=== PATIENT | female | born 1955 | race Caucasian/White ===

== ENCOUNTER 2019-06-10 13:37 | Outpatient (RCR) | payer MEDICARE, MEDICAID, SELFPAY ==
[2019-06-10 14:15] VITALS: BP 104/49; PULSE 65; RESP 18; TEMP 36.5; BMI 32.0
--- NOTE | 2019-06-10 17:10 | PCM.WC.HP ---
(1) Venous ulcer of right leg Status: Chronic Current Visit: Yes Code(s): I83.019 - Varicose veins of right lower extremity with ulcer of unspecified site; L97.919 - Non-pressure chronic ulcer of unspecified part of right lower leg with unspecified severity (2) Chronic ulcer of right leg with fat layer exposed Status: Chronic Current Visit: Yes Code(s): L97.912 - Non-pressure chronic ulcer of unspecified part of right lower leg with fat layer exposed (3) Sternal wound dehiscence Status: Chronic Current Visit: Yes Code(s): T81.32XA - Disruption of internal operation (surgical) wound, not elsewhere classified, initial encounter (4) Peripheral arterial disease Status: Chronic Current Visit: Yes Code(s): I73.9 - Peripheral vascular disease, unspecified (5) Type 2 diabetes mellitus Status: Chronic Current Visit: Yes Code(s): E11.9 - Type 2 diabetes mellitus without complications (6) Essential hypertension Status: Chronic Current Visit: No Code(s): I10 - Essential (primary) hypertension (7) Coronary artery disease involving coronary bypass graft Status: Chronic Current Visit: No Code(s): I25.810 - Atherosclerosis of coronary artery bypass graft(s) without angina pectoris (8) CHF (congestive heart failure) Status: Chronic Current Visit: Yes Code(s): I50.9 - Heart failure, unspecified (9) Diastolic dysfunction Status: Chronic Current Visit: No Code(s): I51.89 - Other ill-defined heart diseases (10) End stage renal disease on dialysis Status: Chronic Current Visit: Yes Code(s): N18.6 - End stage renal disease; Z99.2 - Dependence on renal dialysis (11) Dyslipidemia Status: Chronic Current Visit: No Code(s): E78.5 - Hyperlipidemia, unspecified (12) Chronic GERD Status: Chronic Current Visit: No Code(s): K21.9 - Gastro-esophageal reflux disease without esophagitis (13) Hypothyroidism Status: Chronic Current Visit: No Code(s): E03.9 - Hypothyroidism, unspecified (14) Depression Status: Chronic Current Visit: No Code(s): F32.9 - Major depressive disorder, single episode, unspecified (15) Steal syndrome of hand Status: Chronic Current Visit: No Code(s): T82.898A - Other specified complication of vascular prosthetic devices, implants and grafts, initial encounter (16) Anemia of chronic disease Status: Chronic Current Visit: No Code(s): D63.8 - Anemia in other chronic diseases classified elsewhere History of Present Illness Date of Service: 06/10/19 Chief Complaint: wounds on chest and right leg History of Wound: Patient is a pleasant 63-year-old female who [facility], [facility], for initial evaluation of sternal and right lower extremity wounds. She currently resides at [facility]. Patient is a very poor historian, and is unaccompanied at today's visit. The majority of details within patient's HPI were gathered from records faxed from [facility]. Patient has a PMH of T2DM, hypertension, coronary artery disease s/p recent coronary artery bypass graft, CHF, diastolic dysfunction, peripheral arteryerial disease, end-stage renal disease on hemodialysis, dyslipidemia, GERD, hypothyroidism, depression, steal syndrome in right hand, and anemia of chronic disease. She presents with a sternal wound dehiscence, and right lower extremity wound dehiscence s/p quadruple bypass open heart surgery with vein harvesting from right lower extremity, which she underwent in February 2019. Postoperatively, patient was transferred to a shelter. She was readmitted to [facility] due to wound infection at the harvesting site of right leg. She was evaluated by surgery and underwent debridement, and was transferred to the shelter. She was readmitted to [place] again, this time for sternal wound infection which required debridement and subsequent wound VAC placement. She was then transferred to [facility] for further care and IV antibiotic therapy on 05/03/2019. It is unclear from the documentation provided when she was discharged from [facility]. While at [facility], plastic surgery was consulted (Dr. Eva Pelaez). In his progress note from 05/12/2019, it was recommended that Santyl with wet gauze be applied daily to sternal wound, and NPWT at -125 mmHg continuous pressure be applied to RLE and changed 3 times per week. High-protein diet and every 2 hours turns also recommended. In his progress note from 05/19/2019, it was recommended that [employer] WT be applied at -125 mmHg continuous pressure to both external and RLE wounds, to be changed 3 times per week and as needed. High-protein diet and every 2 hours turns continued to be recommended. When patient presented to the wound healing center today, she had OPTifoam applied to her sternal wound, and Aquacel applied to her RLE wounds. She is not using any compression to lower extremities. Patient states the staff at [place] have been performing daily dressing changes to her wounds using Aquacel. She is also taking Boost supplements at bedtime to increase protein. Patient has a central venous catheter placed, but is unsure what antibiotics she is currently taking. She denies any increased redness, swelling, pain, or drainage from any of her wounds. She denies any purulent or foul-smelling drainage from her wounds. She does have erythema and swelling of her right lower extremity, which she states has improved. Her lab work from [facility] on 05/19/2019 shows WBC 7.44 and hemoglobin 9.1 (see report for full details). No other documentation is available at this time. We will request records from [facility], [facility], and [facility]. Past Medical History Past Medical History: Chronic Problems Venous ulcer of right leg (Chronic) Chronic ulcer of right leg with fat layer exposed (Chronic) Sternal wound dehiscence (Chronic) Venous insufficiency (Chronic) Type 2 diabetes mellitus (Chronic) Essential hypertension (Chronic) Coronary artery disease involving coronary bypass graft (Chronic) CHF (congestive heart failure) (Chronic) Diastolic dysfunction (Chronic) Peripheral arterial disease (Chronic) End stage renal disease on dialysis (Chronic) Dyslipidemia (Chronic) Chronic GERD (Chronic) Hypothyroidism (Chronic) Depression (Chronic) Steal syndrome of hand (Chronic) Anemia of chronic disease (Chronic) Surgical History: coronary bypass surgery - February 2019 Allergies/Adverse Reactions: Allergies No Known Allergies Allergy (Verified 06/10/19 14:43) Home Medications: Ambulatory Orders Medication Instructions Recorded Albuterol Sulfate 0.63 mg IH Q6H PRN 06/10/19 Aripiprazole 2 mg PO DAILY 06/10/19 Aspirin [Aspirin EC] 81 mg PO DAILY 06/10/19 Atorvastatin Calcium 40 mg PO QHS 06/10/19 Budesonide [Pulmicort] 0.5 mg IH Q12H 06/10/19 Bumetanide 1 mg PO DAILY 06/10/19 Bupropion HCl 100 mg PO Q12H 06/10/19 Citalopram [Celexa] 40 mg PO DAILY 06/10/19 Clopidogrel Bisulfate [Clopidogrel] 75 mg PO DAILY 06/10/19 Folic Acid/Vit B Complex and C 0.8 mg PO DAILY 06/10/19 [Renal Vitamin Tablet] Insulin Regular, Human [Humulin R] 6 unit SQ TID 06/10/19 Ipratropium/Albuterol Sulfate 3 ml INHALATION Q6H.RT PRN 06/10/19 [Duoneb] Isosorbide Mononitrate [Imdur] 60 mg PO DAILY 06/10/19 Levothyroxine Sodium [Synthroid] 100 mcg PO DAILY 06/10/19 Lisinopril 5 mg PO QHS 06/10/19 Metoprolol Succinate 25 mg PO DAILY 06/10/19 Metoprolol Succinate 75 mg PO DAILY 06/10/19 Mirtazapine [Remeron] 15 mg PO QHS 06/10/19 Oxybutynin Chloride [Oxybutynin 5 mg PO DAILY 06/10/19 Chloride ER] Oxycodone HCl/Acetaminophen 1 ea PO Q6H PRN 06/10/19 [Percocet 5-325 mg Tablet] Pantoprazole Sodium [Protonix] 40 mg PO DAILY 06/10/19 Sodium Chloride 0.65% [Mcbaine Nasal 1 spray NASAL BID 06/10/19 [place]] Lives: Prison Smoking Status: Former smoker Review of Systems Constitutional: Denies: Anorexia, Chills, Fever, Night Sweats, Fatigue Eyes: Denies: Eyelid Inflammation, Redness, Vision Change HEENT: Denies: Ear Pain, Eye Pain, Sinus Congestion, Visual Changes Cardiovascular: Denies: Chest Pain, Palpitations Respiratory: Denies: Cough, Shortness of Breath, Wheezing Gastrointestinal: Denies: Diarrhea, Nausea, Vomiting Genitourinary: Denies: Dysuria, Hematuria Musculoskeletal: Reports: Leg Pain - right leg at kesha-wound area Skin: Reports: Wounds - of sternum and RLE Neurological: Denies: Focal weakness, Tremor, Seizures Psychiatric: Reports: Depression Endocrine: Denies: Heat/ Cold Intolerance, Polydipsia, Polyuria Hematologic/ Lymphatic: Reports: Easy Bruising, Easy Bleeding - Physical Exam Vital Signs Temp Pulse Resp BP 97.7 F L 65 18 104/49 L 06/10/19 14:15 06/10/19 14:15 06/10/19 14:15 06/10/19 14:15 General: Alert, Cooperative, No apparent distress HEENT: Atraumatic, EOMI, Normocephalic Oral: Moist Mucosa Neck: Supple, No JVD, Trachea Midline Lungs: Clear to auscultation, Normal air movement, Diminished - at bilateral bases Cardiovascular: Regular rate, Regular Rhythm Abdomen: Bowel Sounds Present, Soft, Non Tender, Non-Distended Extremities: No clubbing, No cyanosis, Capillary Refill Less than 3 Seconds, No Calf Tenderness, Diminished Peripheral Pulses, Edema - 2+ pitting edema bilateral lower extremities, Tenderness - Tenderness to palpation of bilateral lower extremities, right periwound area > LLE Skin: Ulcer/ Wound - Lower sternotomy dehisced surgical wound, with subcutaneous tissue exposed. Berkley granulation tissue covers approximately 80-90% of wound bed; approximately 10-20% of wound bed and covered with whitish-silva nonviable tissue. Wound bed is moist with small amount of serosanguineous drainage. Does not probe to bone, no tunneling or undermining. No surrounding erythema, swelling, or tenderness. No purulent or foul smelling drainage. Right lower extremity surgical wounds, which have developed into chronic leg ulcers. Right medial superior ulcer with pink granulation tissue covering approximately 50% of wound bed, and moderate to large amount of slough covering approximately 50% of wound bed. There is tunneling present at 1 o'clock. Right medial inferior ulcer present with 100% coverage of wound bed with yellow slough. There is kesha-ulcer erythema and swelling of right lower extremity ulcers, with tenderness to palpation. There is a faint visible outline of surgical pen where redness was previously marked, and redness is greatly improved from those parameters. There is no warmth in right leg greater than left leg. There is no foul-smelling or purulent drainage from ulcers of right lower extremity. Wound Measurements and Assessment WC - Nurse 1 - General Ulcer Measurement Start: 06/10/19 14:15 Freq: Status: Active Protocol: Activity Type Activity Date Activity User E-Sign Co-Sign Detail Recorded Client Recorded Date Recorded By Document 06/10/19 14:15 [facility] [id number] 06/10/19 14:40 BM 06/10/19 14:15 Wound Center Nurse 1 [Ulcer Assessment] #3- LOWER STERNUM -Combined with other wound No -Current Size (cm) - Length 2.3 -Current Size (cm) - Width 2.7 -Current Size (cm) - Depth 1.5 -Total Square Cm 6.21 -Date of Last Picture (Recall this 06/10/19 field) -Photo Taken Yes -Epithelialization None Present -Tunneling No -Undermining/Tunneling No -Circular Undermining No -Exudate Amt Small -Exudate Type Sanguineous -Wound Margin Distinct, Outline Attached -Granulation Amt Large (67-100%) -Granulation Quality Red -Slough/Fibrin Yes -Necrosis Amt Small (1-33%) -Necrotic Tissue Type Adherent Slough -Texture (Kesha-wound Skin Appearance) Assessed, Scarring -Moisture (Kesha-wound Skin Appearance Assessed ) -Color (Kesha-wound Skin Appearance) Assessed -Temperature (Kesha-wound Skin No Abnormality Appearance) (Pt Warm) -Tenderness on Palpation (Kesha-wound Yes Skin Appearance) -Ulcer Cleansing Rinsed/ Irrigated with Saline -Foul Odor after Cleansing No -Anesthetic Used 4% Lidocaine Solution #2- R MEDIAL INFERIOR LE -Combined with other wound No -Current Size (cm) - Length 1.3 -Current Size (cm) - Width 0.9 -Current Size (cm) - Depth 0.2 -Total Square Cm 1.17 -Date of Last Picture (Recall this 06/10/19 field) -Photo Taken Yes -Epithelialization None Present -Tunneling No -Undermining/Tunneling No -Circular Undermining No -Exudate Amt Small -Exudate Type Serosanguineous -Wound Margin Distinct, Outline Attached -Granulation Amt None Present (0 %) -Slough/Fibrin Yes -Necrosis Amt Large (67-100%) -Necrotic Tissue Type Adherent Slough -Texture (Kesha-wound Skin Appearance) Assessed, Scarring -Moisture (Kesha-wound Skin Appearance Assessed ) -Color (Kesha-wound Skin Appearance) Assessed, Erythema -Temperature (Kesha-wound Skin No Abnormality Appearance) (Pt Warm) -Tenderness on Palpation (Kesha-wound No Skin Appearance) -Ulcer Cleansing Rinsed/ Irrigated with Saline -Foul Odor after Cleansing No -Anesthetic Used 4% Lidocaine Solution #1- R MEDIAL LE CLUSTER -Combined with other wound No -Current Size (cm) - Length 10.1 -Current Size (cm) - Width 5 -Current Size (cm) - Depth 1.3 -Total Square Cm 50.5 -Date of Last Picture (Recall this 06/10/19 field) -Photo Taken Yes -Epithelialization None Present -Tunneling Yes -Tunneling Position (O'clock) 1 -Tunneling Distance (cm) 1.8 -Undermining/Tunneling No -Circular Undermining No -Exudate Amt Large -Exudate Type Serosanguineous -Wound Margin Distinct, Outline Attached -Granulation Amt Medium (34-66%) -Granulation Quality Pale,Red -Slough/Fibrin Yes -Necrosis Amt Medium (34-66%) -Necrotic Tissue Type Adherent Slough -Texture (Kesha-wound Skin Appearance) Assessed, Scarring -Moisture (Kesha-wound Skin Appearance Assessed,Dry/ ) Scaly -Color (Kesha-wound Skin Appearance) Assessed, Erythema -Temperature (Kesha-wound Skin No Abnormality Appearance) (Pt Warm) -Tenderness on Palpation (Kesha-wound No Skin Appearance) -Ulcer Cleansing Rinsed/ Irrigated with Saline -Foul Odor after Cleansing No -Anesthetic Used 4% Lidocaine Solution [Edema Assessment] -Lower Limb Edema Present Yes -Right Calf (cm) 38.8 -Right Ankle (cm) 20.8 -Left Calf (cm) 36.8 -Left Ankle (cm) 19.6 WC - Nurse 2 - General Ulcer CM Notes Start: 06/10/19 14:15 Freq: Status: Active Protocol: Activity Type Activity Date Activity User E-Sign Co-Sign Detail Recorded Client Recorded Date Recorded By Document 06/10/19 16:55 DV [id number] 06/10/19 17:01 DV 06/10/19 16:55 Wound Center Nurse 2 [Procedure/Treatment] #3- LOWER STERNUM -Time 16:55 -Correct Patient Yes -Correct Side, Site, Position Yes -Correct Procedure No -Procedure Performed No -Wound/Ulcer Outcome Not Healed #2- R MEDIAL INFERIOR LE -Time 16:56 -Correct Patient Yes -Correct Side, Site, Position Yes -Correct Procedure No -Procedure Performed No -Wound/Ulcer Outcome Not Healed #1- R MEDIAL LE CLUSTER -Time 16:57 -Correct Patient Yes -Correct Side, Site, Position Yes -Correct Procedure Yes -Procedure Performed Yes -Type of Procedure Debridement -Clinical Debridement Subcutaneous -Post Debridement Size (cm) - Length 10.0 -Post Debridement Size (cm) - Width 6.5 -Post Debridement Size (cm) - Depth 0.4 -Total Square Cm 65.00 -Wound/Ulcer Outcome Not Healed -Ulcer Cleansing Rinsed/ Irrigated with Saline -Foul Odor after Cleansing No -Bioengineered Tissue No -Bleeding Controlled with Pressure -Offloading No -Treatment Response Procedure Tolerated Well [See Physician Procedure note for Specifics] Pain Scale: 0-10 Numeric [Pain] -Is Patient Pain Free? Yes Musculoskeletal: Tenderness - To palpation of BLE, R>L Neurological: Cranial nerves II-XII grossly intact Psych/Mental Status: Normal Affect, Anxious Debridement Note Post-Debridement Measurements/Treatment WC - Nurse 2 - General Ulcer CM Notes Start: 06/10/19 14:15 Freq: Status: Active Protocol: Activity Type Activity Date Activity User E-Sign Co-Sign Detail Recorded Client Recorded Date Recorded By Document 06/10/19 16:55 DV [id number] 06/10/19 17:01 DV 06/10/19 16:55 Wound Center Nurse 2 #3- LOWER STERNUM -Time 16:55 -Correct Patient Yes -Correct Side, Site, Position Yes -Correct Procedure No -Procedure Performed No -Wound/Ulcer Outcome Not Healed #2- R MEDIAL INFERIOR LE -Time 16:56 -Correct Patient Yes -Correct Side, Site, Position Yes -Correct Procedure No -Procedure Performed No -Wound/Ulcer Outcome Not Healed #1- R MEDIAL LE CLUSTER -Time 16:57 -Correct Patient Yes -Correct Side, Site, Position Yes -Correct Procedure Yes -Procedure Performed Yes -Type of Procedure Debridement -Clinical Debridement Subcutaneous -Post Debridement Size (cm) - Length 10.0 -Post Debridement Size (cm) - Width 6.5 -Post Debridement Size (cm) - Depth 0.4 -Total Square Cm 65.00 -Wound/Ulcer Outcome Not Healed -Ulcer Cleansing Rinsed/ Irrigated with Saline -Foul Odor after Cleansing No -Bioengineered Tissue No -Bleeding Controlled with Pressure -Offloading No -Treatment Response Procedure Tolerated Well Pain Scale: 0-10 Numeric Is Patient Pain Free? Yes Wound debrided: Lower sternum Laterality: Not Applicable No debridement was completed today - Patient refused - Additional Wound Wound debrided: Right medial inferior LE Laterality: Right Patient tolerated procedure: - - No debridement was performed on this wound today; patient refused - Additional Wound Wound debrided: Right medial LE cluster Laterality: Right Type of Debridement: Excisional debridement Anesthesia Used: 4% Lidocaine Solution, 5% Lidocaine Gel Depth: in the subcutaneous layer Percentage of wound debrided: 100 Instrument Used: 7mm curette Tissue Removed: Slough and devitalized tissue Severity: Fat Layer Exposed Amount of bleeding with debridement: Mild Bleeding Controlled with: Pressure Patient tolerated procedure: Patient did not tolerate procedure well, - - Patient refused further debridement before full, thorough debridement was completed. Moderate amount of slough remains in wound following debridement. Assessment/Plan Active Problems Venous ulcer of right leg (Chronic) Chronic ulcer of right leg with fat layer exposed (Chronic) Sternal wound dehiscence (Chronic) Venous insufficiency (Chronic) Type 2 diabetes mellitus (Chronic) CHF (congestive heart failure) (Chronic) Peripheral arterial disease (Chronic) End stage renal disease on dialysis (Chronic) Assessment: 1. Venous ulcer of right leg, chronic. 2. Chronic ulcer of right leg with fat layer exposed. 3. Sternal wound dehiscence, chronic. 4. Venous insufficiency, chronic. 5. Peripheral arterial disease, chronic. 6. T2 DM, chronic. 7. CHF, chronic. 8. End-stage renal disease on dialysis, chronic Plan: Debridement performed today in clinic as annotated above, prior to patient refusing further debridement. Risks and benefits of debridement discussed thoroughly with patient, and patient offered lidocaine injection, but patient continued to refuse debridement. Medihoney applied to wounds of sternum and right lower extremity. Double Tubigrip applied. At home wound-care instructions: Prescription for Santyl given. Santyl is to be used as directed to lower sternum wound, and inferior ulcer of right lower extremity. Dakin's solution prescribed. Dakin's is to be used to right lower extremity cluster as prescribed. Compression: Double Tubigrip. Off-loading: Avoid prolonged standing or dangling of legs. Keep feet elevated at or above waist level when seated. Diet: Patient encouraged to increase protein and vitamin C intake while taking caution to avoid high carbohydrate and/or sugar intake. Labs/cultures/imaging: Patient refused wound cultures today. Discussed risks and benefits of obtaining wound cultures. Routine baseline labwork ordered. We will request records from [facility], [facility], and [facility]. Follow-up: Follow-up with cardiothoracic surgeon as soon as possible, so they may evaluate lower sternum wound. Return to clinic in 1 week for re-evaluation. Return sooner or report to the emergency room should symptoms worsen, or new symptoms arise. Red flag symptoms reviewed, which should prompt patient to report to the ER, including but not limited to: Increasing pain, redness, or swelling surrounding any of her wounds; increase in drainage from any of her wounds; foul-smelling or purulent drainage from any of her wounds; fever, chills, nausea, or vomiting. Note: [email or web address] speech recognition kit planner software was used to create portions of this document. Sound-alike and misspelled words, as well as other kit planner errors may be contained in the documentation. Code Visit Office Visits / Consults: [id number] OV L4 New [id number]: [id number] Amena subq tissue 20 sq cm/<
--- NOTE | 2019-09-10 13:54 | WC ---
Thu, nurse from [facility] gave report on Nadya regarding her wounds on her left leg. She stated the large wound was bleeding and saturating large abd pads at least 2+ times per day. She also stated that patient is refusing her dialysis treatments which is adding to the bilateral swelling of her lower extremities. It was suggested to Thu to have her admitted to [facility] in [place] and to keep the wound center posted.
== END 2019-06-14 23:59 ==
LOC: WC 13:37
PROVIDERS: Visit Provider Nurse Practitioner Family
DX: I83.018 Varicose veins of right lower extremity with ulcer other part of lower leg (principal); L97.912 Non-pressure chronic ulcer of unspecified part of right lower leg with fat layer exposed; T81.32XA Disruption of internal operation (surgical) wound, not elsewhere classified, initial encounter; T81.49XA Infection following a procedure, other surgical site, initial encounter; T82.898A Other specified complication of vascular prosthetic devices, implants and grafts, initial encounter; Y84.8 Other medical procedures as the cause of abnormal reaction of the patient, or of later complication, without mention of misadventure at the time of the procedure; I87.2 Venous insufficiency (chronic) (peripheral); I73.9 Peripheral vascular disease, unspecified; M79.89 Other specified soft tissue disorders; I25.810 Atherosclerosis of coronary artery bypass graft(s) without angina pectoris; I11.0 Hypertensive heart disease with heart failure; I50.32 Chronic diastolic (congestive) heart failure; E11.22 Type 2 diabetes mellitus with diabetic chronic kidney disease; N18.6 End stage renal disease; D63.1 Anemia in chronic kidney disease; Z99.2 Dependence on renal dialysis; E78.5 Hyperlipidemia, unspecified; E03.9 Hypothyroidism, unspecified; K21.9 Gastro-esophageal reflux disease without esophagitis; F32.9 Major depressive disorder, single episode, unspecified; Z79.4 Long term (current) use of insulin; Z79.82 Long term (current) use of aspirin; Z79.899 Other long term (current) drug therapy; Z87.891 Personal history of nicotine dependence; Z95.1 Presence of aortocoronary bypass graft
CPT/HCPCS: 11042; 11045; 99204; G0463

== ENCOUNTER 2019-07-11 11:30 | Outpatient (RCR) | payer MEDICARE, MEDICAID, SELFPAY ==
[2019-06-15 01:11] VITALS: BP 104/49; PULSE 65; RESP 18; TEMP 36.5
[2019-06-27 09:59] VITALS: BP 151/65; PULSE 80; RESP 18; TEMP 36.2; BMI 32.0
[2019-06-27 17:16] LABS: M R Staph aureus DNA By PCR Negative (Negative); Probe Check PASS; Specimen Processing Control PASS; Staph aureus DNA By PCR NEGATIVE (Negative)
--- NOTE | 2019-06-27 18:12 | PCM.WC.HP ---
(1) Chronic ulcer of right leg with fat layer exposed Status: Chronic Current Visit: Yes Code(s): L97.912 - Non-pressure chronic ulcer of unspecified part of right lower leg with fat layer exposed (2) Anemia of chronic disease Status: Chronic Current Visit: Yes Code(s): D63.8 - Anemia in other chronic diseases classified elsewhere (3) Coronary artery disease involving coronary bypass graft Status: Chronic Current Visit: Yes Qualifiers: [place] vs. transplanted heart: [place] heart Code(s): I25.810 - Atherosclerosis of coronary artery bypass graft(s) without angina pectoris (4) End stage renal disease on dialysis Status: Chronic Current Visit: Yes Code(s): N18.6 - End stage renal disease; Z99.2 - Dependence on renal dialysis (5) Peripheral arterial disease Status: Chronic Current Visit: Yes Code(s): I73.9 - Peripheral vascular disease, unspecified (6) Venous ulcer of right leg Status: Chronic Current Visit: Yes Code(s): I83.019 - Varicose veins of right lower extremity with ulcer of unspecified site; L97.919 - Non-pressure chronic ulcer of unspecified part of right lower leg with unspecified severity (7) Type 2 diabetes mellitus Status: Chronic Current Visit: Yes Qualifiers: Diabetes mellitus halfway insulin use: without halfway use Diabetes mellitus complication status: with kidney complications Diabetes mellitus complication detail: with chronic kidney disease Chronic kidney disease stage: on chronic dialysis Qualified Code(s): E11.22 - Type 2 diabetes mellitus with diabetic chronic kidney disease; N18.6 - End stage renal disease; Z99.2 - Dependence on renal dialysis Code(s): E11.9 - Type 2 diabetes mellitus without complications History of Present Illness Date of Service: 06/29/19 Chief Complaint: open wounds right leg History of Wound: Patient is a pleasant 63-year-old female who [facility], for initial evaluation of sternal and right lower extremity wounds and was seen by Sonia Salazar. She currently resides at [facility]. Patient is a very poor historian, and is unaccompanied at today's visit. The majority of details within patient's HPI were gathered from records faxed from [facility]. Patient has a PMH of T2DM, hypertension, coronary artery disease s/p recent coronary artery bypass graft, CHF, diastolic dysfunction, peripheral arterial disease, end-stage renal disease on hemodialysis, dyslipidemia, GERD, hypothyroidism, depression, steal syndrome in right hand, and anemia of chronic disease. She presents with a sternal wound dehiscence, and right lower extremity wound dehiscence s/p quadruple bypass open heart surgery with vein harvesting from right lower extremity, which she underwent in February 2019. Postoperatively, patient was transferred to a snf. She was readmitted to [facility] due to wound infection at the harvesting site of right leg. She was evaluated by surgery and underwent debridement, and was transferred to the snf. She was readmitted to [facility] again, this time for sternal wound infection which required debridement and subsequent wound VAC placement. She was then transferred to [facility] for further care and IV antibiotic therapy on 05/03/2019. It is unclear from the documentation provided when she was discharged from [facility]. While at [facility], plastic surgery was consulted (Dr. Eva Pelaez). In his progress note from 05/12/2019, it was recommended that Santyl with wet gauze be applied daily to sternal wound, and NPWT at -125 mmHg continuous pressure be applied to RLE and changed 3 times per week. High-protein diet and every 2 hours turns also recommended. In his progress note from 05/19/2019, it was recommended that SOFTWARE [employer]ELOPER WT be applied at -125 mmHg continuous pressure to both sternal and RLE wounds, to be changed 3 times per week and as needed. High-protein diet and every 2 hours turns continued to be recommended. When patient presented to the wound healing center on 06/10/2019, she had OPTifoam applied to her sternal wound, and Aquacel applied to her RLE wounds. She is not using any compression to lower extremities and did not have a wound vac. Patient states the staff at [facility] have been performing daily dressing changes to her wounds using Aquacel. She is also taking Boost supplements at bedtime to increase protein. Patient has a central venous catheter placed, but is unsure what antibiotics she is currently taking. She denies any increased redness, swelling, pain, or drainage from any of her wounds. She denies any purulent or foul-smelling drainage from her wounds. She does have erythema and swelling of her right lower extremity, which she states has improved. Her lab work from [facility] on 05/19/2019 showed WBC 7.44 and hemoglobin 9.1 (see report for full details). No other documentation is available at this time. Records were requested from [facility], [facility], and [facility]. She returned today for follow up. They have been using Santyl and gauze to her lower extremity wound. She saw the surgeon regarding her chest wound and he removed some tissue and she will follow up with him in 1 week at [facility]. She denies any increased pain, erythema, fever or chills. Past Medical History Past Medical History: Chronic Problems Venous ulcer of right leg (Chronic) Chronic ulcer of right leg with fat layer exposed (Chronic) Sternal wound dehiscence (Chronic) Venous insufficiency (Chronic) Type 2 diabetes mellitus (Chronic) Essential hypertension (Chronic) Coronary artery disease involving coronary bypass graft (Chronic) CHF (congestive heart failure) (Chronic) Diastolic dysfunction (Chronic) Peripheral arterial disease (Chronic) End stage renal disease on dialysis (Chronic) Dyslipidemia (Chronic) Chronic GERD (Chronic) Hypothyroidism (Chronic) Depression (Chronic) Steal syndrome of hand (Chronic) Anemia of chronic disease (Chronic) Surgical History: coronary bypass surgery - February 2019 Allergies/Adverse Reactions: Allergies No Known Allergies Allergy (Verified 06/10/19 14:43) Home Medications: Ambulatory Orders Medication Instructions Recorded Albuterol Sulfate 0.63 mg IH Q6H PRN 06/10/19 Aripiprazole 2 mg PO DAILY 06/10/19 Aspirin [Aspirin EC] 81 mg PO DAILY 06/10/19 Atorvastatin Calcium 40 mg PO QHS 06/10/19 Budesonide [Pulmicort] 0.5 mg IH Q12H 06/10/19 Bumetanide 1 mg PO DAILY 06/10/19 Bupropion HCl 100 mg PO Q12H 06/10/19 Citalopram [Celexa] 40 mg PO DAILY 06/10/19 Clopidogrel Bisulfate [Clopidogrel] 75 mg PO DAILY 06/10/19 Folic Acid/Vit B Complex and C 0.8 mg PO DAILY 06/10/19 [Renal Vitamin Tablet] Insulin Regular, Human [Humulin R] 6 unit SQ TID 06/10/19 Ipratropium/Albuterol Sulfate 3 ml INHALATION Q6H.RT PRN 06/10/19 [Duoneb] Isosorbide Mononitrate [Imdur] 60 mg PO DAILY 06/10/19 Levothyroxine Sodium [Synthroid] 100 mcg PO DAILY 06/10/19 Lisinopril 5 mg PO QHS 06/10/19 Metoprolol Succinate 25 mg PO DAILY 06/10/19 Metoprolol Succinate 75 mg PO DAILY 06/10/19 Mirtazapine [Remeron] 15 mg PO QHS 06/10/19 Oxybutynin Chloride [Oxybutynin 5 mg PO DAILY 06/10/19 Chloride ER] Oxycodone HCl/Acetaminophen 1 ea PO Q6H PRN 06/10/19 [Percocet 5-325 mg Tablet] Pantoprazole Sodium [Protonix] 40 mg PO DAILY 06/10/19 Sodium Chloride 0.65% [[place] Nasal 1 spray NASAL BID 06/10/19 [place]] Lives: Care Home Smoking Status: Former smoker Tobacco Use: Non-smoker Alcohol: None Drugs: None Review of Systems Constitutional: Denies: Chills, Fever, Weight Change HEENT: Denies: Difficulty Hearing, Difficulty Swallowing, Sinus Congestion Cardiovascular: Denies: Chest Pain, Palpitations Respiratory: Denies: Cough, Shortness of Breath Gastrointestinal: Denies: Diarrhea, Nausea, Vomiting Genitourinary: Denies: Dysuria, Hematuria Musculoskeletal: Reports: Back Pain, Leg Pain Skin: Reports: Wounds Endocrine: Denies: Heat/ Cold Intolerance, Polydipsia, Polyuria Hematologic/ Lymphatic: Denies: Easy Bruising, Easy Bleeding - Physical Exam Vital Signs Temp Pulse Resp BP 97.1 F L 80 18 151/65 H 06/27/19 09:59 06/27/19 09:59 06/27/19 09:59 06/27/19 09:59 General: Alert, Oriented x3, Cooperative, No apparent distress HEENT: Atraumatic, Normocephalic Oral: Moist Mucosa Lungs: Clear to auscultation Cardiovascular: Regular rate, Regular Rhythm Abdomen: Soft, Non Tender, Bowel Sounds Not Present Extremities: No cyanosis, Capillary Refill Less than 3 Seconds, Diminished Peripheral Pulses, Edema Skin: Ulcer/ Wound Wound Measurements and Assessment WC - Nurse 1 - General Ulcer Measurement Start: 06/27/19 09:59 Freq: Status: Active Protocol: Activity Type Activity Date Activity User E-Sign Co-Sign Detail Recorded Client Recorded Date Recorded By Document 06/27/19 09:59 RB [id number] 06/27/19 10:04 RB 06/27/19 09:59 Wound Center Nurse 1 [Ulcer Assessment] #2 Medial RLE- Inferior -Combined with other wound No -Current Size (cm) - Length 1.3 -Current Size (cm) - Width 0.7 -Current Size (cm) - Depth 0.1 -Total Square Cm 0.91 -Tunneling No -Undermining/Tunneling No -Circular Undermining No -Exudate Amt Small -Exudate Type Serosanguineous -Wound Margin Flat & Intact -Granulation Amt Small (1-33%) -Granulation Quality White -Slough/Fibrin Yes -Necrosis Amt Large (67-100%) -Necrotic Tissue Type Adherent Slough -Structure Exposed N/A -Texture (Nany-wound Skin Appearance) Assessed -Moisture (Nany-wound Skin Appearance Assessed ) -Color (Nany-wound Skin Appearance) Erythema -Temperature (Nany-wound Skin No Abnormality Appearance) (Pt Warm) -Tenderness on Palpation (Nany-wound No Skin Appearance) -Ulcer Cleansing Wound Cleanser -Foul Odor after Cleansing No -Anesthetic Used 4% Lidocaine Solution,5% Lidocaine Gel #1 Medial RLE -Combined with other wound No -Current Size (cm) - Length 7.6 -Current Size (cm) - Width 5.4 -Current Size (cm) - Depth 0.8 -Total Square Cm 41.04 -Tunneling No -Undermining/Tunneling No -Circular Undermining No -Exudate Amt Medium -Exudate Type Serosanguineous -Wound Margin Thickened & Rolled Under -Granulation Amt Medium (34-66%) -Granulation Quality White -Slough/Fibrin Yes -Necrosis Amt Medium (34-66%) -Necrotic Tissue Type Adherent Slough -Structure Exposed N/A -Texture (Nany-wound Skin Appearance) Assessed -Moisture (Nany-wound Skin Appearance Assessed ) -Color (Nany-wound Skin Appearance) Erythema -Temperature (Nany-wound Skin No Abnormality Appearance) (Pt Warm) -Tenderness on Palpation (Nany-wound No Skin Appearance) -Ulcer Cleansing Wound Cleanser -Foul Odor after Cleansing No -Anesthetic Used 4% Lidocaine Solution,5% Lidocaine Gel WC - Nurse 2 - General Ulcer CM Notes Start: 06/27/19 09:59 Freq: Status: Active Protocol: Activity Type Activity Date Activity User E-Sign Co-Sign Detail Recorded Client Recorded Date Recorded By Document 06/27/19 11:09 DV [id number] 06/27/19 11:23 DV 06/27/19 11:09 Wound Center Nurse 2 [Procedure/Treatment] #4 Medial RLE- Superior -Time 11:16 -Correct Patient Yes -Correct Side, Site, Position Yes -Correct Procedure Yes -Procedure Performed Yes -Type of Procedure Debridement -Clinical Debridement Subcutaneous -Post Debridement Size (cm) - Length 0.7 -Post Debridement Size (cm) - Width 0.6 -Post Debridement Size (cm) - Depth 0.5 -Total Square Cm 0.42 -Wound/Ulcer Outcome Not Healed -Ulcer Cleansing Rinsed/ Irrigated with Saline -Foul Odor after Cleansing No -Bioengineered Tissue No -Bleeding Controlled with Pressure -Offloading No -Treatment Response Procedure Tolerated Well #3- LOWER STERNUM -Time 11:10 -Correct Patient Yes -Correct Side, Site, Position Yes -Correct Procedure No -Procedure Performed No -Post Debridement Size (cm) - Length 0 -Post Debridement Size (cm) - Width 0 -Post Debridement Size (cm) - Depth 0 -Total Square Cm 0 -Wound/Ulcer Outcome Converted #2 Medial RLE- Inferior -Time 11:12 -Correct Patient Yes -Correct Side, Site, Position Yes -Correct Procedure Yes -Procedure Performed Yes -Type of Procedure Debridement -Clinical Debridement Subcutaneous -Post Debridement Size (cm) - Length 1.3 -Post Debridement Size (cm) - Width 0.8 -Post Debridement Size (cm) - Depth 0.2 -Total Square Cm 1.04 -Wound/Ulcer Outcome Not Healed -Ulcer Cleansing Rinsed/ Irrigated with Saline -Foul Odor after Cleansing No -Bioengineered Tissue No -Bleeding Controlled with Pressure -Offloading No -Treatment Response Procedure Tolerated Well #1 Medial RLE -Time 11:14 -Correct Patient Yes -Correct Side, Site, Position Yes -Correct Procedure Yes -Procedure Performed Yes -Type of Procedure Debridement -Clinical Debridement Subcutaneous -Post Debridement Size (cm) - Length 8.5 -Post Debridement Size (cm) - Width 5.0 -Post Debridement Size (cm) - Depth 0.7 -Total Square Cm 42.50 -Wound/Ulcer Outcome Not Healed -Foul Odor after Cleansing No -Bioengineered Tissue No -Bleeding Controlled with Pressure -Offloading No -Treatment Response Procedure Tolerated Well [See Physician Procedure note for Specifics] Pain Scale: 0-10 Numeric [Pain] -Is Patient Pain Free? Yes Psych/Mental Status: Normal Affect, Appropriate Debridement Note Post-Debridement Measurements/Treatment WC - Nurse 2 - General Ulcer CM Notes Start: 06/27/19 09:59 Freq: Status: Active Protocol: Activity Type Activity Date Activity User E-Sign Co-Sign Detail Recorded Client Recorded Date Recorded By Document 06/27/19 11:09 DV [id number] 06/27/19 11:23 DV 06/27/19 11:09 Wound Center Nurse 2 #4 Medial RLE- Superior -Time 11:16 -Correct Patient Yes -Correct Side, Site, Position Yes -Correct Procedure Yes -Procedure Performed Yes -Type of Procedure Debridement -Clinical Debridement Subcutaneous -Post Debridement Size (cm) - Length 0.7 -Post Debridement Size (cm) - Width 0.6 -Post Debridement Size (cm) - Depth 0.5 -Total Square Cm 0.42 -Wound/Ulcer Outcome Not Healed -Ulcer Cleansing Rinsed/ Irrigated with Saline -Foul Odor after Cleansing No -Bioengineered Tissue No -Bleeding Controlled with Pressure -Offloading No -Treatment Response Procedure Tolerated Well #3- LOWER STERNUM -Time 11:10 -Correct Patient Yes -Correct Side, Site, Position Yes -Correct Procedure No -Procedure Performed No -Post Debridement Size (cm) - Length 0 -Post Debridement Size (cm) - Width 0 -Post Debridement Size (cm) - Depth 0 -Total Square Cm 0 -Wound/Ulcer Outcome Converted #2 Medial RLE- Inferior -Time 11:12 -Correct Patient Yes -Correct Side, Site, Position Yes -Correct Procedure Yes -Procedure Performed Yes -Type of Procedure Debridement -Clinical Debridement Subcutaneous -Post Debridement Size (cm) - Length 1.3 -Post Debridement Size (cm) - Width 0.8 -Post Debridement Size (cm) - Depth 0.2 -Total Square Cm 1.04 -Wound/Ulcer Outcome Not Healed -Ulcer Cleansing Rinsed/ Irrigated with Saline -Foul Odor after Cleansing No -Bioengineered Tissue No -Bleeding Controlled with Pressure -Offloading No -Treatment Response Procedure Tolerated Well #1 Medial RLE -Time 11:14 -Correct Patient Yes -Correct Side, Site, Position Yes -Correct Procedure Yes -Procedure Performed Yes -Type of Procedure Debridement -Clinical Debridement Subcutaneous -Post Debridement Size (cm) - Length 8.5 -Post Debridement Size (cm) - Width 5.0 -Post Debridement Size (cm) - Depth 0.7 -Total Square Cm 42.50 -Wound/Ulcer Outcome Not Healed -Foul Odor after Cleansing No -Bioengineered Tissue No -Bleeding Controlled with Pressure -Offloading No -Treatment Response Procedure Tolerated Well Pain Scale: 0-10 Numeric Is Patient Pain Free? Yes Wound debrided: lower sternum Laterality: Not Applicable No debridement was completed today - Care of this wound by cardiothoracic surgeon in [place] - Additional Wound Wound debrided: right medial LE superior Laterality: Right Type of Debridement: Excisional debridement Anesthesia Used: 4% Lidocaine Solution, 5% Lidocaine Gel Depth: Down to and including healthy tissue, in the subcutaneous layer, to muscle Percentage of wound debrided: 100 Instrument Used: 5mm curette Tissue Removed: yellow slough, devitalized tissue Severity: Fat Layer Exposed Amount of bleeding with debridement: Mild Bleeding Controlled with: Compression and gauze Patient tolerated procedure: Patient tolerated procedure well - Additional Wound Wound debrided: medial RLE Laterality: Right Type of Debridement: Excisional debridement Anesthesia Used: 4% Lidocaine Solution, 5% Lidocaine Gel Depth: Down to and including healthy tissue, in the subcutaneous layer, to muscle Percentage of wound debrided: 100 Instrument Used: 5mm curette Tissue Removed: yellow slough, devitalized tissue Severity: Fat Layer Exposed Amount of bleeding with debridement: Mild Bleeding Controlled with: Compression and gauze Patient tolerated procedure: Patient tolerated procedure well - Additional Wound Wound debrided: right medial LE inferior Laterality: Right Type of Debridement: Excisional debridement Anesthesia Used: 4% Lidocaine Solution, 5% Lidocaine Gel Depth: Down to and including healthy tissue, in the subcutaneous layer Percentage of wound debrided: 100 Instrument Used: 5mm curette Tissue Removed: yellow slough, devitalized tissue Severity: Fat Layer Exposed Amount of bleeding with debridement: Mild Bleeding Controlled with: Compression and gauze Patient tolerated procedure: Patient tolerated procedure well Assessment/Plan Active Problems Venous ulcer of right leg (Chronic) Chronic ulcer of right leg with fat layer exposed (Chronic) Type 2 diabetes mellitus (Chronic) Coronary artery disease involving coronary bypass graft (Chronic) Peripheral arterial disease (Chronic) End stage renal disease on dialysis (Chronic) Anemia of chronic disease (Chronic) Assessment: 1. Venous ulcer of right leg, chronic. 2. Chronic ulcer of right leg with fat layer exposed. 3. Sternal wound dehiscence, chronic. 4. Venous insufficiency, chronic. 5. Peripheral arterial disease, chronic. 6. T2 DM, chronic. 7. CHF, chronic. 8. End-stage renal disease on dialysis, chronic Plan: Sanjeev's right lower extremity wounds were evaluated and debrided today as above. A wound culture was taken to evaluate for infection of her right lower extremity wound. Previous records were reviewed. Treatment with antibiotics will be based on culture results. Due to the depth of the wound of her right leg and the heavy amount of drainage from the wound, I recommended wound vac treatment at 125 mm Hg. Until wound vac is obtained from [facility], she will continue to use Santyl and Aquacel to her right lower extremity with ABD. Tubigrips for compression of her LE b/l. Off-loading: Avoid prolonged standing or dangling of legs. Keep feet elevated at or above waist level when seated. Diet: Patient encouraged to increase protein and vitamin C intake while taking caution to avoid high carbohydrate and/or sugar intake. Follow-up: Follow-up with cardiothoracic surgeon as scheduled and return to wound center clinic in 1 week for re-evaluation. Return sooner or report to the emergency room should symptoms worsen, or new symptoms arise. Red flag symptoms reviewed, which should prompt patient to report to the ER, including but not limited to: Increasing pain, redness, or swelling surrounding any of her wounds; increase in drainage from any of her wounds; foul-smelling or purulent drainage from any of her wounds; fever, chills, nausea, or vomiting.
--- NOTE | 2019-06-30 08:41 | WC ---
Per Dr Hope, a script for Ciprofloxacin 500mg 1 PO daily for 14 days with an additional order for ATB to be given AFTER she receives dialysis on her days of treatment. Called [facility] and orders were relayed to YANNA Dawn on 06/30/2019 @ [id number]
[2019-07-04 11:15] VITALS: BP 137/59; PULSE 59; RESP 16; TEMP 36.4; BMI 32.0
--- NOTE | 2019-07-04 16:06 | PCM.WC.PN ---
(1) Chronic ulcer of right leg with fat layer exposed Status: Chronic Current Visit: Yes Code(s): L97.912 - Non-pressure chronic ulcer of unspecified part of right lower leg with fat layer exposed (2) Anemia of chronic disease Status: Chronic Current Visit: Yes Code(s): D63.8 - Anemia in other chronic diseases classified elsewhere (3) Coronary artery disease involving coronary bypass graft Status: Chronic Current Visit: Yes Qualifiers: [place] vs. transplanted heart: [place] heart Code(s): I25.810 - Atherosclerosis of coronary artery bypass graft(s) without angina pectoris (4) End stage renal disease on dialysis Status: Chronic Current Visit: Yes Code(s): N18.6 - End stage renal disease; Z99.2 - Dependence on renal dialysis (5) Peripheral arterial disease Status: Chronic Current Visit: Yes Code(s): I73.9 - Peripheral vascular disease, unspecified (6) Venous ulcer of right leg Status: Chronic Current Visit: Yes Code(s): I83.019 - Varicose veins of right lower extremity with ulcer of unspecified site; L97.919 - Non-pressure chronic ulcer of unspecified part of right lower leg with unspecified severity (7) Type 2 diabetes mellitus Status: Chronic Current Visit: Yes Qualifiers: Diabetes mellitus longterm insulin use: without longterm use Diabetes mellitus complication status: with kidney complications Diabetes mellitus complication detail: with chronic kidney disease Chronic kidney disease stage: on chronic dialysis Qualified Code(s): E11.22 - Type 2 diabetes mellitus with diabetic chronic kidney disease; N18.6 - End stage renal disease; Z99.2 - Dependence on renal dialysis Code(s): E11.9 - Type 2 diabetes mellitus without complications Type of Wound Date of Service: 07/04/19 Chief Complaint: open wounds right leg; open wound of chest History of Wound: Patient is a pleasant 63-year-old female who [facility], for initial evaluation of sternal and right lower extremity wounds and was seen by Sonia Paez. She currently resides at [facility]. Patient is a very poor historian, and is unaccompanied at today's visit. The majority of details within patient's HPI were gathered from records faxed from [facility]. Patient has a PMH of T2DM, hypertension, coronary artery disease s/p recent coronary artery bypass graft, CHF, diastolic dysfunction, peripheral arterial disease, end-stage renal disease on hemodialysis, dyslipidemia, GERD, hypothyroidism, depression, steal syndrome in right hand, and anemia of chronic disease. She presents with a sternal wound dehiscence, and right lower extremity wound dehiscence s/p quadruple bypass open heart surgery with vein harvesting from right lower extremity, which she underwent in February 2019. Postoperatively, patient was transferred to a longterm. She was readmitted to [facility] due to wound infection at the harvesting site of right leg. She was evaluated by surgery and underwent debridement, and was transferred to the longterm. She was readmitted to [facility] again, this time for sternal wound infection which required debridement and subsequent wound VAC placement. She was then transferred to [facility] for further care and IV antibiotic therapy on 05/03/2019. It is unclear from the documentation provided when she was discharged from [facility]. While at [facility], plastic surgery was consulted (Dr. Eva Pelaez). In his progress note from 05/12/2019, it was recommended that Santyl with wet gauze be applied daily to sternal wound, and NPWT at -125 mmHg continuous pressure be applied to RLE and changed 3 times per week. High-protein diet and every 2 hours turns also recommended. In his progress note from 05/19/2019, it was recommended that IMPROVEMENT COORDINATOR WT be applied at -125 mmHg continuous pressure to both sternal and RLE wounds, to be changed 3 times per week and as needed. High-protein diet and every 2 hours turns continued to be recommended. When patient presented to the wound healing center on 06/10/2019, she had OPTifoam applied to her sternal wound, and Aquacel applied to her RLE wounds. She is not using any compression to lower extremities and did not have a wound vac. Patient states the staff at [facility] have been performing daily dressing changes to her wounds using Aquacel. She is also taking Boost supplements at bedtime to increase protein. Patient has a central venous catheter placed, but is unsure what antibiotics she is currently taking. She denies any increased redness, swelling, pain, or drainage from any of her wounds. She denies any purulent or foul-smelling drainage from her wounds. She does have erythema and swelling of her right lower extremity, which she states has improved. Her lab work from [facility] on 05/19/2019 showed WBC 7.44 and hemoglobin 9.1 (see report for full details). No other documentation is available at this time. Records were requested from [facility], [facility], and [facility]. She returned today for follow up. They have been using Santyl and gauze to her lower extremity wound. She saw the surgeon regarding her chest wound and he removed some tissue at [facility]. She denies any increased pain, erythema, fever or chills. Progress of Wound: Sanjeev returns for follow up of right lower extremity wound and chest wound. She started on wound vac on her right leg this week but it was not applied correctly and there was breakdown and trauma to the surrounding healthy skin but it did improve overall. She saw plastic surgeon yesterday but he didn't look at her chest wound. They have been applying Santyl to her chest wound. She is on ciprofloxacin for positive wound culture with Pseudomonas and tolerating this well. - Physical Exam Vital Signs Temp Pulse Resp BP 97.6 F L 59 L 16 137/59 H 07/04/19 11:15 07/04/19 11:15 07/04/19 11:15 07/04/19 11:15 General: Alert, Oriented x3, Cooperative, No apparent distress HEENT: Atraumatic, Normocephalic Oral: Moist Mucosa Neck: Supple Cardiovascular: Regular rate, Regular Rhythm Abdomen: Obese Extremities: Edema Skin: Ulcer/ Wound Wound Measurements and Assessment WC - Nurse 1 - General Ulcer Measurement Start: 06/27/19 09:59 Freq: Status: Active Protocol: Activity Type Activity Date Activity User E-Sign Co-Sign Detail Recorded Client Recorded Date Recorded By Document 07/04/19 11:15 [facility] [id number] 07/04/19 11:25 [facility] 07/04/19 11:15 Wound Center Nurse 1 [Ulcer Assessment] #4 Medial RLE- Superior -Combined with other wound No -Current Size (cm) - Length 0.5 -Current Size (cm) - Width 0.7 -Current Size (cm) - Depth 0.4 -Total Square Cm 0.35 -Photo Taken No -Epithelialization None Present -Tunneling No -Undermining/Tunneling No -Circular Undermining No -Exudate Amt Small -Exudate Type Serous -Wound Margin Distinct, Outline Attached -Granulation Amt Small (1-33%) -Granulation Quality [place] -Slough/Fibrin Yes -Necrosis Amt Large (67-100%) -Necrotic Tissue Type Adherent Slough -Texture (Nany-wound Skin Appearance) Assessed, Scarring -Moisture (Nany-wound Skin Appearance Assessed ) -Color (Nany-wound Skin Appearance) Assessed, Erythema -Temperature (Nany-wound Skin No Abnormality Appearance) (Pt Warm) -Tenderness on Palpation (Nany-wound Yes Skin Appearance) -Ulcer Cleansing soapy water -Foul Odor after Cleansing No -Anesthetic Used 4% Lidocaine Solution #2 Medial RLE- Inferior -Combined with other wound No -Current Size (cm) - Length 1.5 -Current Size (cm) - Width 0.8 -Current Size (cm) - Depth 0.3 -Total Square Cm 1.20 -Photo Taken No -Epithelialization None Present -Tunneling No -Undermining/Tunneling No -Circular Undermining No -Exudate Amt Small -Exudate Type Serous -Wound Margin Distinct, Outline Attached -Granulation Amt Small (1-33%) -Granulation Quality [place] -Slough/Fibrin Yes -Necrosis Amt Large (67-100%) -Necrotic Tissue Type Adherent Slough -Texture (Nany-wound Skin Appearance) Assessed, Scarring -Moisture (Nany-wound Skin Appearance Assessed ) -Color (Nany-wound Skin Appearance) Assessed, Erythema -Temperature (Nany-wound Skin No Abnormality Appearance) (Pt Warm) -Tenderness on Palpation (Nany-wound Yes Skin Appearance) -Ulcer Cleansing soapy water -Foul Odor after Cleansing No -Anesthetic Used 4% Lidocaine Solution #1 Medial RLE -Combined with other wound No -Current Size (cm) - Length 7.6 -Current Size (cm) - Width 5.5 -Current Size (cm) - Depth 1 -Total Square Cm 41.80 -Photo Taken No -Epithelialization Small 1-33% -Tunneling No -Undermining/Tunneling No -Circular Undermining No -Exudate Amt Large -Exudate Type Serosanguineous -Wound Margin Distinct, Outline Attached -Granulation Amt Large (67-100%) -Granulation Quality Red -Slough/Fibrin Yes -Necrosis Amt Small (1-33%) -Necrotic Tissue Type Adherent Slough -Texture (Nany-wound Skin Appearance) Assessed, Scarring -Moisture (Nany-wound Skin Appearance Assessed, ) Maceration -Color (Nany-wound Skin Appearance) Assessed, Erythema,Palor -Temperature (Nany-wound Skin No Abnormality Appearance) (Pt Warm) -Tenderness on Palpation (Nany-wound Yes Skin Appearance) -Ulcer Cleansing soapy water -Foul Odor after Cleansing No -Anesthetic Used 4% Lidocaine Solution [Edema Assessment] -Lower Limb Edema Present Yes -Right Calf (cm) 34.6 -Right Ankle (cm) 20.6 WC - Nurse 2 - General Ulcer CM Notes Start: 06/27/19 09:59 Freq: Status: Active Protocol: Activity Type Activity Date Activity User E-Sign Co-Sign Detail Recorded Client Recorded Date Recorded By Document 07/04/19 11:39 DV [id number] 07/04/19 12:15 DV 07/04/19 11:39 Wound Center Nurse 2 [Procedure/Treatment] #4 Medial RLE- Superior -Time 11:46 -Correct Patient Yes -Correct Side, Site, Position Yes -Correct Procedure Yes -Procedure Performed Yes -Type of Procedure Debridement -Clinical Debridement Subcutaneous -Post Debridement Size (cm) - Length 0.7 -Post Debridement Size (cm) - Width 0.6 -Post Debridement Size (cm) - Depth 0.7 -Total Square Cm 0.42 -Wound/Ulcer Outcome Not Healed -Ulcer Cleansing Rinsed/ Irrigated with Saline -Foul Odor after Cleansing No -Bioengineered Tissue No -Bleeding Controlled with Pressure -Offloading Yes -Treatment Response Procedure Tolerated Well #3- LOWER STERNUM -Time 12:03 -Correct Patient Yes -Correct Side, Site, Position Yes -Correct Procedure Yes -Procedure Performed Yes -Type of Procedure Debridement -Clinical Debridement Subcutaneous -Post Debridement Size (cm) - Length 0.3 -Post Debridement Size (cm) - Width 0.9 -Post Debridement Size (cm) - Depth 0.2 -Total Square Cm 0.27 -Wound/Ulcer Outcome Not Healed -Ulcer Cleansing Rinsed/ Irrigated with Saline -Foul Odor after Cleansing No -Bioengineered Tissue No -Bleeding Controlled with Pressure -Offloading No -Treatment Response Procedure Tolerated Well #2 Medial RLE- Inferior -Time 11:47 -Correct Patient Yes -Correct Side, Site, Position Yes -Correct Procedure Yes -Procedure Performed Yes -Type of Procedure Debridement -Clinical Debridement Subcutaneous -Post Debridement Size (cm) - Length 0.9 -Post Debridement Size (cm) - Width 0.9 -Post Debridement Size (cm) - Depth 0.2 -Total Square Cm 0.81 -Wound/Ulcer Outcome Not Healed -Ulcer Cleansing Rinsed/ Irrigated with Saline -Foul Odor after Cleansing No -Bioengineered Tissue No -Bleeding Controlled with Pressure -Offloading Yes -Treatment Response Procedure Tolerated Well #1 Medial RLE -Time 11:47 -Correct Patient Yes -Correct Side, Site, Position Yes -Correct Procedure Yes -Procedure Performed Yes -Type of Procedure Debridement -Clinical Debridement Subcutaneous -Post Debridement Size (cm) - Length 9.2 -Post Debridement Size (cm) - Width 5.4 -Post Debridement Size (cm) - Depth 0.7 -Total Square Cm 49.68 -Wound/Ulcer Outcome Not Healed -Foul Odor after Cleansing No -Bioengineered Tissue No -Bleeding Controlled with Pressure -Offloading Yes -Treatment Response Procedure Tolerated Well [See Physician Procedure note for Specifics] Pain Scale: 0-10 Numeric [Pain] -Is Patient Pain Free? Yes Psych/Mental Status: Normal Affect, Appropriate Debridement Note Post-Debridement Measurements/Treatment WC - Nurse 2 - General Ulcer CM Notes Start: 06/27/19 09:59 Freq: Status: Active Protocol: Activity Type Activity Date Activity User E-Sign Co-Sign Detail Recorded Client Recorded Date Recorded By Document 06/27/19 11:09 DV [id number] 06/27/19 11:23 DV Document 07/04/19 11:39 DV [id number] 07/04/19 12:15 DV 06/27/19 07/04/19 11:09 11:39 Wound Center Nurse 2 #4 Medial RLE- Superior -Time 11:16 11:46 -Correct Patient Yes Yes -Correct Side, Site, Position Yes Yes -Correct Procedure Yes Yes -Procedure Performed Yes Yes -Type of Procedure Debridement Debridement -Clinical Debridement Subcutaneous Subcutaneous -Post Debridement Size (cm) - Length 0.7 0.7 -Post Debridement Size (cm) - Width 0.6 0.6 -Post Debridement Size (cm) - Depth 0.5 0.7 -Total Square Cm 0.42 0.42 -Wound/Ulcer Outcome Not Healed Not Healed -Ulcer Cleansing Rinsed/ Rinsed/ Irrigated with Irrigated with Saline Saline -Foul Odor after Cleansing No No -Bioengineered Tissue No No -Bleeding Controlled with Pressure Pressure -Offloading No Yes -Treatment Response Procedure Procedure Tolerated Well Tolerated Well #3- LOWER STERNUM -Time 11:10 12:03 -Correct Patient Yes Yes -Correct Side, Site, Position Yes Yes -Correct Procedure No Yes -Procedure Performed No Yes -Type of Procedure Debridement -Clinical Debridement Subcutaneous -Post Debridement Size (cm) - Length 0 0.3 -Post Debridement Size (cm) - Width 0 0.9 -Post Debridement Size (cm) - Depth 0 0.2 -Total Square Cm 0 0.27 -Wound/Ulcer Outcome Converted Not Healed -Ulcer Cleansing Rinsed/ Irrigated with Saline -Foul Odor after Cleansing No -Bioengineered Tissue No -Bleeding Controlled with Pressure -Offloading No -Treatment Response Procedure Tolerated Well #2 Medial RLE- Inferior -Time 11:12 11:47 -Correct Patient Yes Yes -Correct Side, Site, Position Yes Yes -Correct Procedure Yes Yes -Procedure Performed Yes Yes -Type of Procedure Debridement Debridement -Clinical Debridement Subcutaneous Subcutaneous -Post Debridement Size (cm) - Length 1.3 0.9 -Post Debridement Size (cm) - Width 0.8 0.9 -Post Debridement Size (cm) - Depth 0.2 0.2 -Total Square Cm 1.04 0.81 -Wound/Ulcer Outcome Not Healed Not Healed -Ulcer Cleansing Rinsed/ Rinsed/ Irrigated with Irrigated with Saline Saline -Foul Odor after Cleansing No No -Bioengineered Tissue No No -Bleeding Controlled with Pressure Pressure -Offloading No Yes -Treatment Response Procedure Procedure Tolerated Well Tolerated Well #1 Medial RLE -Time 11:14 11:47 -Correct Patient Yes Yes -Correct Side, Site, Position Yes Yes -Correct Procedure Yes Yes -Procedure Performed Yes Yes -Type of Procedure Debridement Debridement -Clinical Debridement Subcutaneous Subcutaneous -Post Debridement Size (cm) - Length 8.5 9.2 -Post Debridement Size (cm) - Width 5.0 5.4 -Post Debridement Size (cm) - Depth 0.7 0.7 -Total Square Cm 42.50 49.68 -Wound/Ulcer Outcome Not Healed Not Healed -Foul Odor after Cleansing No No -Bioengineered Tissue No No -Bleeding Controlled with Pressure Pressure -Offloading No Yes -Treatment Response Procedure Procedure Tolerated Well Tolerated Well Pain Scale: 0-10 Numeric Is Patient Pain Free? Yes Yes Wound debrided: lower sternum Laterality: Not Applicable Type of Debridement: Excisional debridement Anesthesia Used: 4% Lidocaine Solution Depth: Down to and including healthy tissue, in the subcutaneous layer Percentage of wound debrided: 100 Instrument Used: #15 blade, Forceps Tissue Removed: yellow slough, devitalized tissue Severity: Fat Layer Exposed Amount of bleeding with debridement: Mild Bleeding Controlled with: Compression and gauze Patient tolerated procedure well - Additional Wound Wound debrided: right medial LE Laterality: Right Type of Debridement: Excisional debridement Anesthesia Used: 4% Lidocaine Solution, 5% Lidocaine Gel Depth: Down to and including healthy tissue, in the subcutaneous layer Percentage of wound debrided: 100 Instrument Used: 5mm curette Tissue Removed: yellow slough, devitalized tissue Severity: Fat Layer Exposed Amount of bleeding with debridement: Mild Bleeding Controlled with: Compression and gauze Patient tolerated procedure: Patient tolerated procedure well - Additional Wound Wound debrided: right medial LE superior Laterality: Right Type of Debridement: Excisional debridement Anesthesia Used: 4% Lidocaine Solution, 5% Lidocaine Gel Depth: Down to and including healthy tissue, in the subcutaneous layer Percentage of wound debrided: 100 Instrument Used: 5mm curette Tissue Removed: yellow slough, devitalized tissue Severity: Fat Layer Exposed Amount of bleeding with debridement: Mild Bleeding Controlled with: Compression and gauze Patient tolerated procedure: Patient tolerated procedure well - Additional Wound Wound debrided: right medial LE inferior Laterality: Right Type of Debridement: Excisional debridement Anesthesia Used: 4% Lidocaine Solution, 5% Lidocaine Gel Depth: Down to and including healthy tissue, in the subcutaneous layer Percentage of wound debrided: 100 Instrument Used: 3mm curette Tissue Removed: yellow slough, devitalized tissue Severity: Fat Layer Exposed Amount of bleeding with debridement: Mild Bleeding Controlled with: Compression and gauze Patient tolerated procedure: Patient tolerated procedure well Assessment/Plan Active Problems Venous ulcer of right leg (Chronic) Chronic ulcer of right leg with fat layer exposed (Chronic) Type 2 diabetes mellitus (Chronic) Coronary artery disease involving coronary bypass graft (Chronic) Peripheral arterial disease (Chronic) End stage renal disease on dialysis (Chronic) Anemia of chronic disease (Chronic) Assessment: 1. Venous ulcer of right leg, chronic. 2. Chronic ulcer of right leg with fat layer exposed. 3. Sternal wound dehiscence, chronic. 4. Venous insufficiency, chronic. 5. Peripheral arterial disease, chronic. 6. T2 DM, chronic. 7. CHF, chronic. 8. End-stage renal disease on dialysis, chronic Plan: Sanjeev's right lower extremity wounds were evaluated and debrided today as above. She is tolerating wound vac and antibiotic treatment. Previous records were reviewed. Due to the depth of the wound of her right leg and the heavy amount of drainage from the wound, I recommend wound vac treatment at 125 mm Hg continued. She will continue to use Santyl to her chest wound. Tubigrips for compression of her LE b/l. Off-loading: Avoid prolonged standing or dangling of legs. Keep feet elevated at or above waist level when seated. Diet: Patient encouraged to increase protein and vitamin C intake while taking caution to avoid high carbohydrate and/or sugar intake. Follow-up: Follow-up with cardiothoracic surgeon as scheduled and return to wound center clinic in 1 week for re-evaluation. Return sooner or report to the emergency room should symptoms worsen, or new symptoms arise. Red flag symptoms reviewed, which should prompt patient to report to the ER, including but not limited to: Increasing pain, redness, or swelling surrounding any of her wounds; increase in drainage from any of her wounds; foul-smelling or purulent drainage from any of her wounds; fever, chills, nausea, or vomiting.
[2019-07-11 11:56] VITALS: BP 128/53; PULSE 68; RESP 18; TEMP 36.6; BMI 32.0
--- NOTE | 2019-07-11 16:56 | PN.PCM_ITS ---
(1) Chronic ulcer of right leg with fat layer exposed Status: Chronic Current Visit: Yes Code(s): L97.912 - Non-pressure chronic ulcer of unspecified part of right lower leg with fat layer exposed (2) Anemia of chronic disease Status: Chronic Current Visit: Yes Code(s): D63.8 - Anemia in other chronic diseases classified elsewhere (3) Coronary artery disease involving coronary bypass graft Status: Chronic Current Visit: Yes Qualifiers: [place] vs. transplanted heart: [place] heart Code(s): I25.810 - Atherosclerosis of coronary artery bypass graft(s) without angina pectoris (4) End stage renal disease on dialysis Status: Chronic Current Visit: Yes Code(s): N18.6 - End stage renal disease; Z99.2 - Dependence on renal dialysis (5) Peripheral arterial disease Status: Chronic Current Visit: Yes Code(s): I73.9 - Peripheral vascular disease, unspecified (6) Venous ulcer of right leg Status: Chronic Current Visit: Yes Code(s): I83.019 - Varicose veins of right lower extremity with ulcer of unspecified site; L97.919 - Non-pressure chronic ulcer of unspecified part of right lower leg with unspecified severity (7) Type 2 diabetes mellitus Status: Chronic Current Visit: Yes Qualifiers: Diabetes mellitus jail insulin use: without jail use Diabetes mellitus complication status: with kidney complications Diabetes mellitus complication detail: with chronic kidney disease Chronic kidney disease stage: on chronic dialysis Qualified Code(s): E11.22 - Type 2 diabetes mellitus with diabetic chronic kidney disease; N18.6 - End stage renal disease; Z99.2 - Dependence on renal dialysis Code(s): E11.9 - Type 2 diabetes mellitus without complications Type of Wound Date of Service: 07/11/19 Chief Complaint: open wounds right leg; open wound of chest History of Wound: Patient is a pleasant 63-year-old female who [facility], for initial evaluation of sternal and right lower extremity wounds and was seen by Sonia Paez. She currently resides at [facility]. Patient is a very poor historian, and is unaccompanied at today's visit. The majority of details within patient's HPI were gathered from records faxed from [facility] [facility]. Patient has a PMH of T2DM, hypertension, coronary artery disease s/p recent coronary artery bypass graft, CHF, diastolic dysfunction, peripheral arterial disease, end-stage renal disease on hemodialysis, dyslipidemia, GERD, hypothyroidism, depression, steal syndrome in right hand, and anemia of chronic disease. She presents with a sternal wound dehiscence, and right lower extremity wound dehiscence s/p quadruple bypass open heart surgery with vein harvesting from right lower extremity, which she underwent in February 2019. Postoperatively, patient was transferred to a halfway. She was readmitted to [facility] due to wound infection at the harvesting site of right leg. She was evaluated by surgery and underwent debridement, and was transferred to the halfway. She was readmitted to [place] again, this time for sternal wound infection which required debridement and subsequent wound VAC placement. She was then transferred to [facility] for further care and IV antibiotic therapy on 05/03/2019. It is unclear from the documentation provided when she was discharged from [facility]. While at [facility], plastic surgery was consulted (Dr. Eva Pelaez). In his progress note from 05/12/2019, it was recommended that Santyl with wet gauze be applied daily to sternal wound, and NPWT at -125 mmHg continuous pressure be applied to RLE and changed 3 times per week. High-protein diet and every 2 hours turns also recommended. In his progress note from 05/19/2019, it was recommended that [employer] WT be applied at -125 mmHg continuous pressure to both sternal and RLE wounds, to be changed 3 times per week and as needed. High- protein diet and every 2 hours turns continued to be recommended. When patient presented to the wound healing center on 06/10/2019, she had OPTifoam applied to her sternal wound, and Aquacel applied to her RLE wounds. She is not using any compression to lower extremities and did not have a wound vac. Patient states the staff at [facility] have been performing daily dressing changes to her wounds using Aquacel. She is also taking Boost supplements at bedtime to increase protein. Patient has a central venous catheter placed, but is unsure what antibiotics she is currently taking. She denies any increased redness, swelling, pain, or drainage from any of her wounds. She denies any purulent or foul-smelling drainage from her wounds. She does have erythema and swelling of her right lower extremity, which she states has improved. Her lab work from [facility] on 05/19/2019 showed WBC 7.44 and hemoglobin 9.1 (see report for full details). No other documentation is available at this time. Records were requested from [facility], [facility], and [facility]. She returned today for follow up. They have been using Santyl and gauze to her lower extremity wound. She saw the surgeon regarding her chest wound and he removed some tissue at [facility]. She denies any increased pain, erythema, fever or chills. Progress of Wound: Sanjeev returns for follow up of right lower extremity wound and chest wound. The right lower extremity wound still does not show much improvement and the trauma from when it was incorrectly applied last week is still present and in the process of healing. She has increased odor to her ulcer this week even being on anctibiotics and her leg has increased erythema. Her chest wound looks great. They have been applying Santyl to her chest wound. She is on ciprofloxacin for positive wound culture with Pseudomonas and tolerating this well. She does admit to not elevating her legs much during the day. Her nu rse at [facility] also reports that she has not been wanting to go to dialysis and has skipped 2 treatments in the last 2 weeks. - Physical Exam Vital Signs Temp Pulse Resp BP 97.8 F 68 18 128/53 H 07/11/19 11:56 07/11/19 11:56 07/11/19 11:56 07/11/19 11:56 General: Alert, Oriented x3, Cooperative, No apparent distress HEENT: Atraumatic, Normocephalic Oral: Moist Mucosa Abdomen: Obese Extremities: Edema Skin: Ulcer/ Wound Wound Measurements and Assessment WC - Nurse 1 - General Ulcer Measurement Start: 06/27/19 09:59 Freq: Status: Active Protocol: Activity Type Activity Date Activity User E-Sign Co-Sign Detail Recorded Client Recorded Date Recorded By Document 07/11/19 11:52 [facility] [id number] 07/11/19 11:56 [facility] 07/11/19 11:52 Wound Center Nurse 1 [Ulcer Assessment] #4 Medial RLE- Superior -Combined with other wound No -Current Size (cm) - Length 0.5 -Current Size (cm) - Width 0.7 -Current Size (cm) - Depth 0.5 -Total Square Cm 0.35 -Tunneling No -Undermining/Tunneling No -Circular Undermining No -Exudate Amt Medium -Exudate Type Serosanguineous -Wound Margin Thickened & Rolled Under -Granulation Amt Medium (34-66%) -Granulation Quality [place],Red -Slough/Fibrin Yes -Necrosis Amt Medium (34-66%) -Necrotic Tissue Type Adherent Slough -Structure Exposed N/A -Texture (Nany-wound Skin Appearance) Scarring -Moisture (Nany-wound Skin Appearance Maceration ) -Color (Nany-wound Skin Appearance) Erythema -Temperature (Nnay-wound Skin No Abnormality Appearance) (Pt Warm) -Tenderness on Palpation (Nany-wound No Skin Appearance) -Ulcer Cleansing Wound Cleanser -Foul Odor after Cleansing No -Anesthetic Used 4% Lidocaine Solution #2 Medial RLE- Inferior -Combined with other wound No -Current Size (cm) - Length 1.1 -Current Size (cm) - Width 0.6 -Current Size (cm) - Depth 0.2 -Total Square Cm 0.66 -Tunneling No -Undermining/Tunneling No -Circular Undermining No -Exudate Amt Medium -Exudate Type Serosanguineous -Wound Margin Distinct, Outline Attached -Granulation Amt Small (1-33%) -Granulation Quality [place] -Necrosis Amt Large (67-100%) -Necrotic Tissue Type Adherent Slough -Structure Exposed N/A -Texture (Nany-wound Skin Appearance) Scarring -Moisture (Nany-wound Skin Appearance Maceration ) -Color (Nany-wound Skin Appearance) Erythema -Temperature (Nany-wound Skin No Abnormality Appearance) (Pt Warm) -Tenderness on Palpation (Nany-wound No Skin Appearance) -Ulcer Cleansing Wound Cleanser -Foul Odor after Cleansing No -Anesthetic Used 4% Lidocaine Solution #1 Medial RLE -Combined with other wound No -Current Size (cm) - Length 9.2 -Current Size (cm) - Width 5.5 -Current Size (cm) - Depth 1.1 -Total Square Cm 50.60 -Tunneling No -Undermining/Tunneling No -Circular Undermining No -Exudate Amt Large -Exudate Type Serosanguineous -Wound Margin Thickened & Rolled Under -Granulation Amt Medium (34-66%) -Granulation Quality [place] -Slough/Fibrin Yes -Necrosis Amt Medium (34-66%) -Necrotic Tissue Type Adherent Slough -Structure Exposed N/A -Texture (Nany-wound Skin Appearance) Scarring -Moisture (Nany-wound Skin Appearance Maceration ) -Color (Nany-wound Skin Appearance) Erythema -Temperature (Nany-wound Skin No Abnormality Appearance) (Pt Warm) -Tenderness on Palpation (Nany-wound No Skin Appearance) -Ulcer Cleansing Wound Cleanser -Foul Odor after Cleansing No -Anesthetic Used 4% Lidocaine Solution [Edema Assessment] -Lower Limb Edema Present Yes -Right Calf (cm) 38.7 -Right Ankle (cm) 20.8 WC - Nurse 2 - General Ulcer CM Notes Start: 06/27/19 09:59 Freq: Status: Active Protocol: Activity Type Activity Date Activity User E-Sign Co-Sign Detail Recorded Client Recorded Date Recorded By Document 07/11/19 12:31 DV [id number] 07/11/19 12:36 DV 07/11/19 12:31 Wound Center Nurse 2 [Procedure/Treatment] #4 Medial RLE- Superior -Time 12:33 -Correct Patient Yes -Correct Side, Site, Position Yes -Correct Procedure Yes -Procedure Performed Yes -Type of Procedure Debridement -Clinical Debridement Subcutaneous -Post Debridement Size (cm) - Length 1.1 -Post Debridement Size (cm) - Width 1.8 -Post Debridement Size (cm) - Depth 0.6 -Total Square Cm 1.98 -Wound/Ulcer Outcome Not Healed -Ulcer Cleansing Rinsed/ Irrigated with Saline -Foul Odor after Cleansing No -Bioengineered Tissue No -Bleeding Controlled with Pressure -Offloading No -Treatment Response Procedure Tolerated Well #3- LOWER STERNUM -Time 12:34 -Correct Patient Yes -Correct Side, Site, Position Yes -Correct Procedure Yes -Procedure Performed Yes -Type of Procedure Debridement -Clinical Debridement Selective -Post Debridement Size (cm) - Length 0.1 -Post Debridement Size (cm) - Width 0.2 -Post Debridement Size (cm) - Depth 0.1 -Total Square Cm 0.02 -Wound/Ulcer Outcome Not Healed -Ulcer Cleansing Rinsed/ Irrigated with Saline -Foul Odor after Cleansing No -Bioengineered Tissue No -Bleeding Controlled with Pressure -Offloading No -Treatment Response Procedure Tolerated Well #2 Medial RLE- Inferior -Time 12:35 -Correct Patient Yes -Correct Side, Site, Position Yes -Correct Procedure Yes -Procedure Performed Yes -Type of Procedure Debridement -Clinical Debridement Subcutaneous -Post Debridement Size (cm) - Length 1.3 -Post Debridement Size (cm) - Width 1.0 -Post Debridement Size (cm) - Depth 0.2 -Total Square Cm 1.30 -Wound/Ulcer Outcome Not Healed -Ulcer Cleansing Rinsed/ Irrigated with Saline -Foul Odor after Cleansing No -Bioengineered Tissue No -Bleeding Controlled with Pressure -Offloading No -Treatment Response Procedure Tolerated Well #1 Medial RLE -Time 12:35 -Correct Patient Yes -Correct Side, Site, Position Yes -Correct Procedure Yes -Procedure Performed Yes -Type of Procedure Debridement -Clinical Debridement Subcutaneous -Post Debridement Size (cm) - Length 8.0 -Post Debridement Size (cm) - Width 6.0 -Post Debridement Size (cm) - Depth 0.5 -Total Square Cm 48.00 -Wound/Ulcer Outcome Not Healed -Ulcer Cleansing Rinsed/ Irrigated with Saline -Foul Odor after Cleansing No -Bleeding Controlled with Pressure -Offloading No -Treatment Response Procedure Tolerated Well [See Physician Procedure note for Specifics] Pain Scale: 0-10 Numeric [Pain] -Is Patient Pain Free? Yes Psych/Mental Status: Normal Affect, Appropriate Debridement Note Post-Debridement Measurements/Treatment WC - Nurse 2 - General Ulcer CM Notes Start: 06/27/19 09:59 Freq: Status: Active Protocol: Activity Type Activity Date Activity User E-Sign Co-Sign Detail Recorded Client Recorded Date Recorded By Document 06/27/19 11:09 DV [id number] 06/27/19 11:23 DV Document 07/04/19 11:39 DV [id number] 07/04/19 12:15 DV Document 07/11/19 12:31 DV [id number] 07/11/19 12:36 DV 06/27/19 07/04/19 07/11/19 11:09 11:39 12:31 Wound Center Nurse 2 #4 Medial RLE- Superior -Time 11:16 11:46 12:33 -Correct Patient Yes Yes Yes -Correct Side, Site, Position Yes Yes Yes -Correct Procedure Yes Yes Yes -Procedure Performed Yes Yes Yes -Type of Procedure Debridement Debridement Debridement -Clinical Debridement Subcutaneous Subcutaneous Subcutaneous -Post Debridement Size (cm) - Length 0.7 0.7 1.1 -Post Debridement Size (cm) - Width 0.6 0.6 1.8 -Post Debridement Size (cm) - Depth 0.5 0.7 0.6 -Total Square Cm 0.42 0.42 1.98 -Wound/Ulcer Outcome Not Healed Not Healed Not Healed -Ulcer Cleansing Rinsed/ Rinsed/ Rinsed/ Irrigated with Irrigated with Irrigated with Saline Saline Saline -Foul Odor after Cleansing No No No -Bioengineered Tissue No No No -Bleeding Controlled with Pressure Pressure Pressure -Offloading No Yes No -Treatment Response Procedure Procedure Procedure Tolerated Well Tolerated Well Tolerated Well #3- LOWER STERNUM -Time 11:10 12:03 12:34 -Correct Patient Yes Yes Yes -Correct Side, Site, Position Yes Yes Yes -Correct Procedure No Yes Yes -Procedure Performed No Yes Yes -Type of Procedure Debridement Debridement -Clinical Debridement Subcutaneous Selective -Post Debridement Size (cm) - Length 0 0.3 0.1 -Post Debridement Size (cm) - Width 0 0.9 0.2 -Post Debridement Size (cm) - Depth 0 0.2 0.1 -Total Square Cm 0 0.27 0.02 -Wound/Ulcer Outcome Converted Not Healed Not Healed -Ulcer Cleansing Rinsed/ Rinsed/ Irrigated with Irrigated with Saline Saline -Foul Odor after Cleansing No No -Bioengineered Tissue No No -Bleeding Controlled with Pressure Pressure -Offloading No No -Treatment Response Procedure Procedure Tolerated Well Tolerated Well #2 Medial RLE- Inferior -Time 11:12 11:47 12:35 -Correct Patient Yes Yes Yes -Correct Side, Site, Position Yes Yes Yes -Correct Procedure Yes Yes Yes -Procedure Performed Yes Yes Yes -Type of Procedure Debridement Debridement Debridement -Clinical Debridement Subcutaneous Subcutaneous Subcutaneous -Post Debridement Size (cm) - Length 1.3 0.9 1.3 -Post Debridement Size (cm) - Width 0.8 0.9 1.0 -Post Debridement Size (cm) - Depth 0.2 0.2 0.2 -Total Square Cm 1.04 0.81 1.30 -Wound/Ulcer Outcome Not Healed Not Healed Not Healed -Ulcer Cleansing Rinsed/ Rinsed/ Rinsed/ Irrigated with Irrigated with Irrigated with Saline Saline Saline -Foul Odor after Cleansing No No No -Bioengineered Tissue No No No -Bleeding Controlled with Pressure Pressure Pressure -Offloading No Yes No -Treatment Response Procedure Procedure Procedure Tolerated Well Tolerated Well Tolerated Well #1 Medial RLE -Time 11:14 11:47 12:35 -Correct Patient Yes Yes Yes -Correct Side, Site, Position Yes Yes Yes -Correct Procedure Yes Yes Yes -Procedure Performed Yes Yes Yes -Type of Procedure Debridement Debridement Debridement -Clinical Debridement Subcutaneous Subcutaneous Subcutaneous -Post Debridement Size (cm) - Length 8.5 9.2 8.0 -Post Debridement Size (cm) - Width 5.0 5.4 6.0 -Post Debridement Size (cm) - Depth 0.7 0.7 0.5 -Total Square Cm 42.50 49.68 48.00 -Wound/Ulcer Outcome Not Healed Not Healed Not Healed -Ulcer Cleansing Rinsed/ Irrigated with Saline -Foul Odor after Cleansing No No No -Bioengineered Tissue No No -Bleeding Controlled with Pressure Pressure Pressure -Offloading No Yes No -Treatment Response Procedure Procedure Procedure Tolerated Well Tolerated Well Tolerated Well Pain Scale: 0-10 Numeric Is Patient Pain Free? Yes Yes Yes Wound debrided: medial right LE superior Laterality: Right Type of Debridement: Excisional debridement Anesthesia Used: 4% Lidocaine Solution, 5% Lidocaine Gel Depth: Down to and including healthy tissue, in the subcutaneous layer Percentage of wound debrided: 100 Instrument Used: 5mm curette Tissue Removed: yellow slough, devitalized tissue Severity: Fat Layer Exposed Amount of bleeding with debridement: Mild Bleeding Controlled with: Compression and gauze Patient tolerated procedure well - Additional Wound Wound debrided: medial right LE Laterality: Right Type of Debridement: Excisional debridement Anesthesia Used: 4% Lidocaine Solution, 5% Lidocaine Gel Depth: Down to and including healthy tissue, in the subcutaneous layer, to muscle Percentage of wound debrided: 100 Instrument Used: 5mm curette Tissue Removed: yellow slough, devitalized tissue Severity: Fat Layer Exposed Amount of bleeding with debridement: Mild Bleeding Controlled with: Compression and gauze Patient tolerated procedure: Patient tolerated procedure well - Additional Wound Wound debrided: medial right LE inferior Laterality: Right Type of Debridement: Excisional debridement Anesthesia Used: 4% Lidocaine Solution, 5% Lidocaine Gel Depth: Down to and including healthy tissue, in the subcutaneous layer Percentage of wound debrided: 100 Instrument Used: 5mm curette Tissue Removed: yellow slough, devitalized tissue Severity: Fat Layer Exposed Amount of bleeding with debridement: Mild Bleeding Controlled with: Compression and gauze Patient tolerated procedure: Patient tolerated procedure well Assessment/Plan Active Problems Venous ulcer of right leg (Chronic) Chronic ulcer of right leg with fat layer exposed (Chronic) Type 2 diabetes mellitus (Chronic) Coronary artery disease involving coronary bypass graft (Chronic) Peripheral arterial disease (Chronic) End stage renal disease on dialysis (Chronic) Anemia of chronic disease (Chronic) Assessment: 1. Venous ulcer of right leg, chronic. 2. Chronic ulcer of right leg with fat layer exposed. 3. Sternal wound dehiscence, chronic. 4. Venous insufficiency, chronic. 5. Peripheral arterial disease, chronic. 6. T2 DM, chronic. 7. CHF, chronic. 8. End-stage renal disease on dialysis, chronic Plan: Sanjeev's right lower extremity wounds were evaluated and debrided today as above. She is tolerating wound vac and antibiotic treatment. She will co ntinue to use Santyl to her chest wound. She will have a vac holiday this week and use Santyl, Aquacel Ag and a super absorbent dressing such as KerramaxCare or DuraMax for the very heavy drainage that she has from the medial right LE wounds. We plan on resuming therapy with the wound vac when we are able to demonstrate how to apply it appropriately either by having a staff member attend her visit or to do a virtual visit with the staff in order to have them observe proper application. Another wound culture was taken as I suspect that she may have anaerobic bacteria growing now form her ulcer. Tubigrips for compression of her LE b/l. Off-loading: Avoid prolonged standing or dangling of legs. Keep feet elevated at or above waist level when seated. Diet: Patient encouraged to increase protein and vitamin C intake while taking caution to avoid high carbohydrate and/or sugar intake. Follow-up: Follow-up with cardiothoracic surgeon as scheduled and return to wound center clinic in 1 week for re- evaluation. Return sooner or report to the emergency room should symptoms worsen, or new symptoms arise. Red flag symptoms reviewed, which should prompt patient to report to the ER, including but not limited to: Increasing pain, redness, or swelling surrounding any of her wounds; increase in drainage from any of her wounds; foul-smelling or purulent drainage from any of her wounds; fever, chills, nausea, or vomiting.
[2019-07-11 18:04] LABS: Probe Check PASS; Staph aureus DNA By PCR POSITIVE (Negative)
[2019-07-11 18:06] LABS: M R Staph aureus DNA By PCR POSITIVE (Negative)
== END 2019-07-15 23:59 ==
LOC: WC 11:30
PROVIDERS: Nurse Practitioner Family; Visit Provider Family Medicine
DX: I83.018 Varicose veins of right lower extremity with ulcer other part of lower leg (principal); L97.812 Non-pressure chronic ulcer of other part of right lower leg with fat layer exposed; D63.8 Anemia in other chronic diseases classified elsewhere; N18.6 End stage renal disease; I25.10 Atherosclerotic heart disease of native coronary artery without angina pectoris; E11.22 Type 2 diabetes mellitus with diabetic chronic kidney disease; E11.51 Type 2 diabetes mellitus with diabetic peripheral angiopathy without gangrene; Z99.2 Dependence on renal dialysis; I50.32 Chronic diastolic (congestive) heart failure; E03.9 Hypothyroidism, unspecified; F32.9 Major depressive disorder, single episode, unspecified; Z95.1 Presence of aortocoronary bypass graft; E78.5 Hyperlipidemia, unspecified; I13.2 Hypertensive heart and chronic kidney disease with heart failure and with stage 5 chronic kidney disease, or end stage renal disease; K21.9 Gastro-esophageal reflux disease without esophagitis; Z79.899 Other long term (current) drug therapy; Z79.82 Long term (current) use of aspirin; Z79.4 Long term (current) use of insulin; Z87.891 Personal history of nicotine dependence; T81.31XA Disruption of external operation (surgical) wound, not elsewhere classified, initial encounter; Y83.8 Other surgical procedures as the cause of abnormal reaction of the patient, or of later complication, without mention of misadventure at the time of the procedure
CPT/HCPCS: 11042; 11045; 87070; 87075; 87077; 87186; 87205; 87640

== ENCOUNTER 2019-08-08 11:30 | Outpatient (RCR) | payer MEDICARE, MEDICAID, SELFPAY ==
[2019-07-16 00:53] VITALS: BP 128/53; PULSE 68; RESP 18; TEMP 36.6
[2019-07-18 11:36] VITALS: BP 148/63; PULSE 66; RESP 18; TEMP 36.9; BMI 32.0
--- NOTE | 2019-07-18 16:52 | PCM.WC.PN ---
(1) Venous ulcer of right leg Status: Chronic Current Visit: Yes Code(s): I83.019 - Varicose veins of right lower extremity with ulcer of unspecified site; L97.919 - Non-pressure chronic ulcer of unspecified part of right lower leg with unspecified severity (2) Chronic ulcer of right leg with fat layer exposed Status: Chronic Current Visit: Yes Code(s): L97.912 - Non-pressure chronic ulcer of unspecified part of right lower leg with fat layer exposed (3) Sternal wound dehiscence Status: Chronic Current Visit: Yes Qualifiers: Encounter type: subsequent encounter Qualified Code(s): T81.32XD - Disruption of internal operation (surgical) wound, not elsewhere classified, subsequent encounter Code(s): T81.32XA - Disruption of internal operation (surgical) wound, not elsewhere classified, initial encounter Type of Wound Date of Service: 07/18/19 Chief Complaint: open wounds right leg; open wound of chest History of Wound: Patient is a pleasant 63-year-old female who [facility], for initial evaluation of sternal and right lower extremity wounds and was seen by Sonia Paez. She currently resides at [facility]. Patient is a very poor historian, and is unaccompanied at today's visit. The majority of details within patient's HPI were gathered from records faxed from [facility]. Patient has a PMH of T2DM, hypertension, coronary artery disease s/p recent coronary artery bypass graft, CHF, diastolic dysfunction, peripheral arterial disease, end-stage renal disease on hemodialysis, dyslipidemia, GERD, hypothyroidism, depression, steal syndrome in right hand, and anemia of chronic disease. She presents with a sternal wound dehiscence, and right lower extremity wound dehiscence s/p quadruple bypass open heart surgery with vein harvesting from right lower extremity, which she underwent in February 2019. Postoperatively, patient was transferred to a usp. She was readmitted to [facility] due to wound infection at the harvesting site of right leg. She was evaluated by surgery and underwent debridement, and was transferred to the usp. She was readmitted to [place] again, this time for sternal wound infection which required debridement and subsequent wound VAC placement. She was then transferred to [facility] for further care and IV antibiotic therapy on 05/03/2019. It is unclear from the documentation provided when she was discharged from [facility]. While at [facility], plastic surgery was consulted (Dr. Eva Pelaez). In his progress note from 05/12/2019, it was recommended that Santyl with wet gauze be applied daily to sternal wound, and NPWT at -125 mmHg continuous pressure be applied to RLE and changed 3 times per week. High-protein diet and every 2 hours turns also recommended. In his progress note from 05/19/2019, it was recommended that V[employer] WT be applied at -125 mmHg continuous pressure to both sternal and RLE wounds, to be changed 3 times per week and as needed. High-protein diet and every 2 hours turns continued to be recommended. When patient presented to the wound healing center on 06/10/2019, she had OPTifoam applied to her sternal wound, and Aquacel applied to her RLE wounds. She is not using any compression to lower extremities and did not have a wound vac. Patient states the staff at [facility] have been performing daily dressing changes to her wounds using Aquacel. She is also taking Boost supplements at bedtime to increase protein. Patient has a central venous catheter placed, but is unsure what antibiotics she is currently taking. She denies any increased redness, swelling, pain, or drainage from any of her wounds. She denies any purulent or foul-smelling drainage from her wounds. She does have erythema and swelling of her right lower extremity, which she states has improved. Her lab work from [facility] on 05/19/2019 showed WBC 7.44 and hemoglobin 9.1 (see report for full details). No other documentation is available at this time. Records were requested from [facility], [facility], and [facility]. She returned today for follow up. They have been using Santyl and gauze to her lower extremity wound. She saw the surgeon regarding her chest wound and he removed some tissue at [facility]. She denies any increased pain, erythema, fever or chills. Progress of Wound: Sanjeev returns for follow up of right lower extremity wound and chest wound. The right lower extremity wound looks much better. Wound cultures were positive for Proteus and MRSA. Her chest wound looks great. They have been applying Santyl to her chest wound. She is on ciprofloxacin for positive wound culture with Pseudomonas and tolerating this well. She does admit to not elevating her legs much during the day. She does report better compliance with dialysis this week. - Physical Exam Vital Signs Temp Pulse Resp BP 98.4 F 66 18 148/63 H 07/18/19 11:36 07/18/19 11:36 07/18/19 11:36 07/18/19 11:36 General: Alert, Oriented x3, Cooperative, No apparent distress HEENT: Atraumatic, Normocephalic Oral: Moist Mucosa Abdomen: Obese Extremities: Edema Skin: Ulcer/ Wound Wound Measurements and Assessment WC - Nurse 1 - General Ulcer Measurement Start: 07/18/19 11:36 Freq: Status: Active Protocol: Activity Type Activity Date Activity User E-Sign Co-Sign Detail Recorded Client Recorded Date Recorded By Document 07/18/19 11:36 DL [id number] 07/18/19 11:53 DL 07/18/19 11:36 Wound Center Nurse 1 [Ulcer Assessment] #4 Medial RLE- Superior -Current Size (cm) - Length 0.6 -Current Size (cm) - Width 0.6 -Current Size (cm) - Depth 0.6 -Total Square Cm 0.36 -Photo Taken No -Exudate Amt Small -Exudate Type Serosanguineous -Wound Margin Distinct, Outline Attached -Granulation Amt Medium (34-66%) -Granulation Quality Red -Necrosis Amt Medium (34-66%) -Necrotic Tissue Type Adherent Slough -Structure Exposed N/A -Texture (Nany-wound Skin Appearance) Localized Edema ,Scarring -Moisture (Nany-wound Skin Appearance Dry/Scaly ) -Color (Nany-wound Skin Appearance) Erythema,Rubor -Temperature (Nany-wound Skin No Abnormality Appearance) (Pt Warm) -Tenderness on Palpation (Nany-wound No Skin Appearance) -Ulcer Cleansing Wound Cleanser -Foul Odor after Cleansing No -Anesthetic Used 4% Lidocaine Solution #3- LOWER STERNUM -Current Size (cm) - Length 0.1 -Current Size (cm) - Width 0.1 -Current Size (cm) - Depth 0.1 -Total Square Cm 0.01 -Photo Taken No -Exudate Amt None Present -Wound Margin Flat & Intact -Granulation Amt Large (67-100%) -Granulation Quality [place] -Necrosis Amt None Present (0 %) -Structure Exposed N/A -Texture (Nany-wound Skin Appearance) Scarring -Moisture (Nany-wound Skin Appearance No Abnormality ) -Color (Nany-wound Skin Appearance) No Abnormality -Temperature (Nany-wound Skin No Abnormality Appearance) (Pt Warm) -Tenderness on Palpation (Nany-wound No Skin Appearance) -Ulcer Cleansing Rinsed/ Irrigated with Saline -Foul Odor after Cleansing No -Anesthetic Used 4% Lidocaine Solution #2 Medial RLE- Inferior -Current Size (cm) - Length 1 -Current Size (cm) - Width 0.7 -Current Size (cm) - Depth 0.2 -Total Square Cm 0.7 -Photo Taken No -Exudate Amt Small -Exudate Type Serosanguineous -Wound Margin Distinct, Outline Attached -Granulation Amt Medium (34-66%) -Granulation Quality [place] -Necrosis Amt Medium (34-66%) -Necrotic Tissue Type Adherent Slough -Structure Exposed N/A -Texture (Nany-wound Skin Appearance) Localized Edema ,Scarring -Moisture (Nany-wound Skin Appearance Dry/Scaly ) -Color (Nany-wound Skin Appearance) Erythema,Rubor -Temperature (Nany-wound Skin No Abnormality Appearance) (Pt Warm) -Tenderness on Palpation (Nany-wound No Skin Appearance) -Ulcer Cleansing Wound Cleanser -Foul Odor after Cleansing No -Anesthetic Used 4% Lidocaine Solution #1 Medial RLE -Current Size (cm) - Length 8 -Current Size (cm) - Width 5.5 -Current Size (cm) - Depth 0.8 -Total Square Cm 44.0 -Photo Taken No -Exudate Amt Medium -Exudate Type Serosanguineous -Wound Margin Distinct, Outline Attached -Granulation Amt Medium (34-66%) -Granulation Quality Red -Necrosis Amt Medium (34-66%) -Necrotic Tissue Type Adherent Slough -Structure Exposed N/A -Texture (Nany-wound Skin Appearance) Localized Edema ,Scarring -Color (Nany-wound Skin Appearance) Erythema,Rubor -Temperature (Nany-wound Skin No Abnormality Appearance) (Pt Warm) -Tenderness on Palpation (Nany-wound No Skin Appearance) -Ulcer Cleansing Wound Cleanser -Foul Odor after Cleansing No -Anesthetic Used 4% Lidocaine Solution [Edema Assessment] -Right Calf (cm) 38 -Right Ankle (cm) 21 WC - Nurse 2 - General Ulcer CM Notes Start: 07/18/19 11:36 Freq: Status: Active Protocol: Activity Type Activity Date Activity User E-Sign Co-Sign Detail Recorded Client Recorded Date Recorded By Document 07/18/19 12:44 DV [id number] 07/18/19 12:56 DV 07/18/19 12:44 Wound Center Nurse 2 [Procedure/Treatment] #4 Medial RLE- Superior -Time 12:48 -Correct Patient Yes -Correct Side, Site, Position Yes -Correct Procedure Yes -Procedure Performed Yes -Type of Procedure Debridement -Clinical Debridement Subcutaneous -Post Debridement Size (cm) - Length 0.8 -Post Debridement Size (cm) - Width 1.0 -Post Debridement Size (cm) - Depth 0.4 -Total Square Cm 0.80 -Wound/Ulcer Outcome Not Healed -Ulcer Cleansing Rinsed/ Irrigated with Saline -Foul Odor after Cleansing No -Bioengineered Tissue No -Bleeding Controlled with Pressure -Offloading Yes -Treatment Response Procedure Tolerated Well #3- LOWER STERNUM -Time 12:48 -Correct Patient Yes -Correct Side, Site, Position Yes -Correct Procedure No -Procedure Performed No -Post Debridement Size (cm) - Length 0 -Post Debridement Size (cm) - Width 0 -Post Debridement Size (cm) - Depth 0 -Total Square Cm 0 -Wound/Ulcer Outcome Healed- Epithelialized -Foul Odor after Cleansing No -Bioengineered Tissue No -Bleeding Controlled with Pressure -Offloading No -Treatment Response Procedure Tolerated Well #2 Medial RLE- Inferior -Time 12:49 -Correct Patient Yes -Correct Side, Site, Position Yes -Correct Procedure Yes -Procedure Performed Yes -Type of Procedure Debridement -Clinical Debridement Subcutaneous -Post Debridement Size (cm) - Length 1.1 -Post Debridement Size (cm) - Width 0.9 -Post Debridement Size (cm) - Depth 0.2 -Total Square Cm 0.99 -Wound/Ulcer Outcome Not Healed -Ulcer Cleansing Rinsed/ Irrigated with Saline -Foul Odor after Cleansing No -Bioengineered Tissue No -Bleeding Controlled with Pressure -Offloading No -Treatment Response Procedure Tolerated Well #1 Medial RLE -Time 12:49 -Correct Patient Yes -Correct Side, Site, Position Yes -Correct Procedure Yes -Procedure Performed Yes -Type of Procedure Debridement -Clinical Debridement Subcutaneous -Post Debridement Size (cm) - Length 8.0 -Post Debridement Size (cm) - Width 5.5 -Post Debridement Size (cm) - Depth 0.6 -Total Square Cm 44.00 -Wound/Ulcer Outcome Not Healed -Ulcer Cleansing Rinsed/ Irrigated with Saline -Foul Odor after Cleansing No -Bioengineered Tissue No -Bleeding Controlled with Pressure -Offloading No -Treatment Response Procedure Tolerated Well [See Physician Procedure note for Specifics] Pain Scale: 0-10 Numeric [Pain] -Is Patient Pain Free? Yes Psych/Mental Status: Normal Affect, Appropriate Debridement Note Post-Debridement Measurements/Treatment WC - Nurse 2 - General Ulcer CM Notes Start: 07/18/19 11:36 Freq: Status: Active Protocol: Activity Type Activity Date Activity User E-Sign Co-Sign Detail Recorded Client Recorded Date Recorded By Document 07/18/19 12:44 DV [id number] 07/18/19 12:56 DV 07/18/19 12:44 Wound Center Nurse 2 #4 Medial RLE- Superior -Time 12:48 -Correct Patient Yes -Correct Side, Site, Position Yes -Correct Procedure Yes -Procedure Performed Yes -Type of Procedure Debridement -Clinical Debridement Subcutaneous -Post Debridement Size (cm) - Length 0.8 -Post Debridement Size (cm) - Width 1.0 -Post Debridement Size (cm) - Depth 0.4 -Total Square Cm 0.80 -Wound/Ulcer Outcome Not Healed -Ulcer Cleansing Rinsed/ Irrigated with Saline -Foul Odor after Cleansing No -Bioengineered Tissue No -Bleeding Controlled with Pressure -Offloading Yes -Treatment Response Procedure Tolerated Well #3- LOWER STERNUM -Time 12:48 -Correct Patient Yes -Correct Side, Site, Position Yes -Correct Procedure No -Procedure Performed No -Post Debridement Size (cm) - Length 0 -Post Debridement Size (cm) - Width 0 -Post Debridement Size (cm) - Depth 0 -Total Square Cm 0 -Wound/Ulcer Outcome Healed- Epithelialized -Foul Odor after Cleansing No -Bioengineered Tissue No -Bleeding Controlled with Pressure -Offloading No -Treatment Response Procedure Tolerated Well #2 Medial RLE- Inferior -Time 12:49 -Correct Patient Yes -Correct Side, Site, Position Yes -Correct Procedure Yes -Procedure Performed Yes -Type of Procedure Debridement -Clinical Debridement Subcutaneous -Post Debridement Size (cm) - Length 1.1 -Post Debridement Size (cm) - Width 0.9 -Post Debridement Size (cm) - Depth 0.2 -Total Square Cm 0.99 -Wound/Ulcer Outcome Not Healed -Ulcer Cleansing Rinsed/ Irrigated with Saline -Foul Odor after Cleansing No -Bioengineered Tissue No -Bleeding Controlled with Pressure -Offloading No -Treatment Response Procedure Tolerated Well #1 Medial RLE -Time 12:49 -Correct Patient Yes -Correct Side, Site, Position Yes -Correct Procedure Yes -Procedure Performed Yes -Type of Procedure Debridement -Clinical Debridement Subcutaneous -Post Debridement Size (cm) - Length 8.0 -Post Debridement Size (cm) - Width 5.5 -Post Debridement Size (cm) - Depth 0.6 -Total Square Cm 44.00 -Wound/Ulcer Outcome Not Healed -Ulcer Cleansing Rinsed/ Irrigated with Saline -Foul Odor after Cleansing No -Bioengineered Tissue No -Bleeding Controlled with Pressure -Offloading No -Treatment Response Procedure Tolerated Well Pain Scale: 0-10 Numeric Is Patient Pain Free? Yes Wound debrided: medial R LE superior Laterality: Right Type of Debridement: Excisional debridement Anesthesia Used: 4% Lidocaine Solution, 5% Lidocaine Gel Depth: Down to and including healthy tissue, in the subcutaneous layer Percentage of wound debrided: 100 Instrument Used: 5mm curette Tissue Removed: yellow slough, devitalized tissue Severity: Fat Layer Exposed Amount of bleeding with debridement: Mild Bleeding Controlled with: Compression and gauze Patient tolerated procedure well - Additional Wound Wound debrided: right medial LE Laterality: Right Type of Debridement: Excisional debridement Anesthesia Used: 4% Lidocaine Solution, 5% Lidocaine Gel Depth: Down to and including healthy tissue, in the subcutaneous layer Percentage of wound debrided: 100 Instrument Used: 5mm curette, #15 blade, Forceps Tissue Removed: yellow slough, devitalized tissue, surgical clip Severity: Fat Layer Exposed Amount of bleeding with debridement: Mild Bleeding Controlled with: Compression and gauze Patient tolerated procedure: Patient tolerated procedure well - Additional Wound Wound debrided: right medial LE inferior Laterality: Right Type of Debridement: Excisional debridement Anesthesia Used: 4% Lidocaine Solution, 5% Lidocaine Gel Depth: Down to and including healthy tissue, in the subcutaneous layer Percentage of wound debrided: 100 Instrument Used: 5mm curette Tissue Removed: yellow slough, devitalized tissue Severity: Fat Layer Exposed Amount of bleeding with debridement: Mild Bleeding Controlled with: Compression and gauze Patient tolerated procedure: Patient tolerated procedure well - Additional Wound Wound debrided: lower sternum Laterality: Not Applicable Operative Diagnosis: no debridement done. Wound healed. Assessment/Plan Active Problems Venous ulcer of right leg (Chronic) Chronic ulcer of right leg with fat layer exposed (Chronic) Sternal wound dehiscence (Chronic) Assessment: 1. Venous ulcer of right leg, chronic. 2. Chronic ulcer of right leg with fat layer exposed. 3. Sternal wound dehiscence, chronic - healed. 4. Venous insufficiency, chronic. 5. Peripheral arterial disease, chronic. 6. T2 DM, chronic. 7. CHF, chronic. 8. End-stage renal disease on dialysis, chronic Plan: Sanjeev's right lower extremity wounds were evaluated and debrided today as above. She is tolerating wound vac and antibiotic treatment. Her chest is healed and 5 simple interrupted sutures were removed today without complication from her chest where central line was removed. She will return to the wound vac this week for very heavy drainage that she has from the medial right LE wounds. Staff were present today to learn application of the wound vac. F/U in 1 week. Tubigrips for compression of her LE b/l. Off-loading: Avoid prolonged standing or dangling of legs. Keep feet elevated at or above waist level when seated. Diet: Patient encouraged to increase protein and vitamin C intake while taking caution to avoid high carbohydrate and/or sugar intake. Follow-up: Follow-up with cardiothoracic surgeon as scheduled and return to wound center clinic in 1 week for re-evaluation. Return sooner or report to the emergency room should symptoms worsen, or new symptoms arise. Red flag symptoms reviewed, which should prompt patient to report to the ER, including but not limited to: Increasing pain, redness, or swelling surrounding any of her wounds; increase in drainage from any of her wounds; foul-smelling or purulent drainage from any of her wounds; fever, chills, nausea, or vomiting.
[2019-07-25 12:24] VITALS: BP 163/67; PULSE 72; RESP 18; TEMP 35.9; BMI 32.0
--- NOTE | 2019-07-25 18:53 | PN.PCM_ITS ---
(1) Venous ulcer of right leg Status: Chronic Current Visit: Yes Code(s): I83.019 - Varicose veins of right lower extremity with ulcer of unspecified site; L97.919 - Non-pressure chronic ulcer of unspecified part of right lower leg with unspecified severity (2) Chronic ulcer of right leg with fat layer exposed Status: Chronic Current Visit: Yes Code(s): L97.912 - Non-pressure chronic ulcer of unspecified part of right lower leg with fat layer exposed (3) Sternal wound dehiscence Status: Resolved Current Visit: No Qualifiers: Encounter type: subsequent encounter Qualified Code(s): T81.32XD - Disruption of internal operation (surgical) wound, not elsewhere classified, subsequent encounter Code(s): T81.32XA - Disruption of internal operation (surgical) wound, not elsewhere classified, initial encounter (4) Venous insufficiency Status: Chronic Current Visit: Yes Code(s): I87.2 - Venous insufficiency (chronic) (peripheral) (5) Type 2 diabetes mellitus Status: Chronic Current Visit: Yes Qualifiers: Diabetes mellitus longterm insulin use: without longterm use Diabetes mellitus complication status: with kidney complications Diabetes mellitus complication detail: with chronic kidney disease Chronic kidney disease stage: on chronic dialysis Qualified Code(s): E11.22 - Type 2 diabetes mellitus with diabetic chronic kidney disease; N18.6 - End stage renal disease; Z99.2 - Dependence on renal dialysis Code(s): E11.9 - Type 2 diabetes mellitus without complications (6) End stage renal disease on dialysis Status: Chronic Current Visit: Yes Code(s): N18.6 - End stage renal disease; Z99.2 - Dependence on renal dialysis Type of Wound Date of Service: 07/25/19 Chief Complaint: open wounds right leg History of Wound: Patient is a pleasant 63-year-old female who [facility], for initial evaluation of sternal and right lower extremity wounds and was seen by Sonia Paez. She currently resides at [facility]. Patient is a very poor historian, and is unaccompanied at today's visit. The majority of details within patient's HPI were gathered from records faxed from [facility]. Patient has a PMH of T2DM, hypertension, coronary artery disease s/p recent coronary artery bypass graft, CHF, diastolic dysfunction, peripheral arterial disease, end-stage renal disease on hemodialysis, dyslipidemia, GERD, hypothyroidism, depression, steal syndrome in right hand, and anemia of chronic disease. She presents with a sternal wound dehiscence, and right lower extremity wound dehiscence s/p quadruple bypass open heart surgery with vein harvesting from right lower extremity, which she underwent in February 2019. Postoperatively, patient was transferred to a longterm. She was readmitted to [facility] due to wound infection at the harvesting site of right leg. She was evaluated by surgery and underwent debridement, and was transferred to the longterm. She was readmitted to [place] again, this time for sternal wound infection which required debridement and subsequent wound VAC placement. She was then transferred to [facility] for further care and IV antibiotic therapy on 05/03/2019. It is unclear from the documentation provided when she was discharged from [facility]. While at [facility], plastic surgery was consulted (Dr. Eva Pelaez). In his progress note from 05/12/2019, it was recommended that Santyl with wet gauze be applied daily to sternal wound, and NPWT at -125 mmHg continuous pressure be applied to RLE and changed 3 times per week. High-protein diet and every 2 hours turns also recommended. In his progress note from 05/19/2019, it was recommended that ETHNOARCHAEOLOGY PROFESSOR WT be applied at -125 mmHg continuous pressure to both sternal and RLE wounds, to be changed 3 times per week and as needed. High- protein diet and every 2 hours turns continued to be recommended. When patient presented to the wound healing center on 06/10/2019, she had OPTifoam applied to her sternal wound, and Aquacel applied to her RLE wounds. She is not using any compression to lower extremities and did not have a wound vac. Patient states the staff at [facility] have been performing daily dressing changes to her wounds using Aquacel. She is also taking Boost supplements at bedtime to increase protein. Patient has a central venous catheter placed, but is unsure what antibiotics she is currently taking. She denies any increased redness, swelling, pain, or drainage from any of her wounds. She denies any purulent or foul-smelling drainage from her wounds. She does have erythema and swelling of her right lower extremity, which she states has improved. Her lab work from [facility] on 05/19/2019 showed WBC 7.44 and hemoglobin 9.1 (see report for full details). No other documentation is available at this time. Records were requested from [facility], [facility], and [facility]. They had been using Santyl and gauze to her lower extremity wound. She saw the surgeon regarding her chest wound and he removed some tissue at [facility] and continued with Santyl and optifoam and this was healed on 07/11/2019. She denies any increased pain, erythema, fever or chills. Progress of Wound: Sanjeev returns for follow up of right lower extremity wound. The right lower extremity wound looks much better. Wound cultures on 07/11/2019 were positive for Proteus and MRSA and she remains on antibiotics for these. Her chest wound looks great and remains healed. She does admit to not elevating her legs much during the day. She does report better compliance with dialysis this week. - Physical Exam Vital Signs Temp Pulse Resp BP 96.7 F L 72 18 163/67 H 07/25/19 12:24 07/25/19 12:24 07/25/19 12:24 07/25/19 12:24 General: Alert, Oriented x3, Cooperative, No apparent distress HEENT: Atraumatic, Normocephalic Oral: Moist Mucosa Abdomen: Obese Extremities: Cool, Edema Skin: Ulcer/ Wound Wound Measurements and Assessment WC - Nurse 1 - General Ulcer Measurement Start: 07/18/19 11:36 Freq: Status: Active Protocol: Activity Type Activity Date Activity User E-Sign Co-Sign Detail Recorded Client Recorded Date Recorded By Document 07/25/19 12:20 RB [id number] 07/25/19 12:24 RB 07/25/19 12:20 Wound Center Nurse 1 [Ulcer Assessment] #4 Medial RLE- Superior -Combined with other wound No -Current Size (cm) - Length 0.4 -Current Size (cm) - Width 0.4 -Current Size (cm) - Depth 0.4 -Total Square Cm 0.16 -Tunneling No -Undermining/Tunneling No -Circular Undermining No -Exudate Amt Small -Exudate Type Serosanguineous -Wound Margin Thickened & Rolled Under -Granulation Amt Medium (34-66%) -Granulation Quality [place] -Slough/Fibrin Yes -Necrosis Amt Medium (34-66%) -Necrotic Tissue Type Adherent Slough -Structure Exposed N/A -Texture (Nany-wound Skin Appearance) Assessed -Moisture (Nany-wound Skin Appearance Maceration ) -Color (Nany-wound Skin Appearance) Assessed -Temperature (Nany-wound Skin No Abnormality Appearance) (Pt Warm) -Tenderness on Palpation (Nany-wound No Skin Appearance) -Ulcer Cleansing Wound Cleanser -Foul Odor after Cleansing No -Anesthetic Used 4% Lidocaine Solution #2 Medial RLE- Inferior -Combined with other wound No -Current Size (cm) - Length 8.2 -Current Size (cm) - Width 5.5 -Current Size (cm) - Depth 0.3 -Total Square Cm 45.10 -Tunneling No -Undermining/Tunneling No -Circular Undermining No -Exudate Amt Large -Exudate Type Serosanguineous -Wound Margin Thickened & Rolled Under -Granulation Amt Medium (34-66%) -Granulation Quality [place] -Slough/Fibrin Yes -Necrosis Amt Small (1-33%) -Necrotic Tissue Type Adherent Slough -Structure Exposed N/A -Texture (Nany-wound Skin Appearance) Assessed -Moisture (Nany-wound Skin Appearance Maceration ) -Color (Nany-wound Skin Appearance) Assessed, Erythema -Temperature (Nany-wound Skin No Abnormality Appearance) (Pt Warm) -Tenderness on Palpation (Nany-wound No Skin Appearance) -Ulcer Cleansing Wound Cleanser -Foul Odor after Cleansing No -Anesthetic Used 4% Lidocaine Solution #1 Medial RLE -Combined with other wound No -Current Size (cm) - Length 1 -Current Size (cm) - Width 0.8 -Current Size (cm) - Depth 0.2 -Total Square Cm 0.8 -Tunneling No -Undermining/Tunneling No -Circular Undermining No -Exudate Amt Medium -Exudate Type Serosanguineous -Wound Margin Thickened & Rolled Under -Granulation Amt Medium (34-66%) -Granulation Quality [place] -Slough/Fibrin Yes -Necrosis Amt Small (1-33%) -Necrotic Tissue Type Adherent Slough -Structure Exposed N/A -Texture (Nany-wound Skin Appearance) Assessed -Moisture (Nany-wound Skin Appearance Maceration ) -Color (Nany-wound Skin Appearance) Assessed, Erythema -Temperature (Nany-wound Skin No Abnormality Appearance) (Pt Warm) -Tenderness on Palpation (Nany-wound No Skin Appearance) -Ulcer Cleansing Wound Cleanser -Foul Odor after Cleansing No -Anesthetic Used 4% Lidocaine Solution [Edema Assessment] -Lower Limb Edema Present Yes -Right Calf (cm) 39 -Right Ankle (cm) 21.2 WC - Nurse 2 - General Ulcer CM Notes Start: 07/18/19 11:36 Freq: Status: Active Protocol: Activity Type Activity Date Activity User E-Sign Co-Sign Detail Recorded Client Recorded Date Recorded By Document 07/25/19 12:59 DV [id number] 07/25/19 13:05 DV 07/25/19 12:59 Wound Center Nurse 2 [Procedure/Treatment] #4 [facility] RLE- Superior -Time 13:01 -Correct Patient Yes -Correct Side, Site, Position Yes -Correct Procedure Yes -Procedure Performed Yes -Type of Procedure Debridement -Clinical Debridement Subcutaneous -Post Debridement Size (cm) - Length 0.5 -Post Debridement Size (cm) - Width 0.7 -Post Debridement Size (cm) - Depth 0.4 -Total Square Cm 0.35 -Wound/Ulcer Outcome Not Healed -Ulcer Cleansing Rinsed/ Irrigated with Saline -Foul Odor after Cleansing No -Bioengineered Tissue No -Bleeding Controlled with Pressure -Offloading No -Treatment Response Procedure Tolerated Well #2 [facility] RLE- Inferior -Time 13:02 -Correct Patient Yes -Correct Side, Site, Position Yes -Correct Procedure Yes -Procedure Performed Yes -Type of Procedure Debridement -Clinical Debridement Subcutaneous -Post Debridement Size (cm) - Length 1.2 -Post Debridement Size (cm) - Width 1.0 -Post Debridement Size (cm) - Depth 0.2 -Total Square Cm 1.20 -Wound/Ulcer Outcome Not Healed -Ulcer Cleansing Rinsed/ Irrigated with Saline -Foul Odor after Cleansing No -Bioengineered Tissue No -Bleeding Controlled with Pressure -Offloading No -Treatment Response Procedure Tolerated Well #1 [facility] RLE -Time 13:00 -Correct Patient Yes -Correct Side, Site, Position Yes -Correct Procedure Yes -Procedure Performed Yes -Type of Procedure Debridement -Clinical Debridement Subcutaneous -Post Debridement Size (cm) - Length 8.0 -Post Debridement Size (cm) - Width 5.6 -Post Debridement Size (cm) - Depth 0.5 -Total Square Cm 44.80 -Wound/Ulcer Outcome Not Healed -Bleeding Controlled with Pressure -Offloading No -Treatment Response Procedure Tolerated Well [See Physician Procedure note for Specifics] Pain Scale: 0-10 Numeric [Pain] -Is Patient Pain Free? Yes Psych/Mental Status: Normal Affect, Appropriate Debridement Note Post-Debridement Measurements/Treatment WC - Nurse 2 - General Ulcer CM Notes Start: 07/18/19 11:36 Freq: Status: Active Protocol: Activity Type Activity Date Activity User E-Sign Co-Sign Detail Recorded Client Recorded Date Recorded By Document 07/18/19 12:44 DV [id number] 07/18/19 12:56 DV Document 07/25/19 12:59 DV [id number] 07/25/19 13:05 DV 07/18/19 07/25/19 12:44 12:59 Wound Center Nurse 2 #4 Medial RLE- Superior -Time 12:48 13:01 -Correct Patient Yes Yes -Correct Side, Site, Position Yes Yes -Correct Procedure Yes Yes -Procedure Performed Yes Yes -Type of Procedure Debridement Debridement -Clinical Debridement Subcutaneous Subcutaneous -Post Debridement Size (cm) - Length 0.8 0.5 -Post Debridement Size (cm) - Width 1.0 0.7 -Post Debridement Size (cm) - Depth 0.4 0.4 -Total Square Cm 0.80 0.35 -Wound/Ulcer Outcome Not Healed Not Healed -Ulcer Cleansing Rinsed/ Rinsed/ Irrigated with Irrigated with Saline Saline -Foul Odor after Cleansing No No -Bioengineered Tissue No No -Bleeding Controlled with Pressure Pressure -Offloading Yes No -Treatment Response Procedure Procedure Tolerated Well Tolerated Well #3- LOWER STERNUM -Time 12:48 -Correct Patient Yes -Correct Side, Site, Position Yes -Correct Procedure No -Procedure Performed No -Post Debridement Size (cm) - Length 0 -Post Debridement Size (cm) - Width 0 -Post Debridement Size (cm) - Depth 0 -Total Square Cm 0 -Wound/Ulcer Outcome Healed- Epithelialized -Foul Odor after Cleansing No -Bioengineered Tissue No -Bleeding Controlled with Pressure -Offloading No -Treatment Response Procedure Tolerated Well #2 Medial RLE- Inferior -Time 12:49 13:02 -Correct Patient Yes Yes -Correct Side, Site, Position Yes Yes -Correct Procedure Yes Yes -Procedure Performed Yes Yes -Type of Procedure Debridement Debridement -Clinical Debridement Subcutaneous Subcutaneous -Post Debridement Size (cm) - Length 1.1 1.2 -Post Debridement Size (cm) - Width 0.9 1.0 -Post Debridement Size (cm) - Depth 0.2 0.2 -Total Square Cm 0.99 1.20 -Wound/Ulcer Outcome Not Healed Not Healed -Ulcer Cleansing Rinsed/ Rinsed/ Irrigated with Irrigated with Saline Saline -Foul Odor after Cleansing No No -Bioengineered Tissue No No -Bleeding Controlled with Pressure Pressure -Offloading No No -Treatment Response Procedure Procedure Tolerated Well Tolerated Well #1 Medial RLE -Time 12:49 13:00 -Correct Patient Yes Yes -Correct Side, Site, Position Yes Yes -Correct Procedure Yes Yes -Procedure Performed Yes Yes -Type of Procedure Debridement Debridement -Clinical Debridement Subcutaneous Subcutaneous -Post Debridement Size (cm) - Length 8.0 8.0 -Post Debridement Size (cm) - Width 5.5 5.6 -Post Debridement Size (cm) - Depth 0.6 0.5 -Total Square Cm 44.00 44.80 -Wound/Ulcer Outcome Not Healed Not Healed -Ulcer Cleansing Rinsed/ Irrigated with Saline -Foul Odor after Cleansing No -Bioengineered Tissue No -Bleeding Controlled with Pressure Pressure -Offloading No No -Treatment Response Procedure Procedure Tolerated Well Tolerated Well Pain Scale: 0-10 Numeric Is Patient Pain Free? Yes Yes Wound debrided: Medial right lower extremity superior Laterality: Right Type of Debridement: Excisional debridement Anesthesia Used: 4% Lidocaine Solution, 5% Lidocaine Gel Depth: Down to and including healthy tissue, in the subcutaneous layer Percentage of wound debrided: 100 Instrument Used: 5mm curette Tissue Removed: yellow slough, devitalized tissue Severity: Fat Layer Exposed Amount of bleeding with debridement: Mild Bleeding Controlled with: Compression and gauze Patient tolerated procedure well - Additional Wound Wound debrided: Medial right lower extremity inferior Laterality: Right Type of Debridement: Excisional debridement Anesthesia Used: 4% Lidocaine Solution, 5% Lidocaine Gel Depth: Down to and including healthy tissue, in the subcutaneous layer Percentage of wound debrided: 100 Instrument Used: 5mm curette Tissue Removed: yellow slough, devitalized tissue Severity: Fat Layer Exposed Amount of bleeding with debridement: Mild Bleeding Controlled with: Compression and gauze Patient tolerated procedure: Patient tolerated procedure well - Additional Wound Wound debrided: right medial LE Laterality: Right Type of Debridement: Excisional debridement Anesthesia Used: 4% Lidocaine Solution, 5% Lidocaine Gel Depth: Down to and including healthy tissue, in the subcutaneous layer Percentage of wound debrided: 100 Instrument Used: 5mm curette Tissue Removed: yellow slough, devitalized tissue Severity: Fat Layer Exposed Amount of bleeding with debridement: Mild Bleeding Controlled with: Compression and gauze Patient tolerated procedure: Patient tolerated procedure well Assessment/Plan Active Problems Venous ulcer of right leg (Chronic) Chronic ulcer of right leg with fat layer exposed (Chronic) Venous insufficiency (Chronic) Type 2 diabetes mellitus (Chronic) End stage renal disease on dialysis (Chronic) Assessment: 1. Venous ulcer of right leg, chronic. 2. Chronic ulcer of right leg with fat layer exposed. 3. Sternal wound dehiscence, chronic - healed. 4. Venous insufficiency, chronic. 5. Peripheral arterial disease, chronic. 6. T2 DM, chronic. 7. CHF, chronic. 8. End-stage renal disease on dialysis, chronic Plan: Sanjeev's right lower extremity wounds were evaluated and debrided today as above. She is tolerating wound vac and antibiotic treatment. She will return to the wound vac this week for very heavy drainage that she has from the medial right LE wounds. F/U in 2 weeks unless needed sooner. Off-loading: Avoid prolonged standing or dangling of legs. Keep feet elevated at or above waist level when seated. Diet: Patient encouraged to increase protein and vitamin C intake while taking caution to avoid high carbohydrate and/or sugar intake. Follow-up: Follow-up with cardiothoracic surgeon as scheduled and return to wound center clinic in 1 week for re-evaluation. Return sooner or report to the emergency room should symptoms worsen, or new symptoms arise. Red flag sy mptoms reviewed, which should prompt patient to report to the ER, including but not limited to: Increasing pain, redness, or swelling surrounding any of her wounds; increase in drainage from any of her wounds; foul-smelling or purulent drainage from any of her wounds; fever, chills, nausea, or vomiting.
[2019-08-08 11:52] VITALS: BP 134/73; PULSE 70; RESP 20; TEMP 36.6; BMI 32.0
--- NOTE | 2019-08-08 18:23 | PCM.WC.PN ---
(1) Venous ulcer of right leg Status: Chronic Current Visit: Yes Code(s): I83.019 - Varicose veins of right lower extremity with ulcer of unspecified site; L97.919 - Non-pressure chronic ulcer of unspecified part of right lower leg with unspecified severity (2) Chronic ulcer of right leg with fat layer exposed Status: Chronic Current Visit: Yes Code(s): L97.912 - Non-pressure chronic ulcer of unspecified part of right lower leg with fat layer exposed (3) Venous insufficiency Status: Chronic Current Visit: Yes Code(s): I87.2 - Venous insufficiency (chronic) (peripheral) (4) Type 2 diabetes mellitus Status: Chronic Current Visit: Yes Qualifiers: 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: without long-term use Diabetes mellitus complication status: with kidney complications Diabetes mellitus complication detail: with chronic kidney disease Chronic kidney disease stage: on chronic dialysis Qualified Code(s): E11.22 - Type 2 diabetes mellitus with diabetic chronic kidney disease; N18.6 - End stage renal disease; Z99.2 - Dependence on renal dialysis Code(s): E11.9 - Type 2 diabetes mellitus without complications (5) End stage renal disease on dialysis Status: Chronic Current Visit: Yes Code(s): N18.6 - End stage renal disease; Z99.2 - Dependence on renal dialysis Type of Wound Date of Service: 08/08/19 Chief Complaint: open wounds right leg History of Wound: Patient is a pleasant 63-year-old female who [facility], for initial evaluation of sternal and right lower extremity wounds and was seen by Sonia Paez. She currently resides at [facility] [address]. Patient is a very poor historian, and is unaccompanied at today's visit. The majority of details within patient's HPI were gathered from records faxed from [email or web address]. Patient has a PMH of T2DM, hypertension, coronary artery disease s/p recent coronary artery bypass graft, CHF, diastolic dysfunction, peripheral arterial disease, end-stage renal disease on hemodialysis, dyslipidemia, GERD, hypothyroidism, depression, steal syndrome in right hand, and anemia of chronic disease. She presents with a sternal wound dehiscence, and right lower extremity wound dehiscence s/p quadruple bypass open heart surgery with vein harvesting from right lower extremity, which she underwent in February 2019. Postoperatively, patient was transferred to a detention. She was readmitted to [facility] due to wound infection at the harvesting site of right leg. She was evaluated by surgery and underwent debridement, and was transferred to the detention. She was readmitted to [facility] again, this time for sternal wound infection which required debridement and subsequent wound VAC placement. She was then transferred to [facility] for further care and IV antibiotic therapy on 05/03/2019. It is unclear from the documentation provided when she was discharged from [facility]. While at [facility], plastic surgery was consulted (Dr. Eva Pelaez). In his progress note from 05/12/2019, it was recommended that Santyl with wet gauze be applied daily to sternal wound, and NPWT at -125 mmHg continuous pressure be applied to RLE and changed 3 times per week. High-protein diet and every 2 hours turns also recommended. In his progress note from 05/19/2019, it was recommended that ETHNOGRAPHIC MATERIALS CONSERVATOR WT be applied at -125 mmHg continuous pressure to both sternal and RLE wounds, to be changed 3 times per week and as needed. High-protein diet and every 2 hours turns continued to be recommended. When patient presented to the wound healing center on 06/10/2019, she had OPTifoam applied to her sternal wound, and Aquacel applied to her RLE wounds. She is not using any compression to lower extremities and did not have a wound vac. Patient states the staff at [facility] have been performing daily dressing changes to her wounds using Aquacel. She is also taking Boost supplements at bedtime to increase protein. Patient has a central venous catheter placed, but is unsure what antibiotics she is currently taking. She denies any increased redness, swelling, pain, or drainage from any of her wounds. She denies any purulent or foul-smelling drainage from her wounds. She does have erythema and swelling of her right lower extremity, which she states has improved. Her lab work from [facility] on 05/19/2019 showed WBC 7.44 and hemoglobin 9.1 (see report for full details). No other documentation is available at this time. Records were requested from [facility], [facility], and [facility]. They had been using Santyl and gauze to her lower extremity wound. She saw the surgeon regarding her chest wound and he removed some tissue at [facility] and continued with Santyl and optifoam and this was healed on 07/11/2019. She denies any increased pain, erythema, fever or chills. Progress of Wound: Sanjeev returns for follow up of right lower extremity wound. The right lower extremity wound looks somewhat better but the right lower extremity looks worse in general. When she arrived today, her wound vac had drape applied to erythematous and broken down skin and drainage pooling under the drape. The suction valve for the vac was placed over the ulcer and was causing bruising and tissue injury to the medial aspect of the large medial ulcer. Her leg was very erythematous and there were skin tears to her inferior leg likely from wound drape removal. Wound cultures on 07/11/2019 were positive for Proteus and MRSA and she completed these antibiotics but based on her ulcer's appearance today it is likely that she has infection. Her chest wound looks great and remains healed. She does admit to not elevating her legs much during the day. She does report better compliance with dialysis this week. - Physical Exam Vital Signs Temp Pulse Resp BP 97.8 F 70 20 H 134/73 H 08/08/19 11:52 08/08/19 11:52 08/08/19 11:52 08/08/19 11:52 General: Alert, Oriented x3, Cooperative, No apparent distress HEENT: Atraumatic, Normocephalic Oral: Moist Mucosa Neck: Supple Abdomen: Soft, Non Tender, Obese Extremities: Edema Skin: Ulcer/ Wound, Skin Tear, Rash Present Wound Measurements and Assessment WC - Nurse 1 - General Ulcer Measurement Start: 07/18/19 11:36 Freq: Status: Active Protocol: Activity Type Activity Date Activity User E-Sign Co-Sign Detail Recorded Client Recorded Date Recorded By Document 08/08/19 11:52 RB [id number] 08/08/19 12:05 RB 08/08/19 11:52 Wound Center Nurse 1 [Ulcer Assessment] #4 Medial RLE- Superior -Combined with other wound No -Current Size (cm) - Length 0.8 -Current Size (cm) - Width 1 -Current Size (cm) - Depth 0.7 -Total Square Cm 0.8 -Tunneling No -Undermining/Tunneling No -Circular Undermining No -Exudate Amt Small -Exudate Type Serosanguineous -Wound Margin Thickened & Rolled Under -Granulation Amt Medium (34-66%) -Granulation Quality [place] -Slough/Fibrin Yes -Necrosis Amt Small (1-33%) -Necrotic Tissue Type Adherent Slough -Structure Exposed N/A -Texture (Nany-wound Skin Appearance) Assessed -Moisture (Nany-wound Skin Appearance Maceration ) -Color (Nany-wound Skin Appearance) Assessed -Temperature (Nany-wound Skin No Abnormality Appearance) (Pt Warm) -Tenderness on Palpation (Nany-wound No Skin Appearance) -Ulcer Cleansing Wound Cleanser -Foul Odor after Cleansing No -Anesthetic Used 4% Lidocaine Solution #2 Medial RLE- Inferior -Combined with other wound No -Current Size (cm) - Length 1.3 -Current Size (cm) - Width 1 -Current Size (cm) - Depth 0.3 -Total Square Cm 1.3 -Tunneling No -Undermining/Tunneling No -Circular Undermining No -Exudate Amt Small -Exudate Type Serosanguineous -Wound Margin Thickened & Rolled Under -Granulation Amt Medium (34-66%) -Granulation Quality [place] -Slough/Fibrin Yes -Necrosis Amt Small (1-33%) -Necrotic Tissue Type Adherent Slough -Structure Exposed N/A -Texture (Nany-wound Skin Appearance) Assessed -Moisture (Nany-wound Skin Appearance Maceration ) -Color (Nany-wound Skin Appearance) Assessed -Temperature (Nany-wound Skin No Abnormality Appearance) (Pt Warm) -Tenderness on Palpation (Nany-wound No Skin Appearance) -Ulcer Cleansing Wound Cleanser -Foul Odor after Cleansing No -Anesthetic Used 4% Lidocaine Solution #1 Medial RLE -Combined with other wound No -Current Size (cm) - Length 8.3 -Current Size (cm) - Width 5.5 -Current Size (cm) - Depth 0.8 -Total Square Cm 45.65 -Tunneling No -Undermining/Tunneling No -Circular Undermining No -Exudate Amt Large -Exudate Type Serosanguineous -Wound Margin Thickened & Rolled Under -Granulation Amt Medium (34-66%) -Granulation Quality [place] -Slough/Fibrin Yes -Necrosis Amt Small (1-33%) -Necrotic Tissue Type Adherent Slough -Structure Exposed N/A -Texture (Nany-wound Skin Appearance) Assessed, Friable -Moisture (Nany-wound Skin Appearance Maceration ) -Color (Nany-wound Skin Appearance) Assessed, Erythema -Temperature (Nany-wound Skin No Abnormality Appearance) (Pt Warm) -Tenderness on Palpation (Nany-wound No Skin Appearance) -Ulcer Cleansing Wound Cleanser -Foul Odor after Cleansing No -Anesthetic Used 4% Lidocaine Solution WC - Nurse 2 - General Ulcer CM Notes Start: 07/18/19 11:36 Freq: Status: Active Protocol: Activity Type Activity Date Activity User E-Sign Co-Sign Detail Recorded Client Recorded Date Recorded By Document 08/08/19 12:47 DV [id number] 08/08/19 13:01 DV 08/08/19 12:47 Wound Center Nurse 2 [Procedure/Treatment] #5 Medial Lower RLE (Skin Tear Cluster ) -Time 12:56 -Correct Patient Yes -Correct Side, Site, Position Yes -Correct Procedure Yes -Procedure Performed Yes -Type of Procedure Debridement -Clinical Debridement Subcutaneous -Post Debridement Size (cm) - Length 4.5 -Post Debridement Size (cm) - Width 7.5 -Post Debridement Size (cm) - Depth 0.1 -Total Square Cm 33.75 -Wound/Ulcer Outcome Not Healed -Ulcer Cleansing Rinsed/ Irrigated with Saline -Foul Odor after Cleansing No -Bioengineered Tissue No -Bleeding Controlled with Pressure -Offloading No -Treatment Response Procedure Tolerated Well #4 Medial RLE- Superior -Time 12:49 -Correct Patient Yes -Correct Side, Site, Position Yes -Correct Procedure Yes -Procedure Performed Yes -Type of Procedure Debridement -Clinical Debridement Subcutaneous -Post Debridement Size (cm) - Length 0.6 -Post Debridement Size (cm) - Width 0.7 -Post Debridement Size (cm) - Depth 0.3 -Total Square Cm 0.42 -Wound/Ulcer Outcome Not Healed -Ulcer Cleansing Rinsed/ Irrigated with Saline -Foul Odor after Cleansing No -Bioengineered Tissue No -Bleeding Controlled with Pressure -Offloading No -Treatment Response Procedure Tolerated Well #2 Medial RLE- Inferior -Time 12:52 -Correct Patient Yes -Correct Side, Site, Position Yes -Correct Procedure Yes -Procedure Performed Yes -Type of Procedure Debridement -Clinical Debridement Subcutaneous -Post Debridement Size (cm) - Length 1.5 -Post Debridement Size (cm) - Width 1.0 -Post Debridement Size (cm) - Depth 0.2 -Total Square Cm 1.50 -Wound/Ulcer Outcome Not Healed -Ulcer Cleansing Rinsed/ Irrigated with Saline -Foul Odor after Cleansing No -Bioengineered Tissue No -Bleeding Controlled with Pressure -Offloading No -Treatment Response Procedure Tolerated Well #1 Medial RLE -Time 12:53 -Correct Patient Yes -Correct Side, Site, Position Yes -Correct Procedure Yes -Procedure Performed Yes -Type of Procedure Debridement -Clinical Debridement Subcutaneous -Post Debridement Size (cm) - Length 7.5 -Post Debridement Size (cm) - Width 5.3 -Post Debridement Size (cm) - Depth 0.7 -Total Square Cm 39.75 -Wound/Ulcer Outcome Not Healed -Ulcer Cleansing Rinsed/ Irrigated with Saline -Foul Odor after Cleansing No -Bioengineered Tissue No -Bleeding Controlled with Pressure -Offloading No -Treatment Response Procedure Tolerated Well [See Physician Procedure note for Specifics] Pain Scale: 0-10 Numeric [Pain] -Is Patient Pain Free? Yes Psych/Mental Status: Normal Affect, Appropriate Debridement Note Post-Debridement Measurements/Treatment WC - Nurse 2 - General Ulcer CM Notes Start: 07/18/19 11:36 Freq: Status: Active Protocol: Activity Type Activity Date Activity User E-Sign Co-Sign Detail Recorded Client Recorded Date Recorded By Document 07/18/19 12:44 DV [id number] 07/18/19 12:56 DV Document 07/25/19 12:59 DV [id number] 07/25/19 13:05 DV Document 08/08/19 12:47 DV [id number] 08/08/19 13:01 DV 07/18/19 07/25/19 08/08/19 12:44 12:59 12:47 Wound Center Nurse 2 #5 Medial Lower RLE (Skin Tear Cluster) -Time 12:56 -Correct Patient Yes -Correct Side, Site, Position Yes -Correct Procedure Yes -Procedure Performed Yes -Type of Procedure Debridement -Clinical Debridement Subcutaneous -Post Debridement Size (cm) - Length 4.5 -Post Debridement Size (cm) - Width 7.5 -Post Debridement Size (cm) - Depth 0.1 -Total Square Cm 33.75 -Wound/Ulcer Outcome Not Healed -Ulcer Cleansing Rinsed/ Irrigated with Saline -Foul Odor after Cleansing No -Bioengineered Tissue No -Bleeding Controlled with Pressure -Offloading No -Treatment Response Procedure Tolerated Well #4 Medial RLE- Superior -Time 12:48 13:01 12:49 -Correct Patient Yes Yes Yes -Correct Side, Site, Position Yes Yes Yes -Correct Procedure Yes Yes Yes -Procedure Performed Yes Yes Yes -Type of Procedure Debridement Debridement Debridement -Clinical Debridement Subcutaneous Subcutaneous Subcutaneous -Post Debridement Size (cm) - Length 0.8 0.5 0.6 -Post Debridement Size (cm) - Width 1.0 0.7 0.7 -Post Debridement Size (cm) - Depth 0.4 0.4 0.3 -Total Square Cm 0.80 0.35 0.42 -Wound/Ulcer Outcome Not Healed Not Healed Not Healed -Ulcer Cleansing Rinsed/ Rinsed/ Rinsed/ Irrigated with Irrigated with Irrigated with Saline Saline Saline -Foul Odor after Cleansing No No No -Bioengineered Tissue No No No -Bleeding Controlled with Pressure Pressure Pressure -Offloading Yes No No -Treatment Response Procedure Procedure Procedure Tolerated Well Tolerated Well Tolerated Well #3- LOWER STERNUM -Time 12:48 -Correct Patient Yes -Correct Side, Site, Position Yes -Correct Procedure No -Procedure Performed No -Post Debridement Size (cm) - Length 0 -Post Debridement Size (cm) - Width 0 -Post Debridement Size (cm) - Depth 0 -Total Square Cm 0 -Wound/Ulcer Outcome Healed- Epithelialized -Foul Odor after Cleansing No -Bioengineered Tissue No -Bleeding Controlled with Pressure -Offloading No -Treatment Response Procedure Tolerated Well #2 Medial RLE- Inferior -Time 12:49 13:02 12:52 -Correct Patient Yes Yes Yes -Correct Side, Site, Position Yes Yes Yes -Correct Procedure Yes Yes Yes -Procedure Performed Yes Yes Yes -Type of Procedure Debridement Debridement Debridement -Clinical Debridement Subcutaneous Subcutaneous Subcutaneous -Post Debridement Size (cm) - Length 1.1 1.2 1.5 -Post Debridement Size (cm) - Width 0.9 1.0 1.0 -Post Debridement Size (cm) - Depth 0.2 0.2 0.2 -Total Square Cm 0.99 1.20 1.50 -Wound/Ulcer Outcome Not Healed Not Healed Not Healed -Ulcer Cleansing Rinsed/ Rinsed/ Rinsed/ Irrigated with Irrigated with Irrigated with Saline Saline Saline -Foul Odor after Cleansing No No No -Bioengineered Tissue No No No -Bleeding Controlled with Pressure Pressure Pressure -Offloading No No No -Treatment Response Procedure Procedure Procedure Tolerated Well Tolerated Well Tolerated Well #1 Medial RLE -Time 12:49 13:00 12:53 -Correct Patient Yes Yes Yes -Correct Side, Site, Position Yes Yes Yes -Correct Procedure Yes Yes Yes -Procedure Performed Yes Yes Yes -Type of Procedure Debridement Debridement Debridement -Clinical Debridement Subcutaneous Subcutaneous Subcutaneous -Post Debridement Size (cm) - Length 8.0 8.0 7.5 -Post Debridement Size (cm) - Width 5.5 5.6 5.3 -Post Debridement Size (cm) - Depth 0.6 0.5 0.7 -Total Square Cm 44.00 44.80 39.75 -Wound/Ulcer Outcome Not Healed Not Healed Not Healed -Ulcer Cleansing Rinsed/ Rinsed/ Irrigated with Irrigated with Saline Saline -Foul Odor after Cleansing No No -Bioengineered Tissue No No -Bleeding Controlled with Pressure Pressure Pressure -Offloading No No No -Treatment Response Procedure Procedure Procedure Tolerated Well Tolerated Well Tolerated Well Pain Scale: 0-10 Numeric Is Patient Pain Free? Yes Yes Yes Wound debrided: medial right lower extremity skin tear cluster Laterality: Right Type of Debridement: Excisional debridement Anesthesia Used: 4% Lidocaine Solution, 5% Lidocaine Gel Depth: Down to and including healthy tissue, in the subcutaneous layer Percentage of wound debrided: 100 Instrument Used: 5mm curette Tissue Removed: yellow slough, devitalized tissue Severity: Fat Layer Exposed Amount of bleeding with debridement: Mild Bleeding Controlled with: Compression and gauze Patient tolerated procedure well - Additional Wound Wound debrided: medial right LE superior Laterality: Right Type of Debridement: Excisional debridement Anesthesia Used: 4% Lidocaine Solution, 5% Lidocaine Gel Depth: Down to and including healthy tissue, in the subcutaneous layer Percentage of wound debrided: 100 Instrument Used: 3mm curette Tissue Removed: yellow slough, devitalized tissue Severity: Fat Layer Exposed Amount of bleeding with debridement: Mild Bleeding Controlled with: Compression and gauze Patient tolerated procedure: Patient tolerated procedure well - Additional Wound Wound debrided: Medial right LE inferior Laterality: Right Type of Debridement: Excisional debridement Anesthesia Used: 4% Lidocaine Solution, 5% Lidocaine Gel Depth: Down to and including healthy tissue, in the subcutaneous layer Percentage of wound debrided: 100 Instrument Used: 5mm curette Tissue Removed: yellow slough, devitalized tissue Severity: Fat Layer Exposed Amount of bleeding with debridement: Mild Bleeding Controlled with: Compression and gauze Patient tolerated procedure: Patient tolerated procedure well - Additional Wound Wound debrided: right medial LE Laterality: Right Type of Debridement: Excisional debridement Anesthesia Used: 4% Lidocaine Solution, 5% Lidocaine Gel Depth: Down to and including healthy tissue, in the subcutaneous layer, to muscle Percentage of wound debrided: 100 Instrument Used: 5mm curette Tissue Removed: yellow slough, devitalized tissue Severity: Fat Layer Exposed Amount of bleeding with debridement: Mild Bleeding Controlled with: Compression and gauze Patient tolerated procedure: Patient tolerated procedure well Assessment/Plan Active Problems Venous ulcer of right leg (Chronic) Chronic ulcer of right leg with fat layer exposed (Chronic) Venous insufficiency (Chronic) Type 2 diabetes mellitus (Chronic) End stage renal disease on dialysis (Chronic) Assessment: 1. Venous ulcer of right leg, chronic. 2. Chronic ulcer of right leg with fat layer exposed. 3. Sternal wound dehiscence, chronic - healed. 4. Venous insufficiency, chronic. 5. Peripheral arterial disease, chronic. 6. T2 DM, chronic. 7. CHF, chronic. 8. End-stage renal disease on dialysis, chronic Plan: Sanjeev's right lower extremity wounds were evaluated and debrided today as above. She has experienced another set-back from improper application of her wound vac with potential infection and sever skin breakdown. Although there is significant drainage from her ulcer and there has been improvement in the depth of the ulcer, the wound vac applied improperly has shown significant setbacks in her progress and will once again give her a VAC holiday. If the wound vac cannot consistently be applied appropriately then she is at higher risk of worsening of her ulcer than the benefit of using the wound vac to exepedite healing. She was restarted on Cefdinir and will have her use Santyl and Aquacel Extra to her wound bed and adaptic to the skin tears with daily changes for 1 week. Will reassess for continuation of wound vac therapy next week and whether or not she may need wound culture. Off-loading: Avoid prolonged standing or dangling of legs. Keep feet elevated at or above waist level when seated. Diet: Patient encouraged to increase protein and vitamin C intake while taking caution to avoid high carbohydrate and/or sugar intake. Follow-up: Follow-up with cardiothoracic surgeon as scheduled and return to wound center clinic in 1 week for re-evaluation. Return sooner or report to the emergency room should symptoms worsen, or new symptoms arise. Red flag symptoms reviewed, which should prompt patient to report to the ER, including but not limited to: Increasing pain, redness, or swelling surrounding any of her wounds; increase in drainage from any of her wounds; foul-smelling or purulent drainage from any of her wounds; fever, chills, nausea, or vomiting.
== END 2019-08-14 23:59 ==
LOC: WC 11:30
PROVIDERS: Visit Provider Family Medicine
DX: I83.018 Varicose veins of right lower extremity with ulcer other part of lower leg (principal); L97.812 Non-pressure chronic ulcer of other part of right lower leg with fat layer exposed; D63.8 Anemia in other chronic diseases classified elsewhere; N18.6 End stage renal disease; I25.10 Atherosclerotic heart disease of native coronary artery without angina pectoris; E11.51 Type 2 diabetes mellitus with diabetic peripheral angiopathy without gangrene; E11.22 Type 2 diabetes mellitus with diabetic chronic kidney disease; I13.2 Hypertensive heart and chronic kidney disease with heart failure and with stage 5 chronic kidney disease, or end stage renal disease; I50.32 Chronic diastolic (congestive) heart failure; E03.9 Hypothyroidism, unspecified; F32.9 Major depressive disorder, single episode, unspecified; E78.5 Hyperlipidemia, unspecified; Z99.2 Dependence on renal dialysis; Z95.1 Presence of aortocoronary bypass graft; K21.9 Gastro-esophageal reflux disease without esophagitis; Z79.899 Other long term (current) drug therapy; Z79.82 Long term (current) use of aspirin; Z79.4 Long term (current) use of insulin; T81.31XA Disruption of external operation (surgical) wound, not elsewhere classified, initial encounter; Y83.8 Other surgical procedures as the cause of abnormal reaction of the patient, or of later complication, without mention of misadventure at the time of the procedure
CPT/HCPCS: 11042; 11043; 11045

== ENCOUNTER 2019-08-15 11:59 | Inpatient (IN) | payer MEDICARE, MEDICAID, SELFPAY ==
[2019-08-15] VITALS (7 sets, daily range): BP systolic 114–151; BP diastolic 53–68; PULSE 57–78; RESP 11–19; TEMP 36.1–36.9; O2SAT 98–100; BMI 32.0; BMI 31.1; BMI 34.4; BMI 34.5
--- NOTE | 2019-08-15 12:37 | ED.VIS.GEN ---
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 Patient has had a chronic wound on this leg since February 2019 after she had cardiac bypass surgery. She has had multiple admissions to [facility] as well as [facility] and has had a wound VAC on and off this wound for the last 6 months. Her wound care doctor sent her in today for worsening infection. She has been on cefdinir. No fevers. She is had some increased drainage and surrounding redness. No vomiting or diarrhea. She has no other complaints at this time. 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 Smoking Status: Former smoker Alcohol: None Drugs: None <Jomar Green - Last Filed: 08/15/19 13:38> <Marek Pace - Last Filed: 08/15/19 15:00> - Allergies and Home Meds Allergies/Adverse Reactions: Allergies No Known Allergies Allergy (Verified 08/15/19 12:02) Review of Systems All systems negative except as indicated General: Denies: Chills, Fever, Malaise Eyes: Denies: Visual changes - bilaterally, Blurred Vision - bilaterally, Diplopia ENT: Denies: Rhinorrhea, Sore throat Cardiovascular: Denies: Chest pain, Palpitations, Heart racing Respiratory: Denies: Dyspnea, Cough, Sputum Gastrointestinal: Denies: Abdominal pain, Nausea, Vomiting, Diarrhea Genitourinary: Denies: Dysuria, Hematuria, Frequency Musculoskeletal: Denies: Myalgias, Arthralgias, Neck pain, Back pain, Swelling, Extremity Pain Skin: Reports: Wounds. Denies: Rash, Abscess, Abrasions Neurological: Denies: Headache, Weakness, Parasthesia, Numbness Endocrine: Denies: Polyuria, Polydipsia <Jomar Green - Last Filed: 08/15/19 13:38> Physical Exam Vital Signs/Narrative: Vital Signs Temp Pulse Resp BP Pulse Ox 08/15/19 12:28 97.6 F L 57 L 11 L 114/63 100 08/15/19 12:02 98.2 F 57 L 17 131/53 H 100 Inital Vital Signs reviewed: Yes General: Well nourished, Well developed, Obese, No Acute Distress Head: Normocephalic, Atraumatic Eyes: Perrl, EOMI ENT: Moist mucous membranes Neck: Supple, Nontender, No lymphadenopathy, No JVD Cardiovascular: Regular rate, Regular rhythm, No murmurs Respiratory: No distress, CTA bilaterally, Chest nontender Abdomen: Soft, Nontender, Nondistended, Normal bowel sounds, No masses Back: Nontender, Normal Inspection. Negative for: CVA tenderness Extremities: - - Patient has a AV fistula in her right arm with palpable thrill.Patient has a large wound on her right anterior leg that appears to be chronic but there is surrounding redness throughout the right leg but it does not extend into the foot or towards the knee or into the thigh. DP and PT pulse was obtained. In both legs. There is no gangrenous tissue or crepitus Skin: No rash, No Trauma Neurological: Alert, Oriented x3 Psychological: Normal affect, Normal Mood <Jomar Green - Last Filed: 08/15/19 13:38> Vital Signs/Narrative: Vital Signs Temp Pulse Resp BP Pulse Ox 08/15/19 13:13 97.8 F 60 14 125/56 H 99 08/15/19 12:28 97.6 F L 57 L 11 L 114/63 100 08/15/19 12:02 98.2 F 57 L 17 131/53 H 100 <Marek Pace - Last Filed: 08/15/19 15:00> Diagnostic/Tx/Re-eval - Medical Decision Making Reviewed patient's previous wound culture from June and it was positive for MRSA and Proteus. Patient given Vanco and Zosyn. Laboratory work-up was unremarkable. No elevated white blood cell count. Her hemoglobin was consistent with her chronic anemia and her creatinine was at her baseline with her end-stage renal disease. A wound culture was sent. Because the patient has failed outpatient therapy with continued progression of her wound is cellulitis I spoke with the hospitalist who agreed to admit the patient <Jomar Green - Last Filed: 08/15/19 13:38> - Medical Decision Making Patient was seen with me. I did a [id number] evaluation with the patient. Patient presents with a wound to her right lower leg. Patient was seen at the wound care center today and was referred to the emergency department. Patient was placed on Omnicef 1 week ago. The wound and cellulitis has been getting worse despite this treatment. Patient denies any fevers or chills. Vital signs are stable. Patient is afebrile. Patient is in no acute distress. Skin is warm dry. There is a grade 2 ulcerated wound over the medial aspect of the right proximal tibia. There is surrounding erythema and warmth. There is some purulent discharge and drainage noted. Pedal pulses are equal bilaterally. There is good range of motion. Sensation was intact light touch in all digits. CBC shows a mild anemia which is chronic. Wound culture was sent. Metabolic profile showed an elevated creatinine which is chronic for her. Patient was started on Zosyn and vancomycin. Case was discussed with the hospitalist. Patient will be admitted for failed outpatient therapy. Patient understands and is agreeable with the plan. All questions were answered. <Marek Pace - Last Filed: 08/15/19 15:00> ED Disposition <Jomar Green - Last Filed: 08/15/19 13:38> <Marek Pace - Last Filed: 08/15/19 15:00> - Plan for ED Patient: Disposition: Acute Care Hospital [facility] Diagnosis: Cellulitis of right lower extremity without foot, CHF (congestive heart failure), Anemia of chronic disease, Chronic ulcer of right leg with fat layer exposed, Coronary artery disease involving coronary bypass graft, End stage renal disease on dialysis, Dyslipidemia, Essential hypertension, Peripheral arterial disease, Type 2 diabetes mellitus
[2019-08-15 12:50] LABS: Hematocrit 34.9 % (37-47); Hemoglobin 10.5 g/dL (12.0-15.0); Mean Corp Hgb Conc 30.1 g/dL (32-36); Mean Corpuscular Hgb 29.9 pg (27.0-32.0); Mean Corpuscular Volume 99.4 fL (81-99); Mean Platelet Vol. 11.2 fl (6.2-12.0); POSITIVE MORPHOLOGY YES; Platelet Count 182 K/mm3 (150-450); RBC Distribution Width CV 19.9 % (11.6-14.6); RBC Distribution Width SD 72.5 fl (35.1-43.9); Red Blood Count 3.51 M/mm3 (4.2-5.4); White Blood Count 7.5 K/mm3 (4.4-11.0)
[2019-08-15 13:06] LABS: Anion Gap 5 (5-15); BUN 21 mg/dL (7-18); BUN/Creat Ratio 8.3 RATIO (10-20); Calcium,Total 8.6 mg/dL (8.5-10.1); Chloride 96 mmol/L (98-107); Creatinine, Serum 2.54 mg/dL (0.55-1.02); EST Glomerular Filtration Rate 20 mL/min (>60); Est Glom Filt Rate - Afr Amer 24 mL/min (>60); Estimated Creatinine Clearance 17.23 ml/min; Glucose 105 mg/dL (74-106); Potassium 3.2 mmol/L (3.5-5.1); Scan Indicated on CBC? Y/N YES- FLAGS NOTED; Sodium Level 134 mmol/L (136-145)
--- NOTE | 2019-08-15 13:27 | HP.PCM_ITS ---
Problem List (1) Venous ulcer of right leg Status: Chronic (2) Chronic ulcer of right leg with fat layer exposed Status: Chronic (3) Type 2 diabetes mellitus Status: Chronic Qualifiers: Diabetes mellitus intermediate accountant insulin use: without retirement use Diabetes mellitus complication status: with kidney complications Diabetes mellitus complication detail: with chronic kidney disease Chronic kidney disease stage: on chronic dialysis Qualified Code(s): E11.22 - Type 2 diabetes mellitus with diabetic chronic kidney disease; N18.6 - End stage renal disease; Z99.2 - Dependence on renal dialysis (4) Essential hypertension Status: Chronic (5) Coronary artery disease involving coronary bypass graft Status: Chronic Qualifiers: [place] vs. transplanted heart: [place] heart (6) Diastolic dysfunction Status: Chronic (7) Peripheral arterial disease Status: Chronic (8) End stage renal disease on dialysis Status: Chronic (9) Dyslipidemia Status: Chronic (10) Chronic GERD Status: Chronic (11) Hypothyroidism Status: Chronic (12) Depression Status: Chronic (13) Cellulitis of right lower extremity without foot Status: Acute History of Present Illness Date of Admission: 08/15/19 Chief Complaint: Right lower leg cellulitis, infected ulcer The patient is a 64 year old F with multiple comorbidities including ESRD on hemodialysis, history of CABG in February 2019, chronic right leg wound, who has been following up with the wound center for treatment. Patient was recently on a wound VAC, and over the past 6 months. She was sent in to the emergency department today because her right lower extremity looks swollen, erythematous and her wound looks infected. She has recently been on cefdinir but has increased drainage and surrounding redness. Patient denied any fever or chills or nausea or vomiting or diarrhea. Her vitals in the ED showed temperature of 97.0F, heart rate 50, blood pressure 103/46, respiratory rate 18, SPO2 was 100% on 2 L of oxygen. WBC 7.5, Hb 10.5, Plt 182, Na 134, K 3.2, Cl 96, HCO3 33, BUN 21 Cr 2.54. Previous wound cultures on 07/11/19 shows Proteus mirabilis, MRSA Past Medical History Past Medical History (Chronic Problems): Chronic Problems Venous ulcer of right leg (Chronic) Chronic ulcer of right leg with fat layer exposed (Chronic) Venous insufficiency (Chronic) Type 2 diabetes mellitus (Chronic) Essential hypertension (Chronic) Coronary artery disease involving coronary bypass graft (Chronic) CHF (congestive heart failure) (Chronic) Diastolic dysfunction (Chronic) Peripheral arterial disease (Chronic) End stage renal disease on dialysis (Chronic) Dyslipidemia (Chronic) Chronic GERD (Chronic) Hypothyroidism (Chronic) Depression (Chronic) Steal syndrome of hand (Chronic) Anemia of chronic disease (Chronic) Allergies No Known Allergies Allergy (Verified 08/15/19 12:02) Home Medications: Ambulatory Orders Medication Instructions Recorded Albuterol Sulfate 0.63 mg IH Q6H PRN 06/10/19 Aripiprazole 2 mg PO DAILY 06/10/19 Aspirin [Aspirin EC] 81 mg PO DAILY 06/10/19 Atorvastatin Calcium 40 mg PO QHS 06/10/19 Bumetanide 1 mg PO DAILY 06/10/19 Bupropion HCl 100 mg PO Q12H 06/10/19 Citalopram [Celexa] 40 mg PO DAILY 06/10/19 Clopidogrel Bisulfate [Clopidogrel] 75 mg PO DAILY 06/10/19 Folic Acid/Vit B Complex and C 0.8 mg PO DAILY 06/10/19 [Renal Vitamin Tablet] Insulin Regular, Human [Humulin R] 6 unit SQ TID 06/10/19 Isosorbide Mononitrate [Imdur] 60 mg PO DAILY 06/10/19 Levothyroxine Sodium [Synthroid] 100 mcg PO DAILY 06/10/19 Lisinopril 5 mg PO QHS 06/10/19 Metoprolol Succinate 75 mg PO DAILY 06/10/19 Mirtazapine [Remeron] 7.5 mg PO QHS 06/10/19 Oxybutynin Chloride [Oxybutynin 5 mg PO DAILY 06/10/19 Chloride ER] Oxycodone HCl/Acetaminophen 1 - 2 ea PO Q6H PRN 06/10/19 [Percocet 5-325 mg Tablet] Pantoprazole Sodium [Protonix] 40 mg PO DAILY 06/10/19 Sodium Chloride 0.65% [[place] Nasal 1 spray NASAL BID 06/10/19 [place]] Bisacodyl [Dulcolax] 10 mg PO DAILY PRN 08/15/19 Budesonide/Formoterol 160/4.5 2 puff INHALATION BID 08/15/19 [Symbicort 160/4.5 Mcg Inhaler (SP)] Cefdinir 300 mg PO QHS 05/01/20 Ipratropium/Albuterol Respimat 2 puff INHALATION 4X/DAY PRN 08/15/19 [Combivent Respimat Inhal [place]] Metoclopramide HCl [Reglan] 5 mg PO 4X/DAY 08/15/19 Nystatin Powder [Mycostatin Powder] 1 applicatio TOPICAL TID 08/15/19 Ondansetron HCl [Zofran] 4 mg PO Q6H PRN PRN 08/15/19 Sennosides/Docusate Sodium [Senna 2 ea PO DAILY 08/15/19 Plus 8.6-50 mg Softgel] Sodium Chloride 0.65% [[place] Nasal 1 spray NASAL PRN PRN 08/15/19 [place]] Surgical History: coronary bypass surgery - February 2019, tonsillectomy, - - Right AV fistula Psychiatric History: No pertinent psych hx MEDICAL DOCTOR MD/MEDICAL DIRECTOR History: No pertinent MEDICAL DOCTOR MD/MEDICAL DIRECTOR history Lives: Shelter Smoking Status: Former smoker Alcohol: None Drugs: None Review of Systems Constitutional: Denies: Anorexia, Chills, Fever, Night Sweats, Weakness, Weight Change, Fatigue Eyes: Denies: Blurred vision, Cataracts, Conjunctivae Inflammation, Pain, Redness, Vision Change HEENT: Denies: Difficulty Hearing, Difficulty Swallowing, Head Aches, Hearing Changes, Sinus Congestion, Sinus Drainage Cardiovascular: Denies: Chest Pain, Claudication, Orthopnea, Palpitations Respiratory: Denies: Cough, Shortness of breath at rest, Sputum production Gastrointestinal: Denies: Abdominal Pain, Nausea, Vomiting Genitourinary: Denies: Dysuria, Frequency Gynecological: Denies: Breast symptoms Musculoskeletal: Reports: Leg Pain. Denies: Joint Pain, Joint stiffness, Joint swelling, Joint Tenderness Skin: Reports: Wounds - see wound RN picture, - - cellulitis of right leg Neurological: Denies: Balance problems, Blurred vision, Focal weakness, Numbness, Tingling Psychiatric: Denies: Anxiety, Depression, Homicidal Ideations, Suicidal Ideations Hematologic/ Lymphatic: Denies: Easy Bruising, Easy Bleeding VTE Information - Inpt Only VTE Present on Admission: No VTE Pharm Prophylaxis ordered?: Yes Patient Problems: Active and Suspected Problems Cellulitis of right lower extremity without foot (Acute) - Physical Exam Vitals/I&O's: Vital Signs Temp Pulse Resp BP Pulse Ox 97.8 F 60 14 125/56 H 99 08/15/19 13:13 05/01/20 13:13 08/15/19 13:13 08/15/19 13:13 08/15/19 13:13 Oxygen Flow Rate (L/min) 2 Oxygen Delivery Method Nasal Cannula Weight: 77.111 kg Body Mass Index (BMI) 31.1 General: Alert, Oriented x3, Cooperative, No apparent distress HEENT: Atraumatic, PERRLA, EOMI, Normocephalic Oral: Moist Mucosa Neck: Supple Lungs: Clear to auscultation, Normal air movement Cardiovascular: Regular rate, Regular Rhythm, Normal S1, Normal S2, No murmurs Abdomen: Bowel Sounds Present, Soft, Non Tender, Non-Distended, No Hepato- splenomegaly Extremities: No edema Skin: - - see wound RN photo Musculoskeletal: No Tenderness to Palpation of Joints or Extremities Lymphatic: No Cervical, Supraclavicular, or Inguinal Adenopathy Neurological: Cranial nerves II-XII grossly intact, Neuro grossly intact Psych/Mental Status: Normal Affect, Appropriate Laboratory Results 08/15/19 12:40: WBC 7.5, RBC 3.51 L, Hgb 10.5 L, Hct 34.9 L, MCV 99.4 H, MCH 29.9, MCHC 30.1 L, RDW Std Deviation 72.5 H, RDW Coeff of [place] 19.9 H, Plt Count 182, MPV 11.2, Differential Comment 08/15/19 12:40: Sodium 134 L, Potassium 3.2 L, Chloride 96 L, Carbon Dioxide 33.0 H, Anion Gap 5, BUN 21 H, Creatinine 2.54 H, Estim Creat Clear Calc 17.23, Est GFR (MDRD) Af Amer 24 L, Est GFR (MDRD) Non-Af 20 L, BUN/Creatinine Ratio 8.3 L, Glucose 105, Calcium 8.6 Current Medications Vancomycin HCl 1,250 mg/ (Sodium Chloride) 275 mls @ 167 mls/hr IV X1 ONE Stop: 08/15/19 14:38 Piperacillin Sod/Tazobactam (Sod 4.5 gm/ Sodium Chloride) 100 mls @ 200 mls/hr IV X1 ONE Stop: 08/15/19 13:37 Assessment/Plan All Active Problems Sternal wound dehiscence (Resolved) Cellulitis of right lower extremity without foot (Acute) 64 year old F with multiple comorbidities including ESRD on hemodialysis, history of CABG in February 2019, chronic right leg wound, who has been following up with the wound center for treatment. 1. Acute right leg infected ulcer with cellulitis, previous MRSA and Proteus Underlining chronic venous insufficiency, started vancomycin and heena Podiatry consulted Pharmacy to monitor vancomycin levels 2. ESRD on HD, on , nephrology consulted 3. CAD s/p CABG/CHF, chronic diastolic/PAD On aspirin, statin, Bumex, Plavix, metoprolol, Lisinopril 4. Hypertension, controlled, Continue on Lisinopril, metoprolol 5. Type 2 DM, BS controlled, on Humulin R TID Will check HgbA1c, continue on ISS with accuchecks 6. Hypothyroidism, continue on levothyroxine 7. Depression, stable, On Bupropion, Celexa, Remeron 8. Anemia of chronic disease, Hb is 10.5 Will check iron studies 9. DVT ppx - Heparin SC Inpatient E&M: 53357 Subs Hosp L2
--- NOTE | 2019-08-15 15:42 | NURSING ---
wound photo: left lower leg
--- NOTE | 2019-08-15 15:43 | NURSING ---
wound photo: right lower leg
--- NOTE | 2019-08-15 15:48 | NURSING ---
called [facility] requesting pt medication list and Dialysis information.
[2019-08-15] MEDS: Heparin Injection (Vial) 5,000 UNIT/ML VIAL 5000 UNIT SC ×2 (16:06→23:19)
[2019-08-15 16:25] LABS: Bedside Glucose 77 mg/dL (70-110)
[2019-08-15 16:38] LABS: Phosphorus 2.8 mg/dL (2.5-4.9)
[2019-08-15 17:01] LABS: Hemoglobin A1c 7.1 % (4.2-6.3)
[2019-08-15 17:10] LABS: M R Staph aureus DNA By PCR POSITIVE (Negative); Probe Check PASS; Staph aureus DNA By PCR POSITIVE (Negative)
--- NOTE | 2019-08-15 17:14 | CON.PCM_ITS ---
Problem List (1) Other specified peripheral vascular diseases Status: Chronic (2) Chronic ulcer of right leg with fat layer exposed Status: Chronic (3) Venous insufficiency Status: Chronic (4) Cellulitis of right lower extremity without foot Status: Suspected (5) Right leg pain Status: Acute (6) Ulcer of left lower extremity with fat layer exposed Status: Chronic Reason for Consult Date of Consultation: 08/15/19 Reason for Consultation: Right leg ulcer with redness and worsening status History of Present Illness: The patient is a 64 year old F with multiple comorbidities including end-stage renal disease on hemodialysis, coronary artery disease, hypothyroidism, depression, anemia, congestive heart failure, diabetes and suspected venous and arterial disease continues have delayed healing of her right leg ulcer. The patient relates that has been present for approximately 6 months and she was seen this past May in the wound healing center. She has tried various wound healing products including Santyl and wound vacs. Recently the limb has become more red, painful, and swollen. She was seen by closing specialist, Dr. Hope this afternoon and was advised to go for admission. The patient rates her right leg pain is moderate and this is localized to the ulcer site. The patient denies fever, chill, nausea, vomiting or loss of appetite at this time. She relates that she is nonambulatory and has been this way for several years. She has leg rest pain and is unable to report she has any claudication because she is nonambulatory. Past Medical History Past Medical History (Chronic Problems): Chronic Problems Venous ulcer of right leg (Chronic) Chronic ulcer of right leg with fat layer exposed (Chronic) Venous insufficiency (Chronic) Type 2 diabetes mellitus (Chronic) Essential hypertension (Chronic) Coronary artery disease involving coronary bypass graft (Chronic) CHF (congestive heart failure) (Chronic) Diastolic dysfunction (Chronic) Peripheral arterial disease (Chronic) End stage renal disease on dialysis (Chronic) Dyslipidemia (Chronic) Chronic GERD (Chronic) Hypothyroidism (Chronic) Depression (Chronic) Steal syndrome of hand (Chronic) Anemia of chronic disease (Chronic) Other specified peripheral vascular diseases (Chronic) Ulcer of left lower extremity with fat layer exposed (Chronic) Allergies No Known Allergies Allergy (Verified 08/15/19 12:02) Home Medications: Ambulatory Orders Medication Instructions Recorded Albuterol Sulfate 0.63 mg IH Q6H PRN 06/10/19 Aripiprazole 2 mg PO DAILY 06/10/19 Aspirin [Aspirin EC] 81 mg PO DAILY 06/10/19 Atorvastatin Calcium 40 mg PO QHS 06/10/19 Bumetanide 1 mg PO DAILY 06/10/19 Bupropion HCl 100 mg PO Q12H 06/10/19 Citalopram [Celexa] 40 mg PO DAILY 06/10/19 Clopidogrel Bisulfate [Clopidogrel] 75 mg PO DAILY 06/10/19 Folic Acid/Vit B Complex and C 0.8 mg PO DAILY 06/10/19 [Renal Vitamin Tablet] Insulin Regular, Human [Humulin R] 6 unit SQ TID 06/10/19 Isosorbide Mononitrate [Imdur] 60 mg PO DAILY 06/10/19 Levothyroxine Sodium [Synthroid] 100 mcg PO DAILY 06/10/19 Lisinopril 5 mg PO QHS 06/10/19 Metoprolol Succinate 75 mg PO DAILY 06/10/19 Mirtazapine [Remeron] 7.5 mg PO QHS 06/10/19 Oxybutynin Chloride [Oxybutynin 5 mg PO DAILY 06/10/19 Chloride ER] Oxycodone HCl/Acetaminophen 1 - 2 ea PO Q6H PRN 06/10/19 [Percocet 5-325 mg Tablet] Pantoprazole Sodium [Protonix] 40 mg PO DAILY 06/10/19 Sodium Chloride 0.65% [Golva Nasal 1 spray NASAL BID 06/10/19 [place]] Bisacodyl [Dulcolax] 10 mg PO DAILY PRN 08/15/19 Budesonide/Formoterol 160/4.5 2 puff INHALATION BID 08/15/19 [Symbicort 160/4.5 Mcg Inhaler (SP)] Cefdinir 300 mg PO QHS 08/15/19 Ipratropium/Albuterol Respimat 2 puff INHALATION 4X/DAY PRN 08/15/19 [Combivent Respimat Inhal [place]] Metoclopramide HCl [Reglan] 5 mg PO 4X/DAY 08/15/19 Nystatin Powder [Mycostatin Powder] 1 applicatio TOPICAL TID 08/15/19 Ondansetron HCl [Zofran] 4 mg PO Q6H PRN PRN 08/15/19 Sennosides/Docusate Sodium [Senna 2 ea PO DAILY 08/15/19 Plus 8.6-50 mg Softgel] Sodium Chloride 0.65% [Golva Nasal 1 spray NASAL PRN PRN 08/15/19 [place]] Surgical History: coronary bypass surgery - February 2019, tonsillectomy, - - Right AV fistula Psychiatric History: No pertinent psych hx [employer]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 Denies: Chest Pain, Claudication Respiratory: Denies: Shortness of Breath Gastrointestinal: Denies: Constipation, Diarrhea, Nausea, Vomiting Musculoskeletal: Reports: Leg Pain. Denies: Joint Tenderness Skin: Reports: Skin Changes, Wounds Neurological: Reports: Incoordination Hematologic/ Lymphatic: Reports: Easy Bruising Patient Problems: Active and Suspected Problems Cellulitis of right lower extremity without foot (Suspected) Right leg pain (Acute) - Physical Exam Vitals/I&O's: Vital Signs Temp Pulse Resp BP Pulse Ox 98.4 F 64 16 147/56 H 100 08/15/19 14:33 08/15/19 14:33 08/15/19 14:33 08/15/19 14:33 08/15/19 14:33 Oxygen Flow Rate (L/min) 2 Oxygen Delivery Method Nasal Cannula Weight: 85.5 kg Body Mass Index (BMI) 34.4 Intake and Output for Last 24 Hours 08/13/19 08/14/19 08/15/19 23:59 23:59 23:59 Intake Total 375 / 375 Balance 375 / 375 General: Alert, Oriented x3, Cooperative HEENT: Atraumatic Extremities: No cyanosis, Capillary Refill Less than 3 Seconds, No Calf Tenderness - Compartments are soft to palpate right and left lower extremities., Diminished Peripheral Pulses, Edema - Moderate bilateral lower extremities, Tenderness - Pain with palpation to the right larger anterior medial proximal leg ulcer site. There is no bogginess or fluctuance on palpation Skin: Ulcer/ Wound - Right leg ulcer site does not have any purulence, odor, lynne necrosis. The ulcer bed is mainly fibrous with a small amount of eschar. There is also a proximal satellite lesion which is 100% fibrous. There is no direct probe to bone however deeper fascial tissue is exposed covering the medial compartment muscle. The skin is pale, thin, atrophic, hairless, ruborous with erythema and with some hyperpigmentation right more than left. There is also skin discontinuity to the left anterior leg with also is very superficial with a fibrous base Musculoskeletal: No Tenderness to Palpation of Joints or Extremities, Muscle Wasting Psych/Mental Status: Normal Affect, Appropriate Microbiology Past 72 Hours 08/15/19 13:10 Wound - Leg, Right Gram Stain - Final Laboratory Results 08/15/19 12:40: WBC 7.5, RBC 3.51 L, Hgb 10.5 L, Hct 34.9 L, MCV 99.4 H, MCH 29.9, MCHC 30.1 L, RDW Std Deviation 72.5 H, RDW Coeff of Heber 19.9 H, Plt Count 182, MPV 11.2, Differential Comment 08/15/19 12:40: Sodium 134 L, Potassium 3.2 L, Chloride 96 L, Carbon Dioxide 33.0 H, Anion Gap 5, BUN 21 H, Creatinine 2.54 H, Estim Creat Clear Calc 17.23, Est GFR (MDRD) Af Amer 24 L, Est GFR (MDRD) Non-Af 20 L, BUN/Creatinine Ratio 8.3 L, Glucose 105, Calcium 8.6 08/15/19 12:40: Phosphorus 2.8 08/15/19 12:40: Hemoglobin A1c 7.1 H 08/15/19 14:45: S.aureus Protein A PCR POSITIVE H, MRSA (PCR) POSITIVE H 08/15/19 16:05: POC Glucose 77 Current Medications Acetaminophen (Tylenol) 650 mg PO Q6H PRN PRN PRN Reason: Pain Score 1-10/Temp > 100.7 F Dextrose (D50w Syringe) 0 gm IV X1 PRN; Protocol PRN Reason: Hypoglycemia Glucagon () 1 mg IM .X1 PRN PRN Reason: Hypoglycemia Heparin Sodium (Porcine) (Heparin Na) 5,000 unit SC Q8 [facility] Last Admin: 08/15/19 16:06 Dose: 5,000 unit Documented by: Vancomycin IV Pharmacy to Dose (1 ea/ Sodium Chloride) 500 mls @ 250 mls/hr IV X1 PRN; Protocol PRN Reason: Rx to Dose Piperacillin Sod/Tazobactam (Sod 3.375 gm/ Sodium Chloride) 50 mls @ 12.5 mls/hr IV Q12 [facility] Insulin Human Lispro (Humalog Kwikpen (Bkc)) 0 unit SC ACHS [place]; Protocol Last Admin: 08/15/19 16:07 Dose: Not Given Documented by: Nystatin (Mycostatin Powder) 1 applic TOPICAL BID [facility]; Protocol Ondansetron HCl (Zofran) 4 mg IV Q8H PRN PRN PRN Reason: NAUSEA/VOMITING Sodium Chloride () 10 - 40 ml IV UD PRN PRN Reason: SALINE FLUSH Assessment/Plan All Active Problems Sternal wound dehiscence (Resolved) Right leg pain (Acute) Right leg ulcer with cellulitis and fat and fascial tissue exposed Left leg ulcer with fat layer exposed, no cellulitis Peripheral vascular disease Lower extremity edema secondary to suspected venous insufficiency and also from congestive heart failure Delayed healing Malnutrition suspected Other comorbidities noted I reviewed and discussed her case. Her diagnostic data was reviewed and a chart review was performed. She is afebrile. She does not have leukocytosis; white blood cell count was 7.5. I recommend inflammatory marker lab work-up of CRP and sedimentation rate. She does have some redness on the leg and worsening discomfort which could be consistent with both cellulitis and I also suspect this is secondary to peripheral vascular disease. Wound cultures including aerobic, anaerobic, and MRSA PCR were obtained from the right leg. These results are pending. It is noted that she has had a prior wound culture of Proteus mirabilis and MRSA from June 2019. She was started on vancomycin and Zosyn while in house and I recommend infectious disease consultation if she does not improve over the weekend. I did not appreciate any abscess or need for emergent lower extremity surgery at this time. X-rays were ordered of the limb due to the chronicity and the results are pending. Debridement was not perf ormed due to concern of lack of vascular status. It is noted she does not have palpable pulses and appears to have rest pain and multiple signs of a dysvascular status. Noninvasive vascular studies were ordered and I recommend a vascular surgery consultation. She was advised to dangle the legs if pain is noted and to try to avoid elevation. She denies previous work-up or referral to a vascular specialist. We discussed that she is at risk for limb loss and future wound care plan and limbs salvageability will be better clarified after her vascular status is work-up further. It is also noted she does also have chronic edema which could be secondary to venous insufficiency. I recommend venous duplex Doppler evaluation to look for venous insufficiency. This edema may also be secondary to her congestive heart failure other medical comorbidities. I do not recommend aggressive compression until we better confirm her vascular status. An Kristopher wrap is appropriate at this time. The ulcers were covered with a saline wet-to-dry. I do recommend changing his dressings daily with Aquacel Ag and to pad the rest of the leg as well with abdominal pads and gauze to prevent dressing nelson. Recommend proper glycemic control and nutritional supplementation to optimize healing. It is noted her hemoglobin A1c was 7.1%. Medical management and DVT prophylaxis per primary team. Thank you very much for the consultation. Please not hesitate to call if you have any questions. The podiatry team will continue to follow closely while in house. Marilou Hay DPM, [facility] [phone]
--- NOTE | 2019-08-15 17:17 | ART_ITS ---
Reason For Study: Decreased pedal pulses Procedure A bilateral lower extremity continuous wave Doppler with analog waveform analysis,segmental pressures,and ankle brachial indexes without exercise. Left Segmental Pressures Left brachial= 142mmHg. Left calf = 90mmHg. Left posterior tibial artery = 87mmHg. Left dorsalis pedis artery = 61mmHg. Left digit = 38 mmHg. The left dorsalis pedis waveforms are monophasic. The left posterior tibial artery waveforms are monophasic. Right Segmental Pressures Right calf = 72mmHg. Right posterior tibial artery = 67mmHg. Right dorsalis pedis artery = 73mmHg. Right digit = 40 mmHg. The right dorsalis pedis waveforms are monophasic. The right posterior tibial artery waveforms are monophasic. Indices The right ankle brachial index by the dorsalis pedis is 0.51. The right ankle brachial index by the posterior tibial artery is 0.47. The right digital-brachial index is 0.28. The left ankle brachial index by the dorsalis pedis is 0.43. The left ankle brachial index by the posterior tibial artery is 0.61. The left digital-brachial index is 0.27. Interpretation Summary Moderately severe bilateral lower extremity arterial occlusive disease based upon ankle-brachial indices. Monophasic Doppler waveforms bilateral anterior tibial and posterior tibial suggest a more severe level of disease. Abnormal bilateral digital brachial indices consistent with small vessel disease Ordering Physician: Marilou Hay Performed By: Siomara Downing RVT
[2019-08-15 18:48] LABS: Iron 40 ug/dL (50-170); Iron Binding Capacity,Total 271 ug/dL (250-450); PERCENT IRON SATURATION 14.8 % (15.0-55.0)
--- NOTE | 2019-08-15 19:30 | CPS ---
pt refused to use the incentive spirometer.
[2019-08-15] MEDS: oxyCODONE 5 MG Tablet PO (19:53)
[2019-08-15] MEDS: Acetaminophen 325 MG Tablet 650 MG PO (19:54)
--- NOTE | 2019-08-15 19:54 | PCM.RX.CS ---
Consult Pharmacy has been consulted to manage selected antiobiotic: Vancomycin Type of Consult: New start Suspected Infection: Skin/Soft tissue Prior Doses of Antibiotics Received/Current Regimen: Received 1250mg iv x 1 on 08.15.19. Labs: Sodium 134 mmol/L (136-145) L 08/15/19 12:40 Potassium 3.2 mmol/L (3.5-5.1) L 08/15/19 12:40 Chloride 96 mmol/L (98-107) L 08/15/19 12:40 Carbon Dioxide 33.0 mmol/L (21.0-32.0) H 08/15/19 12:40 Anion Gap 5 (5-15) 08/15/19 12:40 BUN 21 mg/dL (7-18) H 08/15/19 12:40 Creatinine 2.54 mg/dL (0.55-1.02) H 08/15/19 12:40 Est GFR (MDRD) Af Amer 24 mL/min (>60) L 08/15/19 12:40 Est GFR (MDRD) Non-Af 20 mL/min (>60) L 08/15/19 12:40 BUN/Creatinine Ratio 8.3 RATIO (10-20) L 08/15/19 12:40 Glucose 105 mg/dL (74-106) 08/15/19 12:40 Microbiology: Microbiology 08/15/19 13:10 Wound - Leg, Right Gram Stain - Final Weight used for dosin.5 kg Estimated Creatinine Clearance: 17ml/min Goal Trough: 15-20 mcg/mL Pharmacy Plan for Drug Dosing: Since CrCl <20, will not start any further dosing at this time. Will get random level on 08.17.19 and proceed with dosing based upon level. Pharmacy Service will continue to monitor and adjust dosing as required. Follow-Up Labs: Trough Other - random level .07.03 @0600
--- NOTE | 2019-08-15 19:55 | VDLE_ITS ---
Reason For Study: Swelling RIGHT LEFT GSV is normal. GSV is normal. CFV is compressible, spontaneous, competent CFV is visualized with color, pulsatile and demonstrates pulsatile venous flow. venous flow noted. POP V is compressible, spontaneous, competent FV prox-mid visualized with color, pulsatile and demonstrates pulsatile venous flow. venous flow noted. FV distal not visualized. FV prox-mid visualized with color, pulsatile Calf veins only visualized at prox only due venous flow noted. to wounds. Unable to visualize calf veins due to open POP V is compressible, spontaneous, competent wounds. and demonstrates pulsatile venous flow. Procedure PTV is compressible. Exam performed portable in patient room. LT PerV is compressible. Pt unale to tolerate compressions. A preliminary report was called and/or faxed to [facility]. Interpretation Summary Technically limited bilateral lower extremity venous examination because of bilateral wounds of the lower extremities. Limitations as noted. No evidence for acute deep vein thrombosis bilateral lower extremities Pulsatile venous flow suggesting proximal venous hypertension noted. Clinical correlation would be appropriate Patent and compressible bilateral great saphenous veins Ordering Physician: Marilou Hay Performed By: Siomara Downing RVT
--- NOTE | 2019-08-15 20:25 | RAD_ITS ---
STUDY: X-RAY - RIGHT TIBIA AND FIBULA REASON FOR EXAM: Female, 64 years old. Chronic ulcer to right leg TECHNIQUE: 3 view(s) of the tibia and fibula were obtained. COMPARISON: None. FINDINGS: There is demineralization of the tibia. There is demineralization of the fibula. Is postoperative change in the proximal right calf. This is on the medial side possibly associated with venous harvest. There is a fairly large area of focal ulceration or soft tissue defect within the superficial soft tissues that measures approximately 9 x 2.2 cm . There is calcification in the joint space compatible with chondrocalcinosis. RAD/Tibia & Fibula 2 Views IMPRESSION: Large soft tissue ulceration and no visualized or bony erosion. Bony osteopenia. Degenerative change in the right knee joint. Electronically Signed: Makayla Duran MD at 20:51 EDT Tel , Service support ,
[2019-08-15 20:48] LABS: Erythrocyte Sedimentation Rate 60 mm/hr (0-30)
[2019-08-15] MEDS: 0.9% Saline Lock 10 ML Syringe IV (23:18)
[2019-08-15] MEDS: Nystatin Powder 15gm Bottle 1 APPLIC TOPICAL (23:19)
[2019-08-15] MEDS: Atorvastatin Calcium 40 MG Tablet PO (23:20)
[2019-08-15] MEDS: Metoclopramide 5 MG TABLET PO (23:21)
[2019-08-15] MEDS: buPROPion 100 MG Tablet PO (23:21)
[2019-08-15] MEDS: Lisinopril 5 MG Tablet PO (23:21)
[2019-08-15] MEDS: Mirtazapine 15 MG Tablet 7.5 MG PO (23:22)
[2019-08-15] MEDS: Insulin Lispro 100 UNIT/ML INSULN.PEN SC (23:36)
[2019-08-16] VITALS (10 sets, daily range): BP systolic 113–130; BP diastolic 54–66; PULSE 64–88; RESP 12–20; TEMP 36.6–37; O2SAT 94–98
[2019-08-16] MEDS: oxyCODONE 5 MG Tablet PO ×4 (00:45→20:37)
[2019-08-16] MEDS: Acetaminophen 325 MG Tablet 650 MG PO (03:38)
[2019-08-16] MEDS: Nystatin Powder 15gm Bottle 1 APPLIC TOPICAL ×3 (05:02→22:27)
[2019-08-16] MEDS: 0.9% Saline Lock 10 ML Syringe IV ×2 (05:04→15:56)
[2019-08-16] MEDS: Levothyroxine 100 MCG Tablet PO (05:09)
[2019-08-16] MEDS: Heparin Injection (Vial) 5,000 UNIT/ML VIAL 5000 UNIT SC ×3 (05:10→22:30)
[2019-08-16 06:02] LABS: Absolute Lymphocyte Count 0.29 X10^3/uL (0.83-4.51); Absolute Neutrophil Count 9.1 X10^3/uL (2.0-7.7); Basophil# 0.06 X10^3/uL; Basophil% 0.6 % (0-1); Eosinophil# 0.15 X10^3/uL; Eosinophils% 1.4 % (0-5); Hematocrit 34.6 % (37-47); Hemoglobin 10.2 g/dL (12.0-15.0); Lymphocyte # 0.29 X10^3/ul (4.0); Lymphocyte % 2.8 % (19-41); Mean Corp Hgb Conc 29.5 g/dL (32-36); Mean Corpuscular Volume 98.3 fL (81-99); Mean Platelet Vol. 11.7 fl (6.2-12.0); Monocyte# 0.68 X10^3/uL; Monocyte% 6.6 % (0-10); NRBC Flagged by Analyzer 0 % (0-5); Neutrophil # 9.12 X10^3/uL (2.7-7.7); POSITIVE DIFFERENTIAL YES; POSITIVE MORPHOLOGY YES; Platelet Count 177 K/mm3 (150-450); RBC Distribution Width CV 19.7 % (11.6-14.6); RBC Distribution Width SD 71.6 fl (35.1-43.9); Red Blood Count 3.52 M/mm3 (4.2-5.4); White Blood Count 10.4 K/mm3 (4.4-11.0)
[2019-08-16 06:34] LABS: ALB/GLOB Ratio 0.6 RATIO (0.9-2.4); AST(SGOT) 13 U/L (15-37); Alanine Aminotransfer ALT/SGPT 20 U/L (13-56); Albumin, Serum 2.7 g/dL (3.2-5.0); Alkaline Phosphatase 127 U/L (45-117); Anion Gap 9 (5-15); BUN 25 mg/dL (7-18); BUN/Creat Ratio 9.1 RATIO (10-20); Calcium,Total 8.3 mg/dL (8.5-10.1); Chloride 95 mmol/L (98-107); Creatinine, Serum 2.75 mg/dL (0.55-1.02); EST Glomerular Filtration Rate 18 mL/min (>60); Est Glom Filt Rate - Afr Amer 22 mL/min (>60); Estimated Creatinine Clearance 15.92 ml/min; Globulin 4.2 g/dL (2.2-4.2); Glucose 119 mg/dL (74-106); Potassium 3.7 mmol/L (3.5-5.1); Protein, Total 6.9 g/dL (6.4-8.2); Sodium Level 130 mmol/L (136-145)
[2019-08-16 06:39] LABS: Differential Indicated SCAN CRITERIA MET
[2019-08-16 06:45] LABS: Crenated RBC RARE; Hypochromasia 2+; Schistocytes RARE
[2019-08-16 06:46] LABS: Anisocytosis 1+; Platelet Estimate ADEQUATE (ADEQ)
[2019-08-16] MEDS: Metoclopramide 5 MG TABLET PO ×3 (07:00→22:26)
--- NOTE | 2019-08-16 07:18 | PCM.PN.HOSP ---
Patient Problems: Active and Suspected Problems Right leg pain (Acute) Reason for Visit: Follow-up on right leg ulcer/cellulitis Subjective: Patient was seen and examined. She complains of pain in the legs. Denies any fever or chills. Will be having dialysis today. Objective: Physical exam: General: Alert, Oriented x3, Cooperative, No apparent distress HEENT: Atraumatic, PERRLA, EOMI, Normocephalic Oral: Moist Mucosa Neck: Supple Lungs: Clear to auscultation, Normal air movement Cardiovascular: Regular rate, Regular Rhythm, Normal S1, Normal S2, No murmurs Abdomen: Bowel Sounds Present, Soft, Non Tender, Non-Distended, No Hepato-splenomegaly Extremities: No edema Skin: - - see wound RN photo Musculoskeletal: No Tenderness to Palpation of Joints or Extremities Lymphatic: No Cervical, Supraclavicular, or Inguinal Adenopathy Neurological: Cranial nerves II-XII grossly intact, Neuro grossly intact Psych/Mental Status: Normal Affect, Appropriate Vitals/I&O's: Vital Signs Temp Pulse Resp BP Pulse Ox 98.6 F 64 20 H 114/55 L 95 08/16/19 03:31 08/16/19 03:31 08/16/19 03:31 08/16/19 03:31 08/16/19 03:31 Oxygen Flow Rate (L/min) 2 Oxygen Delivery Method Room Air Weight: 85.5 kg Body Mass Index (BMI) 34.4 Intake and Output for Last 24 Hours 08/14/19 08/15/19 08/16/19 23:59 23:59 23:59 Intake Total 735 / 785 200 / 200 Balance 735 / 785 200 / 200 Microbiology Past 72 Hours 08/15/19 13:10 Wound - Leg, Right Gram Stain - Final Laboratory Results 08/15/19 12:40: WBC 7.5, RBC 3.51 L, Hgb 10.5 L, Hct 34.9 L, MCV 99.4 H, MCH 29.9, MCHC 30.1 L, RDW Std Deviation 72.5 H, RDW Coeff of Heber 19.9 H, Plt Count 182, MPV 11.2, Differential Comment 08/15/19 12:40: Sodium 134 L, Potassium 3.2 L, Chloride 96 L, Carbon Dioxide 33.0 H, Anion Gap 5, BUN 21 H, Creatinine 2.54 H, Estim Creat Clear Calc 17.23, Est GFR (MDRD) Af Amer 24 L, Est GFR (MDRD) Non-Af 20 L, BUN/Creatinine Ratio 8.3 L, Glucose 105, Calcium 8.6 08/15/19 12:40: Phosphorus 2.8 08/15/19 12:40: Hemoglobin A1c 7.1 H 08/15/19 12:40: Iron 40 L, TIBC 271, Iron Saturation 14.8 L 08/15/19 12:40: ESR 60 H 08/15/19 12:40: C-React Prot High Sens 49.80 H 08/15/19 14:45: S.aureus Protein A PCR POSITIVE H, MRSA (PCR) POSITIVE H 08/15/19 16:05: POC Glucose 77 08/15/19 17:40: S.aureus Protein A PCR Cancelled, MRSA (PCR) Cancelled 08/16/19 05:24: WBC 10.4, RBC 3.52 L, Hgb 10.2 L, Hct 34.6 L, MCV 98.3, MCH 29.0, MCHC 29.5 L, RDW Std Deviation 71.6 H, RDW Coeff of Heber 19.7 H, Plt Count 177, MPV 11.7, Immature Gran % (Auto) 0.600, Neut % (Auto) 88.0 H, Lymph % (Auto) 2.8 L, Richardson % (Auto) 6.6, Eos % (Auto) 1.4, Baso % (Auto) 0.6, Absolute Neuts (auto) 9.1 H, Absolute Lymphs (auto) 0.29 L, Nucleated RBC % 0, Platelet Estimate ADEQUATE, Hypochromasia 2+, Anisocytosis 1+, Crenated Cell RARE, Schistocytes RARE 08/16/19 05:24: Sodium 130 L, Potassium 3.7, Chloride 95 L, Carbon Dioxide 26.0, Anion Gap 9, BUN 25 H, Creatinine 2.75 H, Estim Creat Clear Calc 15.92, Est GFR (MDRD) Af Amer 22 L, Est GFR (MDRD) Non-Af 18 L, BUN/Creatinine Ratio 9.1 L, Glucose 119 H, Calcium 8.3 L, Total Bilirubin 0.90, AST 13 L, ALT 20, Alkaline Phosphatase 127 H, Total Protein 6.9, Albumin 2.7 L, Globulin 4.2, Albumin/Globulin Ratio 0.6 L Current Medications Acetaminophen (Tylenol) 650 mg PO Q6H PRN PRN PRN Reason: Pain Score 1-10/Temp > 100.7 F Last Admin: 08/16/19 03:38 Dose: 650 mg Documented by: Albuterol Sulfate (Ventolin Aerosols) 2.5 mg INHALATION Q4H PRN PRN Reason: SHORTNESS OF BREATH Albuterol/Ipratropium (Duoneb) 3 ml INHALATION Q6H.RT [facility] Last Admin: 08/16/19 01:18 Dose: Not Given Documented by: Aspirin (Ecotrin) 81 mg PO DAILYCM [facility] Atorvastatin Calcium (Lipitor) 40 mg PO QHS [facility] Last Admin: 08/15/19 23:20 Dose: 40 mg Documented by: Bisacodyl (Dulcolax) 10 mg PO DAILY PRN PRN Reason: Constipation Budesonide (Pulmicort Aerosol) 0.5 mg INHALATION Q12H.RT [facility] Bumetanide (Bumex) 1 mg PO DAILY [facility] Bupropion HCl (Wellbutrin Tablets) 100 mg PO Q12 [facility] Last Admin: 08/15/19 23:21 Dose: 100 mg Documented by: Citalopram Hydrobromide (Celexa) 40 mg PO DAILY [facility] Clopidogrel Bisulfate (Plavix) 75 mg PO DAILY [facility] Dextrose (D50w Syringe) 0 gm IV X1 PRN; Protocol PRN Reason: Hypoglycemia Glucagon () 1 mg IM .X1 PRN PRN Reason: Hypoglycemia Heparin Sodium (Porcine) (Heparin Na) 5,000 unit SC Q8 [facility] Last Admin: 08/16/19 05:10 Dose: 5,000 unit Documented by: Vancomycin IV Pharmacy to Dose (1 ea/ Sodium Chloride) 500 mls @ 250 mls/hr IV PRN PRN; Protocol PRN Reason: Rx to Dose Piperacillin Sod/Tazobactam (Sod 3.375 gm/ Sodium Chloride) 50 mls @ 12.5 mls/hr IV Q12 [facility] Last Infusion: 08/16/19 03:00 Dose: Infused Documented by: Insulin Human Lispro (Humalog Kwikpen (Bkc)) 0 unit SC ACHS [facility]; Protocol Last Admin: 05/01/20 23:36 Dose: 1 u Documented by: Insulin Human Lispro (Humalog Kwikpen (Bkc)) 6 unit SC 0800,1200,1700 [facility] Isosorbide Mononitrate (Imdur) 60 mg PO DAILY [facility] Levothyroxine Sodium (Synthroid) 100 mcg PO DAILY@0600 [facility] Last Admin: 08/16/19 05:09 Dose: 100 mcg Documented by: Lisinopril (Zestril) 5 mg PO QHS [facility] Last Admin: 08/15/19 23:21 Dose: 5 mg Documented by: Metoclopramide HCl (Reglan) 5 mg PO ACHS [facility] Last Admin: 08/16/19 07:00 Dose: 5 mg Documented by: Metoprolol Succinate (Toprol Xl (Beta Hernandez)) 75 mg PO DAILY [facility] Mirtazapine (Remeron) 7.5 mg PO QHS [facility] Last Admin: 08/15/19 23:22 Dose: 7.5 mg Documented by: Multivit/Ca Carb/B Cmplx/FA/Prenat (Nephrocaps, Renaphro) 1 capsule PO DAILY [facility] Nystatin (Mycostatin Powder) 1 applic TOPICAL TID [facility]; Protocol Last Admin: 08/16/19 05:02 Dose: 1 applicatio Documented by: Ondansetron HCl (Zofran) 4 mg IV Q8H PRN PRN PRN Reason: NAUSEA/VOMITING Ondansetron HCl (Zofran Odt) 4 mg PO Q6H PRN PRN PRN Reason: NAUSEA Oxycodone HCl (Oxyir) 5 mg PO Q4H PRN PRN PRN Reason: Pain Score 6-10/10 Last Admin: 08/16/19 04:59 Dose: 5 mg Documented by: Pantoprazole Sodium (Protonix) 40 mg PO DAILY [facility] Senna/Docusate Sodium (Senokot-S, Nany-Colace) 2 tablet PO DAILY [facility] Sodium Chloride () 10 - 40 ml IV UD PRN PRN Reason: SALINE FLUSH Last Admin: 08/16/19 05:04 Dose: 10 ml Documented by: Sodium Chloride ([place] Nasal [place]) 1 spray NASAL BID [facility] Last Admin: 08/15/19 23:20 Dose: Not Given Documented by: Tolterodine Tartrate (Detrol La) 2 mg PO DAILY [facility] [place] Vital Signs/Narrative: Vital Signs Temp Pulse Resp BP Pulse Ox 08/16/19 03:31 98.6 F 64 20 H 114/55 L 95 Medical Necessity - Tobacco Use Smoking Status: Former smoker Tobacco Use: Cigarettes Assessment/Plan All Active Problems Sternal wound dehiscence (Resolved) Right leg pain (Acute) 64 year old F with multiple comorbidities including ESRD on hemodialysis, history of CABG in February 2019, chronic right leg wound, who has been following up with the wound center for treatment. 1. Acute right leg infected ulcer with cellulitis, previous MRSA and Proteus Underlining chronic venous insufficiency, Wound cultures are pending, MRSA PCR is positive Continue on IV vancomycin and Zosyn Podiatry consulted 2. ESRD on HD, on , Nephrology consulted Dialysis today 3. CAD s/p CABG/CHF, chronic diastolic/PAD On aspirin, statin, Bumex, Plavix, metoprolol, Lisinopril 4. Hypertension, controlled, Continue on Lisinopril, metoprolol 5. Type 2 DM, BS controlled, on Humulin R TID HgbA1c is 7.1, Continue on ISS with accuchecks 6. Hypothyroidism, on levothyroxine 7. Depression, stable, On Bupropion, Celexa, Remeron 8. Anemia of chronic disease/CKD, Hb is 10.5 9. DVT ppx - Heparin SC Inpatient E&M: 95563 Subs Hosp L2
[2019-08-16] MEDS: Ipratropium/Albuterol Sulfate 3 ML AMPUL.NEB INHALATION ×3 (07:39→19:15)
[2019-08-16] MEDS: Budesonide Respules 0.5 MG/2 ML AMPUL.NEB. INHALATION ×2 (07:39→19:15)
[2019-08-16] MEDS: Insulin Lispro 100 UNIT/ML INSULN.PEN 6 UNIT SC ×2 (08:39→17:31)
[2019-08-16] MEDS: Insulin Lispro 100 UNIT/ML INSULN.PEN SC (08:39)
--- NOTE | 2019-08-16 08:46 | NURSING ---
Patient states that on dialysis days she waits to take all of her medications until after dialysis. According to company doctor patient will be dialyzed in a few hours. Patient reports understanding.
[2019-08-16 08:51] LABS: Bedside Glucose 157 mg/dL (70-110)
--- NOTE | 2019-08-16 08:54 | NURSING ---
Verified with Carol from pharmacy that the q12 hr Zosyn scheduled for 1000 should be given after dialysis. She is aware that this may be late d/t time of dialysis.
--- NOTE | 2019-08-16 09:56 | NURSING ---
Update given to Tino Maurice, patient's son and POA at this time.
--- NOTE | 2019-08-16 10:19 | PCM.PROGNOTE ---
Patient Problems: Active and Suspected Problems Right leg pain (Acute) Subjective: Patient was seen this morning for follow up on right leg. She relates she has no pain to the leg, no acute changes. No complaints of fever, chills, nausea or vomiting. She is sitting up in chair watching TV. - Physical Exam Vitals/I&O's: Vital Signs Temp Pulse Resp BP Pulse Ox 98.5 F 64 18 130/54 H 94 08/16/19 10:00 08/16/19 10:00 08/16/19 10:00 08/16/19 10:08/16/19 10:00 Oxygen Flow Rate (L/min) 2 Oxygen Delivery Method Nasal Cannula Weight: 85.5 kg Body Mass Index (BMI) 34.4 Intake and Output for Last 24 Hours 08/14/19 08/15/19 08/16/19 23:59 23:59 23:59 Intake Total 735 / 785 200 / 200 Balance 735 / 785 200 / 200 General: Alert, Oriented x3, Cooperative, No apparent distress Extremities: - - Right leg ulcer site does not have any purulence, odor, or lynne necrosis. The ulcer bed is mainly fibrous with a small amount of eschar and some granular tissue. There is also a proximal satellite lesion which is 100% fibrous. There is no direct probe to bone however deeper fascial tissue is exposed covering the medial compartment muscle. The skin is pale, thin, atrophic, hairless, ruborous with erythema and with some hyperpigmentation right. DP audible via handheld doppler, right foot. Musculoskeletal: No Tenderness to Palpation of Joints or Extremities Psych/Mental Status: Alert and oriented to time, place, person, mood and affect Microbiology Past 72 Hours 08/15/19 13:10 Wound - Leg, Right Gram Stain - Final Laboratory Results 08/15/19 12:40: WBC 7.5, RBC 3.51 L, Hgb 10.5 L, Hct 34.9 L, MCV 99.4 H, MCH 29.9, MCHC 30.1 L, RDW Std Deviation 72.5 H, RDW Coeff of Hebre 19.9 H, Plt Count 182, MPV 11.2, Differential Comment 08/15/19 12:40: Sodium 134 L, Potassium 3.2 L, Chloride 96 L, Carbon Dioxide 33.0 H, Anion Gap 5, BUN 21 H, Creatinine 2.54 H, Estim Creat Clear Calc 17.23, Est GFR (MDRD) Af Amer 24 L, Est GFR (MDRD) Non-Af 20 L, BUN/Creatinine Ratio 8.3 L, Glucose 105, Calcium 8.6 08/15/19 12:40: Phosphorus 2.8 08/15/19 12:40: Hemoglobin A1c 7.1 H 08/15/19 12:40: Iron 40 L, TIBC 271, Iron Saturation 14.8 L 08/15/19 12:40: ESR 60 H 08/15/19 12:40: C-React Prot High Sens 49.80 H 08/15/19 14:45: S.aureus Protein A PCR POSITIVE H, MRSA (PCR) POSITIVE H 08/15/19 16:05: POC Glucose 77 08/15/19 17:40: S.aureus Protein A PCR Cancelled, MRSA (PCR) Cancelled 08/16/19 05:24: WBC 10.4, RBC 3.52 L, Hgb 10.2 L, Hct 34.6 L, MCV 98.3, MCH 29.0, MCHC 29.5 L, RDW Std Deviation 71.6 H, RDW Coeff of Heber 19.7 H, Plt Count 177, MPV 11.7, Immature Gran % (Auto) 0.600, Neut % (Auto) 88.0 H, Lymph % (Auto) 2.8 L, [place] % (Auto) 6.6, Eos % (Auto) 1.4, Baso % (Auto) 0.6, Absolute Neuts (auto) 9.1 H, Absolute Lymphs (auto) 0.29 L, Nucleated RBC % 0, Platelet Estimate ADEQUATE, Hypochromasia 2+, Anisocytosis 1+, Crenated Cell RARE, Schistocytes RARE 08/16/19 05:24: Sodium 130 L, Potassium 3.7, Chloride 95 L, Carbon Dioxide 26.0, Anion Gap 9, BUN 25 H, Creatinine 2.75 H, Estim Creat Clear Calc 15.92, Est GFR (MDRD) Af Amer 22 L, Est GFR (MDRD) Non-Af 18 L, BUN/Creatinine Ratio 9.1 L, Glucose 119 H, Calcium 8.3 L, Total Bilirubin 0.90, AST 13 L, ALT 20, Alkaline Phosphatase 127 H, Total Protein 6.9, Albumin 2.7 L, Globulin 4.2, Albumin/Globulin Ratio 0.6 L 08/16/19 08:37: POC Glucose 157 H Current Medications Acetaminophen (Tylenol) 650 mg PO Q6H PRN PRN PRN Reason: Pain Score 1-10/Temp > 100.7 F Last Admin: 08/16/19 03:38 Dose: 650 mg Documented by: Albuterol Sulfate (Ventolin Aerosols) 2.5 mg INHALATION Q4H PRN PRN Reason: SHORTNESS OF BREATH Albuterol/Ipratropium (Duoneb) 3 ml INHALATION Q6H.RT [facility] Last Admin: 08/16/19 07:39 Dose: 3 ml Documented by: Aspirin (Ecotrin) 81 mg PO DAILYCM [facility] Atorvastatin Calcium (Lipitor) 40 mg PO QHS [facility] Last Admin: 08/15/19 23:20 Dose: 40 mg Documented by: Bisacodyl (Dulcolax) 10 mg PO DAILY PRN PRN Reason: Constipation Budesonide (Pulmicort Aerosol) 0.5 mg INHALATION Q12H.RT [facility] Bumetanide (Bumex) 1 mg PO DAILY [facility] Bupropion HCl (Wellbutrin Tablets) 100 mg PO Q12 [facility] Last Admin: 08/15/19 23:21 Dose: 100 mg Documented by: Citalopram Hydrobromide (Celexa) 40 mg PO DAILY [facility] Clopidogrel Bisulfate (Plavix) 75 mg PO DAILY [facility] Dextrose (D50w Syringe) 0 gm IV X1 PRN; Protocol PRN Reason: Hypoglycemia Glucagon () 1 mg IM .X1 PRN PRN Reason: Hypoglycemia Heparin Sodium (Porcine) (Heparin Na) 5,000 unit SC Q8 [facility] Last Admin: 08/16/19 05:10 Dose: 5,000 unit Documented by: Vancomycin IV Pharmacy to Dose (1 ea/ Sodium Chloride) 500 mls @ 250 mls/hr IV PRN PRN; Protocol PRN Reason: Rx to Dose Piperacillin Sod/Tazobactam (Sod 3.375 gm/ Sodium Chloride) 50 mls @ 12.5 mls/hr IV Q12 [facility] Last Infusion: 08/16/19 03:00 Dose: Infused Documented by: Insulin Human Lispro (Humalog Zarinapen (Bkc)) 0 unit SC ACHS [facility]; Protocol Last Admin: 08/16/19 08:39 Dose: 1 u Documented by: Insulin Human Lispro (Humalog Kwikpen (Bkc)) 6 unit SC 0800,1200,1700 [facility] Last Admin: 08/16/19 08:39 Dose: 6 u Documented by: Isosorbide Mononitrate (Imdur) 60 mg PO DAILY [facility] Levothyroxine Sodium (Synthroid) 100 mcg PO DAILY@0600 [facility] Last Admin: 08/16/19 05:09 Dose: 100 mcg Documented by: Lisinopril (Zestril) 5 mg PO QHS [facility] Last Admin: 08/15/19 23:21 Dose: 5 mg Documented by: Metoclopramide HCl (Reglan) 5 mg PO [facility] Last Admin: 08/16/19 07:00 Dose: 5 mg Documented by: Metoprolol Succinate (Toprol Xl (Beta Hernandez)) 75 mg PO DAILY [facility] Mirtazapine (Remeron) 7.5 mg PO QHS [facility] Last Admin: 08/15/19 23:22 Dose: 7.5 mg Documented by: Multivit/Ca Carb/B Cmplx/FA/Prenat (Nephrocaps, Renaphro) 1 capsule PO DAILY [facility] Nystatin (Mycostatin Powder) 1 applic TOPICAL TID [facility]; Protocol Last Admin: 08/16/19 05:02 Dose: 1 applicatio Documented by: Ondansetron HCl (Zofran) 4 mg IV Q8H PRN PRN PRN Reason: NAUSEA/VOMITING Ondansetron HCl (Zofran Odt) 4 mg PO Q6H PRN PRN PRN Reason: NAUSEA Oxycodone HCl (Oxyir) 5 mg PO Q4H PRN PRN PRN Reason: Pain Score 6-10/10 Last Admin: 08/16/19 04:59 Dose: 5 mg Documented by: Pantoprazole Sodium (Protonix) 40 mg PO DAILY [facility] Senna/Docusate Sodium (Senokot-S, Nany-Colace) 2 tablet PO DAILY [facility] Sodium Chloride () 10 - 40 ml IV UD PRN PRN Reason: SALINE FLUSH Last Admin: 08/16/19 05:04 Dose: 10 ml Documented by: Sodium Chloride ([place] Nasal [place]) 1 spray NASAL BID [facility] Last Admin: 08/15/19 23:20 Dose: Not Given Documented by: Tolterodine Tartrate (Detrol La) 2 mg PO DAILY [facility] Medical Necessity - Tobacco Use Smoking Status: Former smoker Tobacco Use: Cigarettes Assessment/Plan All Active Problems Sternal wound dehiscence (Resolved) Right leg pain (Acute) Right leg ulcer with cellulitis and fat and fascial tissue exposed Left leg ulcer with fat layer exposed, no cellulitis Peripheral vascular disease Lower extremity edema secondary to suspected venous insufficiency and also from congestive heart failure Delayed healing Malnutrition suspected Other comorbidities noted Reviewed findings. WBC normal, patient afebrile. Continue with local wound care and antibiotic therapy. Reviewed culture results - gram positive rods and cocci - finals pending - continue with antibiotic therapy. Vascular studies have been ordered and are pending. Pending findings consider vascular surgery consultation. The ulcers right leg were cleansed with normal saline solution, applied Aquacel Ag to large ulceration and Adaptic to smaller ones, covered with gauze, kerlix and prabhakar with minimal to no compression. Avoid aggressive compression until vascular study results are available. Recommend proper glycemic control and nutritional supplementation to optimize healing. It is noted her hemoglobin A1c was 7.1%. Medical management and DVT prophylaxis per primary team. The podiatry team will continue to follow closely while in house. d/w Dr. Valenzuela
[2019-08-16 12:20] LABS: Bedside Glucose 129 mg/dL (70-110)
[2019-08-16] MEDS: LORazepam 2 MG/ML Syringe 1 MG IV (14:25)
[2019-08-16] MEDS: Tolterodine Tartrate 2 MG CAP.SA PO (15:49)
[2019-08-16] MEDS: Metoprolol(XL)Succ 25 MG Tablet 75 MG PO (15:49)
[2019-08-16] MEDS: buPROPion 100 MG Tablet PO ×2 (15:49→22:24)
[2019-08-16] MEDS: Clopidogrel Bisulfate 75 MG Tablet PO (15:49)
[2019-08-16] MEDS: Senna/Docusate Sodium 1 Tablet 2 TABLET PO (15:49)
[2019-08-16] MEDS: Folic Acid/Vitamin B Comp W-C 1 Capsule 1 CAP PO (15:50)
[2019-08-16] MEDS: Aspirin E.C. 81 MG Tablet PO (15:50)
[2019-08-16] MEDS: Isosorbide Mononitrate 60 MG Tablet PO (15:50)
[2019-08-16] MEDS: Bumetanide 2 MG Tablet 1 MG PO (15:50)
[2019-08-16] MEDS: Citalopram 40 MG TABLET PO (15:50)
[2019-08-16] MEDS: Pantoprazole Sodium 40 MG Tablet PO (15:50)
[2019-08-16] MEDS: Sodium Chloride 0.65% 1 SPRAY SPRAY.BTL NASAL (15:51)
[2019-08-16 16:11] LABS: Bedside Glucose 145 mg/dL (70-110)
--- NOTE | 2019-08-16 16:21 | CASEMGMT ---
Social Work Patient from [facility]. Telephone call to [facility]. Nursing staff stating we typically accept patient back. Voicemail left for admissions. Sue CAPELLAN, NADIA
--- NOTE | 2019-08-16 17:40 | PCM.CONS.R ---
Problem List (1) End stage renal disease on dialysis Status: Chronic Consultation - Renal 08/16/19 PCP/ Referring MD: Requesting physician: [] Primary care physician: No Primary Care Phys Reason for Consultation:: ESRD - History of Present Illness History of Present Illness: The patient is a 64 year old F wwas admitted to [facility] with complaints of cellulitis And lower extremity wound. She has known history of ESRD, on hemodialysis Sunday, , Sunday schedule. Last dialysis was . She goes to [facility] in [place]. Access is AV fistula.She is status post surgery. Had dialysis earlier today. Does not offer any complaints today - Allergies Allergies: Allergies No Known Allergies Allergy (Verified 08/15/19 12:02) - Current Medications Current Medications: Current Medications Acetaminophen (Tylenol) 650 mg PO Q6H PRN PRN PRN Reason: Pain Score 1-10/Temp > 100.7 F Last Admin: 08/16/19 03:38 Dose: 650 mg Documented by: Albuterol Sulfate (Ventolin Aerosols) 2.5 mg INHALATION Q4H PRN PRN Reason: SHORTNESS OF BREATH Albuterol/Ipratropium (Duoneb) 3 ml INHALATION Q6H.RT [facility] Last Admin: 08/16/19 13:37 Dose: 3 ml Documented by: Aspirin (Ecotrin) 81 mg PO DAILYCM [facility] Last Admin: 08/16/19 15:50 Dose: 81 mg Documented by: Atorvastatin Calcium (Lipitor) 40 mg PO QHS [facility] Last Admin: 08/15/19 23:20 Dose: 40 mg Documented by: Bisacodyl (Dulcolax) 10 mg PO DAILY PRN PRN Reason: Constipation Budesonide (Pulmicort Aerosol) 0.5 mg INHALATION Q12H.RT [facility] Bumetanide (Bumex) 1 mg PO DAILY [facility] Last Admin: 08/16/19 15:50 Dose: 1 mg Documented by: Bupropion HCl (Wellbutrin Tablets) 100 mg PO Q12 [facility] Last Admin: 08/16/19 15:49 Dose: 100 mg Documented by: Citalopram Hydrobromide (Celexa) 40 mg PO DAILY [facility] Last Admin: 08/16/19 15:50 Dose: 40 mg Documented by: Clopidogrel Bisulfate (Plavix) 75 mg PO DAILY [facility] Last Admin: 08/16/19 15:49 Dose: 75 mg Documented by: Dextrose (D50w Syringe) 0 gm IV X1 PRN; Protocol PRN Reason: Hypoglycemia Glucagon () 1 mg IM .X1 PRN PRN Reason: Hypoglycemia Heparin Sodium (Porcine) (Heparin Na) 5,000 unit SC Q8 [facility] Last Admin: 08/16/19 15:49 Dose: 5,000 unit Documented by: Vancomycin IV Pharmacy to Dose (1 ea/ Sodium Chloride) 500 mls @ 250 mls/hr IV PRN PRN; Protocol PRN Reason: Rx to Dose Piperacillin Sod/Tazobactam (Sod 3.375 gm/ Sodium Chloride) 50 mls @ 12.5 mls/hr IV Q12 [facility] Last Admin: 08/16/19 15:50 Dose: 12.5 mls/hr Documented by: Insulin Human Lispro (Humalog Kwikpen (Bkc)) 0 unit SC [facility]; Protocol Last Admin: 08/16/19 16:04 Dose: Not Given Documented by: Insulin Human Lispro (Humalog Kwikpen (Bkc)) 6 unit SC 0800,1200,1700 [facility] Last Admin: 08/16/19 17:31 Dose: 6 u Documented by: Isosorbide Mononitrate (Imdur) 60 mg PO DAILY [facility] Last Admin: 08/16/19 15:50 Dose: 60 mg Documented by: Levothyroxine Sodium (Synthroid) 100 mcg PO DAILY@0600 [facility] Last Admin: 08/16/19 05:09 Dose: 100 mcg Documented by: Lisinopril (Zestril) 5 mg PO QHS [facility] Last Admin: 08/15/19 23:21 Dose: 5 mg Documented by: Metoclopramide HCl (Reglan) 5 mg PO ACHS [facility] Last Admin: 08/16/19 15:56 Dose: 5 mg Documented by: Metoprolol Succinate (Toprol Xl (Beta Hernandez)) 75 mg PO DAILY [facility] Last Admin: 08/16/19 15:49 Dose: 75 mg Documented by: Mirtazapine (Remeron) 7.5 mg PO QHS [facility] Last Admin: 08/15/19 23:22 Dose: 7.5 mg Documented by: Multivit/Ca Carb/B Cmplx/FA/Prenat (Nephrocaps, Renaphro) 1 capsule PO DAILY [facility] Last Admin: 08/16/19 15:50 Dose: 1 capsule Documented by: Nutritional Formula (José Antonio - [place] Flavor) 1 packet PO BIDCM [facility] Last Admin: 08/16/19 15:56 Dose: 1 packet Documented by: Nystatin (Mycostatin Powder) 1 applic TOPICAL TID [facility]; Protocol Last Admin: 08/16/19 15:52 Dose: 1 applicatio Documented by: Ondansetron HCl (Zofran) 4 mg IV Q8H PRN PRN PRN Reason: NAUSEA/VOMITING Ondansetron HCl (Zofran Odt) 4 mg PO Q6H PRN PRN PRN Reason: NAUSEA Oxycodone HCl (Oxyir) 5 mg PO Q4H PRN PRN PRN Reason: Pain Score 6-10/10 Last Admin: 08/16/19 14:05 Dose: 5 mg Documented by: Pantoprazole Sodium (Protonix) 40 mg PO DAILY [facility] Last Admin: 08/16/19 15:50 Dose: 40 mg Documented by: Senna/Docusate Sodium (Senokot-S, Nany-Colace) 2 tablet PO DAILY [facility] Last Admin: 08/16/19 15:49 Dose: 2 tablet Documented by: Sodium Chloride () 10 - 40 ml IV UD PRN PRN Reason: SALINE FLUSH Last Admin: 08/16/19 15:56 Dose: 10 ml Documented by: Sodium Chloride ([place] Nasal [place]) 1 spray NASAL BID [facility] Last Admin: 08/16/19 15:51 Dose: 1 spray Documented by: Tolterodine Tartrate (Detrol La) 2 mg PO DAILY [facility] Last Admin: 08/16/19 15:49 Dose: 2 mg Documented by: - Past Medical History Past Medical History (Chronic Problems): Chronic Problems Venous ulcer of right leg (Chronic) Chronic ulcer of right leg with fat layer exposed (Chronic) Venous insufficiency (Chronic) Type 2 diabetes mellitus (Chronic) Essential hypertension (Chronic) Coronary artery disease involving coronary bypass graft (Chronic) CHF (congestive heart failure) (Chronic) Diastolic dysfunction (Chronic) Peripheral arterial disease (Chronic) End stage renal disease on dialysis (Chronic) Dyslipidemia (Chronic) Chronic GERD (Chronic) Hypothyroidism (Chronic) Depression (Chronic) Steal syndrome of hand (Chronic) Anemia of chronic disease (Chronic) Other specified peripheral vascular diseases (Chronic) Ulcer of left lower extremity with fat layer exposed (Chronic) - Past Surgical History Surgical History: coronary bypass surgery - February 2019, tonsillectomy, - - Right AV fistula - Social History Smoking Status: Former smoker Alcohol: None Drugs: None Review of Systems Constitutional: Denies: Chills, Fever, Weight Change HEENT: Denies: Head Aches, Sinus Congestion, Sinus Drainage Cardiovascular: Denies: Chest Pain, Palpitations Respiratory: Denies: Cough, Shortness of breath at rest, Sputum production Gastrointestinal: Denies: Abdominal Pain, Nausea, Vomiting Genitourinary: Denies: Dysuria Musculoskeletal: Denies: Joint Pain, Joint Tenderness Skin: Reports: Lesions, Rash, Skin Changes. Denies: Wounds Neurological: Denies: Numbness, Tingling, Focal weakness Psychiatric: Denies: Anxiety, Depression, Homicidal Ideations, Suicidal Ideations Hematologic/ Lymphatic: Denies: Easy Bruising, Easy Bleeding Patient Problems: Active and Suspected Problems Right leg pain (Acute) - Physical Exam Vitals/I&O's: Vital Signs Temp Pulse Resp BP Pulse Ox 97.8 F 88 19 H 113/62 94 08/16/19 16:52 08/16/19 16:52 08/16/19 16:52 08/16/19 16:52 08/16/19 15:23 Oxygen Flow Rate (L/min) 2 Oxygen Delivery Method Nasal Cannula Weight: 85.5 kg Body Mass Index (BMI) 34.4 Intake and Output for Last 24 Hours 08/14/19 08/15/19 08/16/19 23:59 23:59 23:59 Intake Total 735 / 785 940 / 940 Output Total 690 / 690 Balance 735 / 785 250 / 250 General: Alert, Oriented x3, Cooperative HEENT: Atraumatic, PERRLA, EOMI, Normocephalic Neck: Supple, No JVD, Negative Carotid Bruits Lungs: Clear to auscultation, Normal air movement Cardiovascular: Regular rate, No murmurs Abdomen: Bowel Sounds Present, Soft, Non Tender Extremities: No edema, Capillary Refill Less than 3 Seconds Skin: Ulcer/ Wound, Skin Tear, Rash Present Musculoskeletal: No Tenderness to Palpation of Joints or Extremities Neurological: Cranial nerves II-XII grossly intact Psych/Mental Status: Normal Affect, Appropriate Microbiology Past 72 Hours 08/15/19 17:40 Wound - Leg, Right Gram Stain - Final 08/15/19 17:40 Wound - Leg, Right Wound Culture - Preliminary Beta hemolytic organism Gram positive organism 08/15/19 13:10 Wound - Leg, Right Gram Stain - Final 08/15/19 13:10 Wound - Leg, Right Wound Culture - Preliminary Staphylococcus aureus Gram positive organism Laboratory Results 08/15/19 12:40: Iron 40 L, TIBC 271, Iron Saturation 14.8 L 08/15/19 12:40: ESR 60 H 08/15/19 12:40: C-React Prot High Sens 49.80 H 08/15/19 17:40: S.aureus Protein A PCR Cancelled, MRSA (PCR) Cancelled 08/16/19 05:24: WBC 10.4, RBC 3.52 L, Hgb 10.2 L, Hct 34.6 L, MCV 98.3, MCH 29.0, MCHC 29.5 L, RDW Std Deviation 71.6 H, RDW Coeff of Heber 19.7 H, Plt Count 177, MPV 11.7, Immature Gran % (Auto) 0.600, Neut % (Auto) 88.0 H, Lymph % (Auto) 2.8 L, [place] % (Auto) 6.6, Eos % (Auto) 1.4, Baso % (Auto) 0.6, Absolute Neuts (auto) 9.1 H, Absolute Lymphs (auto) 0.29 L, Nucleated RBC % 0, Platelet Estimate ADEQUATE, Hypochromasia 2+, Anisocytosis 1+, Crenated Cell RARE, Schistocytes RARE 08/16/19 05:24: Sodium 130 L, Potassium 3.7, Chloride 95 L, Carbon Dioxide 26.0, Anion Gap 9, BUN 25 H, Creatinine 2.75 H, Estim Creat Clear Calc 15.92, Est GFR (MDRD) Af Amer 22 L, Est GFR (MDRD) Non-Af 18 L, BUN/Creatinine Ratio 9.1 L, Glucose 119 H, Calcium 8.3 L, Total Bilirubin 0.90, AST 13 L, ALT 20, Alkaline Phosphatase 127 H, Total Protein 6.9, Albumin 2.7 L, Globulin 4.2, Albumin/Globulin Ratio 0.6 L 08/16/19 08:37: POC Glucose 157 H 08/16/19 12:16: POC Glucose 129 H 08/16/19 16:00: POC Glucose 145 H Current Medications Acetaminophen (Tylenol) 650 mg PO Q6H PRN PRN PRN Reason: Pain Score 1-10/Temp > 100.7 F Last Admin: 08/16/19 03:38 Dose: 650 mg Documented by: Albuterol Sulfate (Ventolin Aerosols) 2.5 mg INHALATION Q4H PRN PRN Reason: SHORTNESS OF BREATH Albuterol/Ipratropium (Duoneb) 3 ml INHALATION Q6H.RT [facility] Last Admin: 08/16/19 13:37 Dose: 3 ml Documented by: Aspirin (Ecotrin) 81 mg PO DAILYCM [facility] Last Admin: 08/16/19 15:50 Dose: 81 mg Documented by: Atorvastatin Calcium (Lipitor) 40 mg PO QHS [facility] Last Admin: 08/15/19 23:20 Dose: 40 mg Documented by: Bisacodyl (Dulcolax) 10 mg PO DAILY PRN PRN Reason: Constipation Budesonide (Pulmicort Aerosol) 0.5 mg INHALATION Q12H.RT [facility] Bumetanide (Bumex) 1 mg PO DAILY [facility] Last Admin: 08/16/19 15:50 Dose: 1 mg Documented by: Bupropion HCl (Wellbutrin Tablets) 100 mg PO Q12 [facility] Last Admin: 08/16/19 15:49 Dose: 100 mg Documented by: Citalopram Hydrobromide (Celexa) 40 mg PO DAILY [facility] Last Admin: 08/16/19 15:50 Dose: 40 mg Documented by: Clopidogrel Bisulfate (Plavix) 75 mg PO DAILY [facility] Last Admin: 08/16/19 15:49 Dose: 75 mg Documented by: Dextrose (D50w Syringe) 0 gm IV X1 PRN; Protocol PRN Reason: Hypoglycemia Glucagon () 1 mg IM .X1 PRN PRN Reason: Hypoglycemia Heparin Sodium (Porcine) (Heparin Na) 5,000 unit SC Q8 [facility] Last Admin: 08/16/19 15:49 Dose: 5,000 unit Documented by: Vancomycin IV Pharmacy to Dose (1 ea/ Sodium Chloride) 500 mls @ 250 mls/hr IV PRN PRN; Protocol PRN Reason: Rx to Dose Piperacillin Sod/Tazobactam (Sod 3.375 gm/ Sodium Chloride) 50 mls @ 12.5 mls/hr IV Q12 [facility] Last Admin: 08/16/19 15:50 Dose: 12.5 mls/hr Documented by: Insulin Human Lispro (Humalog Kwikpen (Bkc)) 0 unit SC [facility]; Protocol Last Admin: 08/16/19 16:04 Dose: Not Given Documented by: Insulin Human Lispro (Humalog Kwikpen (Bkc)) 6 unit SC 0800,1200,1700 [facility] Last Admin: 08/16/19 17:31 Dose: 6 u Documented by: Isosorbide Mononitrate (Imdur) 60 mg PO DAILY [facility] Last Admin: 08/16/19 15:50 Dose: 60 mg Documented by: Levothyroxine Sodium (Synthroid) 100 mcg PO DAILY@0600 [facility] Last Admin: 08/16/19 05:09 Dose: 100 mcg Documented by: Lisinopril (Zestril) 5 mg PO QHS [facility] Last Admin: 08/15/19 23:21 Dose: 5 mg Documented by: Metoclopramide HCl (Reglan) 5 mg PO [facility] Last Admin: 08/16/19 15:56 Dose: 5 mg Documented by: Metoprolol Succinate (Toprol Xl (Beta Hernandez)) 75 mg PO DAILY [facility] Last Admin: 08/16/19 15:49 Dose: 75 mg Documented by: Mirtazapine (Remeron) 7.5 mg PO QHS [facility] Last Admin: 08/15/19 23:22 Dose: 7.5 mg Documented by: Multivit/Ca Carb/B Cmplx/FA/Prenat (Nephrocaps, Renaphro) 1 capsule PO DAILY [facility] Last Admin: 08/16/19 15:50 Dose: 1 capsule Documented by: Nutritional Formula (José Antonio - [place] Flavor) 1 packet PO BIDCM [facility] Last Admin: 08/16/19 15:56 Dose: 1 packet Documented by: Nystatin (Mycostatin Powder) 1 applic TOPICAL TID [facility]; Protocol Last Admin: 08/16/19 15:52 Dose: 1 applicatio Documented by: Ondansetron HCl (Zofran) 4 mg IV Q8H PRN PRN PRN Reason: NAUSEA/VOMITING Ondansetron HCl (Zofran Odt) 4 mg PO Q6H PRN PRN PRN Reason: NAUSEA Oxycodone HCl (Oxyir) 5 mg PO Q4H PRN PRN PRN Reason: Pain Score 6-10/10 Last Admin: 08/16/19 14:05 Dose: 5 mg Documented by: Pantoprazole Sodium (Protonix) 40 mg PO DAILY [facility] Last Admin: 08/16/19 15:50 Dose: 40 mg Documented by: Senna/Docusate Sodium (Senokot-S, Nany-Colace) 2 tablet PO DAILY [facility] Last Admin: 08/16/19 15:49 Dose: 2 tablet Documented by: Sodium Chloride () 10 - 40 ml IV UD PRN PRN Reason: SALINE FLUSH Last Admin: 08/16/19 15:56 Dose: 10 ml Documented by: Sodium Chloride ([place] Nasal [place]) 1 spray NASAL BID [facility] Last Admin: 08/16/19 15:51 Dose: 1 spray Documented by: Tolterodine Tartrate (Detrol La) 2 mg PO DAILY [facility] Last Admin: 08/16/19 15:49 Dose: 2 mg Documented by: Assessment/Plan All Active Problems Sternal wound dehiscence (Resolved) Right leg pain (Acute) End-stage renal disease. Dialysis was done earlier today. Unfortunately she could not stay throughout the dialysis because of pain. She would prefer to sit in chair with dialysis. We will write an exception for next treatment. Lower extremity wound, cellulitis. Antibiotics as per primary. Anemia. We will call dialysis unit on Sunday about recent EPO administration.
[2019-08-16 18:16] LABS: Bedside Glucose 149 mg/dL (70-110)
[2019-08-16 18:16] LABS: Bedside Glucose 153 mg/dL (70-110)
--- NOTE | 2019-08-16 19:07 | CASEMGMT ---
Social Work Telephone call from Andra at [facility]. Andra stating that patient is a bed hold and plan will be for patient to return. Patient is currently skilled. Andra stating that patient has also been noncompliant with Dialysis a few times. This social insurance administrator updated nursing staff on this information. Spoke with patient. Patient plan is to return to [facility] when medically cleared. Patient voicing no questions or concerns. Green sheet placed on chart in the event that patient is ready to discharge this weekend. Nursing staff aware of green sheet. Social Work to follow as needed. Sue CAPELLAN, NADIA
[2019-08-16] MEDS: Atorvastatin Calcium 40 MG Tablet PO (22:24)
[2019-08-16] MEDS: Lisinopril 5 MG Tablet PO (22:24)
[2019-08-16] MEDS: Mirtazapine 15 MG Tablet 7.5 MG PO (22:25)
[2019-08-16 22:36] LABS: Bedside Glucose 146 mg/dL (70-110)
--- NOTE | 2019-08-16 23:40 | PCM.RX.CS ---
Consult Pharmacy has been consulted to manage selected antiobiotic: Vancomycin Type of Consult: Follow-up Suspected Infection: Skin/Soft tissue Prior Doses of Antibiotics Received/Current Regimen: Medications Vancomycin HCl 750 mg/ Sodium (Chloride) 265 mls @ 250 mls/hr IV X1 ONE Stop: 08/17/19 07:03 Labs: Sodium 130 mmol/L (136-145) L 08/16/19 05:24 Potassium 3.7 mmol/L (3.5-5.1) 08/16/19 05:24 Chloride 95 mmol/L (98-107) L 08/16/19 05:24 Carbon Dioxide 26.0 mmol/L (21.0-32.0) 08/16/19 05:24 Anion Gap 9 (5-15) 08/16/19 05:24 BUN 25 mg/dL (7-18) H 08/16/19 05:24 Creatinine 2.75 mg/dL (0.55-1.02) H 08/16/19 05:24 Est GFR (MDRD) Af Amer 22 mL/min (>60) L 08/16/19 05:24 Est GFR (MDRD) Non-Af 18 mL/min (>60) L 08/16/19 05:24 BUN/Creatinine Ratio 9.1 RATIO (10-20) L 08/16/19 05:24 Glucose 119 mg/dL (74-106) H 08/16/19 05:24 Microbiology: Microbiology 08/15/19 17:40 Wound - Leg, Right Gram Stain - Final 08/15/19 17:40 Wound - Leg, Right Wound Culture - Preliminary Beta hemolytic organism Gram positive organism 08/15/19 13:10 Wound - Leg, Right Gram Stain - Final 08/15/19 13:10 Wound - Leg, Right Wound Culture - Preliminary Staphylococcus aureus Gram positive organism Weight used for dosin.5 kg Estimated Creatinine Clearance: 16 Goal Trough: 15-20 mcg/mL Pharmacy Plan for Drug Dosing: Adjusted dosing protocol to Dialysis vancomycin dosing. Pt gets HD , & . Will give 2nd dose of protocol (750mg) 08/17/19 @0600. Then will draw pre-dialysis vanco level prior to next HD 08/19/19. Pharmacy Service will continue to monitor and adjust dosing as required. Follow-Up Labs: Trough Vancomycin - random Labs to be done on [date and time ordered]: 08/19/19 @0038
[2019-08-17] VITALS (8 sets, daily range): BP systolic 123–153; BP diastolic 59–100; PULSE 57–72; RESP 12–20; TEMP 36.4–36.7; O2SAT 97–100
[2019-08-17] MEDS: oxyCODONE 5 MG Tablet PO ×2 (01:13→15:05)
[2019-08-17] MEDS: Levothyroxine 100 MCG Tablet PO (06:51)
[2019-08-17] MEDS: Nystatin Powder 15gm Bottle 1 APPLIC TOPICAL ×3 (06:52→22:03)
[2019-08-17] MEDS: Metoclopramide 5 MG TABLET PO ×4 (06:58→21:55)
[2019-08-17 07:01] LABS: Bedside Glucose 106 mg/dL (70-110)
--- NOTE | 2019-08-17 07:23 | PCM.PN.HOSP ---
Patient Problems: Active and Suspected Problems Right leg pain (Acute) Reason for Visit: Follow-up on right leg ulcer/cellulitis/ESRD on HD Subjective: Patient was seen and examined. Denies any chest pain or dizziness or progressive shortness of breath. She could not complete her dialysis yesterday on account of severe cramps. Patient prefers to sit up in a chair, however she was dialysed in bed and prefered her legs to dangle out. Nephrology has written an exception to staying in bed for dialysis for Sunday per note; she will have her dialysis from a chair. Cultures are growing MRSA, staph aureus, enterococcus. Objective: Physical exam: General: Alert, Oriented x3, Cooperative, No apparent distress HEENT: Atraumatic, PERRLA, EOMI, Normocephalic Oral: Moist Mucosa Neck: Supple Lungs: Clear to auscultation, Normal air movement Cardiovascular: Regular rate, Regular Rhythm, Normal S1, Normal S2, No murmurs Abdomen: Bowel Sounds Present, Soft, Non Tender, Non-Distended, No Hepato-splenomegaly Extremities: No edema Skin: - - see wound RN photo Musculoskeletal: No Tenderness to Palpation of Joints or Extremities Lymphatic: No Cervical, Supraclavicular, or Inguinal Adenopathy Neurological: Cranial nerves II-XII grossly intact, Neuro grossly intact Psych/Mental Status: Normal Affect, Appropriate Vitals/I&O's: Vital Signs Temp Pulse Resp BP Pulse Ox 98.0 F 70 18 151/77 H 98 08/17/19 05:35 08/17/19 05:35 08/17/19 05:35 08/17/19 05:35 08/17/19 05:35 Oxygen Flow Rate (L/min) 2 Oxygen Delivery Method Nasal Cannula Weight: 85.5 kg Body Mass Index (BMI) 34.4 Intake and Output for Last 24 Hours 08/15/19 08/16/19 08/17/19 23:59 23:59 23:59 Intake Total 735 / 785 996.5 / 1396.5 1450 / 1450 Output Total 690 / 690 0 / 0 Balance 735 / 785 306.5 / 706.5 1450 / 1450 Microbiology Past 72 Hours 08/15/19 17:40 Wound - Leg, Right Gram Stain - Final 08/15/19 17:40 Wound - Leg, Right Wound Culture - Preliminary Beta hemolytic organism Gram positive organism 08/15/19 13:10 Wound - Leg, Right Gram Stain - Final 08/15/19 13:10 Wound - Leg, Right Wound Culture - Preliminary Staphylococcus aureus Gram positive organism Laboratory Results 08/15/19 23:26: POC Glucose 149 H 08/15/19 23:30: POC Glucose 153 H 08/16/19 08:37: POC Glucose 157 H 08/16/19 12:16: POC Glucose 129 H 08/16/19 16:00: POC Glucose 145 H 08/16/19 22:23: POC Glucose 146 H 08/17/19 06:55: POC Glucose 106 Current Medications Acetaminophen (Tylenol) 650 mg PO Q6H PRN PRN PRN Reason: Pain Score 1-10/Temp > 100.7 F Last Admin: 08/16/19 03:38 Dose: 650 mg Documented by: Albuterol Sulfate (Ventolin Aerosols) 2.5 mg INHALATION Q4H PRN PRN Reason: SHORTNESS OF BREATH Albuterol/Ipratropium (Duoneb) 3 ml INHALATION Q6H.RT [facility] Last Admin: 08/17/19 01:17 Dose: Not Given Documented by: Aspirin (Ecotrin) 81 mg PO DAILYCM [facility] Last Admin: 08/16/19 15:50 Dose: 81 mg Documented by: Atorvastatin Calcium (Lipitor) 40 mg PO QHS [facility] Last Admin: 08/16/19 22:24 Dose: 40 mg Documented by: Bisacodyl (Dulcolax) 10 mg PO DAILY PRN PRN Reason: Constipation Budesonide (Pulmicort Aerosol) 0.5 mg INHALATION Q12H.RT [facility] Last Admin: 08/16/19 19:15 Dose: 0.5 mg Documented by: Bumetanide (Bumex) 1 mg PO DAILY [facility] Last Admin: 08/16/19 15:50 Dose: 1 mg Documented by: Bupropion HCl (Wellbutrin Tablets) 100 mg PO Q12 [facility] Last Admin: 08/16/19 22:24 Dose: 100 mg Documented by: Citalopram Hydrobromide (Celexa) 40 mg PO DAILY [facility] Last Admin: 08/16/19 15:50 Dose: 40 mg Documented by: Clopidogrel Bisulfate (Plavix) 75 mg PO DAILY [facility] Last Admin: 08/16/19 15:49 Dose: 75 mg Documented by: Dextrose (D50w Syringe) 0 gm IV X1 PRN; Protocol PRN Reason: Hypoglycemia Glucagon () 1 mg IM .X1 PRN PRN Reason: Hypoglycemia Heparin Sodium (Porcine) (Heparin Na) 5,000 unit SC Q8 [facility] Last Admin: 08/17/19 06:56 Dose: Not Given Documented by: Vancomycin IV Pharmacy to Dose (1 ea/ Sodium Chloride) 500 mls @ 250 mls/hr IV PRN PRN; Protocol PRN Reason: Rx to Dose Piperacillin Sod/Tazobactam (Sod 3.375 gm/ Sodium Chloride) 50 mls @ 12.5 mls/hr IV Q12 [facility] Last Infusion: 08/17/19 03:06 Dose: Infused Documented by: Sodium Chloride () 250 mls @ 15 mls/hr IV .[id number] PRN PRN Reason: Saline Flush Last Infusion: 08/17/19 02:30 Dose: 15 mls/hr Documented by: Sodium Chloride () 250 mls @ 15 mls/hr IV .[id number] PRN PRN Reason: Additional IVPB Infusion Insulin Human Lispro (Humalog Kwikpen (Bkc)) 0 unit SC [facility]; Protocol Last Admin: 08/17/19 06:57 Dose: Not Given Documented by: Insulin Human Lispro (Humalog Kwikpen (Bkc)) 6 unit SC 0800,1200,1700 [facility] Last Admin: 08/16/19 17:31 Dose: 6 u Documented by: Isosorbide Mononitrate (Imdur) 60 mg PO DAILY [facility] Last Admin: 08/16/19 15:50 Dose: 60 mg Documented by: Levothyroxine Sodium (Synthroid) 100 mcg PO DAILY@0600 [facility] Last Admin: 08/17/19 06:51 Dose: 100 mcg Documented by: Lisinopril (Zestril) 5 mg PO QHS [facility] Last Admin: 08/16/19 22:24 Dose: 5 mg Documented by: Metoclopramide HCl (Reglan) 5 mg PO ACHS [facility] Last Admin: 08/17/19 06:58 Dose: 5 mg Documented by: Metoprolol Succinate (Toprol Xl (Beta Hernandez)) 75 mg PO DAILY [facility] Last Admin: 08/16/19 15:49 Dose: 75 mg Documented by: Mirtazapine (Remeron) 7.5 mg PO QHS [facility] Last Admin: 08/16/19 22:25 Dose: 7.5 mg Documented by: Multivit/Ca Carb/B Cmplx/FA/Prenat (Nephrocaps, Renaphro) 1 capsule PO DAILY [facility] Last Admin: 08/16/19 15:50 Dose: 1 capsule Documented by: Nutritional Formula (José Antonio - [place] Flavor) 1 packet PO BIDCM [facility] Last Admin: 08/16/19 15:56 Dose: 1 packet Documented by: Nystatin (Mycostatin Powder) 1 applic TOPICAL TID [facility]; Protocol Last Admin: 08/17/19 06:52 Dose: 1 applicatio Documented by: Ondansetron HCl (Zofran) 4 mg IV Q8H PRN PRN PRN Reason: NAUSEA/VOMITING Ondansetron HCl (Zofran Odt) 4 mg PO Q6H PRN PRN PRN Reason: NAUSEA Oxycodone HCl (Oxyir) 5 mg PO Q4H PRN PRN PRN Reason: Pain Score 6-10/10 Last Admin: 08/17/19 01:13 Dose: 5 mg Documented by: Pantoprazole Sodium (Protonix) 40 mg PO DAILY [facility] Last Admin: 08/16/19 15:50 Dose: 40 mg Documented by: Senna/Docusate Sodium (Senokot-S, Nany-Colace) 2 tablet PO DAILY [facility] Last Admin: 08/16/19 15:49 Dose: 2 tablet Documented by: Sodium Chloride ([place] Nasal [place]) 1 spray NASAL BID [facility] Last Admin: 08/16/19 22:27 Dose: Not Given Documented by: Sodium Chloride () 10 - 40 ml IV UD PRN PRN Reason: SALINE FLUSH Tolterodine Tartrate (Detrol La) 2 mg PO DAILY [facility] Last Admin: 08/16/19 15:49 Dose: 2 mg Documented by: STROKE Vital Signs/Narrative: Vital Signs Temp Pulse Resp BP Pulse Ox 08/17/19 05:35 98.0 F 70 18 151/77 H 98 Medical Necessity - Tobacco Use Smoking Status: Former smoker Tobacco Use: Cigarettes Assessment/Plan All Active Problems Sternal wound dehiscence (Resolved) Right leg pain (Acute) 64 year old F with multiple comorbidities including ESRD on hemodialysis, history of CABG in February 2019, chronic right leg wound, who has been following up with the wound center for treatment, send from wound center with 1. Acute right leg MRSA infected ulcer with cellulitis Underlining chronic venous insufficiency, Wound cultures growing MRSA/enterococcus, MRSA PCR is positive Continue on IV vancomycin and Zosyn Podiatry consulted, will also consult ID 2. ESRD on HD, on , did not complete last dialysis on account of cramping; 500mls of fluid removed Patient looks fluid overloaded, Nephrology following 3. CAD s/p CABG/CHF, chronic diastolic/PAD On aspirin, statin, Bumex, Plavix, metoprolol, Lisinopril 4. Hypertension, Bp has to be uncontrolled this morning, Will continue on Lisinopril, metoprolol for now. Will increase metoprolol if remains uncontrolled throughout the day 5. Type 2 DM, BS controlled, on Humulin R TID HgbA1c is 7.1, Continue on ISS with accuchecks 6. Hypothyroidism, on levothyroxine 7. Depression, stable, On Bupropion, Celexa, Remeron 8. Anemia of chronic disease/CKD, Hb is 10.5 9. DVT ppx - Heparin SC Inpatient E&M: 40994 Subs Hosp L2
[2019-08-17] MEDS: Ipratropium/Albuterol Sulfate 3 ML AMPUL.NEB INHALATION ×3 (07:34→19:57)
[2019-08-17] MEDS: Budesonide Respules 0.5 MG/2 ML AMPUL.NEB. INHALATION ×2 (07:34→19:57)
[2019-08-17] MEDS: Citalopram 40 MG TABLET PO (09:09)
[2019-08-17] MEDS: Tolterodine Tartrate 2 MG CAP.SA PO (09:09)
[2019-08-17] MEDS: Bumetanide 2 MG Tablet 1 MG PO (09:10)
[2019-08-17] MEDS: Clopidogrel Bisulfate 75 MG Tablet PO (09:10)
[2019-08-17] MEDS: Senna/Docusate Sodium 1 Tablet 2 TABLET PO (09:10)
[2019-08-17] MEDS: Isosorbide Mononitrate 60 MG Tablet PO (09:10)
[2019-08-17] MEDS: Pantoprazole Sodium 40 MG Tablet PO (09:10)
[2019-08-17] MEDS: buPROPion 100 MG Tablet PO ×2 (09:10→21:55)
[2019-08-17] MEDS: Aspirin E.C. 81 MG Tablet PO (09:10)
[2019-08-17] MEDS: Folic Acid/Vitamin B Comp W-C 1 Capsule 1 CAP PO (09:11)
[2019-08-17] MEDS: Metoprolol(XL)Succ 25 MG Tablet 75 MG PO (09:11)
--- NOTE | 2019-08-17 10:18 | PN_ITS ---
Patient Problems: Active and Suspected Problems Right leg pain (Acute) Subjective: Patient was seen this morning for follow up on leg ulcers. Patient resting in chair, sitting up, no complaints. No complaints of fever, chills, nausea or vomiting. Patient afebrile. - Physical Exam Vitals/I&O's: Vital Signs Temp Pulse Resp BP Pulse Ox 97.5 F L 72 18 153/100 H 100 08/17/19 09:01 08/17/19 09:11 08/17/19 09:01 08/17/19 09:01 08/17/19 09:01 Oxygen Flow Rate (L/min) 2 Oxygen Delivery Method Nasal Cannula Weight: 85.5 kg Body Mass Index (BMI) 34.4 Intake and Output for Last 24 Hours 08/15/19 08/16/19 08/17/19 23:59 23:59 23:59 Intake Total 735 / 785 996.5 / 1396.5 1715 / 1715 Output Total 690 / 690 0 / 0 Balance 735 / 785 306.5 / 706.5 1715 / 1715 General: Alert, Oriented x3, Cooperative, No apparent distress Extremities: - - Right leg ulcer site does not have any purulence, odor, or lynne necrosis. The ulcer bed is mainly fibrous with a small amount of eschar and some granular tissue. There is also a proximal satellite lesion which is 100% fibrous. There is no direct probe to bone however deeper fascial tissue is exposed covering the medial compartment muscle. The skin is pale, thin, atrophic, hairless, ruborous with erythema and with some hyperpigmentation right. Left leg with two small ulcerations anterior leg down to subcutaneous tissue, no erythema, no fluctuance, no purulence, no cellulitis, no necrosis, no evidence of infection. No evidence of acute ischemia bilateral lower extremity. Psych/Mental Status: Appropriate, Alert and oriented to time, place, person, mood and affect Microbiology Past 72 Hours 08/15/19 13:10 Wound - Leg, Right Gram Stain - Final 08/15/19 13:10 Wound - Leg, Right Wound Culture - Preliminary Meth. resistant Staph. aureus Staphylococcus aureus GPC Poss Enterococcus sp Gram positive christopher Gram positive christopher#2 08/15/19 17:40 Wound - Leg, Right Gram Stain - Final 08/15/19 17:40 Wound - Leg, Right Wound Culture - Preliminary Beta hemolytic organism Gram positive organism Laboratory Results 08/15/19 23:26: POC Glucose 149 H 08/15/19 23:30: POC Glucose 153 H 08/16/19 12:16: POC Glucose 129 H 08/16/19 16:00: POC Glucose 145 H 08/16/19 22:23: POC Glucose 146 H 08/17/19 06:55: POC Glucose 106 Current Medications Acetaminophen (Tylenol) 650 mg PO Q6H PRN PRN PRN Reason: Pain Score 1-10/Temp > 100.7 F Last Admin: 08/16/19 03:38 Dose: 650 mg Documented by: Albuterol Sulfate (Ventolin Aerosols) 2.5 mg INHALATION Q4H PRN PRN Reason: SHORTNESS OF BREATH Albuterol/Ipratropium (Duoneb) 3 ml INHALATION Q6H.RT [facility] Last Admin: 08/17/19 07:34 Dose: 3 ml Documented by: Aspirin (Ecotrin) 81 mg PO DAILYCM [facility] Last Admin: 08/17/19 09:10 Dose: 81 mg Documented by: Atorvastatin Calcium (Lipitor) 40 mg PO QHS [facility] Last Admin: 08/16/19 22:24 Dose: 40 mg Documented by: Bisacodyl (Dulcolax) 10 mg PO DAILY PRN PRN Reason: Constipation Budesonide (Pulmicort Aerosol) 0.5 mg INHALATION Q12H.RT [facility] Last Admin: 08/17/19 07:34 Dose: 0.5 mg Documented by: Bumetanide (Bumex) 1 mg PO DAILY [facility] Last Admin: 08/17/19 09:10 Dose: 1 mg Documented by: Bupropion HCl (Wellbutrin Tablets) 100 mg PO Q12 [facility] Last Admin: 08/17/19 09:10 Dose: 100 mg Documented by: Citalopram Hydrobromide (Celexa) 40 mg PO DAILY [facility] Last Admin: 08/17/19 09:09 Dose: 40 mg Documented by: Clopidogrel Bisulfate (Plavix) 75 mg PO DAILY [facility] Last Admin: 08/17/19 09:10 Dose: 75 mg Documented by: Dextrose (D50w Syringe) 0 gm IV X1 PRN; Protocol PRN Reason: Hypoglycemia Glucagon () 1 mg IM .X1 PRN PRN Reason: Hypoglycemia Heparin Sodium (Porcine) (Heparin Na) 5,000 unit SC Q8 [facility] Last Admin: 08/17/19 06:56 Dose: Not Given Documented by: Vancomycin IV Pharmacy to Dose (1 ea/ Sodium Chloride) 500 mls @ 250 mls/hr IV PRN PRN; Protocol PRN Reason: Rx to Dose Piperacillin Sod/Tazobactam (Sod 3.375 gm/ Sodium Chloride) 50 mls @ 12.5 mls/hr IV Q12 [facility] Last Infusion: 08/17/19 03:06 Dose: Infused Documented by: Sodium Chloride () 250 mls @ 15 mls/hr IV .[id number] PRN PRN Reason: Saline Flush Last Infusion: 08/17/19 02:30 Dose: 15 mls/hr Documented by: Sodium Chloride () 250 mls @ 15 mls/hr IV .[id number] PRN PRN Reason: Additional IVPB Infusion Insulin Human Lispro (Humalog Kwikpen (Bkc)) 0 unit SC [facility]; Protocol Last Admin: 08/17/19 06:57 Dose: Not Given Documented by: Insulin Human Lispro (Humalog Kwikpen (Bkc)) 6 unit SC 0800,1200,1700 [facility] Last Admin: 08/17/19 09:02 Dose: Not Given Documented by: Isosorbide Mononitrate (Imdur) 60 mg PO DAILY [facility] Last Admin: 08/17/19 09:10 Dose: 60 mg Documented by: Levothyroxine Sodium (Synthroid) 100 mcg PO DAILY@0600 [facility] Last Admin: 08/17/19 06:51 Dose: 100 mcg Documented by: Lisinopril (Zestril) 5 mg PO QHS [facility] Last Admin: 08/16/19 22:24 Dose: 5 mg Documented by: Metoclopramide HCl (Reglan) 5 mg PO [facility] Last Admin: 08/17/19 06:58 Dose: 5 mg Documented by: Metoprolol Succinate (Toprol Xl (Beta Hernandez)) 75 mg PO DAILY [facility] Last Admin: 08/17/19 09:11 Dose: 75 mg Documented by: Mirtazapine (Remeron) 7.5 mg PO QHS [facility] Last Admin: 08/16/19 22:25 Dose: 7.5 mg Documented by: Multivit/Ca Carb/B Cmplx/FA/Prenat (Nephrocaps, Renaphro) 1 capsule PO DAILY [facility] Last Admin: 08/17/19 09:11 Dose: 1 capsule Documented by: Nutritional Formula (José Antonio - [place] Flavor) 1 packet PO BIDCM [facility] Last Admin: 08/17/19 09:10 Dose: 1 packet Documented by: Nystatin (Mycostatin Powder) 1 applic TOPICAL TID [facility]; Protocol Last Admin: 08/17/19 06:52 Dose: 1 applicatio Documented by: Ondansetron HCl (Zofran) 4 mg IV Q8H PRN PRN PRN Reason: NAUSEA/VOMITING Ondansetron HCl (Zofran Odt) 4 mg PO Q6H PRN PRN PRN Reason: NAUSEA Oxycodone HCl (Oxyir) 5 mg PO Q4H PRN PRN PRN Reason: Pain Score 6-10/10 Last Admin: 08/17/19 01:13 Dose: 5 mg Documented by: Pantoprazole Sodium (Protonix) 40 mg PO DAILY [facility] Last Admin: 08/17/19 09:10 Dose: 40 mg Documented by: Senna/Docusate Sodium (Senokot-S, Nany-Colace) 2 tablet PO DAILY [facility] Last Admin: 08/17/19 09:10 Dose: 2 tablet Documented by: Sodium Chloride ([place] Nasal [place]) 1 spray NASAL BID [facility] Last Admin: 08/16/19 22:27 Dose: Not Given Documented by: Sodium Chloride () 10 - 40 ml IV UD PRN PRN Reason: SALINE FLUSH Tolterodine Tartrate (Detrol La) 2 mg PO DAILY [facility] Last Admin: 08/17/19 09:09 Dose: 2 mg Documented by: Medical Necessity - Tobacco Use Smoking Status: Former smoker Tobacco Use: Cigarettes Assessment/Plan All Active Problems Sternal wound dehiscence (Resolved) Right leg pain (Acute) Right leg ulcer with cellulitis and fat and fascial tissue exposed Left leg ulcer with fat layer exposed, no cellulitis Peripheral vascular disease Lower extremity edema secondary to suspected venous insufficiency and also from congestive heart failure Delayed healing Malnutrition suspected Other comorbidities noted Reviewed findings. Patient afebrile. Continue with local wound care and antibiotic therapy. Reviewed culture results - multiple organisms including MRSA - continue with antibiotic therapy. Vascular studies have been ordered and are pending. Pending findings consider vascular surgery consultation. The ulcers right and left leg were cleansed with normal saline solution, applied Aquacel Ag to large ulceration left leg and large ulcer right leg, and Adaptic to smaller ones, covered with gauze, kerlix and prabhakar with minimal to no compression. Avoid aggressive compression until vascular study results are available. Change daily. Recommend proper glycemic control and nutritional supplementation to optimize healing. It is noted her hemoglobin A1c was 7.1%. Medical management and DVT prophylaxis per primary team. The podiatry team will continue to follow closely while in house.
[2019-08-17 11:55] LABS: Bedside Glucose 154 mg/dL (70-110)
[2019-08-17] MEDS: Insulin Lispro 100 UNIT/ML INSULN.PEN SC (12:21)
[2019-08-17] MEDS: Insulin Lispro 100 UNIT/ML INSULN.PEN 6 UNIT SC (12:21)
[2019-08-17] MEDS: Acetaminophen 325 MG Tablet 650 MG PO (15:05)
--- NOTE | 2019-08-17 16:59 | PN.RENAL_ITS ---
Patient Problems: Active and Suspected Problems Right leg pain (Acute) Subjective: no new events - Physical Exam Vitals/I&O's: Vital Signs Temp Pulse Resp BP Pulse Ox 97.8 F 64 20 H 137/64 H 100 08/17/19 15:00 08/17/19 15:00 08/17/19 15:00 08/17/19 15:00 08/17/19 15:00 Oxygen Flow Rate (L/min) 2 Oxygen Delivery Method Nasal Cannula Weight: 85.5 kg Body Mass Index (BMI) 34.4 Intake and Output for Last 24 Hours 08/15/19 08/16/19 08/17/19 23:59 23:59 23:59 Intake Total 735 / 785 996.5 / 1396.5 2124 Output Total 690 / 690 0 / 0 Balance 735 / 785 306.5 / 706.5 2124 General: Alert, Oriented x3, Cooperative HEENT: Atraumatic, PERRLA, EOMI, Normocephalic Neck: Supple, No JVD, Negative Carotid Bruits Lungs: Clear to auscultation, Normal air movement Cardiovascular: Regular rate, No murmurs Abdomen: Bowel Sounds Present, Soft, Non Tender Extremities: No edema, Capillary Refill Less than 3 Seconds Skin: No rashes, No breakdown Musculoskeletal: No Tenderness to Palpation of Joints or Extremities Neurological: Cranial nerves II-XII grossly intact Psych/Mental Status: Normal Affect, Appropriate Microbiology Past 72 Hours 08/15/19 17:40 Wound - Leg, Right Gram Stain - Final 08/15/19 17:40 Wound - Leg, Right Wound Culture - Preliminary Staphylococcus aureus Gram positive christopher 08/15/19 13:10 Wound - Leg, Right Gram Stain - Final 08/15/19 13:10 Wound - Leg, Right Wound Culture - Preliminary Meth. resistant Staph. aureus Staphylococcus aureus GPC Poss Enterococcus sp Gram positive christopher Gram positive christopher#2 Laboratory Results 08/15/19 23:26: POC Glucose 149 H 08/15/19 23:30: POC Glucose 153 H 08/16/19 22:23: POC Glucose 146 H 08/17/19 06:55: POC Glucose 106 08/17/19 11:52: POC Glucose 154 H Current Medications Acetaminophen (Tylenol) 650 mg PO Q6H PRN PRN PRN Reason: Pain Score 1-10/Temp > 100.7 F Last Admin: 08/17/19 15:05 Dose: 650 mg Documented by: Albuterol Sulfate (Ventolin Aerosols) 2.5 mg INHALATION Q4H PRN PRN Reason: SHORTNESS OF BREATH Albuterol/Ipratropium (Duoneb) 3 ml INHALATION Q6H.RT [facility] Last Admin: 08/17/19 13:33 Dose: 3 ml Documented by: Aripiprazole (Abilify) 2 mg PO 1900 [facility] Aspirin (Ecotrin) 81 mg PO DAILYCM [facility] Last Admin: 08/17/19 09:10 Dose: 81 mg Documented by: Atorvastatin Calcium (Lipitor) 40 mg PO QHS [facility] Last Admin: 08/16/19 22:24 Dose: 40 mg Documented by: Bisacodyl (Dulcolax) 10 mg PO DAILY PRN PRN Reason: Constipation Budesonide (Pulmicort Aerosol) 0.5 mg INHALATION Q12H.RT [facility] Last Admin: 08/17/19 07:34 Dose: 0.5 mg Documented by: Bumetanide (Bumex) 1 mg PO DAILY [facility] Last Admin: 08/17/19 09:10 Dose: 1 mg Documented by: Bupropion HCl (Wellbutrin Tablets) 100 mg PO Q12 [facility] Last Admin: 08/17/19 09:10 Dose: 100 mg Documented by: Citalopram Hydrobromide (Celexa) 40 mg PO DAILY [facility] Last Admin: 08/17/19 09:09 Dose: 40 mg Documented by: Clopidogrel Bisulfate (Plavix) 75 mg PO DAILY [facility] Last Admin: 08/17/19 09:10 Dose: 75 mg Documented by: Dextrose (D50w Syringe) 0 gm IV X1 PRN; Protocol PRN Reason: Hypoglycemia Glucagon () 1 mg IM .X1 PRN PRN Reason: Hypoglycemia Heparin Sodium (Porcine) (Heparin Na) 5,000 unit SC Q8 [facility] Last Admin: 08/17/19 15:06 Dose: Not Given Documented by: Vancomycin IV Pharmacy to Dose (1 ea/ Sodium Chloride) 500 mls @ 250 mls/hr IV PRN PRN; Protocol PRN Reason: Rx to Dose Piperacillin Sod/Tazobactam (Sod 3.375 gm/ Sodium Chloride) 50 mls @ 12.5 mls/hr IV Q12 [facility] Last Infusion: 08/17/19 15:01 Dose: Infused Documented by: Sodium Chloride () 250 mls @ 15 mls/hr IV .[id number] PRN PRN Reason: Saline Flush Last Infusion: 08/17/19 02:30 Dose: 15 mls/hr Documented by: Sodium Chloride () 250 mls @ 15 mls/hr IV .[id number] PRN PRN Reason: Additional IVPB Infusion Insulin Human Lispro (Humalog Kwikpen (Bkc)) 0 unit SC [facility]; Protocol Last Admin: 08/17/19 12:21 Dose: 1 u Documented by: Insulin Human Lispro (Humalog Kwikpen (Bkc)) 6 unit SC 0800,1200,1700 [facility] Last Admin: 08/17/19 12:21 Dose: 6 u Documented by: Isosorbide Mononitrate (Imdur) 60 mg PO DAILY [facility] Last Admin: 08/17/19 09:10 Dose: 60 mg Documented by: Levothyroxine Sodium (Synthroid) 100 mcg PO DAILY@0600 [facility] Last Admin: 08/17/19 06:51 Dose: 100 mcg Documented by: Lisinopril (Zestril) 5 mg PO QHS [facility] Last Admin: 08/16/19 22:24 Dose: 5 mg Documented by: Metoclopramide HCl (Reglan) 5 mg PO [facility] Last Admin: 08/17/19 12:21 Dose: 5 mg Documented by: Metoprolol Succinate (Toprol Xl (Beta Hernandez)) 75 mg PO DAILY [facility] Last Admin: 08/17/19 09:11 Dose: 75 mg Documented by: Mirtazapine (Remeron) 7.5 mg PO QHS [facility] Last Admin: 08/16/19 22:25 Dose: 7.5 mg Documented by: Multivit/Ca Carb/B Cmplx/FA/Prenat (Nephrocaps, Renaphro) 1 capsule PO DAILY [facility] Last Admin: 08/17/19 09:11 Dose: 1 capsule Documented by: Nutritional Formula (José Antonio - [place] Flavor) 1 packet PO BIDCM [facility] Last Admin: 08/17/19 09:10 Dose: 1 packet Documented by: Nystatin (Mycostatin Powder) 1 applic TOPICAL TID [facility]; Protocol Last Admin: 08/17/19 15:05 Dose: 1 applicatio Documented by: Ondansetron HCl (Zofran) 4 mg IV Q8H PRN PRN PRN Reason: NAUSEA/VOMITING Ondansetron HCl (Zofran Odt) 4 mg PO Q6H PRN PRN PRN Reason: NAUSEA Oxycodone HCl (Oxyir) 5 mg PO Q4H PRN PRN PRN Reason: Pain Score 6-10/10 Last Admin: 08/17/19 15:05 Dose: 5 mg Documented by: Pantoprazole Sodium (Protonix) 40 mg PO DAILY [facility] Last Admin: 08/17/19 09:10 Dose: 40 mg Documented by: Senna/Docusate Sodium (Senokot-S, Nany-Colace) 2 tablet PO DAILY [facility] Last Admin: 08/17/19 09:10 Dose: 2 tablet Documented by: Sodium Chloride ([place] Nasal [place]) 1 spray NASAL BID [facility] Last Admin: 08/17/19 11:01 Dose: Not Given Documented by: Sodium Chloride () 10 - 40 ml IV UD PRN PRN Reason: SALINE FLUSH Tolterodine Tartrate (Detrol La) 2 mg PO DAILY [facility] Last Admin: 08/17/19 09:09 Dose: 2 mg Documented by: Medical Necessity - Tobacco Use Smoking Status: Former smoker Tobacco Use: Cigarettes Assessment/Plan All Active Problems Sternal wound dehiscence (Resolved) Right leg pain (Acute) End-stage renal disease. HD TTS schedule Lower extremity wound, cellulitis. Antibiotics as per primary. Anemia. We will call dialysis unit on Sunday about recent EPO administration.
[2019-08-17 17:10] LABS: Bedside Glucose 123 mg/dL (70-110)
[2019-08-17] MEDS: ARIPiprazole 2 MG Tablet PO (19:14)
[2019-08-17] MEDS: Atorvastatin Calcium 40 MG Tablet PO (21:55)
[2019-08-17] MEDS: Mirtazapine 15 MG Tablet 7.5 MG PO (21:55)
[2019-08-17] MEDS: Lisinopril 5 MG Tablet PO (21:59)
[2019-08-17 22:16] LABS: Bedside Glucose 147 mg/dL (70-110)
--- NOTE | 2019-08-17 22:25 | NURSING ---
pt complaining of SOB. SpO2 92% oxygen on at 2L per [place] as home setting. PT instructed to use IS and refused stating that doesn't work. Pt educated on benefits of IS and encourage to use it and take deep breaths.
[2019-08-18] VITALS (9 sets, daily range): BP systolic 140–168; BP diastolic 58–74; PULSE 58–68; RESP 12–20; TEMP 36.3–36.7; O2SAT 96–99
[2019-08-18] MEDS: oxyCODONE 5 MG Tablet PO ×2 (00:13→05:12)
--- NOTE | 2019-08-18 00:26 | NURSING ---
Complains about feeling sob, checked spo2 was at 93% and is on 2L oxygen per [place], instructed to take deep breaths and Spo2 came up to 97%. LS are dim in majority of lobes. Has Hx of COPD, Gave her IS but she refuses to use it. There are no observable signs of distress. Will continue to monitor and to encourage deep breathing and cough. Is getting breathing treatments by RT.
[2019-08-18] MEDS: Albuterol 2.5 MG/3 ML VIAL.NEB. INHALATION (03:11)
[2019-08-18] MEDS: Levothyroxine 100 MCG Tablet PO (05:12)
[2019-08-18] MEDS: Nystatin Powder 15gm Bottle 1 APPLIC TOPICAL ×3 (05:15→21:18)
[2019-08-18] MEDS: Budesonide Respules 0.5 MG/2 ML AMPUL.NEB. INHALATION ×2 (06:32→18:42)
[2019-08-18] MEDS: Ipratropium/Albuterol Sulfate 3 ML AMPUL.NEB INHALATION ×2 (06:32→18:42)
[2019-08-18] MEDS: Metoclopramide 5 MG TABLET PO ×4 (06:43→21:18)
[2019-08-18 06:47] LABS: Absolute Lymphocyte Count 0.33 X10^3/uL (0.83-4.51); Basophil# 0.08 X10^3/uL; Basophil% 0.8 % (0-1); Eosinophil# 0.16 X10^3/uL; Eosinophils% 1.7 % (0-5); Hemoglobin 11.1 g/dL (12.0-15.0); Lymphocyte # 0.33 X10^3/ul (4.0); Lymphocyte % 3.5 % (19-41); Mean Corp Hgb Conc 30.8 g/dL (32-36); Mean Corpuscular Hgb 30.2 pg (27.0-32.0); Mean Corpuscular Volume 98.1 fL (81-99); Mean Platelet Vol. 11.3 fl (6.2-12.0); Monocyte# 0.86 X10^3/uL; NRBC Flagged by Analyzer 0 % (0-5); Neutrophil # 8.01 X10^3/uL (2.7-7.7); Neutrophil % 84.1 % (47-70); POSITIVE DIFFERENTIAL YES; POSITIVE MORPHOLOGY YES; Platelet Count 166 K/mm3 (150-450); RBC Distribution Width CV 19.4 % (11.6-14.6); RBC Distribution Width SD 68.2 fl (35.1-43.9); Red Blood Count 3.67 M/mm3 (4.2-5.4); White Blood Count 9.5 K/mm3 (4.4-11.0)
[2019-08-18 06:50] LABS: Differential Indicated SCAN CRITERIA MET
[2019-08-18 06:50] LABS: Bedside Glucose 129 mg/dL (70-110)
[2019-08-18 07:09] LABS: ALB/GLOB Ratio 0.6 RATIO (0.9-2.4); AST(SGOT) 17 U/L (15-37); Alanine Aminotransfer ALT/SGPT 21 U/L (13-56); Albumin, Serum 2.7 g/dL (3.2-5.0); Alkaline Phosphatase 145 U/L (45-117); Anion Gap 10 (5-15); BUN 42 mg/dL (7-18); BUN/Creat Ratio 11.5 RATIO (10-20); Calcium,Total 8.4 mg/dL (8.5-10.1); Chloride 91 mmol/L (98-107); Creatinine, Serum 3.65 mg/dL (0.55-1.02); Differential Comment SCANNED; EST Glomerular Filtration Rate 13 mL/min (>60); Est Glom Filt Rate - Afr Amer 16 mL/min (>60); Estimated Creatinine Clearance 11.99 ml/min; Globulin 4.4 g/dL (2.2-4.2); Glucose 121 mg/dL (74-106); Ovalocyte RARE; Potassium 4.1 mmol/L (3.5-5.1); Protein, Total 7.1 g/dL (6.4-8.2); Sodium Level 125 mmol/L (136-145); Stomatocyte RARE
[2019-08-18] MEDS: Folic Acid/Vitamin B Comp W-C 1 Capsule 1 CAP PO (08:21)
[2019-08-18] MEDS: Aspirin E.C. 81 MG Tablet PO (08:21)
[2019-08-18] MEDS: Tolterodine Tartrate 2 MG CAP.SA PO (08:21)
[2019-08-18] MEDS: buPROPion 100 MG Tablet PO ×2 (08:21→21:19)
[2019-08-18] MEDS: Pantoprazole Sodium 40 MG Tablet PO (08:21)
[2019-08-18] MEDS: Clopidogrel Bisulfate 75 MG Tablet PO (08:21)
[2019-08-18] MEDS: Isosorbide Mononitrate 60 MG Tablet PO (08:22)
[2019-08-18] MEDS: Citalopram 40 MG TABLET PO (08:22)
[2019-08-18] MEDS: Bumetanide 2 MG Tablet 1 MG PO (08:22)
[2019-08-18] MEDS: Senna/Docusate Sodium 1 Tablet 2 TABLET PO (08:22)
[2019-08-18] MEDS: Metoprolol(XL)Succ 25 MG Tablet 75 MG PO (08:22)
--- NOTE | 2019-08-18 10:10 | PCM.PN.HOSP ---
Patient Problems: Active and Suspected Problems Right leg pain (Acute) Subjective: Patient seen and examined. She has been managed for right lower extremity ulcer and cellulitis. She has no complaints today. Review of symptoms otherwise negative. Could not complete her last dialysis session on account of cramps. Labs and vitals reviewed. Sodium today is 125. Vitals/I&O's: Vital Signs Temp Pulse Resp BP Pulse Ox 97.7 F L 62 16 168/65 H 98 08/18/19 08:31 08/18/19 08:31 08/18/19 08:31 08/18/19 08:31 08/18/19 08:31 Oxygen Flow Rate (L/min) 2 Oxygen Delivery Method Nasal Cannula Weight: 188 lb 7.924 oz Body Mass Index (BMI) 34.4 Intake and Output for Last 24 Hours 08/16/19 08/17/19 08/18/19 23:59 23:59 23:59 Intake Total 996.5 / 1396.5 2568.5 / 3568.5 1650 / 1650 Output Total 690 / 690 0 / 0 0 / 0 Balance 306.5 / 706.5 2568.5 / 3568.5 1650 / 1650 General: Alert, Oriented x3, Cooperative, No apparent distress HEENT: Atraumatic, PERRLA, EOMI, Normocephalic Oral: Moist Mucosa Neck: Supple, No JVD, Negative Carotid Bruits Lungs: Clear to auscultation, Normal air movement, No rhonchi, No wheeze, No rales, - - On 2 L of oxygen which is her baseline. Cardiovascular: Regular rate, Regular Rhythm, Normal S1, Normal S2, No murmurs Abdomen: Bowel Sounds Present, Soft, Non Tender Extremities: No clubbing, No cyanosis, No edema, Capillary Refill Less than 3 Seconds Skin: - - Right lower extremity wrapped in bandage. Musculoskeletal: No Tenderness to Palpation of Joints or Extremities Lymphatic: No Cervical, Supraclavicular, or Inguinal Adenopathy Neurological: Cranial nerves II-XII grossly intact, Neuro grossly intact, Motor Exam 5/5 strength throughout Psych/Mental Status: Normal Affect, Appropriate, Alert and oriented to time, place, person, mood and affect Microbiology Past 72 Hours 08/15/19 13:10 Wound - Leg, Right Gram Stain - Final 08/15/19 13:10 Wound - Leg, Right Wound Culture - Final Meth. resistant Staph. aureus Enterococcus faecalis Gram positive christopher 08/15/19 17:40 Wound - Leg, Right Gram Stain - Final 08/15/19 17:40 Wound - Leg, Right Wound Culture - Preliminary Staphylococcus aureus Gram positive christopher Laboratory Results 08/17/19 11:52: POC Glucose 154 H 08/17/19 17:06: POC Glucose 123 H 08/17/19 22:09: POC Glucose 147 H 08/18/19 06:18: WBC 9.5, RBC 3.67 L, Hgb 11.1 L, Hct 36.0 L, MCV 98.1, MCH 30.2, MCHC 30.8 L, RDW Std Deviation 68.2 H, RDW Coeff of Heber 19.4 H, Plt Count 166, MPV 11.3, Immature Gran % (Auto) 0.900, Neut % (Auto) 84.1 H, Lymph % (Auto) 3.5 L, [place] % (Auto) 9.0, Eos % (Auto) 1.7, Baso % (Auto) 0.8, Absolute Neuts (auto) 8.0 H, Absolute Lymphs (auto) 0.33 L, Nucleated RBC % 0, Differential Comment SCANNED, Ovalocytes RARE, Stomatocytes RARE 08/18/19 06:18: Sodium 125 L, Potassium 4.1, Chloride 91 L, Carbon Dioxide 24.0, Anion Gap 10, BUN 42 H, Creatinine 3.65 H, Estim Creat Clear Calc 11.99, Est GFR (MDRD) Af Amer 16 L, Est GFR (MDRD) Non-Af 13 L, BUN/Creatinine Ratio 11.5, Glucose 121 H, Calcium 8.4 L, Total Bilirubin 0.90, AST 17, ALT 21, Alkaline Phosphatase 145 H, Total Protein 7.1, Albumin 2.7 L, Globulin 4.4 H, Albumin/Globulin Ratio 0.6 L 08/18/19 06:39: POC Glucose 129 H Diagnostic Data Tibia/Fibula X-Ray 08/15/19 20:25 IMPRESSION: Large soft tissue ulceration and no visualized or bony erosion. Bony osteopenia. Degenerative change in the right knee joint. Electronically Signed: Makayla Duran MD at 20:51 EDT Tel , Service support , Current Medications Acetaminophen (Tylenol) 650 mg PO Q6H PRN PRN PRN Reason: Pain Score 1-10/Temp > 100.7 F Last Admin: 08/17/19 15:05 Dose: 650 mg Documented by: Albuterol Sulfate (Ventolin Aerosols) 2.5 mg INHALATION Q4H PRN PRN Reason: SHORTNESS OF BREATH Last Admin: 08/18/19 03:11 Dose: 2.5 mg Documented by: Albuterol/Ipratropium (Duoneb) 3 ml INHALATION Q6H.RT [facility] Last Admin: 08/18/19 06:32 Dose: 3 ml Documented by: Aripiprazole (Abilify) 2 mg PO 1900 [facility] Last Admin: 08/17/19 19:14 Dose: 2 mg Documented by: Aspirin (Ecotrin) 81 mg PO DAILYCM [facility] Last Admin: 08/18/19 08:21 Dose: 81 mg Documented by: Atorvastatin Calcium (Lipitor) 40 mg PO QHS [facility] Last Admin: 08/17/19 21:55 Dose: 40 mg Documented by: Bisacodyl (Dulcolax) 10 mg PO DAILY PRN PRN Reason: Constipation Budesonide (Pulmicort Aerosol) 0.5 mg INHALATION Q12H.RT [facility] Last Admin: 08/18/19 06:32 Dose: 0.5 mg Documented by: Bumetanide (Bumex) 1 mg PO DAILY [facility] Last Admin: 08/18/19 08:22 Dose: 1 mg Documented by: Bupropion HCl (Wellbutrin Tablets) 100 mg PO Q12 [facility] Last Admin: 08/18/19 08:21 Dose: 100 mg Documented by: Citalopram Hydrobromide (Celexa) 40 mg PO DAILY [facility] Last Admin: 08/18/19 08:22 Dose: 40 mg Documented by: Clopidogrel Bisulfate (Plavix) 75 mg PO DAILY [facility] Last Admin: 08/18/19 08:21 Dose: 75 mg Documented by: Dextrose (D50w Syringe) 0 gm IV X1 PRN; Protocol PRN Reason: Hypoglycemia Glucagon () 1 mg IM .X1 PRN PRN Reason: Hypoglycemia Heparin Sodium (Porcine) (Heparin Na) 5,000 unit SC Q8 [facility] Last Admin: 08/18/19 06:42 Dose: Not Given Documented by: Vancomycin IV Pharmacy to Dose (1 ea/ Sodium Chloride) 500 mls @ 250 mls/hr IV PRN PRN; Protocol PRN Reason: Rx to Dose Piperacillin Sod/Tazobactam (Sod 3.375 gm/ Sodium Chloride) 50 mls @ 12.5 mls/hr IV Q12 [facility] Last Infusion: 08/18/19 03:35 Dose: Infused Documented by: Sodium Chloride () 250 mls @ 15 mls/hr IV .[id number] PRN PRN Reason: Saline Flush Last Infusion: 08/17/19 20:19 Dose: Infused Documented by: Sodium Chloride () 250 mls @ 15 mls/hr IV .[id number] PRN PRN Reason: Additional IVPB Infusion Insulin Human Lispro (Humalog Kwikpen (Bkc)) 0 unit SC [facility]; Protocol Last Admin: 08/18/19 06:43 Dose: Not Given Documented by: Insulin Human Lispro (Humalog Kwikpen (Bkc)) 6 unit SC 0800,1200,1700 [facility] Last Admin: 08/18/19 08:27 Dose: Not Given Documented by: Isosorbide Mononitrate (Imdur) 60 mg PO DAILY [facility] Last Admin: 08/18/19 08:22 Dose: 60 mg Documented by: Levothyroxine Sodium (Synthroid) 100 mcg PO DAILY@0600 [facility] Last Admin: 08/18/19 05:12 Dose: 100 mcg Documented by: Lisinopril (Zestril) 5 mg PO QHS [facility] Last Admin: 08/17/19 21:59 Dose: 5 mg Documented by: Metoclopramide HCl (Reglan) 5 mg PO [facility] Last Admin: 08/18/19 06:43 Dose: 5 mg Documented by: Metoprolol Succinate (Toprol Xl (Beta Hernandez)) 75 mg PO DAILY [facility] Last Admin: 08/18/19 08:22 Dose: 75 mg Documented by: Mirtazapine (Remeron) 7.5 mg PO QHS [facility] Last Admin: 08/17/19 21:55 Dose: 7.5 mg Documented by: Multivit/Ca Carb/B Cmplx/FA/Prenat (Nephrocaps, Renaphro) 1 capsule PO DAILY [facility] Last Admin: 08/18/19 08:21 Dose: 1 capsule Documented by: Nutritional Formula (José Antonio - [place] Flavor) 1 packet PO BIDCM [facility] Last Admin: 08/18/19 08:21 Dose: Not Given Documented by: Nystatin (Mycostatin Powder) 1 applic TOPICAL TID [facility]; Protocol Last Admin: 08/18/19 05:15 Dose: 1 applicatio Documented by: Ondansetron HCl (Zofran) 4 mg IV Q8H PRN PRN PRN Reason: NAUSEA/VOMITING Ondansetron HCl (Zofran Odt) 4 mg PO Q6H PRN PRN PRN Reason: NAUSEA Oxycodone HCl (Oxyir) 5 mg PO Q4H PRN PRN PRN Reason: Pain Score 6-10/10 Last Admin: 08/18/19 05:12 Dose: 5 mg Documented by: Pantoprazole Sodium (Protonix) 40 mg PO DAILY [facility] Last Admin: 08/18/19 08:21 Dose: 40 mg Documented by: Senna/Docusate Sodium (Senokot-S, Nany-Colace) 2 tablet PO DAILY [facility] Last Admin: 08/18/19 08:22 Dose: 2 tablet Documented by: Sodium Chloride ([place] Nasal [place]) 1 spray NASAL BID [facility] Last Admin: 08/18/19 08:27 Dose: Not Given Documented by: Sodium Chloride () 10 - 40 ml IV UD PRN PRN Reason: SALINE FLUSH Tolterodine Tartrate (Detrol La) 2 mg PO DAILY [facility] Last Admin: 08/18/19 08:21 Dose: 2 mg Documented by: STROKE Vital Signs/Narrative: Vital Signs Temp Pulse Resp BP Pulse Ox 08/18/19 08:31 97.7 F L 62 16 168/65 H 98 08/18/19 08:22 62 08/18/19 06:32 68 12 98 Medical Necessity - Tobacco Use Smoking Status: Former smoker Tobacco Use: Cigarettes Assessment/Plan All Active Problems Sternal wound dehiscence (Resolved) Right leg pain (Acute) 1. RLE ulcer and cellulitis wound grew MRSA and enterococcus also has venous insufficiency on IV vancomycin and zosyn Podiatry on board.;will consult ID has vascular studies pending 2. ESRD: on HD Tuesdays, and Saturdays. Did not finish her dialysis on Sunday on account of cramps and had only 500 cc of fluid removed. Nephrology on board. 3. Hyponatremia: Sodium is 125 today. This is likely due to fluid overload from ESRD as she did not have a complete dialysis session. Hyponatremia should improve with dialysis tomorrow. 4. CAD s/p CABG: On aspirin, statin, Plavix. 5. Hypertension: BP is 168/65 this morning. On metoprolol and lisinopril. Blood pressure should improve with dialysis tomorrow. 6. Type 2 diabetes mellitus: A1c 7.1. On insulin sliding scale. Accu-Cheks AC at bedtime. 7. HFpEF: not in exacerbation. On Bumex. 8. Depression: Stable. On Celexa, bupropion and Remeron. 9. Chronic respiratory failure due to COPD: On 2 L of oxygen which is her baseline at home. DVT prophylaxis: heparin Inpatient E&M: 300[address] [facility] L[facility]
[2019-08-18] MEDS: 0.9% Saline Lock 10 ML Syringe IV (10:18)
--- NOTE | 2019-08-18 11:34 | CASEMGMT ---
Social Work Note Pt is from [facility] and plan is to return. SW faxed updated clinicals to [facility]. Plan: Return to [facility] once medically cleared Siomara Elizondo CARTRIDGE LOADER, LITIGATION COUNSEL
[2019-08-18] MEDS: Insulin Lispro 100 UNIT/ML INSULN.PEN 6 UNIT SC ×2 (11:35→18:05)
[2019-08-18] MEDS: Insulin Lispro 100 UNIT/ML INSULN.PEN SC (11:35)
[2019-08-18 11:45] LABS: Bedside Glucose 155 mg/dL (70-110)
--- NOTE | 2019-08-18 12:41 | CHAPLAIN ---
Type of Pastoral Visit _x__ Initial Visit ___ Follow-up Visit ___ On-call Visit ___ General Patient Visit ___ Spiritual Assessment ___ Family Conference ___ Bereavement ___ Rapid Response ___ Code Blue ___ Other (describe below) Pastoral Care Referral From _x__ Patient ___ Family ___ Nurse ___ Physician ___ Driver'S License Reviewing Officer ___ Wrecker Driver ___ Other (describe below) Sacrament/Intervention _x__ Active listening ___ Anointing ___ Confucianism ___ Bereavement ___ Communion ___ Pam exploration ___ _x__ Life review _x__ Prayer ___ Reconciliation ___ Sacrament of Sick ___ Supportive presence ___ Wedding ___ Other (describe below) Pastoral Comments casual conversation with no concerns or needs reported from the patient; pt gives some life review; pt is of the Muslim pam and welcomes prayer
--- NOTE | 2019-08-18 13:34 | PCM.PROGNOTE ---
Patient Problems: Active and Suspected Problems Right leg pain (Acute) Subjective: Patient follow up leg ulcers. She has no new complaints. Patient afebrile. Patient sitting up in chair watching TV. - Physical Exam Vitals/I&O's: Vital Signs Temp Pulse Resp BP Pulse Ox 97.6 F L 67 16 151/71 H 97 08/18/19 11:41 08/18/19 11:41 08/18/19 11:41 08/18/19 11:41 08/18/19 11:41 Oxygen Flow Rate (L/min) 2 Oxygen Delivery Method Nasal Cannula Weight: 85.5 kg Body Mass Index (BMI) 34.4 Intake and Output for Last 24 Hours 08/16/19 08/17/19 08/18/19 23:59 23:59 23:59 Intake Total 996.5 / 1396.5 2568.5 / 3568.5 2049 Output Total 690 / 690 0 / 0 0 / 0 Balance 306.5 / 706.5 2568.5 / 3568.5 2049 General: Alert, Oriented x3, Cooperative, No apparent distress Microbiology Past 72 Hours 08/15/19 17:40 Wound - Leg, Right Gram Stain - Final 08/15/19 17:40 Wound - Leg, Right Wound Culture - Preliminary Staphylococcus aureus Gram positive christopher 08/15/19 17:40 Wound - Leg, Right Anaerobic Culture - Preliminary Checking for anaerobes, further studies to follow. 08/15/19 13:10 Wound - Leg, Right Gram Stain - Final 08/15/19 13:10 Wound - Leg, Right Wound Culture - Final Meth. resistant Staph. aureus Enterococcus faecalis Gram positive christopher Laboratory Results 08/17/19 17:06: POC Glucose 123 H 08/17/19 22:09: POC Glucose 147 H 08/18/19 06:18: WBC 9.5, RBC 3.67 L, Hgb 11.1 L, Hct 36.0 L, MCV 98.1, MCH 30.2, MCHC 30.8 L, RDW Std Deviation 68.2 H, RDW Coeff of Heber 19.4 H, Plt Count 166, MPV 11.3, Immature Gran % (Auto) 0.900, Neut % (Auto) 84.1 H, Lymph % (Auto) 3.5 L, [place] % (Auto) 9.0, Eos % (Auto) 1.7, Baso % (Auto) 0.8, Absolute Neuts (auto) 8.0 H, Absolute Lymphs (auto) 0.33 L, Nucleated RBC % 0, Differential Comment SCANNED, Ovalocytes RARE, Stomatocytes RARE 08/18/19 06:18: Sodium 125 L, Potassium 4.1, Chloride 91 L, Carbon Dioxide 24.0, Anion Gap 10, BUN 42 H, Creatinine 3.65 H, Estim Creat Clear Calc 11.99, Est GFR (MDRD) Af Amer 16 L, Est GFR (MDRD) Non-Af 13 L, BUN/Creatinine Ratio 11.5, Glucose 121 H, Calcium 8.4 L, Total Bilirubin 0.90, AST 17, ALT 21, Alkaline Phosphatase 145 H, Total Protein 7.1, Albumin 2.7 L, Globulin 4.4 H, Albumin/Globulin Ratio 0.6 L 08/18/19 06:39: POC Glucose 129 H 08/18/19 11:31: POC Glucose 155 H Current Medications Acetaminophen (Tylenol) 650 mg PO Q6H PRN PRN PRN Reason: Pain Score 1-10/Temp > 100.7 F Last Admin: 08/17/19 15:05 Dose: 650 mg Documented by: Albuterol Sulfate (Ventolin Aerosols) 2.5 mg INHALATION Q4H PRN PRN Reason: SHORTNESS OF BREATH Last Admin: 08/18/19 03:11 Dose: 2.5 mg Documented by: Albuterol/Ipratropium (Duoneb) 3 ml INHALATION Q6H.RT [facility] Last Admin: 08/18/19 13:05 Dose: Not Given Documented by: Amoxicillin/Clavulanate Potassium (Augmentin Tablet) 500 mg PO QPM [facility] Aripiprazole (Abilify) 2 mg PO 1900 [facility] Last Admin: 08/17/19 19:14 Dose: 2 mg Documented by: Aspirin (Ecotrin) 81 mg PO DAILYCM [facility] Last Admin: 08/18/19 08:21 Dose: 81 mg Documented by: Atorvastatin Calcium (Lipitor) 40 mg PO QHS [facility] Last Admin: 08/17/19 21:55 Dose: 40 mg Documented by: Bisacodyl (Dulcolax) 10 mg PO DAILY PRN PRN Reason: Constipation Budesonide (Pulmicort Aerosol) 0.5 mg INHALATION Q12H.RT [facility] Last Admin: 08/18/19 06:32 Dose: 0.5 mg Documented by: Bumetanide (Bumex) 1 mg PO DAILY [facility] Last Admin: 08/18/19 08:22 Dose: 1 mg Documented by: Bupropion HCl (Wellbutrin Tablets) 100 mg PO Q12 [facility] Last Admin: 08/18/19 08:21 Dose: 100 mg Documented by: Citalopram Hydrobromide (Celexa) 40 mg PO DAILY [facility] Last Admin: 08/18/19 08:22 Dose: 40 mg Documented by: Clopidogrel Bisulfate (Plavix) 75 mg PO DAILY [facility] Last Admin: 08/18/19 08:21 Dose: 75 mg Documented by: Dextrose (D50w Syringe) 0 gm IV X1 PRN; Protocol PRN Reason: Hypoglycemia Glucagon () 1 mg IM .X1 PRN PRN Reason: Hypoglycemia Heparin Sodium (Porcine) (Heparin Na) 5,000 unit SC Q8 [facility] Last Admin: 08/18/19 06:42 Dose: Not Given Documented by: Vancomycin IV Pharmacy to Dose (1 ea/ Sodium Chloride) 500 mls @ 250 mls/hr IV PRN PRN; Protocol PRN Reason: Rx to Dose Sodium Chloride () 250 mls @ 15 mls/hr IV .[id number] PRN PRN Reason: Saline Flush Last Infusion: 08/17/19 20:19 Dose: Infused Documented by: Sodium Chloride () 250 mls @ 15 mls/hr IV .[id number] PRN PRN Reason: Additional IVPB Infusion Insulin Human Lispro (Humalog Kwikpen (Bkc)) 0 unit SC [facility]; Protocol Last Admin: 08/18/19 11:35 Dose: 1 u Documented by: Insulin Human Lispro (Humalog Kwikpen (Bkc)) 6 unit SC 0800,1200,1700 [facility] Last Admin: 08/18/19 11:35 Dose: 6 u Documented by: Isosorbide Mononitrate (Imdur) 60 mg PO DAILY [facility] Last Admin: 08/18/19 08:22 Dose: 60 mg Documented by: Levothyroxine Sodium (Synthroid) 100 mcg PO DAILY@0600 [facility] Last Admin: 08/18/19 05:12 Dose: 100 mcg Documented by: Lisinopril (Zestril) 5 mg PO QHS [facility] Last Admin: 08/17/19 21:59 Dose: 5 mg Documented by: Metoclopramide HCl (Reglan) 5 mg PO [facility] Last Admin: 08/18/19 11:38 Dose: 5 mg Documented by: Metoprolol Succinate (Toprol Xl (Beta Hernandez)) 75 mg PO DAILY [facility] Last Admin: 08/18/19 08:22 Dose: 75 mg Documented by: Mirtazapine (Remeron) 7.5 mg PO QHS [facility] Last Admin: 08/17/19 21:55 Dose: 7.5 mg Documented by: Multivit/Ca Carb/B Cmplx/FA/Prenat (Nephrocaps, Renaphro) 1 capsule PO DAILY [facility] Last Admin: 08/18/19 08:21 Dose: 1 capsule Documented by: Nutritional Formula (José Antonio - [place] Flavor) [facility] Last Admin: 08/18/19 08:21 Dose: Not Given Documented by: Nystatin (Mycostatin Powder) 1 applic TOPICAL TID [facility]; Protocol Last Admin: 08/18/19 05:15 Dose: 1 applicatio Documented by: Ondansetron HCl (Zofran) 4 mg IV Q8H PRN PRN PRN Reason: NAUSEA/VOMITING Ondansetron HCl (Zofran Odt) 4 mg PO Q6H PRN PRN PRN Reason: NAUSEA Oxycodone HCl (Oxyir) 5 mg PO Q4H PRN PRN PRN Reason: Pain Score 6-10/10 Last Admin: 08/18/19 05:12 Dose: 5 mg Documented by: Pantoprazole Sodium (Protonix) 40 mg PO DAILY [facility] Last Admin: 08/18/19 08:21 Dose: 40 mg Documented by: Senna/Docusate Sodium (Senokot-S, Nany-Colace) 2 tablet PO DAILY [facility] Last Admin: 08/18/19 08:22 Dose: 2 tablet Documented by: Sodium Chloride ([place] Nasal [place]) 1 spray NASAL BID [facility] Last Admin: 08/18/19 08:27 Dose: Not Given Documented by: Sodium Chloride () 10 - 40 ml IV UD PRN PRN Reason: SALINE FLUSH Last Admin: 08/18/19 10:18 Dose: 10 ml Documented by: Tolterodine Tartrate (Detrol La) 2 mg PO DAILY [facility] Last Admin: 08/18/19 08:21 Dose: 2 mg Documented by: Medical Necessity - Tobacco Use Smoking Status: Former smoker Tobacco Use: Cigarettes Assessment/Plan All Active Problems Sternal wound dehiscence (Resolved) Right leg pain (Acute) Right leg ulcer with cellulitis and fat and fascial tissue exposed Left leg ulcer with fat layer exposed, no cellulitis Peripheral vascular disease Lower extremity edema secondary to suspected venous insufficiency and also from congestive heart failure Delayed healing Malnutrition suspected Other comorbidities noted At this time we are awaiting vascular studies which have been ordered and are pending. Pending findings consider vascular surgery consultation. Continue with local wound care and antibiotic therapy. Reviewed culture results - multiple organisms including MRSA - continue with antibiotic therapy. Continue with daily dressing changes to right and left legs. Medical management and DVT prophylaxis per primary team. The podiatry team will continue to follow closely while in house.
--- NOTE | 2019-08-18 14:53 | CASEMGMT ---
Social Work Note SW received scripts for PO antibiotic and IV Vanco that is to be given during dialysis for pt. NIKKI placed a call to [facility] and spoke with Samantha in admissions and updated her on scripts for pt. Samantha states pt has dialysis through [facility] [place]. NIKKI updated RN CM. Plan: Return to [facility] once medically cleared Siomara Elizondo BRIM BUSTER, DETECTIVE HOMICIDE [place]
--- NOTE | 2019-08-18 16:30 | CON.PCM_ITS ---
Problem List (1) Chronic ulcer of right leg with fat layer exposed Status: Chronic Reason for Consult Date of Consultation: 08/18/19 History of Present Illness: The patient is a 64 year old F who I have been asked to see by Dr. Lobito Mendiola for surgical consultation regarding peripheral arterial occlusive disease written copy of my surgical consult will be present on the chart. This is a 64-year-old female. February 2019 in [facility] [place] she had coronary artery bypass surgery. Vein was harvested from her right leg. She states that she did not have surgical intervention on her left leg and yet she has bilateral lower extremity leg ulcers worse on the right than the left. The patient has significant medical comorbidities including long-term diabetes mellitus. She is wheelchair-bound. Her legs are always hanging dependent. She does not a mbulate. It is a very specific note that on August 15, 2019 she had bilateral lower extremity venous examination. This was very pertinent and that to a degree it was a limited examination because of the wounds of both lower extremities. There was no evidence for deep vein thrombosis. However it was notable that bilateral venous pulsatile flow was identified consistent with proximal venous hyperten luis. Clinical correlation was felt to be pertinent. This would correlate with combination problems of congestive heart failure and venous insufficiency and obesity. Today the patient had bilateral lower extremity arterial exam. It was felt to be moderately severe arterial occlusive disease bilaterally with right DP PUNEET of 0.51 and left PT PUNEET of 0.61. Doppler waveforms were monophasic. The issue at hand however is not digital wound healing her foot wound healing it is healing in the calves. The patient states that she needs assistance to stand and pivot. She does not ambulate. She has to be assisted to the wheelchair. Her legs are constantly hanging dependent. Past Medical History Past Medical History (Chronic Problems): Chronic Problems Venous ulcer of right leg (Chronic) Chronic ulcer of right leg with fat layer exposed (Chronic) Venous insufficiency (Chronic) Type 2 diabetes mellitus (Chronic) Essential hypertension (Chronic) Coronary artery disease involving coronary bypass graft (Chronic) CHF (congestive heart failure) (Chronic) Diastolic dysfunction (Chronic) Peripheral arterial disease (Chronic) End stage renal disease on dialysis (Chronic) Dyslipidemia (Chronic) Chronic GERD (Chronic) Hypothyroidism (Chronic) Depression (Chronic) Steal syndrome of hand (Chronic) Anemia of chronic disease (Chronic) Other specified peripheral vascular diseases (Chronic) Ulcer of left lower extremity with fat layer exposed (Chronic) Allergies No Known Allergies Allergy (Verified 08/15/19 12:02) Home Medications: Ambulatory Orders Medication Instructions Recorded Albuterol Sulfate 0.63 mg IH Q6H PRN 06/10/19 Aripiprazole 2 mg PO 1900 06/10/19 Aspirin [Aspirin EC] 81 mg PO DAILY 06/10/19 Atorvastatin Calcium 40 mg PO QHS 06/10/19 Bumetanide 1 mg PO DAILY 06/10/19 Bupropion HCl 100 mg PO Q12H 06/10/19 Citalopram [Celexa] 40 mg PO DAILY 06/10/19 Clopidogrel Bisulfate [Clopidogrel] 75 mg PO DAILY 06/10/19 Folic Acid/Vit B Complex and C 0.8 mg PO DAILY 06/10/19 [Renal Vitamin Tablet] Insulin Regular, Human [Humulin R] 6 unit SQ TID 06/10/19 Isosorbide Mononitrate [Imdur] 60 mg PO DAILY 06/10/19 Levothyroxine Sodium [Synthroid] 100 mcg PO DAILY 06/10/19 Lisinopril 5 mg PO QHS 06/10/19 Metoprolol Succinate 75 mg PO DAILY 06/10/19 Mirtazapine [Remeron] 7.5 mg PO QHS 06/10/19 Oxybutynin Chloride [Oxybutynin 5 mg PO DAILY 06/10/19 Chloride ER] Oxycodone HCl/Acetaminophen 1 - 2 ea PO Q6H PRN 06/10/19 [Percocet 5-325 mg Tablet] Pantoprazole Sodium [Protonix] 40 mg PO DAILY 06/10/19 Sodium Chloride 0.65% [Spearman Nasal 1 spray NASAL BID 06/10/19 [place]] Bisacodyl [Dulcolax] 10 mg PO DAILY PRN 08/15/19 Budesonide/Formoterol 160/4.5 2 puff INHALATION BID 08/15/19 [Symbicort 160/4.5 Mcg Inhaler (SP)] Ipratropium/Albuterol Respimat 2 puff INHALATION 4X/DAY PRN 08/15/19 [Combivent Respimat Inhal [place]] Metoclopramide HCl [Reglan] 5 mg PO 4X/DAY 08/15/19 Nystatin Powder [Mycostatin Powder] 1 applicatio TOPICAL TID 08/15/19 Ondansetron HCl [Zofran] 4 mg PO Q6H PRN PRN 08/15/19 Sennosides/Docusate Sodium [Senna 2 ea PO DAILY 08/15/19 Plus 8.6-50 mg Softgel] Sodium Chloride 0.65% [Spearman Nasal 1 spray NASAL PRN PRN 08/15/19 [place]] Amox/Clavulanate Tablet [Augmentin 500 mg PO QPM 10 Days #10 tab 08/18/19 Tablet] Vancomycin IV Pharmacy to Dose 750 mg IV UD #6 ea 08/18/19 Surgical History: coronary bypass surgery - February 2019, tonsillectomy, - - Right AV fistula Psychiatric History: No 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 psych hx 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 Lives: Snf Smoking Status: Former smoker Tobacco Use: Cigarettes Alcohol: None Drugs: None Review of Systems Constitutional: Reports: Weakness Cardiovascular: Denies: Chest Pain Respiratory: Reports: Shortness of breath upon exertion Gastrointestinal: Denies: Abdominal Pain Musculoskeletal: Denies: Leg Pain Neurological: Reports: Balance problems Patient Problems: Active and Suspected Problems Right leg pain (Acute) - Physical Exam Vitals/I&O's: Vital Signs Temp Pulse Resp BP Pulse Ox 97.3 F L 64 20 H 145/58 H 96 08/18/19 14:56 08/18/19 14:56 08/18/19 14:56 08/18/19 14:56 08/18/19 14:56 Oxygen Flow Rate (L/min) 2 Oxygen Delivery Method Nasal Cannula Weight: 188 lb 7.924 oz Body Mass Index (BMI) 34.4 Intake and Output for Last 24 Hours 08/16/19 08/17/19 08/18/19 23:59 23:59 23:59 Intake Total 996.5 / 1396.5 2568.5 / 3568.5 2099 Output Total 690 / 690 0 / 0 0 / 0 Balance 306.5 / 706.5 2568.5 / 3568.5 2099 General: Alert, Oriented x3, Cooperative, No apparent distress Oral: Moist Mucosa Neck: Supple Lungs: - - Kehinde breath sounds in the bases Cardiovascular: Regular rate, Regular Rhythm Abdomen: Obese Extremities: - - Extremities are very remarkable for tense nonpitting edema that involves the thighs and proximally. Digits of the toes are erythematous with loss of nails and atrophy diminished capillary refill coolness Neurological: - - Cognition intact Psych/Mental Status: Normal Affect Microbiology Past 72 Hours 08/15/19 17:40 Wound - Leg, Right Gram Stain - Final 08/15/19 17:40 Wound - Leg, Right Wound Culture - Preliminary Staphylococcus aureus Gram positive christopher 08/15/19 17:40 Wound - Leg, Right Anaerobic Culture - Preliminary Checking for anaerobes, further studies to follow. 08/15/19 13:10 Wound - Leg, Right Gram Stain - Final 08/15/19 13:10 Wound - Leg, Right Wound Culture - Final Meth. resistant Staph. aureus Enterococcus faecalis Gram positive christopher Laboratory Results 08/17/19 17:06: POC Glucose 123 H 08/17/19 22:09: POC Glucose 147 H 08/18/19 06:18: WBC 9.5, RBC 3.67 L, Hgb 11.1 L, Hct 36.0 L, MCV 98.1, MCH 30.2, MCHC 30.8 L, RDW Std Deviation 68.2 H, RDW Coeff of Heber 19.4 H, Plt Count 166, MPV 11.3, Immature Gran % (Auto) 0.900, Neut % (Auto) 84.1 H, Lymph % (Auto) 3.5 L, [place] % (Auto) 9.0, Eos % (Auto) 1.7, Baso % (Auto) 0.8, Absolute Neuts (auto) 8.0 H, Absolute Lymphs (auto) 0.33 L, Nucleated RBC % 0, Differential Comment SCANNED, Ovalocytes RARE, Stomatocytes RARE 08/18/19 06:18: Sodium 125 L, Potassium 4.1, Chloride 91 L, Carbon Dioxide 24.0, Anion Gap 10, BUN 42 H, Creatinine 3.65 H, Estim Creat Clear Calc 11.99, Est GFR (MDRD) Af Amer 16 L, Est GFR (MDRD) Non-Af 13 L, BUN/Creatinine Ratio 11.5, Glucose 121 H, Calcium 8.4 L, Total Bilirubin 0.90, AST 17, ALT 21, Alkaline Phosphatase 145 H, Total Protein 7.1, Albumin 2.7 L, Globulin 4.4 H, Albumin/Globulin Ratio 0.6 L 08/18/19 06:39: POC Glucose 129 H 08/18/19 11:31: POC Glucose 155 H Current Medications Acetaminophen (Tylenol) 650 mg PO Q6H PRN PRN PRN Reason: Pain Score 1-10/Temp > 100.7 F Last Admin: 08/17/19 15:05 Dose: 650 mg Documented by: Albuterol Sulfate (Ventolin Aerosols) 2.5 mg INHALATION Q4H PRN PRN Reason: SHORTNESS OF BREATH Last Admin: 08/18/19 03:11 Dose: 2.5 mg Documented by: Albuterol/Ipratropium (Duoneb) 3 ml INHALATION Q6H.RT [facility] Last Admin: 08/18/19 13:05 Dose: Not Given Documented by: Amoxicillin/Clavulanate Potassium (Augmentin Tablet) 500 mg PO QPM [facility] Aripiprazole (Abilify) 2 mg PO 1900 [facility] Last Admin: 08/17/19 19:14 Dose: 2 mg Documented by: Aspirin (Ecotrin) 81 mg PO DAILYCM [facility] Last Admin: 08/18/19 08:21 Dose: 81 mg Documented by: Atorvastatin Calcium (Lipitor) 40 mg PO QHS [facility] Last Admin: 08/17/19 21:55 Dose: 40 mg Documented by: Bisacodyl (Dulcolax) 10 mg PO DAILY PRN PRN Reason: Constipation Budesonide (Pulmicort Aerosol) 0.5 mg INHALATION Q12H.RT [facility] Last Admin: 08/18/19 06:32 Dose: 0.5 mg Documented by: Bumetanide (Bumex) 1 mg PO DAILY [facility] Last Admin: 08/18/19 08:22 Dose: 1 mg Documented by: Bupropion HCl (Wellbutrin Tablets) 100 mg PO Q12 [facility] Last Admin: 08/18/19 08:21 Dose: 100 mg Documented by: Citalopram Hydrobromide (Celexa) 40 mg PO DAILY [facility] Last Admin: 08/18/19 08:22 Dose: 40 mg Documented by: Clopidogrel Bisulfate (Plavix) 75 mg PO DAILY [facility] Last Admin: 08/18/19 08:21 Dose: 75 mg Documented by: Dextrose (D50w Syringe) 0 gm IV X1 PRN; Protocol PRN Reason: Hypoglycemia Glucagon () 1 mg IM .X1 PRN PRN Reason: Hypoglycemia Heparin Sodium (Porcine) (Heparin Na) 5,000 unit SC Q8 [facility] Last Admin: 08/18/19 14:55 Dose: Not Given Documented by: Vancomycin IV Pharmacy to Dose (1 ea/ Sodium Chloride) 500 mls @ 250 mls/hr IV PRN PRN; Protocol PRN Reason: Rx to Dose Sodium Chloride () 250 mls @ 15 mls/hr IV .[id number] PRN PRN Reason: Saline Flush Last Infusion: 08/17/19 20:19 Dose: Infused Documented by: Sodium Chloride () 250 mls @ 15 mls/hr IV .[id number] PRN PRN Reason: Additional IVPB Infusion Insulin Human Lispro (Humalog Kwikpen (Bkc)) 0 unit SC [facility]; Protocol Last Admin: 08/18/19 15:50 Dose: Not Given Documented by: Insulin Human Lispro (Humalog Kwikpen (Bkc)) 6 unit SC 0800,1200,1700 [facility] Last Admin: 08/18/19 11:35 Dose: 6 u Documented by: Isosorbide Mononitrate (Imdur) 60 mg PO DAILY [facility] Last Admin: 08/18/19 08:22 Dose: 60 mg Documented by: Levothyroxine Sodium (Synthroid) 100 mcg PO DAILY@0600 [facility] Last Admin: 08/18/19 05:12 Dose: 100 mcg Documented by: Lisinopril (Zestril) 5 mg PO QHS [facility] Last Admin: 08/17/19 21:59 Dose: 5 mg Documented by: Metoclopramide HCl (Reglan) 5 mg PO [facility] Last Admin: 08/18/19 15:51 Dose: 5 mg Documented by: Metoprolol Succinate (Toprol Xl (Beta Hernandez)) 75 mg PO DAILY [facility] Last Admin: 08/18/19 08:22 Dose: 75 mg Documented by: Mirtazapine (Remeron) 7.5 mg PO QHS [facility] Last Admin: 08/17/19 21:55 Dose: 7.5 mg Documented by: Multivit/Ca Carb/B Cmplx/FA/Prenat (Nephrocaps, Renaphro) 1 capsule PO DAILY [facility] Last Admin: 08/18/19 08:21 Dose: 1 capsule Documented by: Nutritional Formula (José Antonio - [place] Flavor) 1 packet PO BIDCM [facility] Last Admin: 08/18/19 15:51 Dose: Not Given Documented by: Nystatin (Mycostatin Powder) 1 applic TOPICAL TID [facility]; Protocol Last Admin: 08/18/19 15:50 Dose: 1 applicatio Documented by: Ondansetron HCl (Zofran) 4 mg IV Q8H PRN PRN PRN Reason: NAUSEA/VOMITING Ondansetron HCl (Zofran Odt) 4 mg PO Q6H PRN PRN PRN Reason: NAUSEA Oxycodone HCl (Oxyir) 5 mg PO Q4H PRN PRN PRN Reason: Pain Score 6-10/10 Last Admin: 08/18/19 05:12 Dose: 5 mg Documented by: Pantoprazole Sodium (Protonix) 40 mg PO DAILY [facility] Last Admin: 08/18/19 08:21 Dose: 40 mg Documented by: Senna/Docusate Sodium (Senokot-S, Nany-Colace) 2 tablet PO DAILY [facility] Last Admin: 08/18/19 08:22 Dose: 2 tablet Documented by: Sodium Chloride (Spearman Nasal [place]) 1 spray NASAL BID [facility] Last Admin: 08/18/19 08:27 Dose: Not Given Documented by: Sodium Chloride () 10 - 40 ml IV UD PRN PRN Reason: SALINE FLUSH Last Admin: 08/18/19 10:18 Dose: 10 ml Documented by: Tolterodine Tartrate (Detrol La) 2 mg PO DAILY [facility] Last Admin: 08/18/19 08:21 Dose: 2 mg Documented by: Assessment/Plan All Active Problems Sternal wound dehiscence (Resolved) Right leg pain (Acute) 64-year-old female with nonhealing lower extremity wounds very much consistent with complications from her medical comorbidities including venous insufficiency. Although she does indeed have documented peripheral arterial occlusive disease she does not have digital wounds or ulcers despite clinical exam showing severe level disease at that location bilaterally. What is of note however is that on her venous duplex imaging pulsatile venous flow was identified consistent with proximal venous hypertension. This would correlate well with her clinical examination demonstrating a tense nonpitting edema that extended from the thighs proximally. Certainly bilateral calves involved. The patient is nonambulatory. Diabetes and chronic renal insufficiency on hemodialysis. The legs are always being held dependent and muscular function and pump is not utilized. In addition she claims a degree of congestive heart failure which is substantiated by her stage I diastolic dysfunction. Unfortunate I do not not believe that she would be benefited from interventional arterial treatment. I believe that this is primarily a venous and edema related issue. I would recommend medical maximization of her care with maximization of her cardiac pump and maximization of her dialysis. The patient's poor mobility limits the degree of leg elevation that can be performed and she is nonambulatory. She already has Kristopher wrap's bilateral lower extremities. If she continues to have difficulties then perhaps referral to a tertiary venous center of excellence would be appropriate. I appreciate the opportunity of assisting with her surgical care. At this time I am not anticipating intervention on her arterial system although it is likely multi segmental in nature bilaterally I do not believe that that will assist with resolution of her current wounds. 30min Pradeep Rene M.D., F.A.C.S.
--- NOTE | 2019-08-18 17:40 | PCM.PN.REN ---
Patient Problems: Active and Suspected Problems Right leg pain (Acute) Subjective: no new complaints - Physical Exam Vitals/I&O's: Vital Signs Temp Pulse Resp BP Pulse Ox 97.3 F L 64 20 H 145/58 H 96 08/18/19 14:56 08/18/19 14:56 08/18/19 14:56 08/18/19 14:56 08/18/19 14:56 Oxygen Flow Rate (L/min) 2 Oxygen Delivery Method Nasal Cannula Weight: 85.5 kg Body Mass Index (BMI) 34.4 Intake and Output for Last 24 Hours 08/16/19 08/17/19 08/18/19 23:59 23:59 23:59 Intake Total 996.5 / 1396.5 2568.5 / 3568.5 2099 Output Total 690 / 690 0 / 0 0 / 0 Balance 306.5 / 706.5 2568.5 / 3568.5 2099 General: Alert, Oriented x3, Cooperative HEENT: Atraumatic, PERRLA, EOMI, Normocephalic Neck: Supple, No JVD, Negative Carotid Bruits Lungs: Clear to auscultation, Normal air movement Cardiovascular: Regular rate, No murmurs Abdomen: Bowel Sounds Present, Soft, Non Tender Extremities: No edema, Capillary Refill Less than 3 Seconds Skin: No rashes, No breakdown Musculoskeletal: No Tenderness to Palpation of Joints or Extremities Neurological: Cranial nerves II-XII grossly intact Psych/Mental Status: Normal Affect, Appropriate Microbiology Past 72 Hours 08/15/19 17:40 Wound - Leg, Right Gram Stain - Final 08/15/19 17:40 Wound - Leg, Right Wound Culture - Preliminary Staphylococcus aureus Gram positive christopher 08/15/19 17:40 Wound - Leg, Right Anaerobic Culture - Preliminary Checking for anaerobes, further studies to follow. 08/15/19 13:10 Wound - Leg, Right Gram Stain - Final 08/15/19 13:10 Wound - Leg, Right Wound Culture - Final Meth. resistant Staph. aureus Enterococcus faecalis Gram positive christopher Laboratory Results 08/17/19 22:09: POC Glucose 147 H 08/18/19 06:18: WBC 9.5, RBC 3.67 L, Hgb 11.1 L, Hct 36.0 L, MCV 98.1, MCH 30.2, MCHC 30.8 L, RDW Std Deviation 68.2 H, RDW Coeff of Heber 19.4 H, Plt Count 166, MPV 11.3, Immature Gran % (Auto) 0.900, Neut % (Auto) 84.1 H, Lymph % (Auto) 3.5 L, [place] % (Auto) 9.0, Eos % (Auto) 1.7, Baso % (Auto) 0.8, Absolute Neuts (auto) 8.0 H, Absolute Lymphs (auto) 0.33 L, Nucleated RBC % 0, Differential Comment SCANNED, Ovalocytes RARE, Stomatocytes RARE 08/18/19 06:18: Sodium 125 L, Potassium 4.1, Chloride 91 L, Carbon Dioxide 24.0, Anion Gap 10, BUN 42 H, Creatinine 3.65 H, Estim Creat Clear Calc 11.99, Est GFR (MDRD) Af Amer 16 L, Est GFR (MDRD) Non-Af 13 L, BUN/Creatinine Ratio 11.5, Glucose 121 H, Calcium 8.4 L, Total Bilirubin 0.90, AST 17, ALT 21, Alkaline Phosphatase 145 H, Total Protein 7.1, Albumin 2.7 L, Globulin 4.4 H, Albumin/Globulin Ratio 0.6 L 08/18/19 06:39: POC Glucose 129 H 08/18/19 11:31: POC Glucose 155 H Current Medications Acetaminophen (Tylenol) 650 mg PO Q6H PRN PRN PRN Reason: Pain Score 1-10/Temp > 100.7 F Last Admin: 08/17/19 15:05 Dose: 650 mg Documented by: Albuterol Sulfate (Ventolin Aerosols) 2.5 mg INHALATION Q4H PRN PRN Reason: SHORTNESS OF BREATH Last Admin: 08/18/19 03:11 Dose: 2.5 mg Documented by: Albuterol/Ipratropium (Duoneb) 3 ml INHALATION Q6H.RT [facility] Last Admin: 08/18/19 13:05 Dose: Not Given Documented by: Amoxicillin/Clavulanate Potassium (Augmentin Tablet) 500 mg PO QPM [facility] Aripiprazole (Abilify) 2 mg PO 1900 [facility] Last Admin: 08/17/19 19:14 Dose: 2 mg Documented by: Aspirin (Ecotrin) 81 mg PO DAILYCM [facility] Last Admin: 08/18/19 08:21 Dose: 81 mg Documented by: Atorvastatin Calcium (Lipitor) 40 mg PO QHS [facility] Last Admin: 08/17/19 21:55 Dose: 40 mg Documented by: Bisacodyl (Dulcolax) 10 mg PO DAILY PRN PRN Reason: Constipation Budesonide (Pulmicort Aerosol) 0.5 mg INHALATION Q12H.RT [facility] Last Admin: 08/18/19 06:32 Dose: 0.5 mg Documented by: Bumetanide (Bumex) 1 mg PO DAILY [facility] Last Admin: 08/18/19 08:22 Dose: 1 mg Documented by: Bupropion HCl (Wellbutrin Tablets) 100 mg PO Q12 [facility] Last Admin: 08/18/19 08:21 Dose: 100 mg Documented by: Citalopram Hydrobromide (Celexa) 40 mg PO DAILY [facility] Last Admin: 08/18/19 08:22 Dose: 40 mg Documented by: Clopidogrel Bisulfate (Plavix) 75 mg PO DAILY [facility] Last Admin: 08/18/19 08:21 Dose: 75 mg Documented by: Dextrose (D50w Syringe) 0 gm IV X1 PRN; Protocol PRN Reason: Hypoglycemia Glucagon () 1 mg IM .X1 PRN PRN Reason: Hypoglycemia Heparin Sodium (Porcine) (Heparin Na) 5,000 unit SC Q8 [facility] Last Admin: 08/18/19 14:55 Dose: Not Given Documented by: Vancomycin IV Pharmacy to Dose (1 ea/ Sodium Chloride) 500 mls @ 250 mls/hr IV PRN PRN; Protocol PRN Reason: Rx to Dose Sodium Chloride () 250 mls @ 15 mls/hr IV .[id number] PRN PRN Reason: Saline Flush Last Infusion: 08/17/19 20:19 Dose: Infused Documented by: Sodium Chloride () 250 mls @ 15 mls/hr IV .[id number] PRN PRN Reason: Additional IVPB Infusion Insulin Human Lispro (Humalog Kwikpen (Bkc)) 0 unit SC ACHS [facility]; Protocol Last Admin: 08/18/19 15:50 Dose: Not Given Documented by: Insulin Human Lispro (Humalog Kwikpen (Bkc)) 6 unit SC 0800,1200,1700 [facility] Last Admin: 08/18/19 11:35 Dose: 6 u Documented by: Isosorbide Mononitrate (Imdur) 60 mg PO DAILY [facility] Last Admin: 08/18/19 08:22 Dose: 60 mg Documented by: Levothyroxine Sodium (Synthroid) 100 mcg PO DAILY@0600 [facility] Last Admin: 08/18/19 05:12 Dose: 100 mcg Documented by: Lisinopril (Zestril) 5 mg PO QHS [facility] Last Admin: 08/17/19 21:59 Dose: 5 mg Documented by: Metoclopramide HCl (Reglan) 5 mg PO ACHS [facility] Last Admin: 08/18/19 15:51 Dose: 5 mg Documented by: Metoprolol Succinate (Toprol Xl (Beta Hernandez)) 75 mg PO DAILY [facility] Last Admin: 08/18/19 08:22 Dose: 75 mg Documented by: Mirtazapine (Remeron) 7.5 mg PO QHS [facility] Last Admin: 08/17/19 21:55 Dose: 7.5 mg Documented by: Multivit/Ca Carb/B Cmplx/FA/Prenat (Nephrocaps, Renaphro) 1 capsule PO DAILY [facility] Last Admin: 08/18/19 08:21 Dose: 1 capsule Documented by: Nutritional Formula (José Antonio - [place] Flavor) 1 packet PO BIDCM [facility] Last Admin: 08/18/19 15:51 Dose: Not Given Documented by: Nystatin (Mycostatin Powder) 1 applic TOPICAL TID [facility]; Protocol Last Admin: 08/18/19 15:50 Dose: 1 applicatio Documented by: Ondansetron HCl (Zofran) 4 mg IV Q8H PRN PRN PRN Reason: NAUSEA/VOMITING Ondansetron HCl (Zofran Odt) 4 mg PO Q6H PRN PRN PRN Reason: NAUSEA Oxycodone HCl (Oxyir) 5 mg PO Q4H PRN PRN PRN Reason: Pain Score 6-10/10 Last Admin: 08/18/19 05:12 Dose: 5 mg Documented by: Pantoprazole Sodium (Protonix) 40 mg PO DAILY [facility] Last Admin: 08/18/19 08:21 Dose: 40 mg Documented by: Senna/Docusate Sodium (Senokot-S, Nany-Colace) 2 tablet PO DAILY [facility] Last Admin: 08/18/19 08:22 Dose: 2 tablet Documented by: Sodium Chloride ([place] Nasal [place]) 1 spray NASAL BID [facility] Last Admin: 08/18/19 08:27 Dose: Not Given Documented by: Sodium Chloride () 10 - 40 ml IV UD PRN PRN Reason: SALINE FLUSH Last Admin: 08/18/19 10:18 Dose: 10 ml Documented by: Tolterodine Tartrate (Detrol La) 2 mg PO DAILY [facility] Last Admin: 08/18/19 08:21 Dose: 2 mg Documented by: Medical Necessity - Tobacco Use Smoking Status: Former smoker Tobacco Use: Cigarettes Assessment/Plan All Active Problems Sternal wound dehiscence (Resolved) Right leg pain (Acute) End-stage renal disease. HD TTS schedule Lower extremity wound, cellulitis. Antibiotics as per primary. Anemia. receives long acting SARAVANAN with outpatient HD
[2019-08-18] MEDS: ARIPiprazole 2 MG Tablet PO (18:09)
--- NOTE | 2019-08-18 19:32 | CON.PCM_ITS ---
Problem List (1) Venous ulcer of right leg Status: Chronic Reason for Consult: infected ulcer Consulted by: Dr. Dc History of Present Illness: The patient is a 64 year old F with h/o DM and ESRD, presented with several months of worsening R [place] ulcer. No fever. No inciting event. C/o pain, redness, and heavy drainage. Had been on several outpt courses of outpt abx. Came to ED, admitted, started on vanc/zosyn. Taken to OR for debridement by Dr. Mendiola. Feeling better, no n/v/d on iv abx. Legs wrapped. Full ROS performed and neg except as noted above. - Medical History Past Medical History (Chronic Problems): Chronic Problems Venous ulcer of right leg (Chronic) Chronic ulcer of right leg with fat layer exposed (Chronic) Venous insufficiency (Chronic) Type 2 diabetes mellitus (Chronic) Essential hypertension (Chronic) Coronary artery disease involving coronary bypass graft (Chronic) CHF (congestive heart failure) (Chronic) Diastolic dysfunction (Chronic) Peripheral arterial disease (Chronic) End stage renal disease on dialysis (Chronic) Dyslipidemia (Chronic) Chronic GERD (Chronic) Hypothyroidism (Chronic) Depression (Chronic) Steal syndrome of hand (Chronic) Anemia of chronic disease (Chronic) Other specified peripheral vascular diseases (Chronic) Ulcer of left lower extremity with fat layer exposed (Chronic) Allergies/Adverse Reactions: Allergies No Known Allergies Allergy (Verified 08/15/19 12:02) Home Medications: Ambulatory Orders Medication Instructions Recorded Albuterol Sulfate 0.63 mg IH Q6H PRN 06/10/19 Aripiprazole 2 mg PO 1900 06/10/19 Aspirin [Aspirin EC] 81 mg PO DAILY 06/10/19 Atorvastatin Calcium 40 mg PO QHS 06/10/19 Bumetanide 1 mg PO DAILY 06/10/19 Bupropion HCl 100 mg PO Q12H 06/10/19 Citalopram [Celexa] 40 mg PO DAILY 06/10/19 Clopidogrel Bisulfate [Clopidogrel] 75 mg PO DAILY 06/10/19 Folic Acid/Vit B Complex and C 0.8 mg PO DAILY 06/10/19 [Renal Vitamin Tablet] Insulin Regular, Human [Humulin R] 6 unit SQ TID 06/10/19 Isosorbide Mononitrate [Imdur] 60 mg PO DAILY 06/10/19 Levothyroxine Sodium [Synthroid] 100 mcg PO DAILY 06/10/19 Lisinopril 5 mg PO QHS 06/10/19 Metoprolol Succinate 75 mg PO DAILY 06/10/19 Mirtazapine [Remeron] 7.5 mg PO QHS 06/10/19 Oxybutynin Chloride [Oxybutynin 5 mg PO DAILY 06/10/19 Chloride ER] Oxycodone HCl/Acetaminophen 1 - 2 ea PO Q6H PRN 06/10/19 [Percocet 5-325 mg Tablet] Pantoprazole Sodium [Protonix] 40 mg PO DAILY 06/10/19 Sodium Chloride 0.65% [[place] Nasal 1 spray NASAL BID 06/10/19 [place]] Bisacodyl [Dulcolax] 10 mg PO DAILY PRN 08/15/19 Budesonide/Formoterol 160/4.5 2 puff INHALATION BID 08/15/19 [Symbicort 160/4.5 Mcg Inhaler (SP)] Ipratropium/Albuterol Respimat 2 puff INHALATION 4X/DAY PRN 08/15/19 [Combivent Respimat Inhal [place]] Metoclopramide HCl [Reglan] 5 mg PO 4X/DAY 08/15/19 Nystatin Powder [Mycostatin Powder] 1 applicatio TOPICAL TID 08/15/19 Ondansetron HCl [Zofran] 4 mg PO Q6H PRN PRN 08/15/19 Sennosides/Docusate Sodium [Senna 2 ea PO DAILY 08/15/19 Plus 8.6-50 mg Softgel] Sodium Chloride 0.65% [[place] Nasal 1 spray NASAL PRN PRN 08/15/19 [place]] Amox/Clavulanate Tablet [Augmentin 500 mg PO QPM 10 Days #10 tab 08/18/19 Tablet] Vancomycin IV Pharmacy to Dose 750 mg IV UD #6 ea 08/18/19 - Social History SMOKING STATUS:: Former smoker Vital Signs Temp Pulse Resp BP Pulse Ox 97.3 F L 64 20 H 145/58 H 96 08/18/19 14:56 08/18/19 14:56 08/18/19 14:56 08/18/19 14:56 08/18/19 14:56 Oxygen Flow Rate (L/min) 2 Oxygen Delivery Method Nasal Cannula Weight: 85.5 kg Body Mass Index (BMI) 34.4 Microbiology Past 72 Hours 08/15/19 17:40 Gram Stain - Final Wound - Leg, Right Wound Culture - Preliminary Staphylococcus aureus Gram positive christopher Anaerobic Culture - Preliminary Checking for anaerobes, further studies to follow. 08/15/19 13:10 Gram Stain - Final Wound - Leg, Right Wound Culture - Final Meth. resistant Staph. aureus Enterococcus faecalis Gram positive christopher Laboratory Tests Past 24 Hrs 08/18/19 08/18/19 06:18 06:18 WBC 9.5 RBC 3.67 L Hgb 11.1 L Hct 36.0 L MCV 98.1 MCH 30.2 MCHC 30.8 L RDW Std Deviation 68.2 H RDW Coeff of [place] 19.4 H Plt Count 166 MPV 11.3 Immature Gran % (Auto) 0.900 Neut % (Auto) 84.1 H Lymph % (Auto) 3.5 L [place] % (Auto) 9.0 Eos % (Auto) 1.7 Baso % (Auto) 0.8 Absolute Neuts (auto) 8.0 H Absolute Lymphs (auto) 0.33 L Nucleated RBC % 0 Differential Comment SCANNED Ovalocytes RARE Stomatocytes RARE Sodium 125 L Potassium 4.1 Chloride 91 L Carbon Dioxide 24.0 Anion Gap 10 BUN 42 H Creatinine 3.65 H Estim Creat Clear Calc 11.99 Est GFR (MDRD) Af Amer 16 L Est GFR (MDRD) Non-Af 13 L BUN/Creatinine Ratio 11.5 Glucose 121 H Calcium 8.4 L Total Bilirubin 0.90 AST 17 ALT 21 Alkaline Phosphatase 145 H Total Protein 7.1 Albumin 2.7 L Globulin 4.4 H Albumin/Globulin Ratio 0.6 L - Other Studies Radiology: [] reviewed Other Studies: [] Route of nutrition/ use of supplements: [] Nutritional Intake: [] IV Site: [] Robert Catheter: [] - Physical Exam General: Alert, Oriented x3, Cooperative, No apparent distress HEENT: Atraumatic, PERRLA, EOMI Neck: Supple, No Nodes Lungs: Clear to auscultation, Normal air movement Cardiovascular: Regular rate, Regular Rhythm Abdomen: Soft, Non Tender, Non-Distended Extremities: Edema Skin: Ulcer/ Wound - reviewed photo IV Site: Peripheral, without redness Musculoskeletal: No Tenderness to Palpation of Joints or Extremities Neurological: Cranial nerves II-XII grossly intact - Assessment/Plan Antibiotics: [] Assessment/Plan: [] Active and Suspected Problems Right leg pain (Acute) RLE infected ulcer - cx with MRSA, enterococcus, GPR. Prior cx with MRSA, proteus, kocuria. Ok for discharge on iv vanc dosed with HD for 2 weeks and po augmentin for 10 days. Wrote rx. Will follow, thank you.
[2019-08-18] MEDS: Amox/Clavulanate 500 MG Tablet PO (21:17)
[2019-08-18] MEDS: Mirtazapine 15 MG Tablet 7.5 MG PO (21:18)
[2019-08-18] MEDS: Atorvastatin Calcium 40 MG Tablet PO (21:18)
[2019-08-18] MEDS: Lisinopril 5 MG Tablet PO (21:19)
[2019-08-18 21:20] LABS: Bedside Glucose 151 mg/dL (70-110)
[2019-08-18 21:31] LABS: Bedside Glucose 79 mg/dL (70-110)
[2019-08-19] VITALS (10 sets, daily range): BP systolic 140–169; BP diastolic 67–78; PULSE 59–75; RESP 18–20; TEMP 36.4; O2SAT 97–99
[2019-08-19] MEDS: Ipratropium/Albuterol Sulfate 3 ML AMPUL.NEB INHALATION ×4 (00:22→18:48)
[2019-08-19 00:26] LABS: Bedside Glucose 94 mg/dL (70-110)
[2019-08-19] MEDS: Levothyroxine 100 MCG Tablet PO (06:24)
[2019-08-19] MEDS: Metoclopramide 5 MG TABLET PO ×3 (06:24→17:30)
[2019-08-19] MEDS: Nystatin Powder 15gm Bottle 1 APPLIC TOPICAL ×2 (06:24→14:13)
[2019-08-19] MEDS: Budesonide Respules 0.5 MG/2 ML AMPUL.NEB. INHALATION ×2 (06:41→18:48)
[2019-08-19 06:46] LABS: Bedside Glucose 70 mg/dL (70-110)
--- NOTE | 2019-08-19 06:49 | PCM.PROGNOTE ---
Patient Problems: Active and Suspected Problems Right leg pain (Acute) Subjective: This 64-year-old female seen bedside right chronic leg ulcer with multi-organism culture growth. She denies fever, chill, nausea, vomiting, shortness of breath, chest pain. Her leg pain is controlled. - Physical Exam Vitals/I&O's: Vital Signs Temp Pulse Resp BP Pulse Ox 97.5 F L 62 18 154/70 H 97 08/19/19 02:57 08/19/19 02:57 08/19/19 02:57 08/19/19 02:57 08/19/19 02:57 Oxygen Flow Rate (L/min) 2 Oxygen Delivery Method Nasal Cannula Weight: 85.5 kg Body Mass Index (BMI) 34.4 Intake and Output for Last 24 Hours 08/17/19 08/18/19 08/19/19 23:59 23:59 23:59 Intake Total 2568.5 / 3568.5 2800 / 2800 120 / 120 Output Total 0 / 0 0 / 0 Balance 2568.5 / 3568.5 2800 / 2800 120 / 120 General: Alert, Oriented x3, Cooperative HEENT: Atraumatic Extremities: No cyanosis, No Calf Tenderness - Negative Hernández bilateral, Diminished Peripheral Pulses - Nonpalpable pulses right, Edema Skin: Ulcer/ Wound - No purulence or odor or streaking. There is erythema consistent with peripheral vascular disease ruborous discoloration. There is some hyperpigmentation and the skin is very hairless and atrophic. The ulcer beds are fibrous and granular with an eschar noted to the right larger ulcer site. There is no exposed bone or muscle. Musculoskeletal: No Tenderness to Palpation of Joints or Extremities, Muscle Wasting, - - . Compartments remain soft to palpate. No bogginess or fluctuance on palpation Psych/Mental Status: Normal Affect, Appropriate, - - Lethargic Microbiology Past 72 Hours 08/15/19 17:40 Wound - Leg, Right Gram Stain - Final 08/15/19 17:40 Wound - Leg, Right Wound Culture - Preliminary Staphylococcus aureus Gram positive christopher 08/15/19 17:40 Wound - Leg, Right Anaerobic Culture - Preliminary Checking for anaerobes, further studies to follow. 08/15/19 13:10 Wound - Leg, Right Gram Stain - Final 08/15/19 13:10 Wound - Leg, Right Wound Culture - Final Meth. resistant Staph. aureus Enterococcus faecalis Gram positive christopher Laboratory Results 08/18/19 06:18: WBC 9.5, RBC 3.67 L, Hgb 11.1 L, Hct 36.0 L, MCV 98.1, MCH 30.2, MCHC 30.8 L, RDW Std Deviation 68.2 H, RDW Coeff of [place] 19.4 H, Plt Count 166, MPV 11.3, Immature Gran % (Auto) 0.900, Neut % (Auto) 84.1 H, Lymph % (Auto) 3.5 L, [place] % (Auto) 9.0, Eos % (Auto) 1.7, Baso % (Auto) 0.8, Absolute Neuts (auto) 8.0 H, Absolute Lymphs (auto) 0.33 L, Nucleated RBC % 0, Differential Comment SCANNED, Ovalocytes RARE, Stomatocytes RARE 08/18/19 06:18: Sodium 125 L, Potassium 4.1, Chloride 91 L, Carbon Dioxide 24.0, Anion Gap 10, BUN 42 H, Creatinine 3.65 H, Estim Creat Clear Calc 11.99, Est GFR (MDRD) Af Amer 16 L, Est GFR (MDRD) Non-Af 13 L, BUN/Creatinine Ratio 11.5, Glucose 121 H, Calcium 8.4 L, Total Bilirubin 0.90, AST 17, ALT 21, Alkaline Phosphatase 145 H, Total Protein 7.1, Albumin 2.7 L, Globulin 4.4 H, Albumin/Globulin Ratio 0.6 L 08/18/19 06:39: POC Glucose 129 H 08/18/19 11:31: POC Glucose 155 H 08/18/19 15:46: POC Glucose 151 H 08/18/19 21:23: POC Glucose 79 08/19/19 00:17: POC Glucose 94 08/19/19 06:26: POC Glucose 70 Current Medications Acetaminophen (Tylenol) 650 mg PO Q6H PRN PRN PRN Reason: Pain Score 1-10/Temp > 100.7 F Last Admin: 08/17/19 15:05 Dose: 650 mg Documented by: Albuterol Sulfate (Ventolin Aerosols) 2.5 mg INHALATION Q4H PRN PRN Reason: SHORTNESS OF BREATH Last Admin: 08/18/19 03:11 Dose: 2.5 mg Documented by: Albuterol/Ipratropium (Duoneb) 3 ml INHALATION Q6H.RT [facility] Last Admin: 08/19/19 06:41 Dose: 3 ml Documented by: Amoxicillin/Clavulanate Potassium (Augmentin Tablet) 500 mg PO QPM [facility] Last Admin: 08/18/19 21:17 Dose: 500 mg Documented by: Aripiprazole (Abilify) 2 mg PO 1900 [facility] Last Admin: 08/18/19 18:09 Dose: 2 mg Documented by: Aspirin (Ecotrin) 81 mg PO DAILYCM [facility] Last Admin: 08/18/19 08:21 Dose: 81 mg Documented by: Atorvastatin Calcium (Lipitor) 40 mg PO QHS [facility] Last Admin: 08/18/19 21:18 Dose: 40 mg Documented by: Bisacodyl (Dulcolax) 10 mg PO DAILY PRN PRN Reason: Constipation Budesonide (Pulmicort Aerosol) 0.5 mg INHALATION Q12H.RT [facility] Last Admin: 08/19/19 06:41 Dose: 0.5 mg Documented by: Bumetanide (Bumex) 1 mg PO DAILY [facility] Last Admin: 08/18/19 08:22 Dose: 1 mg Documented by: Bupropion HCl (Wellbutrin Tablets) 100 mg PO Q12 [facility] Last Admin: 08/18/19 21:19 Dose: 100 mg Documented by: Citalopram Hydrobromide (Celexa) 40 mg PO DAILY [facility] Last Admin: 08/18/19 08:22 Dose: 40 mg Documented by: Clopidogrel Bisulfate (Plavix) 75 mg PO DAILY [facility] Last Admin: 08/18/19 08:21 Dose: 75 mg Documented by: Dextrose (D50w Syringe) 0 gm IV X1 PRN; Protocol PRN Reason: Hypoglycemia Glucagon () 1 mg IM .X1 PRN PRN Reason: Hypoglycemia Heparin Sodium (Porcine) (Heparin Na) 5,000 unit SC Q8 [facility] Last Admin: 08/19/19 06:24 Dose: Not Given Documented by: Vancomycin IV Pharmacy to Dose (1 ea/ Sodium Chloride) 500 mls @ 250 mls/hr IV PRN PRN; Protocol PRN Reason: Rx to Dose Sodium Chloride () 250 mls @ 15 mls/hr IV .[id number] PRN PRN Reason: Saline Flush Last Infusion: 08/17/19 20:19 Dose: Infused Documented by: Sodium Chloride () 250 mls @ 15 mls/hr IV .[id number] PRN PRN Reason: Additional IVPB Infusion Insulin Human Lispro (Humalog Kwikpen (Bkc)) 0 unit SC [facility]; Protocol Last Admin: 08/19/19 06:27 Dose: Not Given Documented by: Insulin Human Lispro (Humalog Kwikpen (Bkc)) 6 unit SC 0800,1200,1700 [facility] Last Admin: 08/18/19 18:05 Dose: 6 u Documented by: Isosorbide Mononitrate (Imdur) 60 mg PO DAILY [facility] Last Admin: 08/18/19 08:22 Dose: 60 mg Documented by: Levothyroxine Sodium (Synthroid) 100 mcg PO DAILY@0600 [facility] Last Admin: 08/19/19 06:24 Dose: 100 mcg Documented by: Lisinopril (Zestril) 5 mg PO QHS [facility] Last Admin: 08/18/19 21:19 Dose: 5 mg Documented by: Metoclopramide HCl (Reglan) 5 mg PO [facility] Last Admin: 08/19/19 06:24 Dose: 5 mg Documented by: Metoprolol Succinate (Toprol Xl (Beta Hernandez)) 75 mg PO DAILY [facility] Last Admin: 08/18/19 08:22 Dose: 75 mg Documented by: Mirtazapine (Remeron) 7.5 mg PO QHS [facility] Last Admin: 08/18/19 21:18 Dose: 7.5 mg Documented by: Multivit/Ca Carb/B Cmplx/FA/Prenat (Nephrocaps, Renaphro) 1 capsule PO DAILY [facility] Last Admin: 08/18/19 08:21 Dose: 1 capsule Documented by: Nutritional Formula (José Antonio - [place] Flavor) 1 packet PO BIDCM [facility] Last Admin: 08/18/19 15:51 Dose: Not Given Documented by: Nystatin (Mycostatin Powder) 1 applic TOPICAL TID [facility]; Protocol Last Admin: 08/19/19 06:24 Dose: 1 applicatio Documented by: Ondansetron HCl (Zofran) 4 mg IV Q8H PRN PRN PRN Reason: NAUSEA/VOMITING Ondansetron HCl (Zofran Odt) 4 mg PO Q6H PRN PRN PRN Reason: NAUSEA Oxycodone HCl (Oxyir) 5 mg PO Q4H PRN PRN PRN Reason: Pain Score 6-10/10 Last Admin: 08/18/19 05:12 Dose: 5 mg Documented by: Pantoprazole Sodium (Protonix) 40 mg PO DAILY [facility] Last Admin: 08/18/19 08:21 Dose: 40 mg Documented by: Senna/Docusate Sodium (Senokot-S, Nany-Colace) 2 tablet PO DAILY [facility] Last Admin: 08/18/19 08:22 Dose: 2 tablet Documented by: Sodium Chloride ([place] Nasal [place]) 1 spray NASAL BID [facility] Last Admin: 08/18/19 21:18 Dose: Not Given Documented by: Sodium Chloride () 10 - 40 ml IV UD PRN PRN Reason: SALINE FLUSH Last Admin: 08/18/19 10:18 Dose: 10 ml Documented by: Tolterodine Tartrate (Detrol La) 2 mg PO DAILY [facility] Last Admin: 08/18/19 08:21 Dose: 2 mg Documented by: Medical Necessity - Tobacco Use Smoking Status: Former smoker Tobacco Use: Cigarettes Assessment/Plan All Active Problems Sternal wound dehiscence (Resolved) Right leg pain (Acute) Right leg ulcer with cellulitis and fat and fascial tissue exposed Left leg ulcer with fat layer exposed, no cellulitis Peripheral vascular disease Lower extremity edema secondary to suspected venous insufficiency and also from congestive heart failure Delayed healing Malnutrition suspected Other comorbidities noted Continue with local wound care and antibiotic therapy. She is on vancomycin and Augmentin. Reviewed culture results - multiple organisms including MRSA, gram-positive christopher, enterococcus facialis- continue with antibiotic therapy. Infectious disease on consultation is greatly appreciated. Her noninvasive vascular studies demonstrated peripheral arterial disease (moderate to severe occlusive disease). Dr. Rene is on consultation and input is greatly appreciated. Recommendation is not made for intervention at this time. She does not have a deep venous thrombosis seen on her right leg venous Doppler. The reflux evaluation to assess for venous insufficiency can only performed in the outpatient setting. Pulsatile venous flow suggests proximal venous hypertension. Continue with daily dressing changes to right and left legs. She has Aquacell Ag applied to the large ulcer site and Aquacel Ag to the smaller satellite sites. Adaptic is applied to the other skin discontinuity inferior site on the right leg. This is further covered with abdominal pads, Kerlix, and overlying Kristopher wrap. Medical management and DVT prophylaxis per primary team. The podiatry team will continue to follow closely while in house. To follow-up with the wound healing center after discharge. Marilou Hay DPM, [facility] [phone]
--- NOTE | 2019-08-19 07:42 | NURSING ---
Dr Hay was in this am to change dressings to bilateral lower legs.
[2019-08-19 07:45] LABS: Absolute Lymphocyte Count 0.36 X10^3/uL (0.83-4.51); Absolute Neutrophil Count 7.6 X10^3/uL (2.0-7.7); Basophil# 0.07 X10^3/uL; Basophil% 0.8 % (0-1); Eosinophil# 0.17 X10^3/uL; Eosinophils% 1.9 % (0-5); Hematocrit 38.5 % (37-47); Hemoglobin 12.1 g/dL (12.0-15.0); Lymphocyte # 0.36 X10^3/ul (4.0); Mean Corp Hgb Conc 31.4 g/dL (32-36); Mean Corpuscular Hgb 29.7 pg (27.0-32.0); Mean Corpuscular Volume 94.6 fL (81-99); Mean Platelet Vol. 11.3 fl (6.2-12.0); Monocyte# 0.71 X10^3/uL; Monocyte% 7.9 % (0-10); NRBC Flagged by Analyzer 0 % (0-5); Neutrophil # 7.64 X10^3/uL (2.7-7.7); Neutrophil % 84.8 % (47-70); POSITIVE DIFFERENTIAL YES; POSITIVE MORPHOLOGY YES; Platelet Count 214 K/mm3 (150-450); RBC Distribution Width CV 18.8 % (11.6-14.6); RBC Distribution Width SD 66.4 fl (35.1-43.9); Red Blood Count 4.07 M/mm3 (4.2-5.4)
[2019-08-19 08:05] LABS: Vancomycin, Random Level 16.8 ug/mL (0.0-15.0)
[2019-08-19 08:06] LABS: Differential Indicated SCAN CRITERIA MET
[2019-08-19 08:15] LABS: Anion Gap 10 (5-15); BUN 47 mg/dL (7-18); BUN/Creat Ratio 11.3 RATIO (10-20); Calcium,Total 8.8 mg/dL (8.5-10.1); Chloride 91 mmol/L (98-107); Creatinine, Serum 4.15 mg/dL (0.55-1.02); EST Glomerular Filtration Rate 11 mL/min (>60); Est Glom Filt Rate - Afr Amer 14 mL/min (>60); Estimated Creatinine Clearance 10.55 ml/min; Glucose 81 mg/dL (74-106); Potassium 4.9 mmol/L (3.5-5.1); Sodium Level 126 mmol/L (136-145)
[2019-08-19 08:54] LABS: Anisocytosis 2+; Differential Comment SCANNED; Macrocytosis 1+; Microcytosis 1+
[2019-08-19] MEDS: LORazepam 1 MG Tablet PO (09:15)
[2019-08-19] MEDS: Tolterodine Tartrate 2 MG CAP.SA PO (10:05)
[2019-08-19] MEDS: Pantoprazole Sodium 40 MG Tablet PO (10:05)
[2019-08-19] MEDS: buPROPion 100 MG Tablet PO (10:05)
[2019-08-19] MEDS: Aspirin E.C. 81 MG Tablet PO (10:05)
[2019-08-19] MEDS: Metoprolol(XL)Succ 25 MG Tablet 75 MG PO (10:05)
[2019-08-19] MEDS: Citalopram 40 MG TABLET PO (10:05)
[2019-08-19] MEDS: Senna/Docusate Sodium 1 Tablet 2 TABLET PO (10:05)
[2019-08-19] MEDS: Sodium Chloride 0.65% 1 SPRAY SPRAY.BTL NASAL (10:06)
[2019-08-19] MEDS: Folic Acid/Vitamin B Comp W-C 1 Capsule 1 CAP PO (10:08)
[2019-08-19] MEDS: Clopidogrel Bisulfate 75 MG Tablet PO (10:08)
[2019-08-19] MEDS: Isosorbide Mononitrate 60 MG Tablet PO (10:08)
--- NOTE | 2019-08-19 10:15 | PCM.RX.CS ---
Consult Pharmacy has been consulted to manage selected antiobiotic: Vancomycin Type of Consult: Follow-up Labs: Sodium 126 mmol/L (136-145) L 08/19/19 06:55 Potassium 4.9 mmol/L (3.5-5.1) 08/19/19 06:55 Chloride 91 mmol/L (98-107) L 08/19/19 06:55 Carbon Dioxide 25.0 mmol/L (21.0-32.0) 08/19/19 06:55 Anion Gap 10 (5-15) 08/19/19 06:55 BUN 47 mg/dL (7-18) H 08/19/19 06:55 Creatinine 4.15 mg/dL (0.55-1.02) H 08/19/19 06:55 Est GFR (MDRD) Af Amer 14 mL/min (>60) L 08/19/19 06:55 Est GFR (MDRD) Non-Af 11 mL/min (>60) L 08/19/19 06:55 BUN/Creatinine Ratio 11.3 RATIO (-20) 08/19/19 06:55 Glucose 81 mg/dL (74-106) 08/19/19 06:55 Random Vancomycin 16.8 ug/mL (0.0-15.0) H 08/19/19 06:55 Microbiology: Microbiology 08/15/19 17:40 Wound - Leg, Right Gram Stain - Final 08/15/19 17:40 Wound - Leg, Right Wound Culture - Preliminary Staphylococcus aureus Gram positive christopher 08/15/19 17:40 Wound - Leg, Right Anaerobic Culture - Preliminary Checking for anaerobes, further studies to follow. 08/15/19 13:10 Wound - Leg, Right Gram Stain - Final 08/15/19 13:10 Wound - Leg, Right Wound Culture - Final Meth. resistant Staph. aureus Enterococcus faecalis Gram positive christopher Pharmacy Plan for Drug Dosin/5--Vancomycin Follow up SrCr 4.15 CrCl 10.55 Weight 85.5kg Dialysis due today 08/19/19 Vancomycin random level resulted at 16.8 Recommend a 500mg dose of Vancomycin x1 to be given AFTER dialysis on 08/18 Next level: random level pre dialysis Pharmacy Service will continue to monitor and adjust dosing as required.
[2019-08-19] MEDS: Bumetanide 2 MG Tablet 1 MG PO (12:19)
[2019-08-19 12:21] LABS: Bedside Glucose 70 mg/dL (70-110)
[2019-08-19] MEDS: Insulin Lispro 100 UNIT/ML INSULN.PEN 6 UNIT SC ×2 (13:19→17:30)
--- NOTE | 2019-08-19 14:28 | PN_ITS ---
Patient Problems: Active and Suspected Problems Right leg pain (Acute) Vitals/I&O's: Vital Signs Temp Pulse Resp BP Pulse Ox 97.6 F L 75 18 140/67 H 97 08/19/19 14:00 08/19/19 14:00 08/19/19 14:00 08/19/19 14:00 08/19/19 14:00 Oxygen Flow Rate (L/min) 2 Oxygen Delivery Method Nasal Cannula Weight: 188 lb 7.924 oz Body Mass Index (BMI) 34.4 Intake and Output for Last 24 Hours 08/17/19 08/18/19 08/19/19 23:59 23:59 23:59 Intake Total 2568.5 / 3568.5 2800 / 2800 480 / 480 Output Total 0 / 0 0 / 0 Balance 2568.5 / 3568.5 2800 / 2800 480 / 480 Microbiology Past 72 Hours 08/15/19 17:40 Wound - Leg, Right Gram Stain - Final 08/15/19 17:40 Wound - Leg, Right Wound Culture - Preliminary Staphylococcus aureus Gram positive christopher 08/15/19 17:40 Wound - Leg, Right Anaerobic Culture - Final No anaerobic bacteria isolated. 08/15/19 13:10 Wound - Leg, Right Gram Stain - Final 08/15/19 13:10 Wound - Leg, Right Wound Culture - Final Meth. resistant Staph. aureus Enterococcus faecalis Gram positive christopher Laboratory Results 08/18/19 15:46: POC Glucose 151 H 08/18/19 21:23: POC Glucose 79 08/19/19 00:17: POC Glucose 94 08/19/19 06:26: POC Glucose 70 08/19/19 06:55: Random Vancomycin 16.8 H 08/19/19 06:55: WBC 9.0, RBC 4.07 L, Hgb 12.1, Hct 38.5, MCV 94.6, MCH 29.7, MCHC 31.4 L, RDW Std Deviation 66.4 H, RDW Coeff of Heber 18.8 H, Plt Count 214, MPV 11.3, Immature Gran % (Auto) 0.600, Neut % (Auto) 84.8 H, Lymph % (Auto) 4.0 L, [place] % (Auto) 7.9, Eos % (Auto) 1.9, Baso % (Auto) 0.8, Absolute Neuts (auto) 7.6, Absolute Lymphs (auto) 0.36 L, Nucleated RBC % 0, Differential Comment SC ANNED, Anisocytosis 2+, Microcytosis 1+, Macrocytosis 1+ 08/19/19 06:55: Sodium 126 L, Potassium 4.9, Chloride 91 L, Carbon Dioxide 25.0, Anion Gap 10, BUN 47 H, Creatinine 4.15 H, Estim Creat Clear Calc 10.55, Est GFR (MDRD) Af Amer 14 L, Est GFR (MDRD) Non-Af 11 L, BUN/Creatinine Ratio 11.3, Glucose 81, Calcium 8.8 08/19/19 12:14: POC Glucose 70 Current Medications Acetaminophen (Tylenol) 650 mg PO Q6H PRN PRN PRN Reason: Pain Score 1-10/Temp > 100.7 F Last Admin: 08/17/19 15:05 Dose: 650 mg Documented by: Albuterol Sulfate (Ventolin Aerosols) 2.5 mg INHALATION Q4H PRN PRN Reason: SHORTNESS OF BREATH Last Admin: 08/18/19 03:11 Dose: 2.5 mg Documented by: Albuterol/Ipratropium (Duoneb) 3 ml INHALATION Q6H.RT [facility] Last Admin: 08/19/19 13:28 Dose: 3 ml Documented by: Amoxicillin/Clavulanate Potassium (Augmentin Tablet) 500 mg PO QPM [facility] Last Admin: 08/18/19 21:17 Dose: 500 mg Documented by: Aripiprazole (Abilify) 2 mg PO 1900 [facility] Last Admin: 08/18/19 18:09 Dose: 2 mg Documented by: Aspirin (Ecotrin) 81 mg PO DAILYCM [facility] Last Admin: 08/19/19 10:05 Dose: 81 mg Documented by: Atorvastatin Calcium (Lipitor) 40 mg PO QHS [facility] Last Admin: 08/18/19 21:18 Dose: 40 mg Documented by: Bisacodyl (Dulcolax) 10 mg PO DAILY PRN PRN Reason: Constipation Budesonide (Pulmicort Aerosol) 0.5 mg INHALATION Q12H.RT [facility] Last Admin: 08/19/19 06:41 Dose: 0.5 mg Documented by: Bumetanide (Bumex) 1 mg PO DAILY [facility] Last Admin: 08/19/19 12:19 Dose: 1 mg Documented by: Bupropion HCl (Wellbutrin Tablets) 100 mg PO Q12 [facility] Last Admin: 08/19/19 10:05 Dose: 100 mg Documented by: Citalopram Hydrobromide (Celexa) 40 mg PO DAILY [facility] Last Admin: 08/19/19 10:05 Dose: 40 mg Documented by: Clopidogrel Bisulfate (Plavix) 75 mg PO DAILY [facility] Last Admin: 08/19/19 10:08 Dose: 75 mg Documented by: Dextrose (D50w Syringe) 0 gm IV X1 PRN; Protocol PRN Reason: Hypoglycemia Glucagon () 1 mg IM .X1 PRN PRN Reason: Hypoglycemia Heparin Sodium (Porcine) (Heparin Na) 5,000 unit SC Q8 [facility] Last Admin: 08/19/19 14:15 Dose: Not Given Documented by: Vancomycin IV Pharmacy to Dose (1 ea/ Sodium Chloride) 500 mls @ 250 mls/hr IV PRN PRN; Protocol PRN Reason: Rx to Dose Sodium Chloride () 250 mls @ 15 mls/hr IV .[id number] PRN PRN Reason: Saline Flush Last Infusion: 08/17/19 20:19 Dose: Infused Documented by: Sodium Chloride () 250 mls @ 15 mls/hr IV .[id number] PRN PRN Reason: Additional IVPB Infusion Vancomycin HCl () 500 mg in 100 mls @ 100 mls/hr IV X1 ONE Stop: 08/19/19 15:59 Insulin Human Lispro (Humalog Kwikpen (Bkc)) 0 unit SC ACHS [facility]; Protocol Last Admin: 08/19/19 13:18 Dose: Not Given Documented by: Insulin Human Lispro (Humalog Kwikpen (Bkc)) 6 unit SC 0800,1200,1700 [facility] Last Admin: 08/19/19 13:19 Dose: 6 u Documented by: Isosorbide Mononitrate (Imdur) 60 mg PO DAILY [facility] Last Admin: 08/19/19 10:08 Dose: 60 mg Documented by: Levothyroxine Sodium (Synthroid) 100 mcg PO DAILY@0600 [facility] Last Admin: 08/19/19 06:24 Dose: 100 mcg Documented by: Lisinopril (Zestril) 5 mg PO QHS [facility] Last Admin: 08/18/19 21:19 Dose: 5 mg Documented by: Metoclopramide HCl (Reglan) 5 mg PO ACHS [facility] Last Admin: 08/19/19 12:19 Dose: 5 mg Documented by: Metoprolol Succinate (Toprol Xl (Beta Hernandez)) 75 mg PO DAILY [facility] Last Admin: 08/19/19 10:05 Dose: 75 mg Documented by: Mirtazapine (Remeron) 7.5 mg PO QHS [facility] Last Admin: 08/18/19 21:18 Dose: 7.5 mg Documented by: Multivit/Ca Carb/B Cmplx/FA/Prenat (Nephrocaps, Renaphro) 1 capsule PO DAILY [facility] Last Admin: 08/19/19 10:08 Dose: 1 capsule Documented by: Nutritional Formula (José Antonio - [place] Flavor) [facility] Last Admin: 08/19/19 10:17 Dose: Not Given Documented by: Nystatin (Mycostatin Powder) 1 applic TOPICAL TID [facility]; Protocol Last Admin: 08/19/19 14:13 Dose: 1 applicatio Documented by: Ondansetron HCl (Zofran) 4 mg IV Q8H PRN PRN PRN Reason: NAUSEA/VOMITING Ondansetron HCl (Zofran Odt) 4 mg PO Q6H PRN PRN PRN Reason: NAUSEA Oxycodone HCl (Oxyir) 5 mg PO Q4H PRN PRN PRN Reason: Pain Score 6-10/10 Last Admin: 08/18/19 05:12 Dose: 5 mg Documented by: Pantoprazole Sodium (Protonix) 40 mg PO DAILY [facility] Last Admin: 08/19/19 10:05 Dose: 40 mg Documented by: Senna/Docusate Sodium (Senokot-S, [place]-Colace) 2 tablet PO DAILY [facility] Last Admin: 08/19/19 10:05 Dose: 2 tablet Documented by: Sodium Chloride ([place] Nasal [place]) 1 spray NASAL BID [facility] Last Admin: 08/19/19 10:06 Dose: 1 spray Documented by: Sodium Chloride () 10 - 40 ml IV UD PRN PRN Reason: SALINE FLUSH Last Admin: 08/18/19 10:18 Dose: 10 ml Documented by: Tolterodine Tartrate (Detrol La) 2 mg PO DAILY [facility] Last Admin: 08/19/19 10:05 Dose: 2 mg Documented by: STROKE Vital Signs/Narrative: Vital Signs Temp Pulse Resp BP Pulse Ox 08/19/19 14:00 97.6 F L 75 18 140/67 H 97 08/19/19 13:24 74 18 Medical Necessity - Tobacco Use Smoking Status: Former smoker Tobacco Use: Cigarettes Assessment/Plan All Active Problems Sternal wound dehiscence (Resolved) Right leg pain (Acute)
--- NOTE | 2019-08-19 15:25 | PN.RENAL_ITS ---
Patient Problems: Active and Suspected Problems Right leg pain (Acute) Subjective: no new complaints - Physical Exam Vitals/I&O's: Vital Signs Temp Pulse Resp BP Pulse Ox 97.6 F L 75 18 140/67 H 97 08/19/19 14:00 08/19/19 14:00 08/19/19 14:00 08/19/19 14:00 08/19/19 14:00 Oxygen Flow Rate (L/min) 2 Oxygen Delivery Method Nasal Cannula Weight: 85.5 kg Body Mass Index (BMI) 34.4 Intake and Output for Last 24 Hours 08/17/19 08/18/19 08/19/19 23:59 23:59 23:59 Intake Total 2568.5 / 3568.5 2800 / 2800 480 / 480 Output Total 0 / 0 0 / 0 Balance 2568.5 / 3568.5 2800 / 2800 480 / 480 General: Alert, Oriented x3, Cooperative HEENT: Atraumatic, PERRLA, EOMI, Normocephalic Neck: Supple, No JVD, Negative Carotid Bruits Lungs: Clear to auscultation, Normal air movement Cardiovascular: Regular rate, No murmurs Abdomen: Bowel Sounds Present, Soft, Non Tender Extremities: No edema, Capillary Refill Less than 3 Seconds Skin: No rashes, No breakdown Musculoskeletal: No Tenderness to Palpation of Joints or Extremities Neurological: Cranial nerves II-XII grossly intact Psych/Mental Status: Normal Affect, Appropriate Microbiology Past 72 Hours 08/15/19 17:40 Wound - Leg, Right Gram Stain - Final 08/15/19 17:40 Wound - Leg, Right Wound Culture - Preliminary Staphylococcus aureus Gram positive christopher 08/15/19 17:40 Wound - Leg, Right Anaerobic Culture - Final No anaerobic bacteria isolated. 08/15/19 13:10 Wound - Leg, Right Gram Stain - Final 08/15/19 13:10 Wound - Leg, Right Wound Culture - Final Meth. resistant Staph. aureus Enterococcus faecalis Gram positive christopher Laboratory Results 08/18/19 15:46: POC Glucose 151 H 08/18/19 21:23: POC Glucose 79 08/19/19 00:17: POC Glucose 94 08/19/19 06:26: POC Glucose 70 08/19/19 06:55: Random Vancomycin 16.8 H 08/19/19 06:55: WBC 9.0, RBC 4.07 L, Hgb 12.1, Hct 38.5, MCV 94.6, MCH 29.7, MCHC 31.4 L, RDW Std Deviation 66.4 H, RDW Coeff of Heber 18.8 H, Plt Count 214, MPV 11.3, Immature Gran % (Auto) 0.600, Neut % (Auto) 84.8 H, Lymph % (Auto) 4.0 L, [place] % (Auto) 7.9, Eos % (Auto) 1.9, Baso % (Auto) 0.8, Absolute Neuts (auto) 7.6, Absolute Lymphs (auto) 0.36 L, Nucleated RBC % 0, Differential Comment SCANNED, Anisocytosis 2+, Microcytosis 1+, Macrocytosis 1+ 08/19/19 06:55: Sodium 126 L, Potassium 4.9, Chloride 91 L, Carbon Dioxide 25.0, Anion Gap 10, BUN 47 H, Creatinine 4.15 H, Estim Creat Clear Calc 10.55, Est GFR (MDRD) Af Amer 14 L, Est GFR (MDRD) Non-Af 11 L, BUN/Creatinine Ratio 11.3, Glucose 81, Calcium 8.8 08/19/19 12:14: POC Glucose 70 Current Medications Acetaminophen (Tylenol) 650 mg PO Q6H PRN PRN PRN Reason: Pain Score 1-10/Temp > 100.7 F Last Admin: 08/17/19 15:05 Dose: 650 mg Documented by: Albuterol Sulfate (Ventolin Aerosols) 2.5 mg INHALATION Q4H PRN PRN Reason: SHORTNESS OF BREATH Last Admin: 08/18/19 03:11 Dose: 2.5 mg Documented by: Albuterol/Ipratropium (Duoneb) 3 ml INHALATION Q6H.RT [facility] Last Admin: 08/19/19 13:28 Dose: 3 ml Documented by: Amoxicillin/Clavulanate Potassium (Augmentin Tablet) 500 mg PO QPM [facility] Last Admin: 08/18/19 21:17 Dose: 500 mg Documented by: Aripiprazole (Abilify) 2 mg PO 1900 [facility] Last Admin: 08/18/19 18:09 Dose: 2 mg Documented by: [facility] Last Admin: 08/19/19 10:05 Dose: 81 mg Documented by: Atorvastatin Calcium (Lipitor) 40 mg PO QHS [facility] Last Admin: 08/18/19 21:18 Dose: 40 mg Documented by: Bisacodyl (Dulcolax) 10 mg PO DAILY PRN PRN Reason: Constipation Budesonide (Pulmicort Aerosol) 0.5 mg INHALATION Q12H.RT [facility] Last Admin: 08/19/19 06:41 Dose: 0.5 mg Documented by: Bumetanide (Bumex) 1 mg PO DAILY [facility] Last Admin: 08/19/19 12:19 Dose: 1 mg Documented by: Bupropion HCl (Wellbutrin Tablets) 100 mg PO Q12 [facility] Last Admin: 08/19/19 10:05 Dose: 100 mg Documented by: Citalopram Hydrobromide (Celexa) 40 mg PO DAILY [facility] Last Admin: 08/19/19 10:05 Dose: 40 mg Documented by: Clopidogrel Bisulfate (Plavix) 75 mg PO DAILY [facility] Last Admin: 08/19/19 10:08 Dose: 75 mg Documented by: Dextrose (D50w Syringe) 0 gm IV X1 PRN; Protocol PRN Reason: Hypoglycemia Glucagon () 1 mg IM .X1 PRN PRN Reason: Hypoglycemia Heparin Sodium (Porcine) (Heparin Na) 5,000 unit SC Q8 [facility] Last Admin: 08/19/19 14:15 Dose: Not Given Documented by: Vancomycin IV Pharmacy to Dose (1 ea/ Sodium Chloride) 500 mls @ 250 mls/hr IV PRN PRN; Protocol PRN Reason: Rx to Dose Sodium Chloride () 250 mls @ 15 mls/hr IV .[id number] PRN PRN Reason: Saline Flush Last Infusion: 08/17/19 20:19 Dose: Infused Documented by: Sodium Chloride () 250 mls @ 15 mls/hr IV .[id number] PRN PRN Reason: Additional IVPB Infusion Vancomycin HCl () 500 mg in 100 mls @ 100 mls/hr IV X1 ONE Stop: 08/19/19 15:59 Insulin Human Lispro (Humalog Kwikpen (Bkc)) 0 unit SC ACHS [facility]; Protocol Last Admin: 08/19/19 13:18 Dose: Not Given Documented by: Insulin Human Lispro (Humalog Kwikpen (Bkc)) 6 unit SC 0800,1200,1700 [facility] Last Admin: 08/19/19 13:19 Dose: 6 u Documented by: Isosorbide Mononitrate (Imdur) 60 mg PO DAILY [facility] Last Admin: 08/19/19 10:08 Dose: 60 mg Documented by: Levothyroxine Sodium (Synthroid) 100 mcg PO DAILY@0600 [facility] Last Admin: 08/19/19 06:24 Dose: 100 mcg Documented by: Lisinopril (Zestril) 5 mg PO QHS [facility] Last Admin: 08/18/19 21:19 Dose: 5 mg Documented by: Metoclopramide HCl (Reglan) 5 mg PO [facility] Last Admin: 08/19/19 12:19 Dose: 5 mg Documented by: Metoprolol Succinate (Toprol Xl (Beta Hernandez)) 75 mg PO DAILY [facility] Last Admin: 08/19/19 10:05 Dose: 75 mg Documented by: Mirtazapine (Remeron) 7.5 mg PO QHS [facility] Last Admin: 08/18/19 21:18 Dose: 7.5 mg Documented by: Multivit/Ca Carb/B Cmplx/FA/Prenat (Nephrocaps, Renaphro) 1 capsule PO DAILY [facility] Last Admin: 08/19/19 10:08 Dose: 1 capsule Documented by: Nutritional Formula (José Antonio - [place] Flavor) 1 packet PO BIDCM [facility] Last Admin: 08/19/19 10:17 Dose: Not Given Documented by: Nystatin (Mycostatin Powder) 1 applic TOPICAL TID [facility]; Protocol Last Admin: 08/19/19 14:13 Dose: 1 applicatio Documented by: Ondansetron HCl (Zofran) 4 mg IV Q8H PRN PRN PRN Reason: NAUSEA/VOMITING Ondansetron HCl (Zofran Odt) 4 mg PO Q6H PRN PRN PRN Reason: NAUSEA Oxycodone HCl (Oxyir) 5 mg PO Q4H PRN PRN PRN Reason: Pain Score 6-10/10 Last Admin: 08/18/19 05:12 Dose: 5 mg Documented by: Pantoprazole Sodium (Protonix) 40 mg PO DAILY [facility] Last Admin: 08/19/19 10:05 Dose: 40 mg Documented by: Senna/Docusate Sodium (Senokot-S, [place]-Colace) 2 tablet PO DAILY [facility] Last Admin: 08/19/19 10:05 Dose: 2 tablet Documented by: Sodium Chloride ([place] Nasal [place]) 1 spray NASAL BID [facility] Last Admin: 08/19/19 10:06 Dose: 1 spray Documented by: Sodium Chloride () 10 - 40 ml IV UD PRN PRN Reason: SALINE FLUSH Last Admin: 08/18/19 10:18 Dose: 10 ml Documented by: Tolterodine Tartrate (Detrol La) 2 mg PO DAILY [facility] Last Admin: 08/19/19 10:05 Dose: 2 mg Documented by: Medical Necessity - Tobacco Use Smoking Status: Former smoker Tobacco Use: Cigarettes Assessment/Plan All Active Problems Sternal wound dehiscence (Resolved) Right leg pain (Acute) End-stage renal disease. HD TTS schedule. HD today Lower extremity wound, cellulitis. Antibiotics as per primary. Anemia. receives long acting SARAVANAN with outpatient HD dc today stacey Dc
--- NOTE | 2019-08-19 15:30 | PCM.TXEXTCAR ---
- Diet 08/16/19 14:09 Diet: Cardiac: Calorie-Controlled Is pt able to select menu?: Yes Diet Comments: Low Sodium How many daily calories?: 1999 calorie - Routine Orders/Code Status Enema Type: Fleetz Enema Frequency: Daily PRN Suppository Type: Dulcolax 10mg Suppository Frequency: Daily PRN O2 Liters per Minute: 2 O2 Frequency: Continuous Keep PO Greater than or Equal to (%): 90 Routine Lab Work: CBC, BMP - Wound(s) RIGHT LOWER LEG Wound Type: nonhealing wound Dressing Change: Wet to Dry Dressing left lower leg Wound Type: small scattered superficial weeping areas Dressing Change: Adaptic sternal chest Wound Type: Surgical Incision - Therapies Weight Bearing: Weight bearing as tolerated Physical Therapy: Eval and Treat Occupational Therapy: Eval and Treat - Allergies/Procedures Done in Hospital Allergies/Adverse Reactions: Allergies No Known Allergies Allergy (Verified 08/15/19 12:02) Procedures: None - Type of Care/Length of Stay Estimated LOS: Convalescent Care Less Than 30 days Type of Care Needed: Skilled Rehab Potential: Fair Prognosis: Fair - Additional Orders/Day of Discharge Day of Discharge: 08/19/19 - Dietary and Speech Recommendations Dietitian Recommendations/Changes: Will change diet order to 1999 Calorie:Cardiac/Low Sodium diet as current Renal 60g diet order restricting pt protein. Pt w/ increased protein and calorie needs d/t dialysis and non-healing wounds. Will provide José Antonio 1 packet BID to promote wound healing. - Follow Up Care Primary Care Physician: Anna Peacock,Out of [NON-STAFF] - Please follow up with your Primary Care Physician in: 1-2 weeks Please Follow Up With: Pradeep Kilgore MD When: 1-2 weeks Please Follow Up With: Magdy Mead MD When: 1-2 weeks Please Follow Up With: Lobito Mendiola DPM
--- NOTE | 2019-08-19 15:35 | DS.PCM_ITS ---
Discharge Date and Diagnosis - Problem List Patient Problems: Active and Suspected Problems Right leg pain (Acute) Date of Admission: 08/15/19 Date of Discharge: 08/19/19 - Primary Discharge Diagnosis Active and Suspected Problems Right leg pain (Acute) RLE cellulitis and RLE ulcer - Secondary Discharge Diagnosis Chronic Problems Venous ulcer of right leg (Chronic) Chronic ulcer of right leg with fat layer exposed (Chronic) Venous insufficiency (Chronic) Type 2 diabetes mellitus (Chronic) Essential hypertension (Chronic) Coronary artery disease involving coronary bypass graft (Chronic) CHF (congestive heart failure) (Chronic) Diastolic dysfunction (Chronic) Peripheral arterial disease (Chronic) End stage renal disease on dialysis (Chronic) Dyslipidemia (Chronic) Chronic GERD (Chronic) Hypothyroidism (Chronic) Depression (Chronic) Steal syndrome of hand (Chronic) Anemia of chronic disease (Chronic) Other specified peripheral vascular diseases (Chronic) Ulcer of left lower extremity with fat layer exposed (Chronic) Hospital Course and Treatment Imaging Results: Diagnostic Data Tibia/Fibula X-Ray 08/15/19 20:25 IMPRESSION: Large soft tissue ulceration and no visualized or bony erosion. Bony osteopenia. Degenerative change in the right knee joint. Electronically Signed: Makayla Duran MD at 20:51 EDT Tel , Service support , podiatry- Dr Mendiola Nephrology- Dr Mead Vascular surgery- Dr Rene Infectious diseases- Dr Kilgore Operations: None Procedures: None Summary of Care Provided: The patient is a 64 year old F extensive past medical history as outlined was admitted through the ED on 08/15/2019 with a complaint of right lower extremity swelling, redness and increased drainage. Patient had a chronic right leg wound for which she had been on a wound VAC and has been following up with the wound center for treatment. However she was brought in because the right lower extremity looks more red and swollen and looked infected. She had been on cefdinir on outpatient basis. She denied any fever or chills, nausea vomiting or diarrhea. She was admitted and managed for acute right lower extremity ulceration with right lower extremity cellulitis. She was started on vancomycin and Zosyn. She had previous cultures growing MRSA and Proteus. Podiatry was consulted. Vascular studies done showed evidence of peripheral vascular disease so vascular surgery was consulted. Vascular studies showed moderately severe arterial occlusive disease bilaterally with right dorsalis pedis PUNEET of 0.51 and left posterior tibialis PUNEET of 0.61. Perivascular surgery, they did not think that she would benefit from interventional arterial treatment as it was felt that this was primarily a venous and edema related issue and so was recommended that she had medical maximization of her care and maximization of her dialysis. Wound cultures of the right lower extremity grew gram-positive christopher and MRSA as well as enterococcus. Infectious diseases was consulted and recommended 6 more doses of IV vancomycin with dialysis- for 2 weeks, as well as p.o. Augmentin for 10 days. Of note, nephrology was also consulted during admission for regular dialysis. Patient remained stable and was discharged back to her [facility] on 08/[facility]2019. She is to follow-up with her primary care doctor and infectious disease as well as nephrology and podiatry. Patient seen and examined prior to discharge. She had no complaints and was lying comfortably in bed while having dialysis. Review of stems otherwise negative. Labs and vitals reviewed. Home medication reviewed and reconciled. O/e: Vital Signs Temp Pulse Resp BP Pulse Ox 97.6 F L 75 18 140/67 H 97 08/19/19 14:00 08/19/19 14:00 08/19/19 14:00 08/19/19 14:08/19/19 14:00 [] General: Alert, Oriented x3, Cooperative, No apparent distress HEENT: Atraumatic, PERRLA, EOMI, Normocephalic Oral: Moist Mucosa Neck: Supple, No JVD, Negative Carotid Bruits Lungs: Clear to auscultation, Normal air movement, No rhonchi, No wheeze, No rales, - - On 2 L of oxygen which is her baseline. Cardiovascular: Regular rate, Regular Rhythm, Normal S1, Normal S2, No murmurs Abdomen: Bowel Sounds Present, Soft, Non Tender Extremities: No clubbing, No cyanosis, No edema, Capillary Refill Less than 3 Seconds Skin: - - Right lower extremity wrapped in bandage. Musculoskeletal: No Tenderness to Palpation of Joints or Extremities Lymphatic: No Cervical, Supraclavicular, or Inguinal Adenopathy Neurological: Cranial nerves II-XII grossly intact, Neuro grossly intact, Motor Exam 5/5 strength throughout Psych/Mental Status: Normal Affect, Appropriate, Alert and oriented to time, place, person, mood and affect Plan is for DC to her [facility] today. Patient Problems: Active and Suspected Problems Right leg pain (Acute) - Physical Exam Vitals/I&O's: Vital Signs Temp Pulse Resp BP Pulse Ox 97.6 F L 75 18 140/67 H 97 08/19/19 14:00 08/19/19 14:00 08/19/19 14:00 08/19/19 14:00 08/19/19 14:00 Oxygen Flow Rate (L/min) 2 Oxygen Delivery Method Nasal Cannula Weight: 188 lb 7.924 oz Body Mass Index (BMI) 34.4 Intake and Output for Last 24 Hours 08/17/19 08/18/19 08/19/19 23:59 23:59 23:59 Intake Total 2568.5 / 3568.5 2800 / 2800 480 / 480 Output Total 0 / 0 0 / 0 Balance 2568.5 / 3568.5 2800 / 2800 480 / 480 Microbiology Past 72 Hours 08/15/19 17:40 Wound - Leg, Right Gram Stain - Final 08/15/19 17:40 Wound - Leg, Right Wound Culture - Preliminary Staphylococcus aureus Gram positive christopher 08/15/19 17:40 Wound - Leg, Right Anaerobic Culture - Final No anaerobic bacteria isolated. 08/15/19 13:10 Wound - Leg, Right Gram Stain - Final 08/15/19 13:10 Wound - Leg, Right Wound Culture - Final Meth. resistant Staph. aureus Enterococcus faecalis Gram positive christopher Laboratory Results 08/18/19 15:46: POC Glucose 151 H 08/18/19 21:23: POC Glucose 79 08/19/19 00:17: POC Glucose 94 08/19/19 06:26: POC Glucose 70 08/19/19 06:55: Random Vancomycin 16.8 H 08/19/19 06:55: WBC 9.0, RBC 4.07 L, Hgb 12.1, Hct 38.5, MCV 94.6, MCH 29.7, MCHC 31.4 L, RDW Std Deviation 66.4 H, RDW Coeff of Heber 18.8 H, Plt Count 214, MPV 11.3, Immature Gran % (Auto) 0.600, Neut % (Auto) 84.8 H, Lymph % (Auto) 4.0 L, [place] % (Auto) 7.9, Eos % (Auto) 1.9, Baso % (Auto) 0.8, Absolute Neuts (auto) 7.6, Absolute Lymphs (auto) 0.36 L, Nucleated RBC % 0, Differential Comment SCANNED, Anisocytosis 2+, Microcytosis 1+, Macrocytosis 1+ 08/19/19 06:55: Sodium 126 L, Potassium 4.9, Chloride 91 L, Carbon Dioxide 25.0, Anion Gap 10, BUN 47 H, Creatinine 4.15 H, Estim Creat Clear Calc 10.55, Est GFR (MDRD) Af Amer 14 L, Est GFR (MDRD) Non-Af 11 L, BUN/Creatinine Ratio 11.3, Glucose 81, Calcium 8.8 08/19/19 12:14: POC Glucose 70 Current Medications Acetaminophen (Tylenol) 650 mg PO Q6H PRN PRN PRN Reason: Pain Score 1-10/Temp > 100.7 F Last Admin: 08/17/19 15:05 Dose: 650 mg Documented by: Albuterol Sulfate (Ventolin Aerosols) 2.5 mg INHALATION Q4H PRN PRN Reason: SHORTNESS OF BREATH Last Admin: 08/18/19 03:11 Dose: 2.5 mg Documented by: Albuterol/Ipratropium (Duoneb) 3 ml INHALATION Q6H.RT [facility] Last Admin: 08/19/19 13:28 Dose: 3 ml Documented by: Amoxicillin/Clavulanate Potassium (Augmentin Tablet) 500 mg PO QPM [facility] Last Admin: 08/18/19 21:17 Dose: 500 mg Documented by: Aripiprazole (Abilify) 2 mg PO 1900 [facility] Last Admin: 08/18/19 18:09 Dose: 2 mg Documented by: Aspirin (Ecotrin) 81 mg PO DAILYCM [facility] Last Admin: 08/19/19 10:05 Dose: 81 mg Documented by: Atorvastatin Calcium (Lipitor) 40 mg PO QHS [facility] Last Admin: 08/18/19 21:18 Dose: 40 mg Documented by: Bisacodyl (Dulcolax) 10 mg PO DAILY PRN PRN Reason: Constipation Budesonide (Pulmicort Aerosol) 0.5 mg INHALATION Q12H.RT [facility] Last Admin: 08/19/19 06:41 Dose: 0.5 mg Documented by: Bumetanide (Bumex) 1 mg PO DAILY [facility] Last Admin: 08/19/19 12:19 Dose: 1 mg Documented by: Bupropion HCl (Wellbutrin Tablets) 100 mg PO Q12 [facility] Last Admin: 08/19/19 10:05 Dose: 100 mg Documented by: Citalopram Hydrobromide (Celexa) 40 mg PO DAILY [facility] Last Admin: 08/19/19 10:05 Dose: 40 mg Documented by: Clopidogrel Bisulfate (Plavix) 75 mg PO DAILY [facility] Last Admin: 08/19/19 10:08 Dose: 75 mg Documented by: Dextrose (D50w Syringe) 0 gm IV X1 PRN; Protocol PRN Reason: Hypoglycemia Glucagon () 1 mg IM .X1 PRN PRN Reason: Hypoglycemia Heparin Sodium (Porcine) (Heparin Na) 5,000 unit SC Q8 [facility] Last Admin: 08/19/19 14:15 Dose: Not Given Documented by: Vancomycin IV Pharmacy to Dose (1 ea/ Sodium Chloride) 500 mls @ 250 mls/hr IV PRN PRN; Protocol PRN Reason: Rx to Dose Sodium Chloride () 250 mls @ 15 mls/hr IV .[id number] PRN PRN Reason: Saline Flush Last Infusion: 08/17/19 20:19 Dose: Infused Documented by: Sodium Chloride () 250 mls @ 15 mls/hr IV .[id number] PRN PRN Reason: Additional IVPB Infusion Vancomycin HCl () 500 mg in 100 mls @ 100 mls/hr IV X1 ONE Stop: 08/19/19 15:59 Insulin Human Lispro (Humalog Kwikpen (Bkc)) 0 unit SC ACHS [facility]; Protocol Last Admin: 08/19/19 13:18 Dose: Not Given Documented by: Insulin Human Lispro (Humalog Kwikpen (Bkc)) 6 unit SC 0800,1200,1700 [facility] Last Admin: 08/19/19 13:19 Dose: 6 u Documented by: Isosorbide Mononitrate (Imdur) 60 mg PO DAILY [facility] Last Admin: 08/19/19 10:08 Dose: 60 mg Documented by: Levothyroxine Sodium (Synthroid) 100 mcg PO DAILY@0600 [facility] Last Admin: 08/19/19 06:24 Dose: 100 mcg Documented by: Lisinopril (Zestril) 5 mg PO QHS [facility] Last Admin: 08/18/19 21:19 Dose: 5 mg Documented by: Metoclopramide HCl (Reglan) 5 mg PO ACHS [facility] Last Admin: 08/19/19 12:19 Dose: 5 mg Documented by: Metoprolol Succinate (Toprol Xl (Beta Hernandez)) 75 mg PO DAILY [facility] Last Admin: 08/19/19 10:05 Dose: 75 mg Documented by: Mirtazapine (Remeron) 7.5 mg PO QHS [facility] Last Admin: 08/18/19 21:18 Dose: 7.5 mg Documented by: Multivit/Ca Carb/B Cmplx/FA/Prenat (Nephrocaps, Renaphro) 1 capsule PO DAILY [facility] Last Admin: 08/19/19 10:08 Dose: 1 capsule Documented by: Nutritional Formula (José Antonio - [place] Flavor) [facility] Last Admin: 08/19/19 10:17 Dose: Not Given Documented by: Nystatin (Mycostatin Powder) 1 applic TOPICAL TID [facility]; Protocol Last Admin: 08/19/19 14:13 Dose: 1 applicatio Documented by: Ondansetron HCl (Zofran) 4 mg IV Q8H PRN PRN PRN Reason: NAUSEA/VOMITING Ondansetron HCl (Zofran Odt) 4 mg PO Q6H PRN PRN PRN Reason: NAUSEA Oxycodone HCl (Oxyir) 5 mg PO Q4H PRN PRN PRN Reason: Pain Score 6-10/10 Last Admin: 08/18/19 05:12 Dose: 5 mg Documented by: Pantoprazole Sodium (Protonix) 40 mg PO DAILY [facility] Last Admin: 08/19/19 10:05 Dose: 40 mg Documented by: Senna/Docusate Sodium (Senokot-S, Nany-Colace) 2 tablet PO DAILY [facility] Last Admin: 08/19/19 10:05 Dose: 2 tablet Documented by: Sodium Chloride ([place] Nasal [place]) 1 spray NASAL BID [facility] Last Admin: 08/19/19 10:06 Dose: 1 spray Documented by: Sodium Chloride () 10 - 40 ml IV UD PRN PRN Reason: SALINE FLUSH Last Admin: 08/18/19 10:18 Dose: 10 ml Documented by: Tolterodine Tartrate (Detrol La) 2 mg PO DAILY [facility] Last Admin: 08/19/19 10:05 Dose: 2 mg Documented by: Discharge Diet: Low fat/ Low Cholesterol Home Medications: Medications to take at Discharge Albuterol Sulfate 0.63 mg IH Q6H PRN 06/10/19 Aripiprazole 2 mg PO 1900 06/10/19 Aspirin [Aspirin EC] 81 mg PO DAILY 06/10/19 Atorvastatin Calcium 40 mg PO QHS 06/10/19 Bumetanide 1 mg PO DAILY 06/10/19 Bupropion HCl 100 mg PO Q12H 06/10/19 Citalopram [Celexa] 40 mg PO DAILY 06/10/19 Clopidogrel Bisulfate [Clopidogrel] 75 mg PO DAILY 06/10/19 Folic Acid/Vit B Complex and C [Renal Vitamin Tablet] 0.8 mg PO DAILY 06/10/19 Insulin Regular, Human [Humulin R] 6 unit SQ TID 06/10/19 Isosorbide Mononitrate [Imdur] 60 mg PO DAILY 06/10/19 Levothyroxine Sodium [Synthroid] 100 mcg PO DAILY 06/10/19 Lisinopril 5 mg PO QHS 06/10/19 Metoprolol Succinate 75 mg PO DAILY 06/10/19 Mirtazapine [Remeron] 7.5 mg PO QHS 06/10/19 Oxybutynin Chloride [Oxybutynin Chloride ER] 5 mg PO DAILY 06/10/19 Oxycodone HCl/Acetaminophen [Percocet 5-325 mg Tablet] 1 - 2 ea PO Q6H PRN 06/10/19 Pantoprazole Sodium [Protonix] 40 mg PO DAILY 06/10/19 Sodium Chloride 0.65% [[place] Nasal [place]] 1 spray NASAL BID 06/10/19 Bisacodyl [Dulcolax] 10 mg PO DAILY PRN 08/15/19 Budesonide/Formoterol 160/4.5 [Symbicort 160/4.5 Mcg Inhaler (SP)] 2 puff INHALATION BID 08/15/19 Ipratropium/Albuterol Respimat [Combivent Respimat Inhal [place]] 2 puff INHALATION 4X/DAY PRN 08/15/19 Metoclopramide HCl [Reglan] 5 mg PO 4X/DAY 08/15/19 Nystatin Powder [Mycostatin Powder] 1 applicatio TOPICAL TID 08/15/19 Ondansetron HCl [Zofran] 4 mg PO Q6H PRN PRN 08/15/19 Sennosides/Docusate Sodium [Senna Plus 8.6-50 mg Softgel] 2 ea PO DAILY 08/15/19 Sodium Chloride 0.65% [[place] Nasal [place]] 1 spray NASAL PRN PRN 08/15/19 Amox/Clavulanate Tablet [Augmentin Tablet] 500 mg PO QPM 10 Days #10 tab 08/18/19 Vancomycin IV Pharmacy to Dose 750 mg IV UD #6 ea 08/18/19 Following Prescrptions Were Given to Patient: Amox/Clavulanate Tablet [Augmentin Tablet] 500 mg PO QPM 10 Days #10 tab Prescription Printed Vancomycin IV Pharmacy to Dose 750 mg IV UD #6 ea Prescription Printed Primary Care Physician: [facility] Doctor,Out of [NON-STAFF] - Please follow up with your Primary Care Physician in: 1-2 weeks Please Follow Up With: Pradeep Kilgore MD When: 1-2 weeks Please Follow Up With: Magdy Mead MD When: 1-2 weeks Please Follow Up With: Lobito Mendiola DPM Disposition: Assisted facility Minutes spent on discharge:: 40 Patient Condition:: Stable Medical Necessity - Tobacco Use Smoking Status: Former smoker Tobacco Use: Cigarettes Meaningful Use Info Meaningful Use Diagnoses (Choose all that apply): None applicable Inpatient E&M: [id number] [facility]
[2019-08-19] MEDS: Vancomycin IV 500 MG/100 ML BAG 100 MG IV (15:43)
[2019-08-19] MEDS: 0.9% Saline Lock 10 ML Syringe IV (15:44)
--- NOTE | 2019-08-19 16:22 | DIALYSIS ---
pt tolerated treatment well. No issues. Took off 3000ml. Sites held and bandaged.
--- NOTE | 2019-08-19 16:28 | CASEMGMT ---
Social Work Note Pt is ready for discharge today. SW in to speak with pt. Pt states that [facility] usually transports her, requested to call them for transport. NIKKI placed a call to [facility] and spoke with Samantha in admissions, updated her on discharge and asked about transportation. Samantha states their transportation has already left for the day. NIKKI placed a call to [facility] and they no longer do wheelchair transportation on Sunday and . NIKKI placed a call to [facility] and they have no availability today for transport. SW placed a call to [facility] and they don't do wheelchair vans in [facility]. SW placed a call to [facility] and they are not open for transportation at this time and they aren't able to provide oxygen for wheelchair van transport. NIKKI called [facility] ([phone]) and arranged transportation for between 7:00-7:30pm as this is the earliest they can transport. Transportation form completed, placed on SNF folder and copy on pt's chart. NIKKI faxed completed discharge paperwork to [facility] including transfer to extended care facility, signed medication list, any scripts, and Hospital to Post- Acute COVID- Transfer communication tool. Original in SNF folder and copy on pt's chart. [facility] is not needed as pt came from skilled at [facility] and is returning skilled. NIKKI updated pt and RN on transportation time. NIKKI placed a call to [facility] and spoke with Andra and updated her on discharge and transportation time. Plan: Discharge to [facility] skilled today with [facility] transporting pt between 7:00-7:30pm Siomara CAPELLAN, CORRECTIONAL OFFICER
[2019-08-19 16:45] LABS: Bedside Glucose 110 mg/dL (70-110)
--- NOTE | 2019-08-19 16:56 | PCM.PN.ID ---
Patient Problems: Active and Suspected Problems Right leg pain (Acute) Subjective: Feeling well, no fever, no n/v/d. - Physical Exam Vitals/I&O's: Vital Signs Temp Pulse Resp BP Pulse Ox 97.6 F L 75 18 140/67 H 97 08/19/19 14:00 08/19/19 14:00 08/19/19 14:00 08/19/19 14:00 08/19/19 14:00 Oxygen Flow Rate (L/min) 2 Oxygen Delivery Method Nasal Cannula Weight: 85.5 kg Body Mass Index (BMI) 34.4 Intake and Output for Last 24 Hours 08/17/19 08/18/19 08/19/19 23:59 23:59 23:59 Intake Total 2568.5 / 3568.5 2800 / 2800 480 / 480 Output Total 0 / 0 0 / 0 Balance 2568.5 / 3568.5 2800 / 2800 480 / 480 General: Alert, Cooperative, No apparent distress Lungs: Clear to auscultation, Normal air movement Cardiovascular: Regular rate, Regular Rhythm Abdomen: Soft, Non Tender, Non-Distended Skin: Ulcer/ Wound - wrapped Microbiology Past 72 Hours 08/15/19 17:40 Wound - Leg, Right Gram Stain - Final 08/15/19 17:40 Wound - Leg, Right Wound Culture - Preliminary Staphylococcus aureus Gram positive christopher 08/15/19 17:40 Wound - Leg, Right Anaerobic Culture - Final No anaerobic bacteria isolated. 08/15/19 13:10 Wound - Leg, Right Gram Stain - Final 08/15/19 13:10 Wound - Leg, Right Wound Culture - Final Meth. resistant Staph. aureus Enterococcus faecalis Gram positive christopher Laboratory Results 08/18/19 15:46: POC Glucose 151 H 08/18/19 21:23: POC Glucose 79 08/19/19 00:17: POC Glucose 94 08/19/19 06:26: POC Glucose 70 08/19/19 06:55: Random Vancomycin 16.8 H 08/19/19 06:55: WBC 9.0, RBC 4.07 L, Hgb 12.1, Hct 38.5, MCV 94.6, MCH 29.7, MCHC 31.4 L, RDW Std Deviation 66.4 H, RDW Coeff of Heber 18.8 H, Plt Count 214, MPV 11.3, Immature Gran % (Auto) 0.600, Neut % (Auto) 84.8 H, Lymph % (Auto) 4.0 L, [place] % (Auto) 7.9, Eos % (Auto) 1.9, Baso % (Auto) 0.8, Absolute Neuts (auto) 7.6, Absolute Lymphs (auto) 0.36 L, Nucleated RBC % 0, Differential Comment SCANNED, Anisocytosis 2+, Microcytosis 1+, Macrocytosis 1+ 08/19/19 06:55: Sodium 126 L, Potassium 4.9, Chloride 91 L, Carbon Dioxide 25.0, Anion Gap 10, BUN 47 H, Creatinine 4.15 H, Estim Creat Clear Calc 10.55, Est GFR (MDRD) Af Amer 14 L, Est GFR (MDRD) Non-Af 11 L, BUN/Creatinine Ratio 11.3, Glucose 81, Calcium 8.8 08/19/19 12:14: POC Glucose 70 08/19/19 16:30: POC Glucose 110 Current Medications Acetaminophen (Tylenol) 650 mg PO Q6H PRN PRN PRN Reason: Pain Score 1-10/Temp > 100.7 F Last Admin: 08/17/19 15:05 Dose: 650 mg Documented by: Albuterol Sulfate (Ventolin Aerosols) 2.5 mg INHALATION Q4H PRN PRN Reason: SHORTNESS OF BREATH Last Admin: 08/18/19 03:11 Dose: 2.5 mg Documented by: Albuterol/Ipratropium (Duoneb) 3 ml INHALATION Q6H.RT [facility] Last Admin: 08/19/19 13:28 Dose: 3 ml Documented by: Amoxicillin/Clavulanate Potassium (Augmentin Tablet) 500 mg PO QPM [facility] Last Admin: 08/18/19 21:17 Dose: 500 mg Documented by: Aripiprazole (Abilify) 2 mg PO 1900 [facility] Last Admin: 08/18/19 18:09 Dose: 2 mg Documented by: Aspirin (Ecotrin) 81 mg PO DAILYCM [facility] Last Admin: 08/19/19 10:05 Dose: 81 mg Documented by: Atorvastatin Calcium (Lipitor) 40 mg PO QHS [facility] Last Admin: 08/18/19 21:18 Dose: 40 mg Documented by: Bisacodyl (Dulcolax) 10 mg PO DAILY PRN PRN Reason: Constipation Budesonide (Pulmicort Aerosol) 0.5 mg INHALATION Q12H.RT [facility] Last Admin: 08/19/19 06:41 Dose: 0.5 mg Documented by: Bumetanide (Bumex) 1 mg PO DAILY [facility] Last Admin: 08/19/19 12:19 Dose: 1 mg Documented by: Bupropion HCl (Wellbutrin Tablets) 100 mg PO Q12 [facility] Last Admin: 08/19/19 10:05 Dose: 100 mg Documented by: Citalopram Hydrobromide (Celexa) 40 mg PO DAILY [facility] Last Admin: 08/19/19 10:05 Dose: 40 mg Documented by: Clopidogrel Bisulfate (Plavix) 75 mg PO DAILY [facility] Last Admin: 08/19/19 10:08 Dose: 75 mg Documented by: Dextrose (D50w Syringe) 0 gm IV X1 PRN; Protocol PRN Reason: Hypoglycemia Glucagon () 1 mg IM .X1 PRN PRN Reason: Hypoglycemia Heparin Sodium (Porcine) (Heparin Na) 5,000 unit SC Q8 [facility] Last Admin: 08/19/19 14:15 Dose: Not Given Documented by: Vancomycin IV Pharmacy to Dose (1 ea/ Sodium Chloride) 500 mls @ 250 mls/hr IV PRN PRN; Protocol PRN Reason: Rx to Dose Sodium Chloride () 250 mls @ 15 mls/hr IV .[id number] PRN PRN Reason: Saline Flush Last Infusion: 08/17/19 20:19 Dose: Infused Documented by: Sodium Chloride () 250 mls @ 15 mls/hr IV .[id number] PRN PRN Reason: Additional IVPB Infusion Insulin Human Lispro (Humalog Kwikpen (Bkc)) 0 unit SC ACHS [facility]; Protocol Last Admin: 08/19/19 13:18 Dose: Not Given Documented by: Insulin Human Lispro (Humalog Kwikpen (Bkc)) 6 unit SC 0800,1200,1700 [facility] Last Admin: 08/19/19 13:19 Dose: 6 u Documented by: Isosorbide Mononitrate (Imdur) 60 mg PO DAILY [facility] Last Admin: 08/19/19 10:08 Dose: 60 mg Documented by: Levothyroxine Sodium (Synthroid) 100 mcg PO DAILY@0600 [facility] Last Admin: 08/19/19 06:24 Dose: 100 mcg Documented by: Lisinopril (Zestril) 5 mg PO QHS [facility] Last Admin: 08/18/19 21:19 Dose: 5 mg Documented by: Metoclopramide HCl (Reglan) 5 mg PO ACHS [facility] Last Admin: 08/19/19 12:19 Dose: 5 mg Documented by: Metoprolol Succinate (Toprol Xl (Beta Hernandez)) 75 mg PO DAILY [facility] Last Admin: 08/19/19 10:05 Dose: 75 mg Documented by: Mirtazapine (Remeron) 7.5 mg PO QHS [facility] Last Admin: 08/18/19 21:18 Dose: 7.5 mg Documented by: Multivit/Ca Carb/B Cmplx/FA/Prenat (Nephrocaps, Renaphro) 1 capsule PO DAILY [facility] Last Admin: 08/19/19 10:08 Dose: 1 capsule Documented by: Nutritional Formula (José Antonio - [place] Flavor) [facility] Last Admin: 08/19/19 10:17 Dose: Not Given Documented by: Nystatin (Mycostatin Powder) 1 applic TOPICAL TID [facility]; Protocol Last Admin: 08/19/19 14:13 Dose: 1 applicatio Documented by: Ondansetron HCl (Zofran) 4 mg IV Q8H PRN PRN PRN Reason: NAUSEA/VOMITING Ondansetron HCl (Zofran Odt) 4 mg PO Q6H PRN PRN PRN Reason: NAUSEA Oxycodone HCl (Oxyir) 5 mg PO Q4H PRN PRN PRN Reason: Pain Score 6-10/10 Last Admin: 08/18/19 05:12 Dose: 5 mg Documented by: Pantoprazole Sodium (Protonix) 40 mg PO DAILY [facility] Last Admin: 08/19/19 10:05 Dose: 40 mg Documented by: Senna/Docusate Sodium (Senokot-S, Nany-Colace) 2 tablet PO DAILY [facility] Last Admin: 08/19/19 10:05 Dose: 2 tablet Documented by: Sodium Chloride ([place] Nasal [place]) 1 spray NASAL BID [facility] Last Admin: 08/19/19 10:06 Dose: 1 spray Documented by: Sodium Chloride () 10 - 40 ml IV UD PRN PRN Reason: SALINE FLUSH Last Admin: 08/19/19 15:44 Dose: 10 ml Documented by: Tolterodine Tartrate (Detrol La) 2 mg PO DAILY [facility] Last Admin: 08/19/19 10:05 Dose: 2 mg Documented by: Medical Necessity - Tobacco Use Smoking Status: Former smoker Tobacco Use: Cigarettes Route of nutrition/ use of supplements: [] Nutritional Intake: [] IV Site: [] Robret Catheter: [] - Assessment/Plan Antibiotics: [] Assessment/Plan: [] Active and Suspected Problems Right leg pain (Acute) RLE infected ulcer - cx with MRSA, enterococcus, GPR. Prior cx with MRSA, proteus, kocuria. Ok for discharge on iv vanc dosed with HD for 2 weeks and po augmentin for 10 days. Wrote rx. Will follow as needed, thank you
[2019-08-19] MEDS: ARIPiprazole 2 MG Tablet PO (18:07)
--- NOTE | 2019-08-19 18:56 | NURSING ---
Report called to Jaymie @ [facility]
== END 2019-08-19 19:45 | disposition skilled nursing facility (03) | DRG 602 ==
LOC: ED 13:41 → MS3 13:54
PROVIDERS: Podiatrist; Admitting Provider Internal Medicine; Emergency Provider Physician Assistant Medical; Visit Provider Student in an Organized Health Care Education/Training Program
DX: L03.115 Cellulitis of right lower limb (principal); N18.6 End stage renal disease; I87.313 Chronic venous hypertension (idiopathic) with ulcer of bilateral lower extremity; L97.812 Non-pressure chronic ulcer of other part of right lower leg with fat layer exposed; L97.922 Non-pressure chronic ulcer of unspecified part of left lower leg with fat layer exposed; E87.1 Hypo-osmolality and hyponatremia; I13.2 Hypertensive heart and chronic kidney disease with heart failure and with stage 5 chronic kidney disease, or end stage renal disease; I50.32 Chronic diastolic (congestive) heart failure; I25.810 Atherosclerosis of coronary artery bypass graft(s) without angina pectoris; J96.10 Chronic respiratory failure, unspecified whether with hypoxia or hypercapnia; E11.51 Type 2 diabetes mellitus with diabetic peripheral angiopathy without gangrene; E11.22 Type 2 diabetes mellitus with diabetic chronic kidney disease; I87.2 Venous insufficiency (chronic) (peripheral); B95.62 Methicillin resistant Staphylococcus aureus infection as the cause of diseases classified elsewhere; B95.2 Enterococcus as the cause of diseases classified elsewhere; D63.1 Anemia in chronic kidney disease; I73.9 Peripheral vascular disease, unspecified; I25.10 Atherosclerotic heart disease of native coronary artery without angina pectoris; J44.9 Chronic obstructive pulmonary disease, unspecified; Z99.2 Dependence on renal dialysis; E78.5 Hyperlipidemia, unspecified; E03.9 Hypothyroidism, unspecified; K21.9 Gastro-esophageal reflux disease without esophagitis; F32.9 Major depressive disorder, single episode, unspecified; E66.9 Obesity, unspecified; Z68.34 Body mass index [BMI] 34.0-34.9, adult; Z79.899 Other long term (current) drug therapy; Z79.82 Long term (current) use of aspirin; Z79.02 Long term (current) use of antithrombotics/antiplatelets; Z79.4 Long term (current) use of insulin; Z79.51 Long term (current) use of inhaled steroids; Z99.3 Dependence on wheelchair; Z87.891 Personal history of nicotine dependence; Z95.1 Presence of aortocoronary bypass graft; Z86.14 Personal history of Methicillin resistant Staphylococcus aureus infection
CPT/HCPCS: 36415; 73590; 80048; 80053; 80202; 82962; 83036; 83540; 83550; 84100; 85025; 85027; 85652; 86141; 87070; 87075; 87077; 87186; 87205; 87640; 90937; 93923; 93970; 94640; 97110; 97162; 97165; 97802; 99213; 99251; 99284; J7050; A4216; G0257; G0463

== ENCOUNTER 2019-09-05 13:30 | Outpatient (RCR) | payer MEDICARE, MEDICAID, SELFPAY ==
[2019-08-15 00:17] VITALS: BP 134/73; PULSE 70; RESP 20; TEMP 36.6
[2019-08-15 10:44] VITALS: BP 103/46; PULSE 58; RESP 18; TEMP 36.1; BMI 32.0
--- NOTE | 2019-08-15 16:57 | PCM.WC.PN ---
(1) Venous ulcer of right leg Status: Chronic Current Visit: Yes Code(s): I83.019 - Varicose veins of right lower extremity with ulcer of unspecified site; L97.919 - Non-pressure chronic ulcer of unspecified part of right lower leg with unspecified severity (2) Chronic ulcer of right leg with fat layer exposed Status: Chronic Current Visit: Yes Code(s): L97.912 - Non-pressure chronic ulcer of unspecified part of right lower leg with fat layer exposed (3) Venous insufficiency Status: Chronic Current Visit: Yes Code(s): I87.2 - Venous insufficiency (chronic) (peripheral) (4) Type 2 diabetes mellitus Status: Chronic Current Visit: Yes Qualifiers: Diabetes mellitus adjunct faculty for medical terminology insulin use: without nursing home use Diabetes mellitus complication status: with kidney complications Diabetes mellitus complication detail: with chronic kidney disease Chronic kidney disease stage: on chronic dialysis Qualified Code(s): E11.22 - Type 2 diabetes mellitus with diabetic chronic kidney disease; N18.6 - End stage renal disease; Z99.2 - Dependence on renal dialysis Code(s): E11.9 - Type 2 diabetes mellitus without complications (5) Peripheral arterial disease Status: Chronic Current Visit: Yes Code(s): I73.9 - Peripheral vascular disease, unspecified (6) End stage renal disease on dialysis Status: Chronic Current Visit: Yes Code(s): N18.6 - End stage renal disease; Z99.2 - Dependence on renal dialysis (7) Cellulitis of right lower extremity without foot Status: Acute Current Visit: Yes Code(s): L03.115 - Cellulitis of right lower limb Type of Wound Date of Service: 08/15/19 Chief Complaint: open wounds right leg History of Wound: Patient is a pleasant 63-year-old female who [facility], for initial evaluation of sternal and right lower extremity wounds and was seen by Sonia Paez. She currently resides at [facility]. Patient is a very poor historian, and is unaccompanied at today's visit. The majority of details within patient's HPI were gathered from records faxed from [facility] [place]. Patient has a PMH of T2DM, hypertension, coronary artery disease s/p recent coronary artery bypass graft, CHF, diastolic dysfunction, peripheral arterial disease, end-stage renal disease on hemodialysis, dyslipidemia, GERD, hypothyroidism, depression, steal syndrome in right hand, and anemia of chronic disease. She presents with a sternal wound dehiscence, and right lower extremity wound dehiscence s/p quadruple bypass open heart surgery with vein harvesting from right lower extremity, which she underwent in February 2019. Postoperatively, patient was transferred to a halfway. She was readmitted to [facility] due to wound infection at the harvesting site of right leg. She was evaluated by surgery and underwent debridement, and was transferred to the halfway. She was readmitted to [facility] [place] again, this time for sternal wound infection which required debridement and subsequent wound VAC placement. She was then transferred to [facility] for further care and IV antibiotic therapy on 05/03/2019. It is unclear from the documentation provided when she was discharged from [facility]. While at [facility], plastic surgery was consulted (Dr. Eva Pelaez). In his progress note from 05/12/2019, it was recommended that Santyl with wet gauze be applied daily to sternal wound, and NPWT at -125 mmHg continuous pressure be applied to RLE and changed 3 times per week. High-protein diet and every 2 hours turns also recommended. In his progress note from 05/19/2019, it was recommended that REHABILITATION CONSULTANT WT be applied at -125 mmHg continuous pressure to both sternal and RLE wounds, to be changed 3 times per week and as needed. High-protein diet and every 2 hours turns continued to be recommended. When patient presented to the wound healing center on 06/10/2019, she had OPTifoam applied to her sternal wound, and Aquacel applied to her RLE wounds. She is not using any compression to lower extremities and did not have a wound vac. Patient states the staff at [facility] have been performing daily dressing changes to her wounds using Aquacel. She is also taking Boost supplements at bedtime to increase protein. Patient has a central venous catheter placed, but is unsure what antibiotics she is currently taking. She denies any increased redness, swelling, pain, or drainage from any of her wounds. She denies any purulent or foul-smelling drainage from her wounds. She does have erythema and swelling of her right lower extremity, which she states has improved. Her lab work from [facility] on 05/19/2019 showed WBC 7.44 and hemoglobin 9.1 (see report for full details). No other documentation is available at this time. Records were requested from [facility], [facility], and [facility]. They had been using Santyl and gauze to her lower extremity wound. She saw the surgeon regarding her chest wound and he removed some tissue at [facility] and continued with Santyl and optifoam and this was healed on 07/11/2019. She denies any increased pain, erythema, fever or chills. Progress of Wound: Sanjeev returns for follow up of right lower extremity wound. The right lower extremity looks much worse than last week when she was seen. There is more erythema and still a large amount of edema and more maceration of her lower extremity with skin breakdown and pain. She reports that the halfway was not washing her leg and were not changing dressings daily as directed. Wound cultures on 07/11/2019 were positive for Proteus and MRSA. She was restarted on cefdinir 300 mg daily based on these culture results on 08/11/2019 but clearly the cellulitis is much worse today. Her chest wound looks great and remains healed. She does admit to not elevating her legs much during the day. She does report better compliance with dialysis this week. Per nursing staff - Jenn- at [facility], Sanjeev was compliant with dialysis this week and she was moved from their nursing home care unit to their step down unit which offers a higher level of care. She was made aware of the worsening of Sanjeev's leg and was agreeable to transferring her to the emergency room for evaluation and further treatment. - Physical Exam Vital Signs Temp Pulse Resp BP 97.0 F L 58 L 18 103/46 L 08/15/19 10:44 08/15/19 10:44 08/15/19 10:44 08/15/19 10:44 General: Alert, Oriented x3, Cooperative, No apparent distress HEENT: Atraumatic, Normocephalic Oral: Moist Mucosa Abdomen: Obese Extremities: Diminished Peripheral Pulses, Edema Skin: Ulcer/ Wound, Skin Tear, Rash Present Wound Measurements and Assessment WC - Nurse 1 - General Ulcer Measurement Start: 08/15/19 10:44 Freq: Status: Active Protocol: Activity Type Activity Date Activity User E-Sign Co-Sign Detail Recorded Client Recorded Date Recorded By Document 08/15/19 10:44 MW [id number] 08/15/19 11:00 MW 08/15/19 10:44 Wound Center Nurse 1 [Ulcer Assessment] #5 Medial Lower RLE (Skin Tear Cluster ) -Combined with other wound No -Current Size (cm) - Length 5.0 -Current Size (cm) - Width 7.0 -Current Size (cm) - Depth 0.1 -Total Square Cm 35.00 -Photo Taken No -Epithelialization None Present -Tunneling No -Undermining/Tunneling No -Circular Undermining No -Exudate Amt Large -Exudate Type Serosanguineous -Wound Margin Flat & Intact -Granulation Amt Large (67-100%) -Granulation Quality Red -Slough/Fibrin Yes -Necrosis Amt Small (1-33%) -Necrotic Tissue Type Adherent Slough -Structure Exposed N/A -Texture (Nany-wound Skin Appearance) Assessed, Excoriation, Localized Edema -Moisture (Nany-wound Skin Appearance Assessed, ) Maceration -Color (Nany-wound Skin Appearance) Assessed, Hemosiderin Staining,Rubor -Temperature (Nany-wound Skin No Abnormality Appearance) (Pt Warm) -Tenderness on Palpation (Nany-wound No Skin Appearance) -Ulcer Cleansing soap and water -Foul Odor after Cleansing No -Anesthetic Used 4% Lidocaine Solution #4 Medial RLE- Superior -Combined with other wound No -Current Size (cm) - Length 0.8 -Current Size (cm) - Width 0.8 -Current Size (cm) - Depth 0.6 -Total Square Cm 0.64 -Photo Taken No -Epithelialization None Present -Tunneling No -Undermining/Tunneling No -Circular Undermining No -Exudate Amt Large -Exudate Type Serosanguineous -Wound Margin Distinct, Outline Attached -Granulation Amt None Present (0 %) -Granulation Quality N/A -Slough/Fibrin Yes -Necrosis Amt Large (67-100%) -Necrotic Tissue Type Adherent Slough -Structure Exposed N/A -Texture (Nany-wound Skin Appearance) Assessed, Excoriation, Localized Edema -Moisture (Nany-wound Skin Appearance Assessed, ) Maceration -Color (Nany-wound Skin Appearance) Assessed,Rubor -Temperature (Nany-wound Skin No Abnormality Appearance) (Pt Warm) -Ulcer Cleansing soap and water -Foul Odor after Cleansing No -Anesthetic Used 4% Lidocaine Solution #2 Medial RLE- Inferior -Combined with other wound No -Current Size (cm) - Length 1.4 -Current Size (cm) - Width 1.0 -Current Size (cm) - Depth 0.2 -Total Square Cm 1.40 -Photo Taken No -Epithelialization None Present -Tunneling No -Undermining/Tunneling No -Circular Undermining No -Exudate Amt Large -Exudate Type Serosanguineous -Wound Margin Distinct, Outline Attached -Granulation Amt None Present (0 %) -Granulation Quality N/A -Slough/Fibrin Yes -Necrosis Amt Large (67-100%) -Necrotic Tissue Type Adherent Slough -Structure Exposed N/A -Texture (Nany-wound Skin Appearance) Assessed, Excoriation, Localized Edema -Moisture (Nany-wound Skin Appearance Assessed, ) Maceration -Color (Nany-wound Skin Appearance) Assessed,Rubor -Temperature (Nany-wound Skin No Abnormality Appearance) (Pt Warm) -Tenderness on Palpation (Nany-wound No Skin Appearance) -Ulcer Cleansing soap and water -Foul Odor after Cleansing No -Anesthetic Used 4% Lidocaine Solution #1 Medial RLE -Combined with other wound No -Current Size (cm) - Length 9.0 -Current Size (cm) - Width 5.0 -Current Size (cm) - Depth 0.9 -Total Square Cm 45.00 -Photo Taken No -Epithelialization None Present -Tunneling No -Undermining/Tunneling No -Circular Undermining No -Exudate Amt Large -Exudate Type Serosanguineous -Wound Margin Distinct, Outline Attached -Granulation Amt Small (1-33%) -Granulation Quality [place] -Slough/Fibrin Yes -Necrosis Amt Large (67-100%) -Necrotic Tissue Type Adherent Slough -Structure Exposed N/A -Texture (Nany-wound Skin Appearance) Assessed, Excoriation, Localized Edema -Moisture (Nany-wound Skin Appearance Assessed, ) Maceration -Color (Nany-wound Skin Appearance) Assessed,Rubor -Temperature (Nany-wound Skin No Abnormality Appearance) (Pt Warm) -Tenderness on Palpation (Nany-wound Yes Skin Appearance) -Ulcer Cleansing soap and water -Foul Odor after Cleansing No -Anesthetic Used 4% Lidocaine Solution [Edema Assessment] -Lower Limb Edema Present Yes -Right Calf (cm) 37.5 -Right Ankle (cm) 20.6 -Left Calf (cm) 39.0 -Left Ankle (cm) 20.8 AMIE - Nurse 2 - General Ulcer CM Notes Start: 08/15/19 10:44 Freq: Status: Active Protocol: Activity Type Activity Date Activity User E-Sign Co-Sign Detail Recorded Client Recorded Date Recorded By Document 08/15/19 11:34 DV [id number] 08/15/19 11:37 DV 08/15/19 11:34 Wound Center Nurse 2 [Procedure/Treatment] #5 Medial Lower RLE (Skin Tear Cluster ) -Time 11:35 -Correct Patient Yes -Correct Side, Site, Position Yes -Correct Procedure No -Procedure Performed No -Wound/Ulcer Outcome Not Healed #4 Medial RLE- Superior -Time 11:35 -Correct Patient Yes -Correct Side, Site, Position Yes -Correct Procedure No -Procedure Performed No -Wound/Ulcer Outcome Not Healed #2 Medial RLE- Inferior -Time 11:35 -Correct Patient Yes -Correct Side, Site, Position Yes -Correct Procedure No -Procedure Performed No -Wound/Ulcer Outcome Not Healed #1 Medial RLE -Time 11:36 -Correct Patient Yes -Correct Side, Site, Position Yes -Correct Procedure No -Procedure Performed No -Wound/Ulcer Outcome Not Healed [See Physician Procedure note for Specifics] Pain Scale: 0-10 Numeric [Pain] -Is Patient Pain Free? Yes Psych/Mental Status: Normal Affect, Appropriate Debridement Note Post-Debridement Measurements/Treatment AMIE - Nurse 2 - General Ulcer CM Notes Start: 08/15/19 10:44 Freq: Status: Active Protocol: Activity Type Activity Date Activity User E-Sign Co-Sign Detail Recorded Client Recorded Date Recorded By Document 08/15/19 11:34 DV [id number] 08/15/19 11:37 DV 08/15/19 11:34 Wound Center Nurse 2 #5 Medial Lower RLE (Skin Tear Cluster) -Time 11:35 -Correct Patient Yes -Correct Side, Site, Position Yes -Correct Procedure No -Procedure Performed No -Wound/Ulcer Outcome Not Healed #4 Medial RLE- Superior -Time 11:35 -Correct Patient Yes -Correct Side, Site, Position Yes -Correct Procedure No -Procedure Performed No -Wound/Ulcer Outcome Not Healed #2 Medial RLE- Inferior -Time 11:35 -Correct Patient Yes -Correct Side, Site, Position Yes -Correct Procedure No -Procedure Performed No -Wound/Ulcer Outcome Not Healed #1 Medial RLE -Time 11:36 -Correct Patient Yes -Correct Side, Site, Position Yes -Correct Procedure No -Procedure Performed No -Wound/Ulcer Outcome Not Healed Pain Scale: 0-10 Numeric Is Patient Pain Free? Yes No debridement was completed today - Worsening cellulitis - patient transferred to ER and may need surgical debridement Assessment/Plan Active Problems Venous ulcer of right leg (Chronic) Chronic ulcer of right leg with fat layer exposed (Chronic) Venous insufficiency (Chronic) Type 2 diabetes mellitus (Chronic) Essential hypertension (Chronic) Coronary artery disease involving coronary bypass graft (Chronic) CHF (congestive heart failure) (Chronic) Peripheral arterial disease (Chronic) End stage renal disease on dialysis (Chronic) Dyslipidemia (Chronic) Anemia of chronic disease (Chronic) Cellulitis of right lower extremity without foot (Acute) Assessment: 1. Venous ulcer of right leg, chronic. 2. Chronic ulcer of right leg with fat layer exposed. 3. Sternal wound dehiscence, chronic - healed. 4. Venous insufficiency, chronic. 5. Peripheral arterial disease, chronic. 6. T2 DM, chronic. 7. CHF, chronic. 8. End-stage renal disease on dialysis, chronic Plan: Sanjeev's right lower extremity wounds were evaluated and she was transferred to the ER today. This was discussed with Jenn, the clinical junior brand manager at [facility] and she agreed with this plan of care. Sanjeev may need surgical debridement and will need culture of her wound as well as IV antibiotics and possibly diuretics and continued dialysis. SHe also did not have vascular testing done when first evaluated here due to COVID pandemic and would benefit from venous and arterial studies to further evaluate her circulation. Off-loading: Avoid prolonged standing or dangling of legs. Keep feet elevated at or above waist level when seated. Diet: Patient encouraged to increase protein and vitamin C intake while taking caution to avoid high carbohydrate and/or sugar intake. Follow-up: Will plan follow up based on decisions made at ER for admission and discharge. Red flag symptoms reviewed, which should prompt patient to report to the ER, including but not limited to: Increasing pain, redness, or swelling surrounding any of her wounds; increase in drainage from any of her wounds; foul-smelling or purulent drainage from any of her wounds; fever, chills, nausea, or vomiting.
[2019-08-22 11:45] VITALS: BP 168/73; PULSE 64; RESP 20; TEMP 36.2; BMI 32.0
--- NOTE | 2019-08-22 16:14 | WC ---
Nursing from [facility] had called for clarification on the orders they received today during the patients visit. They were inquiring as to what was considered antibacterial soap. The provider was consulted and the facility was advised to use Hibiclens.
--- NOTE | 2019-08-22 18:46 | PCM.WC.PN ---
(1) Venous ulcer of right leg Status: Chronic Current Visit: Yes Code(s): I83.019 - Varicose veins of right lower extremity with ulcer of unspecified site; L97.919 - Non-pressure chronic ulcer of unspecified part of right lower leg with unspecified severity (2) Chronic ulcer of right leg with fat layer exposed Status: Chronic Current Visit: Yes Code(s): L97.912 - Non-pressure chronic ulcer of unspecified part of right lower leg with fat layer exposed (3) Venous insufficiency Status: Chronic Current Visit: Yes Code(s): I87.2 - Venous insufficiency (chronic) (peripheral) (4) Type 2 diabetes mellitus Status: Chronic Current Visit: Yes Qualifiers: Diabetes mellitus watermelon inspector insulin use: without mcfp use Diabetes mellitus complication status: with kidney complications Diabetes mellitus complication detail: with chronic kidney disease Chronic kidney disease stage: on chronic dialysis Qualified Code(s): E11.22 - Type 2 diabetes mellitus with diabetic chronic kidney disease; N18.6 - End stage renal disease; Z99.2 - Dependence on renal dialysis Code(s): E11.9 - Type 2 diabetes mellitus without complications (5) Peripheral arterial disease Status: Chronic Current Visit: Yes Code(s): I73.9 - Peripheral vascular disease, unspecified (6) End stage renal disease on dialysis Status: Chronic Current Visit: Yes Code(s): N18.6 - End stage renal disease; Z99.2 - Dependence on renal dialysis (7) Cellulitis of right lower extremity without foot Status: Resolved Current Visit: Yes Code(s): L03.115 - Cellulitis of right lower limb Type of Wound Date of Service: 08/22/19 Chief Complaint: open wounds right leg History of Wound: Patient is a pleasant 63-year-old female who [facility], for initial evaluation of sternal and right lower extremity wounds and was seen by Sonia Paez. She currently resides at [facility]. Patient is a very poor historian, and is unaccompanied at today's visit. The majority of details within patient's HPI were gathered from records faxed from [facility]. Patient has a PMH of T2DM, hypertension, coronary artery disease s/p recent coronary artery bypass graft, CHF, diastolic dysfunction, peripheral arterial disease, end-stage renal disease on hemodialysis, dyslipidemia, GERD, hypothyroidism, depression, steal syndrome in right hand, and anemia of chronic disease. She presents with a sternal wound dehiscence, and right lower extremity wound dehiscence s/p quadruple bypass open heart surgery with vein harvesting from right lower extremity, which she underwent in February 2019. Postoperatively, patient was transferred to a detention. She was readmitted to [facility] due to wound infection at the harvesting site of right leg. She was evaluated by surgery and underwent debridement, and was transferred to the detention. She was readmitted to [place] again, this time for sternal wound infection which required debridement and subsequent wound VAC placement. She was then transferred to [facility] for further care and IV antibiotic therapy on 05/03/2019. It is unclear from the documentation provided when she was discharged from [facility]. While at [facility], plastic surgery was consulted (Dr. Eva Pelaez). In his progress note from 05/12/2019, it was recommended that Santyl with wet gauze be applied daily to sternal wound, and NPWT at -125 mmHg continuous pressure be applied to RLE and changed 3 times per week. High-protein diet and every 2 hours turns also recommended. In his progress note from 05/19/2019, it was recommended that CHIEF DIGITAL OFFICER WT be applied at -125 mmHg continuous pressure to both sternal and RLE wounds, to be changed 3 times per week and as needed. High-protein diet and every 2 hours turns continued to be recommended. When patient presented to the wound healing center on 06/10/2019, she had OPTifoam applied to her sternal wound, and Aquacel applied to her RLE wounds. She is not using any compression to lower extremities and did not have a wound vac. Patient states the staff at [facility] have been performing daily dressing changes to her wounds using Aquacel. She is also taking Boost supplements at bedtime to increase protein. Patient has a central venous catheter placed, but is unsure what antibiotics she is currently taking. She denies any increased redness, swelling, pain, or drainage from any of her wounds. She denies any purulent or foul-smelling drainage from her wounds. She does have erythema and swelling of her right lower extremity, which she states has improved. Her lab work from [facility] on 05/19/2019 showed WBC 7.44 and hemoglobin 9.1 (see report for full details). No other documentation is available at this time. Records were requested from [facility], [facility], and [facility]. They had been using Santyl and gauze to her lower extremity wound. She saw the surgeon regarding her chest wound and he removed some tissue at [facility] and continued with Santyl and optifoam and this was healed on 07/11/2019. She denies any increased pain, erythema, fever or chills. Progress of Wound: Sanjeev returns for follow up of right lower extremity wound. She was hospitalized for 5 days after being sent to the ER at her last visit. She underwent vascular testing and Dr. Rene was consulted regarding intervention but it was felt that she was not a candidate for intervention. She was discharged on antibiotics and reports that they haven't changed her dressing since she returned to the nursing facility where she resides. The right lower extremity looks mildly better than last week when she was seen. There is less erythema and less edema but continued maceration of her lower extremity with skin breakdown and pain. She has an area of wing necrotic tissue where there was tissue injury from the wound vac. Wound cultures on 08/15/2019 were positive for MRSA, Enterococcus faecalis and Corynebacterium striatum while she was in hospital. Her chest wound looks great and remains healed. She does admit to not elevating her legs much during the day. - Physical Exam Vital Signs Temp Pulse Resp BP 97.2 F L 64 20 H 168/73 H 08/22/19 11:45 08/22/19 11:45 08/22/19 11:45 08/22/19 11:45 General: Alert, Oriented x3, Cooperative, No apparent distress HEENT: Atraumatic, Normocephalic Oral: Moist Mucosa Abdomen: Obese Extremities: Edema Skin: Ulcer/ Wound, Rash Present Wound Measurements and Assessment WC - Nurse 1 - General Ulcer Measurement Start: 08/15/19 10:44 Freq: Status: Active Protocol: Activity Type Activity Date Activity User E-Sign Co-Sign Detail Recorded Client Recorded Date Recorded By Document 08/22/19 11:45 MW [id number] 08/22/19 11:57 MW 08/22/19 11:45 Wound Center Nurse 1 [Ulcer Assessment] #5 Medial Lower RLE (Skin Tear Cluster ) -Combined with other wound No -Current Size (cm) - Length 5.0 -Current Size (cm) - Width 8.0 -Current Size (cm) - Depth 0.1 -Total Square Cm 40.00 -Photo Taken No -Epithelialization None Present -Tunneling No -Undermining/Tunneling No -Circular Undermining No -Exudate Amt Large -Exudate Type Serosanguineous -Wound Margin Flat & Intact -Granulation Amt Small (1-33%) -Granulation Quality [place] -Slough/Fibrin Yes -Necrosis Amt Large (67-100%) -Necrotic Tissue Type Adherent Slough -Structure Exposed N/A -Texture (Nany-wound Skin Appearance) Assessed, Localized Edema ,Scarring -Moisture (Nany-wound Skin Appearance Assessed, ) Weeping -Color (Nany-wound Skin Appearance) Assessed,Rubor -Temperature (Nany-wound Skin No Abnormality Appearance) (Pt Warm) -Tenderness on Palpation (Nany-wound No Skin Appearance) -Ulcer Cleansing Rinsed/ Irrigated with Saline -Foul Odor after Cleansing No -Anesthetic Used 4% Lidocaine Solution #4 Medial RLE- Superior -Combined with other wound No -Current Size (cm) - Length 0.8 -Current Size (cm) - Width 0.6 -Current Size (cm) - Depth 0.4 -Total Square Cm 0.48 -Photo Taken No -Epithelialization None Present -Tunneling No -Undermining/Tunneling No -Circular Undermining No -Exudate Amt Medium -Exudate Type Purulent -Wound Margin Distinct, Outline Attached -Granulation Amt Small (1-33%) -Granulation Quality N/A -Slough/Fibrin Yes -Necrosis Amt Large (67-100%) -Necrotic Tissue Type Adherent Slough -Structure Exposed N/A -Texture (Nany-wound Skin Appearance) Assessed, Localized Edema ,Scarring -Moisture (Nany-wound Skin Appearance Assessed, ) Weeping -Color (Nany-wound Skin Appearance) Assessed,Rubor -Temperature (Nany-wound Skin No Abnormality Appearance) (Pt Warm) -Tenderness on Palpation (Nany-wound No Skin Appearance) -Ulcer Cleansing Rinsed/ Irrigated with Saline -Foul Odor after Cleansing No -Anesthetic Used 4% Lidocaine Solution #2 Medial RLE- Inferior -Combined with other wound No -Current Size (cm) - Length 1.3 -Current Size (cm) - Width 1.2 -Current Size (cm) - Depth 0.6 -Total Square Cm 1.56 -Photo Taken No -Epithelialization None Present -Tunneling No -Undermining/Tunneling No -Circular Undermining No -Exudate Amt Large -Exudate Type Serosanguineous -Wound Margin Distinct, Outline Attached -Granulation Amt Small (1-33%) -Granulation Quality [place] -Slough/Fibrin Yes -Necrosis Amt Large (67-100%) -Necrotic Tissue Type Adherent Slough -Structure Exposed N/A -Texture (Nany-wound Skin Appearance) Assessed, Localized Edema ,Scarring -Moisture (Nany-wound Skin Appearance Assessed, ) Weeping -Color (Nany-wound Skin Appearance) Assessed,Rubor -Temperature (Nany-wound Skin No Abnormality Appearance) (Pt Warm) -Tenderness on Palpation (Nany-wound No Skin Appearance) -Ulcer Cleansing Rinsed/ Irrigated with Saline -Foul Odor after Cleansing No -Anesthetic Used 4% Lidocaine Solution #1 Medial RLE -Combined with other wound No -Current Size (cm) - Length 8.8 -Current Size (cm) - Width 4.9 -Current Size (cm) - Depth 0.8 -Total Square Cm 43.12 -Photo Taken No -Epithelialization None Present -Tunneling No -Undermining/Tunneling No -Circular Undermining No -Exudate Amt Large -Exudate Type Serosanguineous -Wound Margin Distinct, Outline Attached -Granulation Amt Large (67-100%) -Granulation Quality [place] -Slough/Fibrin Yes -Necrosis Amt Small (1-33%) -Necrotic Tissue Type Eschar -Structure Exposed N/A -Texture (Nany-wound Skin Appearance) Assessed, Localized Edema ,Scarring -Moisture (Nany-wound Skin Appearance Assessed, ) Weeping -Color (Nany-wound Skin Appearance) Assessed,Rubor -Temperature (Nany-wound Skin No Abnormality Appearance) (Pt Warm) -Tenderness on Palpation (Nany-wound No Skin Appearance) -Ulcer Cleansing Rinsed/ Irrigated with Saline -Foul Odor after Cleansing No -Anesthetic Used 4% Lidocaine Solution [Edema Assessment] -Lower Limb Edema Present Yes -Right Calf (cm) 34.7 -Right Ankle (cm) 21.2 -Left Calf (cm) 36.0 -Left Ankle (cm) 20.0 WC - Nurse 2 - General Ulcer CM Notes Start: 08/15/19 10:44 Freq: Status: Active Protocol: Activity Type Activity Date Activity User E-Sign Co-Sign Detail Recorded Client Recorded Date Recorded By Document 08/22/19 12:23 DV [id number] 08/22/19 12:57 DV 08/22/19 12:23 Wound Center Nurse 2 [Procedure/Treatment] #5 Medial Lower RLE (Skin Tear Cluster ) -Time 12:25 -Correct Patient Yes -Correct Side, Site, Position Yes -Correct Procedure Yes -Procedure Performed Yes -Type of Procedure Debridement -Clinical Debridement Subcutaneous -Post Debridement Size (cm) - Length 5.1 -Post Debridement Size (cm) - Width 7.2 -Post Debridement Size (cm) - Depth 0.1 -Total Square Cm 36.72 -Wound/Ulcer Outcome Not Healed -Ulcer Cleansing Rinsed/ Irrigated with Saline -Foul Odor after Cleansing No -Bioengineered Tissue No -Bleeding Controlled with Pressure -Offloading No -Treatment Response Procedure Tolerated Well #4 Medial RLE- Superior -Time 12:26 -Correct Patient Yes -Correct Side, Site, Position Yes -Correct Procedure Yes -Procedure Performed Yes -Type of Procedure Debridement -Clinical Debridement Subcutaneous -Post Debridement Size (cm) - Length 0.7 -Post Debridement Size (cm) - Width 0.7 -Post Debridement Size (cm) - Depth 0.5 -Total Square Cm 0.49 -Wound/Ulcer Outcome Not Healed -Ulcer Cleansing Rinsed/ Irrigated with Saline -Foul Odor after Cleansing No -Bioengineered Tissue No -Bleeding Controlled with Pressure -Offloading No -Treatment Response Procedure Tolerated Well #2 Medial RLE- Inferior -Time 12:26 -Correct Patient Yes -Correct Side, Site, Position Yes -Correct Procedure Yes -Procedure Performed Yes -Type of Procedure Debridement -Clinical Debridement Subcutaneous -Post Debridement Size (cm) - Length 1.1 -Post Debridement Size (cm) - Width 1.0 -Post Debridement Size (cm) - Depth 0.3 -Total Square Cm 1.10 -Wound/Ulcer Outcome Not Healed -Ulcer Cleansing Rinsed/ Irrigated with Saline -Foul Odor after Cleansing No -Bioengineered Tissue No -Bleeding Controlled with Pressure -Offloading No -Treatment Response Procedure Tolerated Well #1 Medial RLE -Time 12:26 -Correct Patient Yes -Correct Side, Site, Position Yes -Correct Procedure Yes -Procedure Performed Yes -Type of Procedure Debridement -Clinical Debridement Subcutaneous -Post Debridement Size (cm) - Length 8.0 -Post Debridement Size (cm) - Width 5.3 -Post Debridement Size (cm) - Depth 0.5 -Total Square Cm 42.40 -Wound/Ulcer Outcome Not Healed -Ulcer Cleansing Rinsed/ Irrigated with Saline -Foul Odor after Cleansing No -Bioengineered Tissue No -Bleeding Controlled with Pressure -Offloading No -Treatment Response Procedure Tolerated Well [See Physician Procedure note for Specifics] Pain Scale: 0-10 Numeric [Pain] -Is Patient Pain Free? Yes Psych/Mental Status: Normal Affect, Appropriate Debridement Note Post-Debridement Measurements/Treatment WC - Nurse 2 - General Ulcer CM Notes Start: 08/15/19 10:44 Freq: Status: Active Protocol: Activity Type Activity Date Activity User E-Sign Co-Sign Detail Recorded Client Recorded Date Recorded By Document 08/15/19 11:34 DV [id number] 08/15/19 11:37 DV Document 08/22/19 12:23 DV [id number] 08/22/19 12:57 DV 08/15/19 08/22/19 11:34 12:23 Wound Center Nurse 2 #5 Medial Lower RLE (Skin Tear Cluster) -Time 11:35 12:25 -Correct Patient Yes Yes -Correct Side, Site, Position Yes Yes -Correct Procedure No Yes -Procedure Performed No Yes -Type of Procedure Debridement -Clinical Debridement Subcutaneous -Post Debridement Size (cm) - Length 5.1 -Post Debridement Size (cm) - Width 7.2 -Post Debridement Size (cm) - Depth 0.1 -Total Square Cm 36.72 -Wound/Ulcer Outcome Not Healed Not Healed -Ulcer Cleansing Rinsed/ Irrigated with Saline -Foul Odor after Cleansing No -Bioengineered Tissue No -Bleeding Controlled with Pressure -Offloading No -Treatment Response Procedure Tolerated Well #4 Medial RLE- Superior -Time 11:35 12:26 -Correct Patient Yes Yes -Correct Side, Site, Position Yes Yes -Correct Procedure No Yes -Procedure Performed No Yes -Type of Procedure Debridement -Clinical Debridement Subcutaneous -Post Debridement Size (cm) - Length 0.7 -Post Debridement Size (cm) - Width 0.7 -Post Debridement Size (cm) - Depth 0.5 -Total Square Cm 0.49 -Wound/Ulcer Outcome Not Healed Not Healed -Ulcer Cleansing Rinsed/ Irrigated with Saline -Foul Odor after Cleansing No -Bioengineered Tissue No -Bleeding Controlled with Pressure -Offloading No -Treatment Response Procedure Tolerated Well #2 Medial RLE- Inferior -Time 11:35 12:26 -Correct Patient Yes Yes -Correct Side, Site, Position Yes Yes -Correct Procedure No Yes -Procedure Performed No Yes -Type of Procedure Debridement -Clinical Debridement Subcutaneous -Post Debridement Size (cm) - Length 1.1 -Post Debridement Size (cm) - Width 1.0 -Post Debridement Size (cm) - Depth 0.3 -Total Square Cm 1.10 -Wound/Ulcer Outcome Not Healed Not Healed -Ulcer Cleansing Rinsed/ Irrigated with Saline -Foul Odor after Cleansing No -Bioengineered Tissue No -Bleeding Controlled with Pressure -Offloading No -Treatment Response Procedure Tolerated Well #1 Medial RLE -Time 11:36 12:26 -Correct Patient Yes Yes -Correct Side, Site, Position Yes Yes -Correct Procedure No Yes -Procedure Performed No Yes -Type of Procedure Debridement -Clinical Debridement Subcutaneous -Post Debridement Size (cm) - Length 8.0 -Post Debridement Size (cm) - Width 5.3 -Post Debridement Size (cm) - Depth 0.5 -Total Square Cm 42.40 -Wound/Ulcer Outcome Not Healed Not Healed -Ulcer Cleansing Rinsed/ Irrigated with Saline -Foul Odor after Cleansing No -Bioengineered Tissue No -Bleeding Controlled with Pressure -Offloading No -Treatment Response Procedure Tolerated Well Pain Scale: 0-10 Numeric Is Patient Pain Free? Yes Yes Wound debrided: medial lower RLE (skin tear cluster) Laterality: Right Anesthesia Used: 4% Lidocaine Solution, 5% Lidocaine Gel Depth: Down to and including healthy tissue, in the subcutaneous layer Percentage of wound debrided: 100 Instrument Used: 5mm curette Tissue Removed: yellow slough, devitalized tissue Severity: Fat Layer Exposed Amount of bleeding with debridement: Mild Bleeding Controlled with: Compression and gauze Patient tolerated procedure well - Additional Wound Wound debrided: Medial right lower extremity superior Laterality: Right Type of Debridement: Excisional debridement Anesthesia Used: 4% Lidocaine Solution, 5% Lidocaine Gel Depth: Down to and including healthy tissue, in the subcutaneous layer Percentage of wound debrided: 100 Instrument Used: 5mm curette Tissue Removed: yellow slough, devitalized tissue Severity: Fat Layer Exposed Amount of bleeding with debridement: Mild Bleeding Controlled with: Compression and gauze Patient tolerated procedure: Patient tolerated procedure well - Additional Wound Wound debrided: medial right lower extremity inferior Laterality: Right Type of Debridement: Excisional debridement Anesthesia Used: 4% Lidocaine Solution, 5% Lidocaine Gel Depth: Down to and including healthy tissue, in the subcutaneous layer Percentage of wound debrided: 100 Instrument Used: 5mm curette Tissue Removed: yellow slough, devitalized tissue Severity: Fat Layer Exposed Amount of bleeding with debridement: Mild Bleeding Controlled with: Compression and gauze Patient tolerated procedure: Patient tolerated procedure well - Additional Wound Wound debrided: Medial right lower extremity Laterality: Right Type of Debridement: Excisional debridement Anesthesia Used: 4% Lidocaine Solution, 5% Lidocaine Gel, Cetacaine - 5 ml Lidocaine 2% w/o epi Depth: Down to and including healthy tissue, in the subcutaneous layer Percentage of wound debrided: 100 Instrument Used: 5mm curette, #15 blade, Forceps Tissue Removed: yellow slough, devitalized tissue Severity: Fat Layer Exposed Amount of bleeding with debridement: Mild Bleeding Controlled with: Compression and gauze Patient tolerated procedure: Patient tolerated procedure well Assessment/Plan Active Problems Cellulitis of right leg (Acute) Venous ulcer of right leg (Chronic) Chronic ulcer of right leg with fat layer exposed (Chronic) Venous insufficiency (Chronic) Type 2 diabetes mellitus (Chronic) Peripheral arterial disease (Chronic) End stage renal disease on dialysis (Chronic) Assessment: 1. Venous ulcer of right leg, chronic. 2. Chronic ulcer of right leg with fat layer exposed. 3. Sternal wound dehiscence, chronic - healed. 4. Venous insufficiency, chronic. 5. Peripheral arterial disease, chronic. 6. T2 DM, chronic. 7. CHF, chronic. 8. End-stage renal disease on dialysis, chronic Plan: Sanjeev's right lower extremity wounds were evaluated and debrided today. Hospital reports, wound cultures and testing reviewed from her hospitalization. She has significant comorbidities that are prolonging her healing including peripheral arterial disease with decreased PUNEET's b/l and venous hypertension with uncontrolled edema as well as diabetes and end stage chronic kidney disease requiring hemodialysis therefore she should be placed on a complex care regimen and would also consider possible palliative treatment given her multiple comorbidities and that arterial intervention is not recommended by vascular surgery. Her nany-wound skin is still not healed enough for wound vac placement. Will continue to hold this. Will treat her wounds with Aquacel Ag, gauze and ABD. Will use xeroform to right lower extremity skin tears with changes daily. MICHAEL bandage for compression. Hope to be able to re-institute wound vac therapy in the next 1-2 weeks pending the status of her nany-wound irritation. Off-loading: Avoid prolonged standing or dangling of legs. Keep feet elevated at or above waist level when seated. Diet: Patient encouraged to increase protein and vitamin C intake while taking caution to avoid high carbohydrate and/or sugar intake. Follow-up: Will plan follow up based on decisions made at ER for admission and discharge. Red flag symptoms reviewed, which should prompt patient to report to the ER, including but not limited to: Increasing pain, redness, or swelling surrounding any of her wounds; increase in drainage from any of her wounds; foul-smelling or purulent drainage from any of her wounds; fever, chills, nausea, or vomiting.
[2019-08-29 14:04] VITALS: BP 147/63; PULSE 71; RESP 20; TEMP 36.8; BMI 32.0
--- NOTE | 2019-08-29 18:03 | PN.PCM_ITS ---
(1) Venous ulcer of right leg Status: Chronic Current Visit: Yes Code(s): I83.019 - Varicose veins of right lower extremity with ulcer of unspecified site; L97.919 - Non-pressure chronic ulcer of unspecified part of right lower leg with unspecified severity (2) Chronic ulcer of right leg with fat layer exposed Status: Chronic Current Visit: Yes Code(s): L97.912 - Non-pressure chronic ulcer of unspecified part of right lower leg with fat layer exposed (3) Venous insufficiency Status: Chronic Current Visit: Yes Code(s): I87.2 - Venous insufficiency (chronic) (peripheral) (4) Type 2 diabetes mellitus Status: Chronic Current Visit: Yes Qualifiers: 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 insulin use: without retirement use Diabetes mellitus complication status: with kidney complications Diabetes mellitus complication detail: with chronic kidney disease Chronic kidney disease stage: on chronic dialysis Qualified Code(s): E11.22 - Type 2 diabetes mellitus with diabetic chronic kidney disease; N18.6 - End stage renal disease; Z99.2 - Dependence on renal dialysis Code(s): E11.9 - Type 2 diabetes mellitus without complications (5) Peripheral arterial disease Status: Chronic Current Visit: Yes Code(s): I73.9 - Peripheral vascular disease, unspecified (6) End stage renal disease on dialysis Status: Chronic Current Visit: Yes Code(s): N18.6 - End stage renal disease; Z99.2 - Dependence on renal dialysis (7) Cellulitis of right lower extremity without foot Status: Resolved Current Visit: Yes Code(s): L03.115 - Cellulitis of right lower limb Type of Wound Date of Service: 08/29/19 Chief Complaint: open wounds right leg History of Wound: Patient is a pleasant 63-year-old female who [facility], for initial evaluation of sternal and right lower extremity wounds and was seen by Sonia Paez. She currently resides at [facility]. Patient is a very poor historian, and is unaccompanied at today's visit. The majority of details within patient's HPI were gathered from records faxed from [facility]. Patient has a PMH of T2DM, hypertension, coronary artery disease s/p recent coronary artery bypass graft, CHF, diastolic dysfunction, peripheral arterial disease, end-stage renal disease on hemodialysis, dyslipidemia, GERD, hypothyroidism, depression, steal syndrome in right hand, and anemia of chronic disease. She presents with a sternal wound dehiscence, and right lower extremity wound dehiscence s/p quadruple bypass open heart surgery with vein harvesting from right lower extremity, which she underwent in February 2019. Postoperatively, patient was transferred to a care home. She was readmitted to [facility] due to wound infection at the harvesting site of right leg. She was evaluated by surgery and underwent debridement, and was transferred to the care home. She was readmitted to [place] again, this time for sternal wound infection which required debridement and subsequent wound VAC placement. She was then transferred to [facility] for further care and IV antibiotic therapy on 05/03/2019. It is unclear from the documentation provided when she was discharged from [facility]. While at [facility], plastic surgery was consulted (Dr. Eva Pelaez). In his progress note from 05/12/2019, it was recommended that Santyl with wet gauze be applied daily to sternal wound, and NPWT at -125 mmHg continuous pressure be applied to RLE and changed 3 times per week. High-protein diet and every 2 hours turns also recommended. In his progress note from 05/19/2019, it was recommended that AMMONIA TECHNICIAN WT be applied at -125 mmHg continuous pressure to both sternal and RLE wounds, to be changed 3 times per week and as needed. High- protein diet and every 2 hours turns continued to be recommended. When patient presented to the wound healing center on 06/10/2019, she had OPTifoam applied to her sternal wound, and Aquacel applied to her RLE wounds. She is not using any compression to lower extremities and did not have a wound vac. Patient states the staff at [place] have been performing daily dressing changes to her wounds using Aquacel. She is also taking Boost supplements at bedtime to increase protein. Patient has a central venous catheter placed, but is unsure what antibiotics she is currently taking. She denies any increased redness, swelling, pain, or drainage from any of her wounds. She denies any purulent or foul-smelling drainage from her wounds. She does have erythema and swelling of her right lower extremity, which she states has improved. Her lab work from [facility] on 05/19/2019 showed WBC 7.44 and hemoglobin 9.1 (see report for full details). No other documentation is available at this time. Records were requested from [facility], [facility], and [facility]. They had been using Santyl and gauze to her lower extremity wound. She saw the surgeon regarding her chest wound and he removed some tissue at [facility] and continued with Santyl and optifoam and this was healed on 07/11/2019. She denies any increased pain, erythema, fever or chills. Progress of Wound: Sanjeev returns for follow up of right lower extremity wounds. The right lower extremity is not much improved since last week - still very erythematous and macerated in areas, still significantly edematous. She is very uncomfortable today and is unable to be adequately anesthetized for debridement. She is agitated and tearful. Her chest wound looks great and remains healed. She does admit to not elevating her legs much during the day. She does report better compliance with dialysis this week. - Physical Exam Vital Signs Temp Pulse Resp BP 98.2 F 71 20 H 147/63 H 08/29/19 14:04 08/29/19 14:04 08/29/19 14:04 08/29/19 14:04 General: Alert, Non-Cooperative Oral: Moist Mucosa Abdomen: Obese Extremities: Edema, Tenderness Skin: Ulcer/ Wound, Skin Tear, Rash Present Wound Measurements and Assessment WC - Nurse 1 - General Ulcer Measurement Start: 08/15/19 10:44 Freq: Status: Active Protocol: Activity Type Activity Date Activity User E-Sign Co-Sign Detail Recorded Client Recorded Date Recorded By Document 08/29/19 14:04 MW [id number] 08/29/19 14:18 MW 08/29/19 14:04 Wound Center Nurse 1 [Ulcer Assessment] #5 Medial Lower RLE (Skin Tear Cluster ) -Combined with other wound No -Current Size (cm) - Length 5.0 -Current Size (cm) - Width 7.2 -Current Size (cm) - Depth 0.1 -Total Square Cm 36.00 -Photo Taken No -Epithelialization None Present -Tunneling No -Undermining/Tunneling No -Circular Undermining No -Exudate Amt Medium -Exudate Type Serosanguineous -Wound Margin Flat & Intact -Granulation Amt None Present (0 %) -Granulation Quality N/A -Slough/Fibrin Yes -Necrosis Amt Small (1-33%) -Necrotic Tissue Type Adherent Slough -Structure Exposed N/A -Texture (Nany-wound Skin Appearance) Assessed, Excoriation, Localized Edema -Moisture (Nany-wound Skin Appearance Assessed ) -Color (Nany-wound Skin Appearance) Assessed,Rubor -Ulcer Cleansing SOAP AND WATER -Foul Odor after Cleansing No -Anesthetic Used 4% Lidocaine Solution #4 Medial RLE- Superior -Combined with other wound No -Current Size (cm) - Length 0.7 -Current Size (cm) - Width 0.7 -Current Size (cm) - Depth 0.5 -Total Square Cm 0.49 -Photo Taken No -Epithelialization None Present -Tunneling No -Undermining/Tunneling No -Circular Undermining No -Exudate Amt Medium -Exudate Type Serosanguineous -Wound Margin Flat & Intact -Granulation Amt None Present (0 %) -Granulation Quality N/A -Slough/Fibrin Yes -Necrosis Amt Large (67-100%) -Necrotic Tissue Type Adherent Slough -Structure Exposed N/A -Texture (Nany-wound Skin Appearance) Assessed, Excoriation, Localized Edema -Moisture (Nany-wound Skin Appearance No Abnormality, ) Assessed -Color (Nany-wound Skin Appearance) Assessed,Rubor -Temperature (Nany-wound Skin No Abnormality Appearance) (Pt Warm) -Tenderness on Palpation (Nany-wound Yes Skin Appearance) -Ulcer Cleansing SOAP AND WATER -Foul Odor after Cleansing No -Anesthetic Used 4% Lidocaine Solution #2 Medial RLE- Inferior -Combined with other wound No -Current Size (cm) - Length 1.3 -Current Size (cm) - Width 1.1 -Current Size (cm) - Depth 0.3 -Total Square Cm 1.43 -Photo Taken No -Epithelialization None Present -Tunneling No -Undermining/Tunneling No -Circular Undermining No -Exudate Amt Medium -Exudate Type Serosanguineous -Wound Margin Distinct, Outline Attached -Granulation Amt None Present (0 %) -Granulation Quality N/A -Slough/Fibrin Yes -Necrosis Amt Large (67-100%) -Necrotic Tissue Type Adherent Slough -Structure Exposed N/A -Texture (Nany-wound Skin Appearance) Assessed, Excoriation, Localized Edema -Moisture (Nany-wound Skin Appearance No Abnormality, ) Assessed -Color (Nany-wound Skin Appearance) Assessed,Rubor -Temperature (Nany-wound Skin No Abnormality Appearance) (Pt Warm) -Tenderness on Palpation (Nany-wound Yes Skin Appearance) -Ulcer Cleansing SOAP AND WATER -Foul Odor after Cleansing No -Anesthetic Used 4% Lidocaine Solution #1 Medial RLE -Combined with other wound No -Current Size (cm) - Length 8.4 -Current Size (cm) - Width 5.0 -Current Size (cm) - Depth 0.6 -Total Square Cm 42.00 -Photo Taken No -Epithelialization None Present -Tunneling No -Undermining/Tunneling No -Circular Undermining No -Exudate Amt Medium -Exudate Type Serosanguineous -Wound Margin Distinct, Outline Attached -Granulation Amt Medium (34-66%) -Granulation Quality [place] -Slough/Fibrin Yes -Necrosis Amt Medium (34-66%) -Necrotic Tissue Type Adherent Slough -Structure Exposed N/A -Texture (Nany-wound Skin Appearance) Assessed, Excoriation, Localized Edema -Moisture (Nany-wound Skin Appearance Assessed ) -Color (Nany-wound Skin Appearance) Assessed,Rubor -Temperature (Nany-wound Skin No Abnormality Appearance) (Pt Warm) -Tenderness on Palpation (Nany-wound No Skin Appearance) -Ulcer Cleansing SOAP AND WATER -Foul Odor after Cleansing No -Anesthetic Used 4% Lidocaine Solution [Edema Assessment] -Lower Limb Edema Present Yes -Right Calf (cm) 36.8 -Right Ankle (cm) 21.0 Psych/Mental Status: Normal Affect, Appropriate Debridement Note Post-Debridement Measurements/Treatment WC - Nurse 2 - General Ulcer CM Notes Start: 08/15/19 10:44 Freq: Status: Active Protocol: Activity Type Activity Date Activity User E-Sign Co-Sign Detail Recorded Client Recorded Date Recorded By Document 08/15/19 11:34 DV [id number] 08/15/19 11:37 DV Document 08/22/19 12:23 DV [id number] 08/22/19 12:57 DV 08/15/19 08/22/19 11:34 12:23 Wound Center Nurse 2 #5 Medial Lower RLE (Skin Tear Cluster) -Time 11:35 12:25 -Correct Patient Yes Yes -Correct Side, Site, Position Yes Yes -Correct Procedure No Yes -Procedure Performed No Yes -Type of Procedure Debridement -Clinical Debridement Subcutaneous -Post Debridement Size (cm) - Length 5.1 -Post Debridement Size (cm) - Width 7.2 -Post Debridement Size (cm) - Depth 0.1 -Total Square Cm 36.72 -Wound/Ulcer Outcome Not Healed Not Healed -Ulcer Cleansing Rinsed/ Irrigated with Saline -Foul Odor after Cleansing No -Bioengineered Tissue No -Bleeding Controlled with Pressure -Offloading No -Treatment Response Procedure Tolerated Well #4 Medial RLE- Superior -Time 11:35 12:26 -Correct Patient Yes Yes -Correct Side, Site, Position Yes Yes -Correct Procedure No Yes -Procedure Performed No Yes -Type of Procedure Debridement -Clinical Debridement Subcutaneous -Post Debridement Size (cm) - Length 0.7 -Post Debridement Size (cm) - Width 0.7 -Post Debridement Size (cm) - Depth 0.5 -Total Square Cm 0.49 -Wound/Ulcer Outcome Not Healed Not Healed -Ulcer Cleansing Rinsed/ Irrigated with Saline -Foul Odor after Cleansing No -Bioengineered Tissue No -Bleeding Controlled with Pressure -Offloading No -Treatment Response Procedure Tolerated Well #2 Medial RLE- Inferior -Time 11:35 12:26 -Correct Patient Yes Yes -Correct Side, Site, Position Yes Yes -Correct Procedure No Yes -Procedure Performed No Yes -Type of Procedure Debridement -Clinical Debridement Subcutaneous -Post Debridement Size (cm) - Length 1.1 -Post Debridement Size (cm) - Width 1.0 -Post Debridement Size (cm) - Depth 0.3 -Total Square Cm 1.10 -Wound/Ulcer Outcome Not Healed Not Healed -Ulcer Cleansing Rinsed/ Irrigated with Saline -Foul Odor after Cleansing No -Bioengineered Tissue No -Bleeding Controlled with Pressure -Offloading No -Treatment Response Procedure Tolerated Well #1 Medial RLE -Time 11:36 12:26 -Correct Patient Yes Yes -Correct Side, Site, Position Yes Yes -Correct Procedure No Yes -Procedure Performed No Yes -Type of Procedure Debridement -Clinical Debridement Subcutaneous -Post Debridement Size (cm) - Length 8.0 -Post Debridement Size (cm) - Width 5.3 -Post Debridement Size (cm) - Depth 0.5 -Total Square Cm 42.40 -Wound/Ulcer Outcome Not Healed Not Healed -Ulcer Cleansing Rinsed/ Irrigated with Saline -Foul Odor after Cleansing No -Bioengineered Tissue No -Bleeding Controlled with Pressure -Offloading No -Treatment Response Procedure Tolerated Well Pain Scale: 0-10 Numeric Is Patient Pain Free? Yes Yes Wound debrided: right lower extermity - all wounds Laterality: Right Anesthesia Used: 4% Lidocaine Solution, 5% Lidocaine Gel Patient did not tolerate procedure well No debridement was completed today - No debridement was completed today of any of her wounds due to her not being able to tolerate exam Assessment/Plan Active Problems Cellulitis of right leg (Acute) Venous ulcer of right leg (Chronic) Chronic ulcer of right leg with fat layer exposed (Chronic) Venous insufficiency (Chronic) Type 2 diabetes mellitus (Chronic) Peripheral arterial disease (Chronic) End stage renal disease on dialysis (Chronic) Assessment: 1. Venous ulcer of right leg, chronic. 2. Chronic ulcer of right leg with fat layer exposed. 3. Sternal wound dehiscence, chronic - healed. 4. Venous insufficiency, chronic. 5. Peripheral arterial disease, chronic. 6. T2 DM, chronic. 7. CHF, chronic. 8. End-stage renal disease on dialysis, chronic Plan: Sanjeev's right lower extremity wounds were evaluated but not debrided today due to her being agitated and unable to tolerate even exam of her right leg. It looks relatively unchanged from last week but is still erythematous and macerated in areas. Will have SNF change dressings to Santyl and Aquacel Ag and ABD pads and continue xerform to right lower leg skin tears. Off-loading: Avoid prolonged standing or dangling of legs. Keep feet elevated at or above waist level when seated. Diet: Patient encouraged to increase protein and vitamin C intake while taking caution to avoid high carbohydrate and/or sugar intake. Follow-up: 1 week. Red flag symptoms reviewed, which should prompt patient to report to the ER, including but not limited to: Increasing pain, redness, or swelling surrounding any of her wounds; increase in drainage from any of her wounds; foul-smelling or purulent drainage from any of her wounds; fever, chills, nausea, or vomiting.
[2019-09-05 13:20] VITALS: BP 161/56; PULSE 71; RESP 20; TEMP 36.3; BMI 32.0
--- NOTE | 2019-09-05 18:59 | PN.PCM_ITS ---
(1) Venous ulcer of right leg Status: Chronic Code(s): I83.019 - Varicose veins of right lower extremity with ulcer of unspecified site; L97.919 - Non-pressure chronic ulcer of unspecified part of right lower leg with unspecified severity (2) Chronic ulcer of right leg with fat layer exposed Status: Chronic Code(s): L97.912 - Non-pressure chronic ulcer of unspecified part of right lower leg with fat layer exposed (3) Venous insufficiency Status: Chronic Code(s): I87.2 - Venous insufficiency (chronic) (peripheral) (4) Type 2 diabetes mellitus Status: Chronic Qualifiers: Diabetes mellitus retirement insulin use: without exterminator termite use Diabetes mellitus complication status: with kidney complications Diabetes mellitus complication detail: with chronic kidney disease Chronic kidney disease stage: on chronic dialysis Qualified Code(s): E11.22 - Type 2 diabetes mellitus with diabetic chronic kidney disease; N18.6 - End stage renal disease; Z99.2 - Dependence on renal dialysis Code(s): E11.9 - Type 2 diabetes mellitus without complications (5) Peripheral arterial disease Status: Chronic Code(s): I73.9 - Peripheral vascular disease, unspecified (6) End stage renal disease on dialysis Status: Chronic Code(s): N18.6 - End stage renal disease; Z99.2 - Dependence on renal dialysis Type of Wound Date of Service: 09/12/19 Chief Complaint: open wounds right leg History of Wound: Patient is a pleasant 63-year-old female who [facility], for initial evaluation of sternal and right lower extremity wounds and was seen by Sonia Paez. She currently resides at [facility]. Patient is a very poor historian, and is unaccompanied at today's visit. The majority of details within patient's HPI were gathered from records faxed from [facility]. Patient has a PMH of T2DM, hypertension, coronary artery disease s/p recent coronary artery bypass graft, CHF, diastolic dysfunction, peripheral arterial disease, end-stage renal disease on hemodialysis, dyslipidemia, GERD, hypothyroidism, depression, steal syndrome in right hand, and anemia of chronic disease. She presents with a sternal wound dehiscence, and right lower extremity wound dehiscence s/p quadruple bypass open heart surgery with vein harvesting from right lower extremity, which she underwent in February 2019. Postoperatively, patient was transferred to a alf. She was readmitted to [facility] due to wound infection at the harvesting site of right leg. She was evaluated by surgery and underwent d ebridement, and was transferred to the alf. She was readmitted to [facility] again, this time for sternal wound infection which required debridement and subsequent wound VAC placement. She was then transferred to [facility] for further care and IV antibiotic therapy on 05/03/2019. It is unclear from the documentation provided when she was discharged from [facility]. While at [facility], plastic surgery was consulted (Dr. Eva Pelaez). In his progress note from 05/12/2019, it was recommended that Santyl with wet gauze be applied daily to sternal wound, and NPWT at -125 mmHg continuous pressure be applied to RLE and changed 3 times per week. High-protein diet and every 2 hours turns also recommended. In his progress note from 05/19/2019, it was recommended that PICKING TECH WT be applied at -125 mmHg continuous pressure to both sternal and RLE wounds, to be changed 3 times per week and as needed. High- protein diet and every 2 hours turns continued to be recommended. When patient presented to the wound healing center on 06/10/2019, she had OPTifoam applied to her sternal wound, and Aquacel applied to her RLE wounds. She is not using any compression to lower extremities and did not have a wound vac. Patient states the staff at [place] have been performing daily dressing changes to her wounds using Aquacel. She is also taking Boost supplements at bedtime to increase protein. Patient has a central venous catheter placed, but is unsure what antibiotics she is currently taking. She denies any increased redness, swelling, pain, or drainage from any of her wounds. She denies any purulent or foul-smelling drainage from her wounds. She does have erythema and swelling of her right lower extremity, which she states has improved. Her lab work from [facility] on 05/19/2019 showed WBC 7.44 and hemoglobin 9.1 (see report for full details). No other documentation is available at this time. Records were requested from [facility], [facility], and [facility]. They had been using Santyl and gauze to her lower extremity wound. She saw the surgeon regarding her chest wound and he removed some tissue at [facility] and continued with Santyl and optifoam and this was healed on 07/11/2019. She denies any increased pain, erythema, fever or chills. Progress of Wound: Sanjeev returns for follow up of right lower extremity wounds. The right lower extremity is minimally improved since last week - still very erythematous and macerated in areas, still significantly edematous. She does admit to not elevating her legs much during the day. She does report better compliance with dialysis this week. - Physical Exam Vital Signs Temp Pulse Resp BP 97.3 F L 71 20 H 161/56 H 09/05/19 13:20 09/05/19 13:20 09/05/19 13:20 09/05/19 13:20 General: Alert, Oriented x3, Cooperative, No apparent distress HEENT: Atraumatic, Normocephalic Oral: Moist Mucosa Neck: Supple Lungs: Clear to auscultation Cardiovascular: Regular rate Abdomen: Soft, Non Tender Extremities: Diminished Peripheral Pulses, Edema Skin: Ulcer/ Wound Wound Measurements and Assessment WC - Nurse 1 - General Ulcer Measurement Start: 08/15/19 10:44 Freq: Status: Active Protocol: Activity Type Activity Date Activity User E-Sign Co-Sign Detail Recorded Client Recorded Date Recorded By Document 09/05/19 13:20 RB [id number] 09/05/19 13:37 RB 09/05/19 13:20 Wound Center Nurse 1 [Ulcer Assessment] #5 Medial Lower RLE (Skin Tear Cluster ) -Combined with other wound No -Current Size (cm) - Length 5 -Current Size (cm) - Width 6.5 -Current Size (cm) - Depth 0.1 -Total Square Cm 32.5 -Tunneling No -Undermining/Tunneling No -Circular Undermining No -Exudate Amt Small -Exudate Type Serosanguineous -Wound Margin Flat & Intact -Granulation Amt Medium (34-66%) -Granulation Quality [place] -Slough/Fibrin Yes -Necrosis Amt Medium (34-66%) -Structure Exposed N/A -Texture (Nany-wound Skin Appearance) Assessed -Moisture (Nany-wound Skin Appearance Maceration ) -Color (Nany-wound Skin Appearance) Assessed, Erythema -Temperature (Nany-wound Skin No Abnormality Appearance) (Pt Warm) -Tenderness on Palpation (Nany-wound No Skin Appearance) -Ulcer Cleansing Wound Cleanser -Foul Odor after Cleansing No -Anesthetic Used 4% Lidocaine Solution #4 Medial RLE- Superior -Combined with other wound No -Current Size (cm) - Length 0.8 -Current Size (cm) - Width 0.5 -Current Size (cm) - Depth 0.5 -Total Square Cm 0.40 -Tunneling No -Undermining/Tunneling No -Circular Undermining No -Exudate Amt Medium -Exudate Type Serosanguineous -Wound Margin Thickened & Rolled Under -Granulation Amt Medium (34-66%) -Granulation Quality [place] -Slough/Fibrin Yes -Necrosis Amt Small (1-33%) -Necrotic Tissue Type Adherent Slough -Structure Exposed N/A -Texture (Nany-wound Skin Appearance) Assessed -Moisture (Nany-wound Skin Appearance Maceration ) -Color (Nany-wound Skin Appearance) Assessed -Temperature (Nany-wound Skin No Abnormality Appearance) (Pt Warm) -Tenderness on Palpation (Nany-wound No Skin Appearance) -Ulcer Cleansing Wound Cleanser -Foul Odor after Cleansing No -Anesthetic Used 4% Lidocaine Solution #2 Medial RLE- Inferior -Combined with other wound No -Current Size (cm) - Length 1.3 -Current Size (cm) - Width 1 -Current Size (cm) - Depth 0.5 -Total Square Cm 1.3 -Tunneling No -Undermining/Tunneling No -Circular Undermining No -Exudate Amt Small -Exudate Type Serosanguineous -Wound Margin Thickened & Rolled Under -Granulation Amt Medium (34-66%) -Granulation Quality [place] -Slough/Fibrin Yes -Necrosis Amt Small (1-33%) -Necrotic Tissue Type Adherent Slough -Structure Exposed N/A -Texture (Nany-wound Skin Appearance) Assessed -Moisture (Nany-wound Skin Appearance Maceration ) -Color (Nany-wound Skin Appearance) Assessed -Temperature (Nany-wound Skin No Abnormality Appearance) (Pt Warm) -Tenderness on Palpation (Nany-wound No Skin Appearance) -Ulcer Cleansing Wound Cleanser -Foul Odor after Cleansing No -Anesthetic Used 4% Lidocaine Solution #1 Medial RLE -Combined with other wound No -Current Size (cm) - Length 9 -Current Size (cm) - Width 5 -Current Size (cm) - Depth 0.5 -Total Square Cm 45 -Tunneling No -Undermining/Tunneling No -Circular Undermining No -Exudate Amt Small -Exudate Type Serosanguineous -Wound Margin Thickened & Rolled Under -Granulation Amt Medium (34-66%) -Granulation Quality [place] -Slough/Fibrin Yes -Necrosis Amt Small (1-33%) -Necrotic Tissue Type Adherent Slough -Structure Exposed N/A -Texture (Nany-wound Skin Appearance) Assessed -Moisture (Nany-wound Skin Appearance Maceration ) -Color (Nany-wound Skin Appearance) Assessed -Temperature (Nany-wound Skin No Abnormality Appearance) (Pt Warm) -Tenderness on Palpation (Nany-wound No Skin Appearance) -Foul Odor after Cleansing No -Anesthetic Used 4% Lidocaine Solution [Edema Assessment] -Lower Limb Edema Present Yes -Right Calf (cm) 35.5 -Right Ankle (cm) 21.5 WC - Nurse 2 - General Ulcer CM Notes Start: 08/15/19 10:44 Freq: Status: Active Protocol: Activity Type Activity Date Activity User E-Sign Co-Sign Detail Recorded Client Recorded Date Recorded By Document 09/05/19 13:44 DV [id number] 09/05/19 13:59 DV 09/05/19 13:44 Wound Center Nurse 2 [Procedure/Treatment] #5 Medial Lower RLE (Skin Tear Cluster ) -Time 13:47 -Correct Patient Yes -Correct Side, Site, Position Yes -Correct Procedure Yes -Procedure Performed Yes -Type of Procedure Debridement -Clinical Debridement Selective -Post Debridement Size (cm) - Length 5.9 -Post Debridement Size (cm) - Width 1.0 -Post Debridement Size (cm) - Depth 0.1 -Total Square Cm 5.90 -Wound/Ulcer Outcome Not Healed -Ulcer Cleansing Rinsed/ Irrigated with Saline -Foul Odor after Cleansing No -Bioengineered Tissue No -Bleeding Controlled with Pressure -Offloading No -Treatment Response Procedure Tolerated Well #4 Medial RLE- Superior -Time 13:50 -Correct Patient Yes -Correct Side, Site, Position Yes -Correct Procedure Yes -Procedure Performed Yes -Type of Procedure Debridement -Clinical Debridement Subcutaneous -Post Debridement Size (cm) - Length 0.7 -Post Debridement Size (cm) - Width 0.5 -Post Debridement Size (cm) - Depth 0.3 -Total Square Cm 0.35 -Wound/Ulcer Outcome Not Healed -Ulcer Cleansing Rinsed/ Irrigated with Saline -Foul Odor after Cleansing No -Bioengineered Tissue No -Bleeding Controlled with Pressure -Offloading No -Treatment Response Procedure Tolerated Well #2 Medial RLE- Inferior -Time 13:51 -Correct Patient Yes -Correct Side, Site, Position Yes -Correct Procedure Yes -Procedure Performed Yes -Type of Procedure Debridement -Clinical Debridement Subcutaneous -Post Debridement Size (cm) - Length 1.3 -Post Debridement Size (cm) - Width 1.1 -Post Debridement Size (cm) - Depth 0.2 -Total Square Cm 1.43 -Wound/Ulcer Outcome Not Healed -Ulcer Cleansing Rinsed/ Irrigated with Saline -Foul Odor after Cleansing No -Bioengineered Tissue No -Bleeding Controlled with Pressure -Offloading No -Treatment Response Procedure Tolerated Well #1 Medial RLE -Time 13:51 -Correct Patient Yes -Correct Side, Site, Position Yes -Correct Procedure Yes -Procedure Performed Yes -Type of Procedure Debridement -Clinical Debridement Subcutaneous -Post Debridement Size (cm) - Length 7.8 -Post Debridement Size (cm) - Width 4.9 -Post Debridement Size (cm) - Depth 0.4 -Total Square Cm 38.22 -Wound/Ulcer Outcome Not Healed -Ulcer Cleansing Rinsed/ Irrigated with Saline -Foul Odor after Cleansing No -Bioengineered Tissue No -Bleeding Controlled with Pressure -Offloading No -Treatment Response Procedure Tolerated Well [See Physician Procedure note for Specifics] Pain Scale: 0-10 Numeric [Pain] -Is Patient Pain Free? Yes Psych/Mental Status: Normal Affect, Appropriate Debridement Note Post-Debridement Measurements/Treatment WC - Nurse 2 - General Ulcer CM Notes Start: 08/15/19 10:44 Freq: Status: Active Protocol: Activity Type Activity Date Activity User E-Sign Co-Sign Detail Recorded Client Recorded Date Recorded By Document 08/15/19 11:34 DV [id number] 08/15/19 11:37 DV Document 08/22/19 12:23 DV [id number] 08/22/19 12:57 DV Document 09/05/19 13:44 DV [id number] 09/05/19 13:59 DV 08/15/19 08/22/19 09/05/19 11:34 12:23 13:44 Wound Center Nurse 2 #5 Medial Lower RLE (Skin Tear Cluster) -Time 12:25 13:47 -Correct Patient Yes Yes Yes -Correct Side, Site, Position Yes Yes Yes -Correct Procedure No Yes Yes -Procedure Performed No Yes Yes -Type of Procedure Debridement Debridement -Clinical Debridement Subcutaneous Selective -Post Debridement Size (cm) - Length 5.1 5.9 -Post Debridement Size (cm) - Width 7.2 1.0 -Post Debridement Size (cm) - Depth 0.1 0.1 -Total Square Cm 36.72 5.90 -Wound/Ulcer Outcome Not Healed Not Healed Not Healed -Ulcer Cleansing Rinsed/ Rinsed/ Irrigated with Irrigated with Saline Saline -Foul Odor after Cleansing No No -Bioengineered Tissue No No -Bleeding Controlled with Pressure Pressure -Offloading No No -Treatment Response Procedure Procedure Tolerated Well Tolerated Well #4 Medial RLE- Superior -Time 12: 13:50 -Correct Patient Yes Yes Yes -Correct Side, Site, Position Yes Yes Yes -Correct Procedure No Yes Yes -Procedure Performed No Yes Yes -Type of Procedure Debridement Debridement -Clinical Debridement Subcutaneous Subcutaneous -Post Debridement Size (cm) - Length 0.7 0.7 -Post Debridement Size (cm) - Width 0.7 0.5 -Post Debridement Size (cm) - Depth 0.5 0.3 -Total Square Cm 0.49 0.35 -Wound/Ulcer Outcome Not Healed Not Healed Not Healed -Ulcer Cleansing Rinsed/ Rinsed/ Irrigated with Irrigated with Saline Saline -Foul Odor after Cleansing No No -Bioengineered Tissue No No -Bleeding Controlled with Pressure Pressure -Offloading No No -Treatment Response Procedure Procedure Tolerated Well Tolerated Well #2 Medial RLE- Inferior -Time 12: 13:51 -Correct Patient Yes Yes Yes -Correct Side, Site, Position Yes Yes Yes -Correct Procedure No Yes Yes -Procedure Performed No Yes Yes -Type of Procedure Debridement Debridement -Clinical Debridement Subcutaneous Subcutaneous -Post Debridement Size (cm) - Length 1.1 1.3 -Post Debridement Size (cm) - Width 1.0 1.1 -Post Debridement Size (cm) - Depth 0.3 0.2 -Total Square Cm 1.10 1.43 -Wound/Ulcer Outcome Not Healed Not Healed Not Healed -Ulcer Cleansing Rinsed/ Rinsed/ Irrigated with Irrigated with Saline Saline -Foul Odor after Cleansing No No -Bioengineered Tissue No No -Bleeding Controlled with Pressure Pressure -Offloading No No -Treatment Response Procedure Procedure Tolerated Well Tolerated Well #1 Medial RLE -Time 11:36 12:26 13:51 -Correct Patient Yes Yes Yes -Correct Side, Site, Position Yes Yes Yes -Correct Procedure No Yes Yes -Procedure Performed No Yes Yes -Type of Procedure Debridement Debridement -Clinical Debridement Subcutaneous Subcutaneous -Post Debridement Size (cm) - Length 8.0 7.8 -Post Debridement Size (cm) - Width 5.3 4.9 -Post Debridement Size (cm) - Depth 0.5 0.4 -Total Square Cm 42.40 38.22 -Wound/Ulcer Outcome Not Healed Not Healed Not Healed -Ulcer Cleansing Rinsed/ Rinsed/ Irrigated with Irrigated with Saline Saline -Foul Odor after Cleansing No No -Bioengineered Tissue No No -Bleeding Controlled with Pressure Pressure -Offloading No No -Treatment Response Procedure Procedure Tolerated Well Tolerated Well Pain Scale: 0-10 Numeric Is Patient Pain Free? Yes Yes Yes Wound debrided: medial lower RLE Laterality: Right Type of Debridement: Excisional debridement Anesthesia Used: 4% Lidocaine Solution, 5% Lidocaine Gel Depth: Down to and including healthy tissue, in the subcutaneous layer Percentage of wound debrided: 100 Instrument Used: 3mm curette Tissue Removed: Yellow slough, devitalized tissue Severity: Fat Layer Exposed Amount of bleeding with debridement: Mild Bleeding Controlled with: Compression and gauze Patient tolerated procedure well - Additional Wound Wound debrided: Medial right lower extremity superior Laterality: Right Type of Debridement: Excisional debridement Anesthesia Used: 4% Lidocaine Solution, 5% Lidocaine Gel Depth: Down to and including healthy tissue, in the subcutaneous layer Percentage of wound debrided: 100 Instrument Used: 5mm curette Tissue Removed: Yellow slough, devitalized tissue Severity: Fat Layer Exposed Amount of bleeding with debridement: Mild Bleeding Controlled with: Compression and gauze Patient tolerated procedure: Patient tolerated procedure well - Additional Wound Wound debrided: Medial right lower extremity inferior Laterality: Right Type of Debridement: Excisional debridement Anesthesia Used: 4% Lidocaine Solution, 5% Lidocaine Gel Depth: Down to and including healthy tissue, in the subcutaneous layer Percentage of wound debrided: 100 Instrument Used: 5mm curette Tissue Removed: Yellow slough, devitalized tissue Severity: Fat Layer Exposed Amount of bleeding with debridement: Mild Bleeding Controlled with: Compression and gauze Patient tolerated procedure: Patient tolerated procedure well - Additional Wound Wound debrided: medial right lower extremity Laterality: Right Type of Debridement: Excisional debridement Anesthesia Used: 4% Lidocaine Solution, 5% Lidocaine Gel Depth: Down to and including healthy tissue, in the subcutaneous layer Percentage of wound debrided: 100 Instrument Used: 5mm curette Tissue Removed: Yellow slough, devitalized tissue Severity: Fat Layer Exposed Amount of bleeding with debridement: Mild Bleeding Controlled with: Compression and gauze Patient tolerated procedure: Patient tolerated procedure well Assessment/Plan Assessment: 1. Venous ulcer of right leg, chronic. 2. Chronic ulcer of right leg with fat layer exposed. 3. Sternal wound dehiscence, chronic - healed. 4. Venous insufficiency, chronic. 5. Peripheral arterial disease, chronic. 6. T2 DM, chronic. 7. CHF, chronic. 8. End-stage renal disease on dialysis, chronic Plan: Sanjeev's right lower extremity wounds were evaluated and debrided today. There is minimal improvement from last week. Her right lower extremity is still erythematous and macerated in areas. Will have SNF change dressings to Santyl and Aquacel Ag and ABD pads and continue xeroform to right lower leg skin tears. Continue single layer tubigrip compression. Off-loading: Avoid prolonged standing or dangling of legs. Keep feet elevated at or above waist level when seated. Diet: Patient encouraged to increase protein and vitamin C intake while taking caution to avoid high carbohydrate and/or sugar intake. Follow-up: 1 week. Red flag symptoms reviewed, which should prompt patient to report to the ER, including but not limited to: Increasing pain, redness, or swelling surrounding any of her wounds; increase in drainage from any of her wounds; foul-smelling or purulent drainage from any of her wounds; fever, chills, nausea, or vomiting.
--- NOTE | 2019-09-15 08:43 | WC ---
Addendum entered by Lashaun Zhang 09/15/19 08:50: Original Note: Spoke with Thu YANNA @ [facility] regarding patient and where she was at with her wounds after our conversation from last week. Patient refused to go to ED and Thu stated that she seems to be doing better with the application of tubigrips to her lower extremities. This nurse explained that was in the order that a single layer of tubigrips should be applied in the AM and removed at night before going to bed. Thu also stated that she spoke with Tino regarding his moms refusal to adhere to her dialysis treatments and her wound care at this facility. Thu stated that the son was aware, he has spoken with his mom but that he didn't seem overly concerned.................................................................DVM
== END 2019-09-14 23:59 ==
LOC: WC 13:30
PROVIDERS: Visit Provider Family Medicine
DX: I83.019 Varicose veins of right lower extremity with ulcer of unspecified site (principal); I87.2 Venous insufficiency (chronic) (peripheral); L97.912 Non-pressure chronic ulcer of unspecified part of right lower leg with fat layer exposed; E11.22 Type 2 diabetes mellitus with diabetic chronic kidney disease; N18.6 End stage renal disease; Z99.2 Dependence on renal dialysis; L03.115 Cellulitis of right lower limb; I25.10 Atherosclerotic heart disease of native coronary artery without angina pectoris; I50.32 Chronic diastolic (congestive) heart failure; E03.9 Hypothyroidism, unspecified; D63.8 Anemia in other chronic diseases classified elsewhere; E78.5 Hyperlipidemia, unspecified; E11.51 Type 2 diabetes mellitus with diabetic peripheral angiopathy without gangrene; F32.9 Major depressive disorder, single episode, unspecified; I13.2 Hypertensive heart and chronic kidney disease with heart failure and with stage 5 chronic kidney disease, or end stage renal disease; Z75.1 Person awaiting admission to adequate facility elsewhere; T81.30XA Disruption of wound, unspecified, initial encounter
CPT/HCPCS: 11042; 11045; 99213; G0463

== ENCOUNTER 2019-10-10 12:30 | Outpatient (RCR) | payer MEDICARE, MEDICAID, SELFPAY ==
[2019-09-15 00:27] VITALS: BP 161/56; PULSE 71; RESP 20; TEMP 36.3; BMI 34.4
[2019-09-19 11:25] VITALS: BP 153/60; PULSE 64; RESP 20; TEMP 36.4; BMI 34.4
--- NOTE | 2019-09-19 17:04 | PN.PCM_ITS ---
(1) Cellulitis of right leg Status: Chronic Code(s): L03.115 - Cellulitis of right lower limb (2) Right leg pain Status: Chronic Code(s): M79.604 - Pain in right leg (3) Chronic ulcer of right leg with fat layer exposed Status: Chronic Code(s): L97.912 - Non-pressure chronic ulcer of unspecified part of right lower leg with fat layer exposed (4) End stage renal disease on dialysis Status: Chronic Code(s): N18.6 - End stage renal disease; Z99.2 - Dependence on renal dialysis (5) Peripheral arterial disease Status: Chronic Code(s): I73.9 - Peripheral vascular disease, unspecified (6) Type 2 diabetes mellitus Status: Chronic Qualifiers: Diabetes mellitus terminal system operator insulin use: without terminal system operator use Diabetes mellitus complication status: with kidney complications Diabetes mellitus complication detail: with chronic kidney disease Chronic kidney disease stage: on chronic dialysis Qualified Code(s): E11.22 - Type 2 diabetes mellitus with diabetic chronic kidney disease; N18.6 - End stage renal disease; Z99.2 - Dependence on renal dialysis Code(s): E11.9 - Type 2 diabetes mellitus without complications (7) Ulcer of left lower extremity with fat layer exposed Status: Chronic Code(s): L97.922 - Non-pressure chronic ulcer of unspecified part of left lower leg with fat layer exposed (8) Venous insufficiency Status: Chronic Code(s): I87.2 - Venous insufficiency (chronic) (peripheral) (9) Venous ulcer of right leg Status: Chronic Code(s): I83.019 - Varicose veins of right lower extremity with ulcer of unspecified site; L97.919 - Non-pressure chronic ulcer of unspecified part of right lower leg with unspecified severity (10) Cellulitis of right lower extremity without foot Status: Chronic Code(s): L03.115 - Cellulitis of right lower limb Type of Wound Date of Service: 09/19/19 Chief Complaint: open wounds right leg History of Wound: Patient is a pleasant 63-year-old female who [facility], for initial evaluation of sternal and right lower extremity wounds and was seen by Sonia Paez. She currently resides at [facility]. Patient is a very poor historian, and is unaccompanied at today's visit. The majority of details within patient's HPI were gathered from records faxed from [facility]. Patient has a PMH of T2DM, hypertension, coronary artery disease s/p recent coronary artery bypass graft, CHF, diastolic dysfunction, peripheral arterial disease, end-stage renal disease on hemodialysis, dyslipidemia, GERD, hypothyroidism, depression, steal syndrome in right hand, and anemia of chronic disease. She presents with a sternal wound dehiscence, and right lower extremity wound dehiscence s/p quadruple bypass open heart surgery with vein harvesting from right lower extremity, which she underwent in February 2019. Postoperatively, [facility] a [facility]. She was readmitted to [facility] due to wound infection at the harvesting site of right leg. She was evaluated by surgery and underwent debridement, and was transferred to the penitentiary. She was readmitted to [place] again, this time for sternal wound infection which required debridement and subsequent wound VAC placement. She was then transferred to [facility] for further care and IV antibiotic therapy on 05/03/2019. It is unclear from the documentation provided when she was discharged from [facility]. While at [facility], plastic surgery was consulted (Dr. Eva Pelaez). In his progress note from 05/12/2019, it was recommended that Santyl with wet gauze be applied daily to sternal wound, and NPWT at -125 mmHg continuous pressure be applied to RLE and changed 3 times per week. High-protein diet and every 2 hours turns also recommended. In his progress note from 05/19/2019, it was recommended that BUNCH BREAKER WT be applied at -125 mmHg continuous pressure to both ster nal and RLE wounds, to be changed 3 times per week and as needed. High-protein diet and every 2 hours turns continued to be recommended. When patient presented to the wound healing center on 06/10/2019, she had OPTifoam applied to her sternal wound, and Aquacel applied to her RLE wounds. She is not using any compression to lower extremities and did not have a wound vac. Patient states the staff at [facility] have been performing daily dressing changes to her wounds using Aquacel. She is also taking Boost supplements at bedtime to increase protein. Patient has a central venous catheter placed, but is unsure what antibiotics she is currently taking. She denies any increased redness, swelling, pain, or drainage from any of her wounds. She denies any purulent or foul-smelling drainage from her wounds. She does have erythema and swelling of her right lower extremity, which she states has improved. Her lab work from [facility] on 05/19/2019 showed WBC 7.44 and hemoglobin 9.1 (see report for full details). No other documentation is available at this time. Records were requested from [facility], [facility], and [facility]. They had been using Santyl and gauze to her lower extremity wound. She saw the surgeon regarding her chest wound and he removed some tissue at [facility] and continued with Santyl and optifoam and this was healed on 07/11/2019. She denies any increased pain, erythema, fever or chills. Progress of Wound: Sanjeev returns for follow up of right lower extremity wounds. The right lower extremity is minimally improved since last week - still very erythematous and macerated in areas, still significantly edematous and very painful to touch. She is unable to tolerate debridement very much. She also has an odor to her wounds. Her edema has improved compared to last week. She does admit to not elevating her legs much during the day. She does report better compliance with dialysis this week. - Physical Exam Vital Signs Temp Pulse Resp BP 97.6 F L 64 20 H 153/60 H 09/19/19 11:25 09/19/19 11:25 09/19/19 11:25 09/19/19 11:25 General: Alert, Oriented x3, Cooperative, No apparent distress HEENT: Atraumatic, Normocephalic Oral: Moist Mucosa Abdomen: Obese Extremities: Edema Skin: Ulcer/ Wound Wound Measurements and Assessment WC - Nurse 1 - General Ulcer Measurement Start: 09/15/19 09:10 Freq: Status: Active Protocol: Activity Type Activity Date Activity User E-Sign Co-Sign Detail Recorded Client Recorded Date Recorded By Document 09/19/19 11:25 [facility] [id number] 09/19/19 11:38 [facility] 09/19/19 11:25 Wound Center Nurse 1 [Ulcer Assessment] #6 LLE CLUSTER -Combined with other wound No -Current Size (cm) - Length 14.8 -Current Size (cm) - Width 6 -Current Size (cm) - Depth 0.2 -Total Square Cm 88.8 -Date of Last Picture (Recall this 09/19/19 field) -Photo Taken Yes -Epithelialization None Present -Tunneling No -Undermining/Tunneling No -Circular Undermining No -Exudate Amt Medium -Exudate Type Serosanguineous -Wound Margin Distinct, Outline Attached -Granulation Amt Small (1-33%) -Granulation Quality Red -Slough/Fibrin Yes -Necrosis Amt Large (67-100%) -Necrotic Tissue Type Adherent Slough -Texture (Nany-wound Skin Appearance) Assessed, Scarring -Moisture (Nany-wound Skin Appearance Assessed, ) Maceration -Color (Nany-wound Skin Appearance) Assessed, Erythema,Palor -Temperature (Nany-wound Skin No Abnormality Appearance) (Pt Warm) -Tenderness on Palpation (Nany-wound No Skin Appearance) -Ulcer Cleansing SOAPY WATER -Foul Odor after Cleansing No -Anesthetic Used 4% Lidocaine Solution #5 Medial Lower RLE (Skin Tear Cluster ) -Combined with other wound No -Current Size (cm) - Length 16 -Current Size (cm) - Width 10.5 -Current Size (cm) - Depth 0.1 -Total Square Cm 168.0 -Photo Taken No -Epithelialization None Present -Tunneling No -Undermining/Tunneling No -Circular Undermining No -Exudate Amt Medium -Exudate Type Serosanguineous -Wound Margin Distinct, Outline Attached -Granulation Amt Medium (34-66%) -Granulation Quality Red -Slough/Fibrin Yes -Necrosis Amt Medium (34-66%) -Necrotic Tissue Type Adherent Slough -Texture (Nany-wound Skin Appearance) Assessed, Friable, Scarring -Moisture (Nany-wound Skin Appearance Assessed, ) Maceration -Color (Nany-wound Skin Appearance) Assessed, Erythema,Palor -Temperature (Nany-wound Skin No Abnormality Appearance) (Pt Warm) -Tenderness on Palpation (Nany-wound Yes Skin Appearance) -Ulcer Cleansing SOAPY WATER -Foul Odor after Cleansing No -Anesthetic Used 4% Lidocaine Solution #4 Medial RLE- Superior -Combined with other wound No -Current Size (cm) - Length 0.6 -Current Size (cm) - Width 0.5 -Current Size (cm) - Depth 0.3 -Total Square Cm 0.30 -Photo Taken No -Epithelialization None Present -Tunneling No -Undermining/Tunneling No -Circular Undermining No -Exudate Amt Small -Exudate Type Serosanguineous -Wound Margin Distinct, Outline Attached -Granulation Amt Small (1-33%) -Granulation Quality [place] -Slough/Fibrin Yes -Necrosis Amt Large (67-100%) -Necrotic Tissue Type Adherent Slough -Texture (Nany-wound Skin Appearance) Assessed, Scarring -Moisture (Nany-wound Skin Appearance Assessed, ) Maceration -Color (Nany-wound Skin Appearance) Assessed, Erythema,Palor -Temperature (Nany-wound Skin No Abnormality Appearance) (Pt Warm) -Tenderness on Palpation (Nany-wound No Skin Appearance) -Ulcer Cleansing SOAPY WATER -Foul Odor after Cleansing No -Anesthetic Used 4% Lidocaine Solution #2 Medial RLE- Inferior -Combined with other wound No -Current Size (cm) - Length 1.5 -Current Size (cm) - Width 1.5 -Current Size (cm) - Depth 0.5 -Total Square Cm 2.25 -Photo Taken No -Epithelialization None Present -Tunneling No -Undermining/Tunneling No -Circular Undermining No -Exudate Amt Medium -Exudate Type Serosanguineous -Wound Margin Distinct, Outline Attached -Granulation Amt Small (1-33%) -Granulation Quality [place] -Slough/Fibrin Yes -Necrosis Amt Large (67-100%) -Necrotic Tissue Type Adherent Slough -Texture (Nany-wound Skin Appearance) Assessed, Scarring -Moisture (Nany-wound Skin Appearance Assessed, ) Maceration -Color (Nany-wound Skin Appearance) Assessed, Erythema,Palor -Temperature (Nany-wound Skin No Abnormality Appearance) (Pt Warm) -Tenderness on Palpation (Nany-wound Yes Skin Appearance) -Ulcer Cleansing SOAPY WATER -Foul Odor after Cleansing No -Anesthetic Used 4% Lidocaine Solution #1 Medial RLE -Combined with other wound No -Current Size (cm) - Length 8.7 -Current Size (cm) - Width 4.5 -Current Size (cm) - Depth 0.9 -Total Square Cm 39.15 -Photo Taken No -Epithelialization None Present -Tunneling No -Undermining/Tunneling No -Circular Undermining No -Exudate Amt Large -Exudate Type Serosanguineous -Wound Margin Distinct, Outline Attached -Granulation Amt Small (1-33%) -Granulation Quality [place] -Slough/Fibrin Yes -Necrosis Amt Large (67-100%) -Necrotic Tissue Type Adherent Slough -Texture (Nany-wound Skin Appearance) Assessed, Scarring -Moisture (Nany-wound Skin Appearance Assessed, ) Maceration -Color (Nany-wound Skin Appearance) Assessed, Erythema,Palor -Temperature (Nany-wound Skin No Abnormality Appearance) (Pt Warm) -Tenderness on Palpation (Nany-wound No Skin Appearance) -Ulcer Cleansing SOAPY WATER -Foul Odor after Cleansing No -Anesthetic Used 4% Lidocaine Solution [Edema Assessment] -Lower Limb Edema Present Yes -Right Calf (cm) 33.4 -Right Ankle (cm) 21.2 -Left Calf (cm) 33.5 -Left Ankle (cm) 19.2 WC - Nurse 2 - General Ulcer CM Notes Start: 09/15/19 09:10 Freq: Status: Active Protocol: Activity Type Activity Date Activity User E-Sign Co-Sign Detail Recorded Client Recorded Date Recorded By Document 09/19/19 11:54 DV [id number] 09/19/19 12:13 DV 09/19/19 11:54 Wound Center Nurse 2 [Procedure/Treatment] #6 LLE CLUSTER -Time 12:12 -Correct Patient Yes -Correct Side, Site, Position Yes -Correct Procedure Yes -Procedure Performed Yes -Type of Procedure Debridement -Clinical Debridement Subcutaneous -Post Debridement Size (cm) - Length 14.8 -Post Debridement Size (cm) - Width 6.5 -Post Debridement Size (cm) - Depth 0.2 -Total Square Cm 96.20 -Wound/Ulcer Outcome Not Healed -Ulcer Cleansing Rinsed/ Irrigated with Saline -Foul Odor after Cleansing No -Bioengineered Tissue No -Bleeding Controlled with Pressure -Offloading No -Treatment Response Procedure Tolerated Well #5 Medial Lower RLE (Skin Tear Cluster ) -Time 12:10 -Correct Patient Yes -Correct Side, Site, Position Yes -Correct Procedure Yes -Procedure Performed Yes -Type of Procedure Debridement -Clinical Debridement Subcutaneous -Post Debridement Size (cm) - Length 16.1 -Post Debridement Size (cm) - Width 11.0 -Post Debridement Size (cm) - Depth 0.1 -Total Square Cm 177.10 -Wound/Ulcer Outcome Not Healed #4 Medial RLE- Superior -Time 12:09 -Correct Patient Yes -Correct Side, Site, Position Yes -Correct Procedure Yes -Procedure Performed Yes -Type of Procedure Debridement -Clinical Debridement Subcutaneous -Post Debridement Size (cm) - Length 1.0 -Post Debridement Size (cm) - Width 0.5 -Post Debridement Size (cm) - Depth 0.4 -Total Square Cm 0.50 -Wound/Ulcer Outcome Not Healed -Ulcer Cleansing Rinsed/ Irrigated with Saline -Foul Odor after Cleansing No -Bioengineered Tissue No -Bleeding Controlled with Pressure -Offloading No -Treatment Response Procedure Tolerated Well #2 Medial RLE- Inferior -Time 12:05 -Correct Patient Yes -Correct Side, Site, Position Yes -Correct Procedure Yes -Procedure Performed Yes -Type of Procedure Debridement -Clinical Debridement Subcutaneous -Post Debridement Size (cm) - Length 2.0 -Post Debridement Size (cm) - Width 2.0 -Post Debridement Size (cm) - Depth 1.0 -Total Square Cm 4.00 -Wound/Ulcer Outcome Not Healed -Ulcer Cleansing Rinsed/ Irrigated with Saline -Foul Odor after Cleansing No -Bioengineered Tissue No -Bleeding Controlled with Pressure -Offloading No -Treatment Response Procedure Tolerated Well #1 Medial RLE -Time 12:02 -Correct Patient Yes -Correct Side, Site, Position Yes -Correct Procedure Yes -Procedure Performed Yes -Type of Procedure Debridement -Clinical Debridement Subcutaneous -Post Debridement Size (cm) - Length 9.0 -Post Debridement Size (cm) - Width 5.0 -Post Debridement Size (cm) - Depth 1.0 -Total Square Cm 45.00 -Wound/Ulcer Outcome Not Healed -Ulcer Cleansing Rinsed/ Irrigated with Saline -Foul Odor after Cleansing No -Bioengineered Tissue No -Bleeding Controlled with Pressure -Offloading No -Treatment Response Procedure Tolerated Well [See Physician Procedure note for Specifics] Pain Scale: 0-10 Numeric [Pain] -Is Patient Pain Free? Yes Psych/Mental Status: Normal Affect, Appropriate Debridement Note Post-Debridement Measurements/Treatment WC - Nurse 2 - General Ulcer CM Notes Start: 09/15/19 09:10 Freq: Status: Active Protocol: Activity Type Activity Date Activity User E-Sign Co-Sign Detail Recorded Client Recorded Date Recorded By Document 09/19/19 11:54 DV [id number] 09/19/19 12:13 DV 09/19/19 11:54 Wound Center Nurse 2 #6 LLE CLUSTER -Time 12:12 -Correct Patient Yes -Correct Side, Site, Position Yes -Correct Procedure Yes -Procedure Performed Yes -Type of Procedure Debridement -Clinical Debridement Subcutaneous -Post Debridement Size (cm) - Length 14.8 -Post Debridement Size (cm) - Width 6.5 -Post Debridement Size (cm) - Depth 0.2 -Total Square Cm 96.20 -Wound/Ulcer Outcome Not Healed -Ulcer Cleansing Rinsed/ Irrigated with Saline -Foul Odor after Cleansing No -Bioengineered Tissue No -Bleeding Controlled with Pressure -Offloading No -Treatment Response Procedure Tolerated Well #5 Medial Lower RLE (Skin Tear Cluster) -Time 12:10 -Correct Patient Yes -Correct Side, Site, Position Yes -Correct Procedure Yes -Procedure Performed Yes -Type of Procedure Debridement -Clinical Debridement Subcutaneous -Post Debridement Size (cm) - Length 16.1 -Post Debridement Size (cm) - Width 11.0 -Post Debridement Size (cm) - Depth 0.1 -Total Square Cm 177.10 -Wound/Ulcer Outcome Not Healed #4 Medial RLE- Superior -Time 12:09 -Correct Patient Yes -Correct Side, Site, Position Yes -Correct Procedure Yes -Procedure Performed Yes -Type of Procedure Debridement -Clinical Debridement Subcutaneous -Post Debridement Size (cm) - Length 1.0 -Post Debridement Size (cm) - Width 0.5 -Post Debridement Size (cm) - Depth 0.4 -Total Square Cm 0.50 -Wound/Ulcer Outcome Not Healed -Ulcer Cleansing Rinsed/ Irrigated with Saline -Foul Odor after Cleansing No -Bioengineered Tissue No -Bleeding Controlled with Pressure -Offloading No -Treatment Response Procedure Tolerated Well #2 Medial RLE- Inferior -Time 12:05 -Correct Patient Yes -Correct Side, Site, Position Yes -Correct Procedure Yes -Procedure Performed Yes -Type of Procedure Debridement -Clinical Debridement Subcutaneous -Post Debridement Size (cm) - Length 2.0 -Post Debridement Size (cm) - Width 2.0 -Post Debridement Size (cm) - Depth 1.0 -Total Square Cm 4.00 -Wound/Ulcer Outcome Not Healed -Ulcer Cleansing Rinsed/ Irrigated with Saline -Foul Odor after Cleansing No -Bioengineered Tissue No -Bleeding Controlled with Pressure -Offloading No -Treatment Response Procedure Tolerated Well #1 Medial RLE -Time 12:02 -Correct Patient Yes -Correct Side, Site, Position Yes -Correct Procedure Yes -Procedure Performed Yes -Type of Procedure Debridement -Clinical Debridement Subcutaneous -Post Debridement Size (cm) - Length 9.0 -Post Debridement Size (cm) - Width 5.0 -Post Debridement Size (cm) - Depth 1.0 -Total Square Cm 45.00 -Wound/Ulcer Outcome Not Healed -Ulcer Cleansing Rinsed/ Irrigated with Saline -Foul Odor after Cleansing No -Bioengineered Tissue No -Bleeding Controlled with Pressure -Offloading No -Treatment Response Procedure Tolerated Well Pain Scale: 0-10 Numeric Is Patient Pain Free? Yes Wound debrided: left LE cluster Laterality: Left No debridement was completed today - Patient was unable to tolerate - Additional Wound Wound debrided: medial RLE skin tear cluster Laterality: Right Type of Debridement: Excisional debridement Anesthesia Used: 4% Lidocaine Solution, 5% Lidocaine Gel Depth: Down to and including healthy tissue, in the subcutaneous layer Percentage of wound debrided: 10 Instrument Used: 5mm curette Tissue Removed: Yellow slough, devitalized tissue Severity: Fat Layer Exposed Amount of bleeding with debridement: Mild Bleeding Controlled with: Compression and gauze Patient tolerated procedure: Patient tolerated procedure well - Additional Wound Wound debrided: Medial right lower extremity inferior Laterality: Right Type of Debridement: Excisional debridement Anesthesia Used: 4% Lidocaine Solution, 5% Lidocaine Gel Depth: Down to and including healthy tissue, in the subcutaneous layer Percentage of wound debrided: 100 Instrument Used: 5mm curette Tissue Removed: Yellow slough, devitalized tissue Severity: Fat Layer Exposed Amount of bleeding with debridement: Mild Bleeding Controlled with: Compression and gauze Patient tolerated procedure: Patient tolerated procedure well - Additional Wound Wound debrided: Medial right lower extremity superior Laterality: Right Type of Debridement: Excisional debridement Anesthesia Used: 4% Lidocaine Solution Depth: Down to and including healthy tissue, in the subcutaneous layer Percentage of wound debrided: 100 Instrument Used: 5mm curette Tissue Removed: Yellow slough, devitalized tissue Severity: Fat Layer Exposed Amount of bleeding with debridement: Mild Bleeding Controlled with: Compression and gauze Patient tolerated procedure: Patient tolerated procedure well - Additional Wound Wound debrided: Medial right lower extremity Laterality: Right Type of Debridement: Excisional debridement Anesthesia Used: 4% Lidocaine Solution, 5% Lidocaine Gel Depth: Down to and including healthy tissue, in the subcutaneous layer Percentage of wound debrided: 40 Instrument Used: 5mm curette Tissue Removed: Yellow slough, devitalized tissue Severity: Fat Layer Exposed Amount of bleeding with debridement: Mild Bleeding Controlled with: Compression and gauze Patient tolerated procedure: Patient tolerated procedure well Assessment/Plan Assessment: 1. Venous ulcer of right leg, chronic. 2. Chronic ulcer of right leg with fat layer exposed. 3. Sternal wound dehiscence, chronic - healed. 4. Venous insufficiency, chronic. 5. Peripheral arterial disease, chronic. 6. T2 DM, chronic. 7. CHF, chronic. 8. End-stage renal disease on dialysis, chronic Plan: Sanjeev's right lower extremity wounds were evaluated and debrided today. There is minimal improvement from last week. Her right lower extremity is still erythematous and macerated in areas. Very painful. + Odor. Wound culture will be taken today to evaluate for infection. Will have SNF change dressings to Santyl and Aquacel Ag and ABD pads and continue xeroform to right lower leg skin tears. Continue single layer tubigrip compression and increase to next size up so they are less compressive due to her arterial disease. Off-loading: Avoid prolonged standing or dangling of legs. Keep feet elevated at or above waist level when seated. Diet: Patient encouraged to increase protein and vitamin C intake while taking caution to avoid high carbohydrate and/or sugar intake. Follow-up: 1 week. Red flag symptoms reviewed, which should prompt patient to report to the ER, including but not limited to: Increasing pain, redness, or swelling surrounding any of her wounds; increase in drainage from any of her wounds; foul-smelling or purulent drainage from any of her wounds; fever, chills, nausea, or vomiting.
[2019-09-19 18:07] LABS: Probe Check PASS; Staph aureus DNA By PCR POSITIVE (Negative)
[2019-09-19 18:08] LABS: M R Staph aureus DNA By PCR POSITIVE (Negative)
[2019-10-10 12:38] VITALS: BP 116/62; PULSE 75; RESP 18; TEMP 36.5; BMI 34.4
--- NOTE | 2019-10-10 18:05 | PCM.WC.PN ---
(1) Cellulitis of right leg Status: Chronic Code(s): L03.115 - Cellulitis of right lower limb (2) Right leg pain Status: Chronic Code(s): M79.604 - Pain in right leg (3) Chronic ulcer of right leg with fat layer exposed Status: Chronic Code(s): L97.912 - Non-pressure chronic ulcer of unspecified part of right lower leg with fat layer exposed (4) End stage renal disease on dialysis Status: Chronic Code(s): N18.6 - End stage renal disease; Z99.2 - Dependence on renal dialysis (5) Peripheral arterial disease Status: Chronic Code(s): I73.9 - Peripheral vascular disease, unspecified (6) Type 2 diabetes mellitus Status: Chronic Qualifiers: Diabetes mellitus manager intermediate insulin use: without manager intermediate use Diabetes mellitus complication status: with kidney complications Diabetes mellitus complication detail: with chronic kidney disease Chronic kidney disease stage: on chronic dialysis Qualified Code(s): E11.22 - Type 2 diabetes mellitus with diabetic chronic kidney disease; N18.6 - End stage renal disease; Z99.2 - Dependence on renal dialysis Code(s): E11.9 - Type 2 diabetes mellitus without complications (7) Ulcer of left lower extremity with fat layer exposed Status: Chronic Code(s): L97.922 - Non-pressure chronic ulcer of unspecified part of left lower leg with fat layer exposed (8) Venous insufficiency Status: Chronic Code(s): I87.2 - Venous insufficiency (chronic) (peripheral) (9) Venous ulcer of right leg Status: Chronic Code(s): I83.019 - Varicose veins of right lower extremity with ulcer of unspecified site; L97.919 - Non-pressure chronic ulcer of unspecified part of right lower leg with unspecified severity (10) Cellulitis of right lower extremity without foot Status: Chronic Code(s): L03.115 - Cellulitis of right lower limb Type of Wound Date of Service: 10/10/19 Chief Complaint: open wounds right leg History of Wound: Patient is a pleasant 63-year-old female who [facility], for initial evaluation of sternal and right lower extremity wounds and was seen by Sonia Paez. She currently resides at [facility]. Patient is a very poor historian, and is unaccompanied at today's visit. The majority of details within patient's HPI were gathered from records faxed from [facility]. Patient has a PMH of T2DM, hypertension, coronary artery disease s/p recent coronary artery bypass graft, CHF, diastolic dysfunction, peripheral arterial disease, end-stage renal disease on hemodialysis, dyslipidemia, GERD, hypothyroidism, depression, steal syndrome in right hand, and anemia of chronic disease. She presents with a sternal wound dehiscence, and right lower extremity wound dehiscence s/p quadruple bypass open heart surgery with vein harvesting from right lower extremity, which she underwent in February 2019. Postoperatively, [facility] was [facility] a prison. She was readmitted to [facility] due to wound infection at the harvesting site of right leg. She was evaluated by surgery and underwent debridement, and was transferred to the prison. She was readmitted to [facility] again, this time for sternal wound infection which required debridement and subsequent wound VAC placement. She was then transferred to [facility] for further care and IV antibiotic therapy on 05/03/2019. It is unclear from the documentation provided when she was discharged from [facility]. While at [facility], plastic surgery was consulted (Dr. Eva Pelaez). In his progress note from 05/12/2019, it was recommended that Santyl with wet gauze be applied daily to sternal wound, and NPWT at -125 mmHg continuous pressure be applied to RLE and changed 3 times per week. High-protein diet and every 2 hours turns also recommended. In his progress note from 05/19/2019, it was recommended that RIM TECHNICIAN WT be applied at -125 mmHg continuous pressure to both sternal and RLE wounds, to be changed 3 times per week and as needed. High-protein diet and every 2 hours turns continued to be recommended. When patient presented to the wound healing center on 06/10/2019, she had OPTifoam applied to her sternal wound, and Aquacel applied to her RLE wounds. She is not using any compression to lower extremities and did not have a wound vac. Patient states the staff at [facility] have been performing daily dressing changes to her wounds using Aquacel. She is also taking Boost supplements at bedtime to increase protein. Patient has a central venous catheter placed, but is unsure what antibiotics she is currently taking. She denies any increased redness, swelling, pain, or drainage from any of her wounds. She denies any purulent or foul-smelling drainage from her wounds. She does have erythema and swelling of her right lower extremity, which she states has improved. Her lab work from [facility] on 05/19/2019 showed WBC 7.44 and hemoglobin 9.1 (see report for full details). No other documentation is available at this time. Records were requested from [facility], [facility], and [facility]. They had been using Santyl and gauze to her lower extremity wound. She saw the surgeon regarding her chest wound and he removed some tissue at [facility] and continued with Santyl and optifoam and this was healed on 07/11/2019. She denies any increased pain, erythema, fever or chills. Progress of Wound: Sanjeev returns for follow up of right lower extremity wounds. The right lower extremity is much worse and has multiple areas of eschar - still very erythematous and macerated in areas, still significantly edematous and very painful to touch. She also has an odor to her wounds. She does admit to not elevating her legs much during the day. She does report better compliance with dialysis this week. - Physical Exam Vital Signs Temp Pulse Resp BP 97.7 F L 75 18 116/62 10/10/19 12:38 10/10/19 12:38 10/10/19 12:38 10/10/19 12:38 General: Alert, Oriented x3, Cooperative, No apparent distress HEENT: Atraumatic, Normocephalic Oral: Moist Mucosa Extremities: Edema Skin: Ulcer/ Wound Wound Measurements and Assessment WC - Nurse 1 - General Ulcer Measurement Start: 09/15/19 09:10 Freq: Status: Active Protocol: Activity Type Activity Date Activity User E-Sign Co-Sign Detail Recorded Client Recorded Date Recorded By Document 10/10/19 12:38 RB [id number] 10/10/19 12:57 RB 10/10/19 12:38 Wound Center Nurse 1 [Ulcer Assessment] #6 LLE CLUSTER -Combined with other wound No -Current Size (cm) - Length 25 -Current Size (cm) - Width 7 -Current Size (cm) - Depth 0.2 -Total Square Cm 175 -Tunneling No -Undermining/Tunneling No -Circular Undermining No -Exudate Amt Medium -Exudate Type Serosanguineous -Wound Margin Thickened & Rolled Under -Granulation Amt Small (1-33%) -Granulation Quality [place] -Slough/Fibrin Yes -Necrosis Amt Large (67-100%) -Necrotic Tissue Type Adherent Slough -Structure Exposed N/A -Texture (Nany-wound Skin Appearance) Excoriation, Friable -Moisture (Nany-wound Skin Appearance Assessed ) -Color (Nany-wound Skin Appearance) Assessed -Temperature (Nany-wound Skin No Abnormality Appearance) (Pt Warm) -Tenderness on Palpation (Nany-wound No Skin Appearance) -Ulcer Cleansing Wound Cleanser -Foul Odor after Cleansing No -Anesthetic Used 4% Lidocaine Solution #5 Medial Lower RLE (Skin Tear Cluster ) -Combined with other wound No -Current Size (cm) - Length 18 -Current Size (cm) - Width 14 -Current Size (cm) - Depth 0.2 -Total Square Cm 252 -Tunneling No -Undermining/Tunneling No -Circular Undermining No -Exudate Amt Medium -Exudate Type Serosanguineous -Wound Margin Thickened & Rolled Under -Granulation Amt Small (1-33%) -Granulation Quality [place] -Slough/Fibrin Yes -Necrosis Amt Large (67-100%) -Necrotic Tissue Type Adherent Slough -Structure Exposed N/A -Texture (Nany-wound Skin Appearance) Assessed, Excoriation -Moisture (Nany-wound Skin Appearance Assessed ) -Color (Nany-wound Skin Appearance) Assessed -Temperature (Nany-wound Skin No Abnormality Appearance) (Pt Warm) -Tenderness on Palpation (Nany-wound No Skin Appearance) -Ulcer Cleansing Wound Cleanser -Foul Odor after Cleansing No -Anesthetic Used 4% Lidocaine Solution #4 Medial RLE- Superior -Combined with other wound No -Current Size (cm) - Length 0.6 -Current Size (cm) - Width 0.5 -Current Size (cm) - Depth 0.5 -Total Square Cm 0.30 -Tunneling No -Undermining/Tunneling No -Circular Undermining No -Exudate Amt Medium -Exudate Type Serosanguineous -Wound Margin Thickened & Rolled Under -Granulation Amt Small (1-33%) -Granulation Quality [place] -Slough/Fibrin Yes -Necrosis Amt Large (67-100%) -Necrotic Tissue Type Adherent Slough -Structure Exposed N/A -Texture (Nany-wound Skin Appearance) Assessed, Excoriation -Moisture (Nany-wound Skin Appearance Assessed ) -Color (Nany-wound Skin Appearance) Assessed -Temperature (Nany-wound Skin No Abnormality Appearance) (Pt Warm) -Tenderness on Palpation (Nany-wound No Skin Appearance) -Ulcer Cleansing Wound Cleanser -Foul Odor after Cleansing No -Anesthetic Used 4% Lidocaine Solution #2 Medial RLE- Inferior -Combined with other wound No -Current Size (cm) - Length 1.5 -Current Size (cm) - Width 1.7 -Current Size (cm) - Depth 0.4 -Total Square Cm 2.55 -Tunneling No -Undermining/Tunneling No -Circular Undermining No -Exudate Amt Medium -Exudate Type Serosanguineous -Wound Margin Thickened & Rolled Under -Granulation Amt Small (1-33%) -Granulation Quality [place] -Slough/Fibrin Yes -Necrosis Amt Medium (34-66%) -Necrotic Tissue Type Adherent Slough -Structure Exposed N/A -Texture (Nany-wound Skin Appearance) Assessed, Excoriation -Moisture (Nany-wound Skin Appearance Assessed ) -Color (Nany-wound Skin Appearance) Assessed -Temperature (Nany-wound Skin No Abnormality Appearance) (Pt Warm) -Tenderness on Palpation (Nany-wound No Skin Appearance) -Ulcer Cleansing Wound Cleanser -Foul Odor after Cleansing No -Anesthetic Used 4% Lidocaine Solution #1 Medial RLE -Combined with other wound No -Current Size (cm) - Length 8.7 -Current Size (cm) - Width 5 -Current Size (cm) - Depth 0.6 -Total Square Cm 43.5 -Tunneling No -Undermining/Tunneling No -Circular Undermining No -Exudate Amt Medium -Exudate Type Serosanguineous -Wound Margin Thickened & Rolled Under -Granulation Amt Small (1-33%) -Granulation Quality [place] -Slough/Fibrin Yes -Necrosis Amt Large (67-100%) -Necrotic Tissue Type Adherent Slough -Structure Exposed N/A -Texture (Nany-wound Skin Appearance) Excoriation -Moisture (Nany-wound Skin Appearance Assessed ) -Color (Nany-wound Skin Appearance) Assessed -Temperature (Nany-wound Skin No Abnormality Appearance) (Pt Warm) -Tenderness on Palpation (Nany-wound No Skin Appearance) -Ulcer Cleansing Wound Cleanser -Foul Odor after Cleansing No -Anesthetic Used 4% Lidocaine Solution [Edema Assessment] -Lower Limb Edema Present Yes -Right Calf (cm) 36 -Right Ankle (cm) 20.5 -Left Calf (cm) 35.5 -Left Ankle (cm) 19.5 Psych/Mental Status: Normal Affect, Appropriate Debridement Note Post-Debridement Measurements/Treatment WC - Nurse 2 - General Ulcer CM Notes Start: 09/15/19 09:10 Freq: Status: Active Protocol: Activity Type Activity Date Activity User E-Sign Co-Sign Detail Recorded Client Recorded Date Recorded By Document 09/19/19 11:54 DV [id number] 09/19/19 12:13 DV 09/19/19 11:54 Wound Center Nurse 2 #6 LLE CLUSTER -Time 12:12 -Correct Patient Yes -Correct Side, Site, Position Yes -Correct Procedure Yes -Procedure Performed Yes -Type of Procedure Debridement -Clinical Debridement Subcutaneous -Post Debridement Size (cm) - Length 14.8 -Post Debridement Size (cm) - Width 6.5 -Post Debridement Size (cm) - Depth 0.2 -Total Square Cm 96.20 -Wound/Ulcer Outcome Not Healed -Ulcer Cleansing Rinsed/ Irrigated with Saline -Foul Odor after Cleansing No -Bioengineered Tissue No -Bleeding Controlled with Pressure -Offloading No -Treatment Response Procedure Tolerated Well #5 Medial Lower RLE (Skin Tear Cluster) -Time 12:10 -Correct Patient Yes -Correct Side, Site, Position Yes -Correct Procedure Yes -Procedure Performed Yes -Type of Procedure Debridement -Clinical Debridement Subcutaneous -Post Debridement Size (cm) - Length 16.1 -Post Debridement Size (cm) - Width 11.0 -Post Debridement Size (cm) - Depth 0.1 -Total Square Cm 177.10 -Wound/Ulcer Outcome Not Healed #4 Medial RLE- Superior -Time 12:09 -Correct Patient Yes -Correct Side, Site, Position Yes -Correct Procedure Yes -Procedure Performed Yes -Type of Procedure Debridement -Clinical Debridement Subcutaneous -Post Debridement Size (cm) - Length 1.0 -Post Debridement Size (cm) - Width 0.5 -Post Debridement Size (cm) - Depth 0.4 -Total Square Cm 0.50 -Wound/Ulcer Outcome Not Healed -Ulcer Cleansing Rinsed/ Irrigated with Saline -Foul Odor after Cleansing No -Bioengineered Tissue No -Bleeding Controlled with Pressure -Offloading No -Treatment Response Procedure Tolerated Well #2 Medial RLE- Inferior -Time 12:05 -Correct Patient Yes -Correct Side, Site, Position Yes -Correct Procedure Yes -Procedure Performed Yes -Type of Procedure Debridement -Clinical Debridement Subcutaneous -Post Debridement Size (cm) - Length 2.0 -Post Debridement Size (cm) - Width 2.0 -Post Debridement Size (cm) - Depth 1.0 -Total Square Cm 4.00 -Wound/Ulcer Outcome Not Healed -Ulcer Cleansing Rinsed/ Irrigated with Saline -Foul Odor after Cleansing No -Bioengineered Tissue No -Bleeding Controlled with Pressure -Offloading No -Treatment Response Procedure Tolerated Well #1 Medial RLE -Time 12:02 -Correct Patient Yes -Correct Side, Site, Position Yes -Correct Procedure Yes -Procedure Performed Yes -Type of Procedure Debridement -Clinical Debridement Subcutaneous -Post Debridement Size (cm) - Length 9.0 -Post Debridement Size (cm) - Width 5.0 -Post Debridement Size (cm) - Depth 1.0 -Total Square Cm 45.00 -Wound/Ulcer Outcome Not Healed -Ulcer Cleansing Rinsed/ Irrigated with Saline -Foul Odor after Cleansing No -Bioengineered Tissue No -Bleeding Controlled with Pressure -Offloading No -Treatment Response Procedure Tolerated Well Pain Scale: 0-10 Numeric Is Patient Pain Free? Yes No debridement was completed today - patient sent to ER Assessment/Plan Assessment: 1. Venous ulcer of right leg, chronic. 2. Chronic ulcer of right leg with fat layer exposed. 3. Sternal wound dehiscence, chronic - healed. 4. Venous insufficiency, chronic. 5. Peripheral arterial disease, chronic. 6. T2 DM, chronic. 7. CHF, chronic. 8. End-stage renal disease on dialysis, chronic Plan: Sanjeev's right lower extremity wounds were evaluated and she was referred to the ER at [facility] as she needs higher acuity treatment and may ultimately need amputation. Her left lower extremity also has thick eschar on several areas as well as new areas on her posterior calf. Her son was present today at her visit. She reports that the staff has not been changing her dressings as recommended and have not been using Santyl on her wounds. Her right lower extremity is very erythematous and macerated in areas and has multiple areas of thick eschar and thick slough. Very painful. She has been on oral antibiotics the last week but her legs look much much worse. Off-loading: Avoid prolonged standing or dangling of legs. Keep feet elevated at or above waist level when seated. Diet: Patient encouraged to increase protein and vitamin C intake while taking caution to avoid high carbohydrate and/or sugar intake. Follow-up: after discharge from hospital
== END 2019-10-14 23:59 ==
LOC: WC 12:30
PROVIDERS: Visit Provider Family Medicine
DX: I83.018 Varicose veins of right lower extremity with ulcer other part of lower leg (principal); L97.812 Non-pressure chronic ulcer of other part of right lower leg with fat layer exposed; E11.22 Type 2 diabetes mellitus with diabetic chronic kidney disease; I50.32 Chronic diastolic (congestive) heart failure; N18.6 End stage renal disease; Z99.2 Dependence on renal dialysis; Z95.1 Presence of aortocoronary bypass graft; K21.9 Gastro-esophageal reflux disease without esophagitis; I25.10 Atherosclerotic heart disease of native coronary artery without angina pectoris; E78.5 Hyperlipidemia, unspecified; D63.8 Anemia in other chronic diseases classified elsewhere; L03.115 Cellulitis of right lower limb
CPT/HCPCS: 11042; 87070; 87075; 87077; 87186; 87205; 87640; 99212; G0463